=== PATIENT | female | born 1955 | race Two or more races ===

== ENCOUNTER 2023-04-04 06:32 | Outpatient (OUT) | payer MEDICARE, SELFPAY ==
[2023-04-04 06:51] LABS: Hematocrit 44.4 % (36.0-48.0); Hemoglobin 14.5 g/dL (12.0-16.0); Mean Corpuscular HGB Conc 32.7 g/dL (29.9-35.2); Mean Corpuscular Hemoglobin 30.1 pg (26.7-34.0); Mean Corpuscular Volume 92.3 fL (81.0-99.0); Mean Platelet Volume 10.3 fL (9.5-13.5); Platelet Count 267 10^3/uL (150-450); Red Blood Count 4.81 10^6/uL (4.20-5.40); Red Cell Distribution Width 12.7 % (11.0-15.0); White Blood Count 9.3 10^3/uL (4.0-11.0)
[2023-04-04 07:02] LABS: Bilirubin Urine NEGATIVE (NEGATIVE); Blood Urine NEGATIVE (NEGATIVE); Clarity Urine CLEAR (CLEAR); Color Urine LT. YELLOW (YELLOW); Glucose Urine UA NEGATIVE (NEGATIVE); Ketones Urine NEGATIVE (NEGATIVE); Leukocyte Esterase Urine NEGATIVE (NEGATIVE); Nitrite Urine NEGATIVE (NEGATIVE); Protein Urine NEGATIVE (NEG/TRACE); Urobilinogen Urine 0.2 EU/dL (0.2-1.0)
[2023-04-04 07:19] LABS: Bacteria Urine TRACE #/HPF (NONE SEEN); Cast Seen? NONE SEEN #/LPF (NONE SEEN); Crystals Seen? None Seen #/HPF (None Seen); Mucus Urine NONE SEEN (NONE SEEN); RBC Urine 0-2 #/HPF (0-2); Squamous Epithelial Cell Urine RARE #/LPF (NONE/RARE); WBC Urine 0-2 #/HPF (NONE SEEN)
[2023-04-04 07:33] LABS: Creatinine Urine Random 63.05 mg/dL (20.00-300.00); Total Protein Urine Random <6.0 mg/dL (<=11.9)
[2023-04-04 07:52] LABS: Albumin Level 4.1 g/dL (3.4-5.0); Anion Gap 14.7; BUN Creatinine Ratio 14.3; Calcium 9.6 mg/dL (8.5-10.1); Carbon Dioxide 25.6 mmol/L (21.0-32.0); Chloride 103 mmol/L (98-107); Estimated GFR (African America 48 (>=60); Estimated GFR (Non-African Ame 40 (>=60); Glucose 95 mg/dL (74-106); Potassium 4.3 mmol/L (3.5-5.1); Sodium 139 mmol/L (136-145); Uric Acid 6.4 mg/dL (2.6-6.0)
[2023-04-05 13:07] LABS: PTH, Intact 39 pg/mL (15-65)
== END 2023-04-04 06:33 | disposition home or self-care (01) ==
LOC: LAB 06:32
PROVIDERS: Visit Provider Internal Medicine
DX: I12.9 Hypertensive chronic kidney disease with stage 1 through stage 4 chronic kidney disease, or unspecified chronic kidney disease (principal); N18.32 Chronic kidney disease, stage 3b; N25.81 Secondary hyperparathyroidism of renal origin; K50.90 Crohn's disease, unspecified, without complications
CPT/HCPCS: 36415; 80069; 81001; 82306; 82570; 83735; 83970; 84156; 84550; 85027

== ENCOUNTER 2023-10-24 06:31 | Outpatient (OUT) | payer MEDICARE, SELFPAY ==
[2023-10-24 07:03] LABS: Hematocrit 43.3 % (36.0-48.0); Mean Corpuscular HGB Conc 32.3 g/dL (29.9-35.2); Mean Corpuscular Hemoglobin 29.4 pg (26.7-34.0); Mean Platelet Volume 10.8 fL (9.5-13.5); Platelet Count 257 10^3/uL (150-450); Red Blood Count 4.76 10^6/uL (4.20-5.40); Red Cell Distribution Width 12.7 % (11.0-15.0); White Blood Count 9.7 10^3/uL (4.0-11.0)
[2023-10-24 07:04] LABS: Bilirubin Urine NEGATIVE (NEGATIVE); Blood Urine NEGATIVE (NEGATIVE); Clarity Urine CLEAR (CLEAR); Color Urine YELLOW (YELLOW); Glucose Urine UA NEGATIVE (NEGATIVE); Ketones Urine NEGATIVE (NEGATIVE); Leukocyte Esterase Urine NEGATIVE (NEGATIVE); Nitrite Urine NEGATIVE (NEGATIVE); Protein Urine NEGATIVE (NEG/TRACE); Specific Gravity Urine 1.025 (1.005-1.025); Urobilinogen Urine 0.2 EU/dL (0.2-1.0); pH Urine 5.5 (5.0-9.0)
[2023-10-24 07:32] LABS: Creatinine Urine Random 157.38 mg/dL (20.00-300.00); Protein Creatinine Ratio Urine 0.08; Total Protein Urine Random 12.9 mg/dL (<=11.9)
[2023-10-24 07:36] LABS: Albumin Level 3.9 g/dL (3.4-5.0); Anion Gap 14.8; BUN Creatinine Ratio 11.3; Calcium 9.4 mg/dL (8.5-10.1); Carbon Dioxide 25.3 mmol/L (21.0-32.0); Chloride 104 mmol/L (98-107); Estimated GFR (African America 45 (>=60); Estimated GFR (Non-African Ame 37 (>=60); Glucose 92 mg/dL (74-106); Magnesium 1.9 mg/dL (1.8-2.4); Phosphorus 3.9 mg/dL (2.6-4.7); Potassium 4.1 mmol/L (3.5-5.1); Sodium 140 mmol/L (136-145); Uric Acid 6.8 mg/dL (2.6-6.0)
[2023-10-24 07:40] LABS: Bacteria Urine NONE SEEN #/HPF (NONE SEEN); Cast Seen? NONE SEEN #/LPF (NONE SEEN); Crystals Seen? None Seen #/HPF (None Seen); Mucus Urine NONE SEEN (NONE SEEN); RBC Urine NONE SEEN #/HPF (0-2); Squamous Epithelial Cell Urine NONE SEEN #/LPF (NONE/RARE); WBC Urine NONE SEEN #/HPF (NONE SEEN)
[2023-10-25 11:09] LABS: PTH, Intact 45 pg/mL (15-65)
== END 2023-10-24 06:32 | disposition home or self-care (01) ==
LOC: LAB 06:31
DX: I12.9 Hypertensive chronic kidney disease with stage 1 through stage 4 chronic kidney disease, or unspecified chronic kidney disease (principal); N18.32 Chronic kidney disease, stage 3b; N25.81 Secondary hyperparathyroidism of renal origin; K50.90 Crohn's disease, unspecified, without complications; E79.0 Hyperuricemia without signs of inflammatory arthritis and tophaceous disease
CPT/HCPCS: 36415; 80069; 81001; 82306; 82570; 83735; 83970; 84156; 84550; 85027

== ENCOUNTER 2024-05-20 08:29 | Outpatient (OUT) | payer MEDICARE, SELFPAY ==
--- OUTSIDE RECORDS SUMMARY | 2024-05-20 08:33 | XMS_ITS | CCD ---
Author Organization [facility] Care Team Providers Care Retail Equipment Associate Name Role Phone Sandeep Romeo Unavailable Дмитрий, Michael Unavailable ДМИТРИЙ, MICHAEL Admitting Unavailable ДМИТРИЙ, MICHAEL Attending Unavailable ДМИТРИЙ, MICHAEL Consulting Unavailable MISC, DR BARROW Primary Care Unavailable ДМИТРИЙ, MICHAEL Admitting Unavailable ДМИТРИЙ, MICHAEL Attending Unavailable ДМИТРИЙ, MICHAEL Consulting Unavailable REQUEST, DR MIK LISTED Primary Care Unavaila ble ДМИТРИЙ, MICHAEL Consulting Unavailable ДМИТРИЙ, MICHAEL Admitting Unavailable ДМИТРИЙ, MICHAEL Attending Unavailable MISC, DR BARROW Primary Care Unavailable ДМИТРИЙ, MICHAEL Admitting Unavailable ДМИТРИЙ, MICHAEL Attending Unavailable MISC, DR BARROW Primary Care Unavailable ZIEBER, DR CRISTIAN Warren Consulting Unavailable ДМИТРИЙ, MICHAEL Consulting Unavailable ДМИТРИЙ, MICHAEL Admitting Unavailable ДМИТРИЙ, MICHAEL Attending Unavailable MISC, DR BARROW Consulting Unavailable MISC, DR BARROW Primary Care Unavailable ДМИТРИЙ, MICHAEL Consulting Unavailable Anat Ny Primary Care Physician Unavailable Primary Care Provider UnavailBRIDGETTE Nolen Attending Unavailable BRIDGETTE COOL Attending Unavailable DO Anat Ny Primary Care Provider MD Clyde Garcia Attending Provider [phone] Clyde Garcia Attending Unavailable Clyde Garcia Admitting Unavailable Anat Ny Primary Care Unavailable Anat Ny Admitting Unavailable Anat Ny Attending Unavailable Anat Ny Referring Unavailable Medications Current Medications Medication Drug Class(es) Dates Sig (Normalized) Sig (Original) amLODIPine 10 mg oral tablet (12 sources) Dihydropyridine Calcium Channel Denise Start: 11-01-2023 take 10 mg by mouth once daily in the morning Amlodipine Active 10 MG PO Every morning November 01, 2023 12:00am amLODIPine Benzo ate 1 MG/ML suspension amLODIPine Benzoate 0 Active take 1 tablet by mouth once lawrence y amLODIPine Besylate 10 MG 1 tablet Orally Once a day for 90 day(s) Active aspirin 81 mg delayed release oral tablet (12 sources) Platelet Aggregation Inhibitor, Nonsteroidal Anti-inflammatory Drug Start: 11-01-2023 take 81 mg by mouth once daily Aspirin Active 81 MG PO Daily November 01, 2023 12:00am BABY ASPIRIN PO take 1 tablet by loretta th every twenty-four hours Aspirin 81 MG 1 tablet Orally Once a day Active atenolol 100 mg oral tablet (16 sources) beta-Adrenergic Denise Start: 11-01-2023 take 100 mg by mouth once daily in the evening Atenolol Active 100 MG PO Every evening November 01, 2023 12:00am atenolol (Tenorm in) 100 MG tablet take 2 tablets by mo [facility] every twenty-four hours Atenolol 50 MG 2 tablet Orally Once a da y for 90 day(s) Active atorvastatin 10 mg oral tablet (11 sources) HMG-CoA Reductase Inhibitor Start: 11-01-2023 take 10 mg by mouth once daily in the morning Atorvastatin Active 10 MG PO Every morning November 01, 2023 12:00am atorvastatin (Li pitor) 10 MG tablet ergocalciferol 1.25 mg oral capsule (20 sources) Provitamin D2 Compound Start: 09-12-2023 End: 09-12-2023 take 1250 ug by mouth every week Ergocalciferol (Vitamin D2) Active 1250 MCG PO every week September 12, 2023 3:03pm Start: 09-12-2023 End: 09-12-2023 take 1 capsule by mouth every week Ergocalciferol (Vitamin D2) Discontinued 05257 UNIT PO every week September 12, 2023 12:00am September 12, 2023 2:41pm FreeTextSig: TAKE 1 CAPSULE BY MOUTH ONCE WEEKLY; Note: Source Status: Taking; Refills: 1; Qty: 14 Capsule; Provider: Дмитрий Rodriguez ( ) Start: 07-25-2021 take 1 capsule by mo [facility] every week Ergocalciferol 1.25 MG (56287 UT) 1 capsule Orally Q week for 90 day(s) Jun, Active estradiol 0.5 mg oral tablet (4 sources) Estrogen take 1 tablet by mouth every twenty-four hours Estradiol 0.5 MG 1 tablet Orally Once a day Active lisinopril 40 mg oral tablet (12 sources) Angiotensin Converting Enzyme Inhibitor Start: take 40 mg by mouth once daily in the morning Lisinopril Active 40 MG PO Every morning November 01, 2023 12:00am take 1 tablet by mouth in the mo rning lisinopril 40 MG tablet Take 40 mg by mouth in the morning. 0 Active mesalamine (1 source) Aminosalicylate Start: 12-19-2023 take 4 capsules by mouth once daily in the morning Mesalamine (Apriso) 0.375 gram capsule,extended release 24hr Active 1.5 GM PO Every morning 120 December 19, 2023 12:00am Take 4 capsule orally in the morning. pantoprazole 20 mg delayed release oral tablet (12 sources) Proton Pump Inhibitor Start: 11-01-2023 take 20 mg by mouth once daily in the morning Pantoprazole Active 20 MG PO Every morning November 01, 2023 12:00am pantoprazole (Pr otoNix) 20 MG EC tablet Pantoprazole Sodium 0 Active Pantoprazole Sod ium 40 MG TAKE 1 TABLET BY MOUTH EVERY DAY Oral Once a day for 30 days Active Polyethylene Glycol 3350 (Miralax) 17 gram/dose powder (3 sources) Start: 11-13-2023 Polyethylene G lycol 3350 (Miralax) 17 gram/dose powder Active 17 GM PO Daily 510 November 13, 2023 12:00am Completed/Discontinued Medications Medication Drug Class(es) Dates Sig (Normalized) Sig (Original) acetaminophen 325 mg / HYDROcodone bitartrate 5 mg oral tablet (4 sources) Opioid Agonist Start: 08-04-2020 End: 11-01-2023 take 1 tablet by mouth every six hours Hydrocodone-Acetam inophen Discontinued 1 TAB PO Q6H 10 3 August 04, 2020 November 01, 2023 2:31pm ondansetron 4 mg disintegrating oral tablet (4 sources) Serotonin-3 Receptor Antagonist Start: 08-04-2020 End: 11-01-2023 take 4 mg by mouth four times daily Ondansetron Discontinued 4 MG PO Four times daily August 04, 2020 1:00am November 01, 2023 2:31pm Problems Active Problems Problem Classification Problem Date Documented Date Episodic/Chronic Abdominal pain (12 sources) Left lower quadrant pain; Translations: [Left lower quadrant pain] Episodic Chronic kidney disease (19 sources) Chronic kidney disease; Translations: [Chronic kidney disease, unspecified] 11-01-2023 Chronic Disorders of lipid metabolism (8 sources) Hyperlipidemia; Translations: [Hyperlipidemia, unspecified] 11-01-2023 Chronic Diverticulosis and diverticulitis (6 sources) Diverticular disease of colon; Translations: [Diverticulosis of large intestine without perforation or abscess without bleeding] Chronic Esophageal disorders (12 sources) Gastro-esophageal reflux disease with esophagitis; Translations: [Gastro-esophageal reflux disease with esophagitis] 11-13-2023 Chronic Gastroduodenal ulcer (except hemorrhage) (6 sources) Antral ulcer; Translations: [Gastric ulcer, unspecified as acute or chronic, without hemorrhage or perforation] Chronic Hypertension with complications and secondary hypertension (20 sources) Chronic kidney disease due to hypertension; Translations: [Hypertensive chronic kidney disease with stage 1 through stage 4 chronic kidney disease, or unspecified chronic kidney disease] Onset: 2 Resolved: 2 Chronic Nausea and vomiting (6 sources) Vomiting; Translations: [Vomiting, unspecified] Episodic Noninfectious gastroenteritis (4 sources) Colitis; Translations: [Noninfective gastroenteritis and colitis, unspecified] 06-06-2023 Episodic Other diseases of kidney and ureters (10 sources) Secondary hyperparathyroidism; Translations: [Secondary hyperparathyroidism of renal origin] 11-01-2023 Chronic Other diseases of kidney and ureters (9 sources) Secondary hyperparathyroidism of renal origin; Translations: [Secondary hyperparathyroidism (of renal origin)] Onset: 2 Resolved: 2 Chronic Other gastrointestinal disorders (6 sources) H/O: gastrointestinal disease; Translations: [Personal history of other diseases of the digestive system] Episodic Other nutritional; endocrine; and metabolic disorders (6 sources) Hyperuricemia without signs of inflammatory arthritis and tophaceous disease; Translations: [Other abnormal blood chemistry] Episodic Other nutritional; endocrine; and metabolic disorders (4 sources) Hyperuricemia; Translations: [Hyperuricemia without signs of inflammatory arthritis and tophaceous disease] 11-01-2023 Episodic Other screening for suspected conditions (not mental disorders or infectious disease) (1 source) Encounter for screening for malignant neoplasm of colon; Translations: [Encounter for screening for malignant neoplasm of colon] Onset: 4 Episodic Other skin disorders (2 sources) Inflamed seborrheic keratosis; Translations: [Inflamed seborrheic keratosis] 08-08-2023 Episodic Regional enteritis and ulcerative colitis (20 sources) Crohn's disease; Translations: [Crohn's disease, unspecified, without complications] Onset: 2 Resolved: 2 Chronic Past or Other Problems Problem Classification Problem Date Documented Da te Episodic/Chronic Chronic kidney disease (6 sources) Chronic kidney disease; Translations: [Chronic kidney disease, stage 3b] Onset: 01-16-2022 Resolved: 01-16-2022 Results Test Name Value Interpretation Reference Range Facility BD Bone Density DEXAon 04-12 BD Bone Density DEXA Exam Date/Time: 04/10/2024 08:20 EDT Reason for Exam: M85.89 Report IMPRESSION: OSTEOPENIA. The 10 year probability (FRAX) of a major osteoporotic fracture based on the left femoral neck bone marrow density is: 8.9%, and hip fracture 0.9%. EXAM: BD Bone Density DEXA DATE: 04/10/2024 8:15 AM CLINICAL HISTORY: M85.89. COMPARISON: 04/06/2022. COMMENTS: The lumbar spine and both hips were scanned. The mean bone mineral density from L1 to L4 is 1.221 g/cm2 and this value is 0.3 standard of deviation above the standard reference value for a young adult. Bone mineral density of the left femoral neck is 0.860 g/cm2 and this value is -1.3 standard of deviation below the standard reference value. Bone mineral density of the right femoral neck is 0.906 g/cm2 and this value is -1.0 standard of deviation below the standard reference value. These values meet WHO criteria for osteopenia. When compared to the prior exam, there has been a significant -3.7% decrease in bone mineral density from L1 to L4, a nonsignificant -4.1% decrease in bone mineral density of the left femoral neck, and a nonsignificant -0.4% decrease in bone mineral density of the right femoral neck. RECOMMENDATIONS: 1. All patients should optimize her calcium and vitamin D intake. 2. Consider FDA-approved medical therapies in postmenopausal women and minimal age 50 years and older, based on the following: - hip or vertebral (clinical or morphometric) fracture. - T-score less than or equal to -2.5 at the femoral neck or spine after the appropriate evaluation to exclude secondary causes. - Low bone density (T score between -1.0 and -2.5 at the femoral neck or spine) and a 10 year probability of hip fracture greater than or equal to 3% or a 10-year probability of a major osteoporosis-related fracture greater than or equal to 20% based on FRAX calculation. Report - Clinician judgment and/or patient preferences may indicate treatment for palpable attenuation fracture probability is above or below these levels. - Further guidance on treatment can be found at the National Osteoporosis Foundation's website: bonesource.org 3. Patients with diagnosis of osteoporosis or high risk for fracture. There are irregular bone mineral density tests. For patients eligible for Medicare, routine testing is allowed once every 2 years. Testing frequency can be increased to 1 year for patient's history of rapidly progressing disease, those who are receiving or discontinuing medical therapy to restore bone mass or have additional risk factors. Ordering Provider: Anat Ny FINAL REPORT Dictated: 04/12/2024 9:36 am Ovidio Bunch MD Signed (Electronic Signature): 04/12/2024 9:36 am Signed by: Ovidio Bunch MD Transcribed by: ARNULFO Technologist: NELL Garay [facility] MA Mamm Screen w/CAD if perf and 3D Bilon 04-12-2024 MA Mamm Screen w/CAD if perf and 3D Marck Exam Date/Time: 04/10/2024 08:15 EDT Reason for Exam: Z12.31 Report IMPRESSION: BIRADS 1 NEGATIVE, NORMAL INTERVAL FOLLOW-UP Follow-up: 12 MONTH RECALL Density: Category C - Heterogeneously dense. Vascular calcifications: Absent. EXAM: MA Mamm Screen w/CAD if perf and 3D Marck DATE: 04/10/2024 7:56 AM CLINICAL HISTORY: Z12.31. COMPARISONS: 04/09/2023, 04/06/2022, and 12/14/2020. TECHNIQUE: Routine full-field digital mammograms and 3D breast tomosynthesis were obtained of both breasts. FINDINGS: There are no developing densities, suspicious microcalcifications, or areas of architectural distortion identified on the current study. No significant changes are identified from the prior studies, given differences in technique and positioning. Dense Breast: Yes. CAD analysis was performed and used in the interpretation. Board Certified Radiologists. Accredited by the ACR and FDA. MAMMOGRAPHY IS VERY IMPORTANT TO YOUR HEALTH. THE CURRENT [place] [employer] GUIDELINES RECOMMENDS ANNUAL MAMMOGRAPHY BEGINNING AT AGE 40. THIS FACILITY UTILIZES A REMINDER SYSTEM TO ENSURE ALL PATIENTS RECEIVE REMINDER NOTIFICATIONS AT THE APPROPRIATE TIME BASED ON THE RECOMMENDATIONS OF THIS EXAM. Report Ordering Provider: Anat Ny FINAL REPORT Dictated: 04/12/2024 9:34 am Ovidio Bunch MD Signed (Electronic Signature): 04/12/2024 9:34 am Signed by: Ovidio Bunch MD Transcribed by: ARNULFO Technologist: [facility] Assessment: BI-RADS Category 1-Negative Recommendation: Normal interval follow-up Normal [facility] Kenny 12-03-2023 L Specimen: [id number] Received: 12/03/23 Status: YING Rodriguez Num: [id number] Spec Type: Surgical Subm Dr: Clyde Garcia MD Tissues: A Colon Biopsy (GEOFF TERMUNAL ILEUM BX) Procedures: HE/2, Gross/Micro L4 Age/ Patient Sex Location Account Attending Physician Darnell Hay 68/F [id number] Clyde Garcia MD SPEC NUM: [id number] RECD: 12/03/23 STATUS: YING RODRIGUEZ NUM: [id number] RODGER: 12/03/[address]: Clyde Garcia MD ENTERED: 12/03/[address] [facility] [address]: SPEC TYPE: Surgical DEPT: S ORDERED: HE/2, Gross/Micro L4 ORDERED: HE/2, Gross/Micro L4 Pathological Diagnosis Neoterminal ileum biopsy: -Small bowel mucosa with mild insignificant stromal chronic inflammation in both fragments, but also with a small focus of mild chronic inflammation with few admixed PMN in lamina propria and at some glandular epithelial layer in 1 fragment, compatible with focal mild erosive ileitis and/or small early ulceration of uncertain significance, otherwise without any glandular dysplasia identified, but requiring continuous clinical correlation and patient surveillance follow-up as appropriate Clinical Information Crohn's disease Gross Description Received in formalin labeled with the patient's name, date of and neoterminal ileum BX are 2 martinez mucosal tissue fragments measuring 0.3 x 0.3 x 0.1 cm and 0.2 x 0.2 x 0.1 cm, entirely submitted in A1. CPT Codes 51856 -------- -------- Specimen: [id number] Received: 12/03/23 Status: YING Rodriguez Num: [id number] Spec Type: Surgical Subm Dr: Clyde Garcia MD Tissues: A Colon Biopsy (GEOFF TERMUNAL ILEUM BX) Procedures: HE/Harry, Gross/Micro L4 -------- Patient: Darnell Hay [id number] (Continued) -------- Signed (signature on file) Calros-Mariusz Flores MD 12/04/23 1853 Normal [facility] No Panel Informationon 08-08 [facility] PTH INTACTon 09-20-2022 PTH, Intact 69 pg/mL Critically high 15-65 [facility] Comment on above: Performed By: #### P THINT #### [facility] [address] [place] [address] Dr. Lamin Flores HEMOGRAM AND PLATELon 2022 Hematocrit (Bld) [Volume fraction] 44.1 % Normal 36.0-48.0 [facility] Comment on above: Performed By: #### R ENAL, MG, URIC #### [facility] [address] [place] [address] Dr. Lamin Flores Hemoglobin (Bld) [Mass/Vol] 14.7 g/dL Normal 12.0-16.0 [facility] Comment on above: Performed By: #### R ENAL, MG, URIC #### [facility] [address] [place] [address] Dr. Lamin Flores MCH (RBC) [Entitic mass] 29.9 pg Normal 26.7-34.0 [facility] Comment on above: Performed By: #### R ENAL, MG, URIC #### [facility] [address] [place] [address] Dr. Lamin Flores MCHC (RBC) [Mass/Vol] 33.3 g/dL Normal 29.9-35.2 [facility] Comment on above: Performed By: #### R ENAL, MG, URIC #### [facility] [address] [place] [address] Dr. Lamin Flores MCV (RBC) [Entitic vol] 89.6 fL Normal 81.0-99.0 [facility] Comment on above: Performed By: #### R ENAL, MG, URIC #### [facility] [address] [place] [address] Dr. Lamin Flores PLT 290 103/ul Normal 150-450 [facility] Comment on above: Performed By: #### R ENAL, MG, URIC #### [facility] [address] [address] [address] Lamin Flores RBC 4.92 106/ul Normal 4.20-5.40 [facility] Comment on above: Performed By: #### R ENAL, MG, URIC #### [facility] [address] [place] [address] Dr. Lamin Flores WBC 11.8 103/ul Critically high 4.0-11.0 [facility] Comment on above: Performed By: #### R ENAL, MG, URIC #### [facility] [address] [place] [address] Dr. Lamin Flores MAGNESIUMon 09-19-2022 Magnesium [Mass/Vol] 1.9 mg/dL Normal 1.8-2.4 [facility] Comment on above: Performed By: #### R ENAL, MG, URIC #### [facility] [address] [place] [address] Dr. Lamin Flores RENAL FUNCTION PANELon 09-19 Albumin [Mass/Vol] 4.3 g/dL Normal 3.4-5.0 [facility] Comment on above: Performed By: #### R ENAL, MG, URIC #### [facility] [address] [place] [address] Dr. Lamin Flores Calcium [Mass/Vol] 9.7 mg/dL Normal 8.5-10.1 [facility] Comment on above: Performed By: #### R ENAL, MG, URIC #### [facility] [address] [place] [address] Dr. Lamin Flores Chloride [Moles/Vol] 103 mmol/L Normal 98-107 [facility] Comment on above: Performed By: #### R ENAL, MG, URIC #### [facility] [address] [address] [address] Lamin Flores CO2 [Moles/Vol] 27.4 mmol/L Normal 21.0-32.0 [facility] Comment on above: Performed By: #### R ENAL, MG, URIC #### [facility] [address] [place] [address] Dr. Lamin Flores Creatinine [Mass/Vol] 1.44 mg/dL Critically high 0.55-1.02 [facility] Comment on above: Performed By: #### R ENAL, MG, URIC #### [facility] [address] [place] [address] Dr. Lamin Flores EGFR-AF [place] 44 mL/min/1.73m2 Critically low >=60 [facility] Comment on above: Performed By: #### R ENAL, MG, URIC #### [facility] [address] [place] [address] Dr. Lamin Flores EGFR-NON AF [place] 36 mL/min/1.73m2 Critically low >=60 [facility] Comment on above: Performed By: #### R ENAL, MG, URIC #### [facility] [address] [place] [address] Dr. Lamin Flores Glucose [Mass/Vol] 99 mg/dL Normal 74-[address] [facility] Comment on above: Performed By: #### R ENAL, MG, URIC #### [facility] [address] [place] [address] Dr. Lamin Flores Phosphate [Mass/Vol] 3.9 mg/dL Normal 2.6-4.7 [facility] Comment on above: Performed By: #### R ENAL, MG, URIC #### [facility] [address] [place] [address] Dr. Lamin Flores Potassium [Moles/Vol] 4.3 mmol/L Normal 3.5-5.1 [facility] Comment on above: Performed By: #### R ENAL, MG, URIC #### [facility] [address] [address] [address] Lamin Flores Sodium [Moles/Vol] 143 mmol/L Normal 136-145 [facility] Comment on above: Performed By: #### R ENAL, MG, URIC #### [facility] [address] [place] [address] Dr. Lamin Flores Urea nitrogen [Mass/Vol] 19.0 mg/dL Critically high 7.0-18.0 [facility] Comment on above: Performed By: #### R ENAL, MG, URIC #### [facility] [address] [place] [address] Dr. Lamin Flores UA RANDOM W/MICROSCOPICon BACTERIA TRACE Abnormal NONE SEEN [facility] Comment on above: Performed By: #### R ENAL, MG, URIC #### [facility] [address] [place] [address] Dr. Lamin Flores Bilirubin Ql (U) Negative Normal NEGATIVE [facility] Comment on above: Performed By: #### R ENAL, MG, URIC #### [facility] [address] [place] [address] Dr. Lamin Flores CAST NONE SEEN Normal NONE SEEN [facility] Comment on above: Performed By: #### R ENAL, MG, URIC #### [facility] [address] [place] [address] Dr. Lamin Flores Clarity (U) CLEAR Normal CLEAR [facility] Comment on above: Performed By: #### R ENAL, MG, URIC #### [facility] [address] [place] [address] Dr. Lamin Flores Color (U) LT. YELLOW Normal YELLOW [facility] Comment on above: Performed By: #### R ENAL, MG, URIC #### [facility] [address] [place] [address] Dr. Lamin Flores Crystals LM Nom (Urine sed) NONE SEEN Normal NONE SEEN [facility] Comment on above: Performed By: #### R ENAL, MG, URIC #### [facility] [address] [place] [address] Dr. Lamin Flores Epithelial cells LM Ql (Urine sed) MODERATE Abnormal NONE SEEN /RARE [facility] Comment on above: Performed By: #### R ENAL, MG, URIC #### [facility] [address] [place] [address] Dr. Lamin Flores Glucose Ql (U) Negative Normal NEGATIVE [facility] Comment on above: Performed By: #### R ENAL, MG, URIC #### [facility] [address] [address] [address] Lamin Flores Hemoglobin Ql (U) Negative Normal NEGATIVE [facility] Comment on above: Performed By: #### R ENAL, MG, URIC #### [facility] [address] [address] [address] Lamin Flores Ketones Ql (U) Negative Normal NEGATIVE [facility] Comment on above: Performed By: #### R ENAL, MG, URIC #### [facility] [address] [place] [address] Dr. Lamin Flores LEUKOCYTES Negative Normal NEGATIVE [facility] Comment on above: Performed By: #### R ENAL, MG, URIC #### [facility] [address] [place] [address] Dr. Lamin Flores MUCOUS NONE SEEN Normal NONE SEEN [facility] Comment on above: Performed By: #### R ENAL, MG, URIC #### [facility] [address] [place] [address] Dr. Lamin Flores Nitrite Ql (U) Negative Normal NEGATIVE [facility] Comment on above: Performed By: #### R ENAL, MG, URIC #### [facility] [address] [place] [address] Dr. Lamin Flores pH (U) 6.0 [pH] Normal 5-9 [facility] Comment on above: Performed By: #### R ENAL, MG, URIC #### [facility] [address] [place] [address] Dr. Lamin Flores RBC NONE SEEN Abnormal 0-2 [facility] Comment on above: Performed By: #### R ENAL, MG, URIC #### [facility] [address] [place] [address] Dr. Lamin Flores SPEC GRAVITY <=1.005 Abnormal 1.005-<=1.025 [facility] Comment on above: Performed By: #### R ENAL, MG, URIC #### [facility] [address] [place] [address] Dr. Lamin Flores UA PROTEIN Negative Normal NEGATIVE/ TRACE [facility] Comment on above: Performed By: #### R ENAL, MG, URIC #### [facility] [address] [address] [address] Lamin Flores Urobilinogen Qn (U) 0.2 {Lolis'U}/dL Normal 0.2 - 1. 0 [facility] Comment on above: Performed By: #### R ENAL, MG, URIC #### [facility] [address] [place] [address] Dr. Lamin Flores WBC NONE SEEN Normal NONE SEEN [facility] Comment on above: Performed By: #### R ENAL, MG, URIC #### [facility] [address] [place] [address] Dr. Lamin Flores URIC ACID SERUMon 09-19-2022 Urate [Mass/Vol] 6.6 mg/dL Critically high 2.6-6.0 [facility] Comment on above: Performed By: #### R ENAL, MG, URIC #### [facility] [address] [place] [address] Dr. Lamin Flores URINE T PROTEIN CREAT RATIOo n 09-19-2022 UR PROT CREAT RAT 0.22 Normal [facility] Comment on above: Performed By: #### R ENAL, MG, URIC #### [facility] [address] [place] [address] Dr. Lamin Flores UR TOTAL PROTEIN <6.0 Normal <=12.0 [facility] Comment on above: Performed By: #### R ENAL, MG, URIC #### [facility] [address] [place] [address] Dr. Lamin Flores URINE CREAT 27.42 mg/dL Normal 20.00-300.00 [facility] Comment on above: Performed By: #### R ENAL, MG, URIC #### [facility] [address] [address] [address] Lamin Flores VITAMIN D 25 OHon 09-19-2022 VIT D 25-OH 49.4 ng/mL Normal [facility] Comment on above: Performed By: #### V ITAD #### [facility] [address] [address] [address] Lamin Flores VIT D RANGES SEE BELOW Normal [facility] Comment on above: Result Comment: <20 ng/mL Vit D deficient 20 - <30 ng/mL Vit D insufficient 30 - 100 ng/mL Vit D sufficient >100 ng/mL Potential Toxicity Performed By: #### V ITAD #### [facility] [address] [address] [address] Lamin Flores US KIDNEYSon 07-26-2022 US KIDNEYS EXAMINATION: US KIDNEYS HISTORY: CKD stage 3B COMPARISON: Ultrasound kidneys 05/12/2021 TECHNIQUE: Ultrasound examination was performed of the kidneys and urinary bladder. FINDINGS: RIGHT KIDNEY: No evidence of pelvocaliectasis, mass, or calculi. Slight increased cortical parenchymal echogenicity and mild cortical thinning, 1.1 cm in thickness. Color Doppler demonstrates blood flow within the kidney. Kidney: 8.5 x 3.8 x 3.8 cm LEFT KIDNEY: No evidence of pelvocaliectasis, mass, or calculi. Slightly increased cortical parenchymal echogenicity and mild cortical thinning, 0.9 cm in thickness. Color Doppler demonstrates blood flow within the kidney. Kidney: 7.7 x 5.2 x 4.7 cm BLADDER: No visible wall thickening, mass, or calculi. IMPRESSION: 1. No hydronephrosis, mass, or appreciable calculi. 2. Stable mild cortical thinning and increased echogenicity compatible with chronic renal disease. Electronically authenticated by: CRISTIAN HAWKINS Date: 2022-07-26 07:37 Normal [facility] RENAL FUNCTION PANELon 07-24 Albumin [Mass/Vol] 4.0 g/dL Normal 3.4-5.[address] [facility] Comment on above: Performed By: #### R ENAL, MG, URIC #### [facility] [address] [address] [address] Lamin Flores Calcium [Mass/Vol] 9.1 mg/dL Normal 8.5-10.1 [facility] Comment on above: Performed By: #### R ENAL, MG, URIC #### [facility] [address] [address] [address] Lamin Flores Chloride [Moles/Vol] 100 mmol/L Normal 98-107 [facility] Comment on above: Performed By: #### R ENAL, MG, URIC #### [facility] [address] [address] [address] Lamin Flores CO2 [Moles/Vol] 26.2 mmol/L Normal 21.0-32.0 [facility] Comment on above: Performed By: #### R ENAL, MG, URIC #### [facility] [address] [address] [address] Lamin Flores Creatinine [Mass/Vol] 1.40 mg/dL Critically high 0.55-1.02 [facility] Comment on above: Performed By: #### R ENAL, MG, URIC #### [facility] [address] [address] [address] Lamin Flores EGFR-AF RWANDAN 46 mL/min/1.73m2 Critically low >=60 [facility] Comment on above: Performed By: #### R ENAL, MG, URIC #### [facility] [address] [address] [address] Lamin Flores EGFR-NON AF RWANDAN 38 mL/min/1.73m2 Critically low >=60 [facility] Comment on above: Performed By: #### R ENAL, MG, URIC #### [facility] [address] [address] [address] Lamin Flores Glucose [Mass/Vol] 94 mg/dL Normal 74-106 [facility] Comment on above: Performed By: #### R ENAL, MG, URIC #### [facility] [address] [address] [address] Lamin Flores Phosphate [Mass/Vol] 3.5 mg/dL Normal 2.6-4.7 [facility] Comment on above: Performed By: #### R ENAL, MG, URIC #### [facility] [address] [address] [address] Lamin Flores Potassium [Moles/Vol] 4.2 mmol/L Normal 3.5-5.1 [facility] Comment on above: Performed By: #### R ENAL, MG, URIC #### [facility] [address] [place] [address] Dr. Lamin Flores Sodium [Moles/Vol] 135 mmol/L Critically low 136-145 [facility] Comment on above: Performed By: #### R ENAL, MG, URIC #### [facility] [address] [place] [address] Dr. Lamin Flores Urea nitrogen [Mass/Vol] 18.0 mg/dL Normal 7.0-18.0 [facility] Comment on above: Performed By: #### R ENAL, MG, URIC #### [facility] [address] [place] [address] Dr. Lamin Flores PTH INTACTon 07-18-2022 PTH, Intact 49 pg/mL Normal 15-65 [facility] Comment on above: Performed By: #### R ENAL, MG, URIC #### [facility] [address] [place] [address] Dr. Lamin Flores HEMOGRAM AND PLATELon 2022 Hematocrit (Bld) [Volume fraction] 42.0 % Normal 36.0-48.0 [facility] Comment on above: Performed By: #### R ENAL, MG, URIC #### [facility] [address] [place] [address] Dr. Lamin Flores Hemoglobin (Bld) [Mass/Vol] 14.4 g/dL Normal 12.0-16.0 [facility] Comment on above: Performed By: #### R ENAL, MG, URIC #### [facility] [address] [place] [address] Dr. Lamin Flores MCH (RBC) [Entitic mass] 29.4 pg Normal 26.7-34.0 [facility] Comment on above: Performed By: #### R ENAL, MG, URIC #### [facility] [address] [place] [address] Dr. Lamin Flores MCHC (RBC) [Mass/Vol] 34.3 g/dL Normal 29.9-35.2 [facility] Comment on above: Performed By: #### R ENAL, MG, URIC #### [facility] [address] [place] [address] Dr. Lamin Flores MCV (RBC) [Entitic vol] 85.7 fL Normal 81.0-99.0 [facility] Comment on above: Performed By: #### R ENAL, MG, URIC #### [facility] [address] [place] [address] Dr. Lamin Flores PLT 300 103/ul Normal 150-450 [facility] Comment on above: Performed By: #### R ENAL, MG, URIC #### [facility] [address] [place] [address] Dr. Lamin Flores RBC 4.90 106/ul Normal 4.20-5.40 [facility] Comment on above: Performed By: #### R ENAL, MG, URIC #### [facility] [address] [place] [address] Dr. Lamin Flores WBC 11.1 103/ul Critically high 4.0-11.0 [facility] Comment on above: Performed By: #### R ENAL, MG, URIC #### [facility] [address] [place] [address] Dr. Lamin Flores MAGNESIUMon 07-17-2022 Magnesium [Mass/Vol] 1.9 mg/dL Normal 1.8-2.4 [facility] Comment on above: Performed By: #### R ENAL, MG, URIC #### [facility] [address] [place] [address] Dr. Lamin Flores RENAL FUNCTION PANELon 07-17 Albumin [Mass/Vol] 4.2 g/dL Normal 3.4-5.[address] [facility] Comment on above: Performed By: #### R ENAL, MG, URIC #### [facility] [address] [address] [address] Lamin Flores Calcium [Mass/Vol] 9.3 mg/dL Normal 8.5-10.1 [facility] Comment on above: Performed By: #### R ENAL, MG, URIC #### [facility] [address] [address] [address] Lamin Flores Chloride [Moles/Vol] 99 mmol/L Normal 98-107 [facility] Comment on above: Performed By: #### R ENAL, MG, URIC #### [facility] [address] [address] [address] Lamin Flores CO2 [Moles/Vol] 26.0 mmol/L Normal 21.0-32.0 [facility] Comment on above: Performed By: #### R ENAL, MG, URIC #### [facility] [address] [address] [address] Lamin Flores Creatinine [Mass/Vol] 1.92 mg/dL Critically high 0.55-1.02 [facility] Comment on above: Performed By: #### R ENAL, MG, URIC #### [facility] [address] [address] [address] Lamin Flores EGFR-AF RWANDAN 32 mL/min/1.73m2 Critically low >=60 [facility] Comment on above: Performed By: #### R ENAL, MG, URIC #### [facility] [address] [address] [address] Lamin Flores EGFR-NON AF RWANDAN 26 mL/min/1.73m2 Critically low >=60 [facility] Comment on above: Performed By: #### R ENAL, MG, URIC #### [facility] [address] [address] [address] Lamin Flores Glucose [Mass/Vol] 90 mg/dL Normal 74-106 [facility] Comment on above: Performed By: #### R ENAL, MG, URIC #### [facility] [address] [address] [address] Lamin Flores Phosphate [Mass/Vol] 5.0 mg/dL Critically high 2.6-4.7 [facility] Comment on above: Performed By: #### R ENAL, MG, URIC #### [facility] [address] [place] [address] Dr. Lamin Flores Potassium [Moles/Vol] 4.3 mmol/L Normal 3.5-5.1 [facility] Comment on above: Performed By: #### R ENAL, MG, URIC #### [facility] [address] [place] [address] Dr. Lamin Flores Sodium [Moles/Vol] 136 mmol/L Normal 136-145 [facility] Comment on above: Performed By: #### R ENAL, MG, URIC #### [facility] [address] [place] [address] Dr. Lamin Flores Urea nitrogen [Mass/Vol] 18.0 mg/dL Normal 7.0-18.0 [facility] Comment on above: Performed By: #### R ENAL, MG, URIC #### [facility] [address] [place] [address] Dr. Lamin Flores UA RANDOM W/MICROSCOPICon BACTERIA TRACE Abnormal NONE SEEN [facility] Comment on above: Performed By: #### R ENAL, MG, URIC #### [facility] [address] [place] [address] Dr. Lamin Flores Bilirubin Ql (U) SMALL Abnormal NEGATIVE [facility] Comment on above: Performed By: #### R ENAL, MG, URIC #### [facility] [address] [place] [address] Dr. Lamin Flores CAST SEEN Abnormal NONE SEEN [facility] Comment on above: Performed By: #### R ENAL, MG, URIC #### [facility] [address] [place] [address] Dr. Lamin Flores Clarity (U) CLEAR Normal CLEAR [facility] Comment on above: Performed By: #### R ENAL, MG, URIC #### [facility] [address] [place] [address] Dr. Lamin Flores Color (U) DK. ORANGE Abnormal YELLOW [facility] Comment on above: Performed By: #### R ENAL, MG, URIC #### [facility] [address] [address] [address] Lamin Flores Crystals LM Nom (Urine sed) NONE SEEN Normal NONE SEEN [facility] Comment on above: Performed By: #### R ENAL, MG, URIC #### [facility] [address] [address] [address] Lamin Flores Epithelial cells LM Ql (Urine sed) MANY Abnormal NONE SEEN /RARE [facility] Comment on above: Performed By: #### R ENAL, MG, URIC #### [facility] [address] [address] [address] Lamin Flores Glucose Ql (U) Negative Normal NEGATIVE [facility] Comment on above: Performed By: #### R ENAL, MG, URIC #### [facility] [address] [address] [address] Lamin Flores Hemoglobin Ql (U) Negative Normal NEGATIVE [facility] Comment on above: Performed By: #### R ENAL, MG, URIC #### [facility] [address] [address] [address] Lamin Flores HYALINE CAST FEW Normal [facility] Comment on above: Performed By: #### R ENAL, MG, URIC #### [facility] [address] [address] [address] Lamin Flores Ketones Ql (U) TRACE Abnormal NEGATIVE [facility] Comment on above: Performed By: #### R ENAL, MG, URIC #### [facility] [address] [address] [address] Lamin Flores LEUKOCYTES Negative Normal NEGATIVE [facility] Comment on above: Performed By: #### R ENAL, MG, URIC #### [facility] [address] [address] [address] Lamin Flores MUCOUS NONE SEEN Normal NONE SEEN [facility] Comment on above: Performed By: #### R ENAL, MG, URIC #### [facility] [address] [address] [address] Lamin Flores Nitrite Ql (U) Negative Normal NEGATIVE [facility] Comment on above: Performed By: #### R ENAL, MG, URIC #### [facility] [address] [address] [address] Lamin Flores pH (U) 5.0 [pH] Normal 5-9 [facility] Comment on above: Performed By: #### R ENAL, MG, URIC #### [facility] [address] [address] [address] Lamin Flores RBC NONE SEEN Abnormal 0-2 [facility] Comment on above: Performed By: #### R ENAL, MG, URIC #### [facility] [address] [address] [address] Lamin Flores SPEC GRAVITY >=1.030 Abnormal 1.005-<=1.025 [facility] Comment on above: Performed By: #### R ENAL, MG, URIC #### [facility] [address] [address] [address] Lamin Flores UA PROTEIN TRACE Normal NEGATIVE/ TRACE [facility] Comment on above: Performed By: #### R ENAL, MG, URIC #### [facility] [address] [address] [address] Lamin Flores Urobilinogen Qn (U) 1.0 {Lolis'U}/dL Normal 0.2 - 1. 0 [facility] Comment on above: Performed By: #### R ENAL, MG, URIC #### [facility] [address] [address] [address] Lamin Flores WBC 0-2 Abnormal NONE SEEN [facility] Comment on above: Performed By: #### R ENAL, MG, URIC #### [facility] [address] [address] [address] Lamin Flores URIC ACID SERUMon 07-17-2022 Urate [Mass/Vol] 6.8 mg/dL Critically high 2.6-6.0 [facility] Comment on above: Performed By: #### R ENAL, MG, URIC #### [facility] [address] [place] [address] Dr. Lamin Flores URINE T PROTEIN CREAT RATIOo n 07-17-2022 Protein (U) [Mass/Vol] 42.6 mg/dL Critically high <=12.0 [facility] Comment on above: Performed By: #### R ENAL, MG, URIC #### [facility] [address] [place] [address] Dr. Lamin Flores UR PROT CREAT RAT 0.12 Normal [facility] Comment on above: Performed By: #### R ENAL, MG, URIC #### [facility] [address] [place] [address] Dr. Lamin Flores URINE CREAT 355.19 mg/dL Critically high 20.00-300.00 [facility] Comment on above: Performed By: #### R ENAL, MG, URIC #### [facility] [address] [place] [address] Dr. Lamin Flores VITAMIN D 25 OHon 07-17-2022 VIT D 25-OH 47.3 ng/mL Normal [facility] Comment on above: Performed By: #### R ENAL, MG, URIC #### [facility] [address] [place] [address] Dr. Lamin Flores VIT D RANGES SEE BELOW Normal [facility] Comment on above: Result Comment: <20 ng/mL Vit D deficient 20 - <30 ng/mL Vit D insufficient 30 - 100 ng/mL Vit D sufficient >100 ng/mL Potential Toxicity Performed By: #### R ENAL, MG, URIC #### [facility] [address] [place] [address] Dr. Lamin Flores PTH INTACTon 01-10-2022 PTH, Intact 57 pg/mL Normal 15-65 [facility] Comment on above: Performed By: #### P THINT #### [facility] [address] [place] [address] Dr. Lamin Flores CBC AUTO DIFFon 01-09-2022 BASO # 0.0 103/ul Normal 0.0-0.1 [facility] Comment on above: Performed By: #### R ENAL, MG, URIC #### [facility] [address] [place] [address] Dr. Lamin Flores Basophils/100 WBC (Bld) 0.4 % Normal 0.2-2.0 [facility] Comment on above: Performed By: #### R ENAL, MG, URIC #### [facility] [address] [place] [address] Dr. Lamin Flores EO # 0.2 103/ul Normal 0.0-0.7 [facility] Comment on above: Performed By: #### R ENAL, MG, URIC #### [facility] [address] [place] [address] Dr. Lamin Flores Eosinophils/100 WBC (Bld) 2.4 % Normal 0.9-7.0 [facility] Comment on above: Performed By: #### R ENAL, MG, URIC #### [facility] [address] [place] [address] Dr. Lamin Flores Erythrocyte distribution width (RBC) [Ratio] 12.8 % Normal 11.0-15.0 [facility] Comment on above: Performed By: #### R ENAL, MG, URIC #### [facility] [address] [place] [address] Dr. Lamin Flores Hematocrit (Bld) [Volume fraction] 44.4 % Normal 36.0-48.0 [facility] Comment on above: Performed By: #### R ENAL, MG, URIC #### [facility] [address] [place] [address] Dr. Lamin Flores Hemoglobin (Bld) [Mass/Vol] 14.4 g/dL Normal 12.0-16.0 [facility] Comment on above: Performed By: #### R ENAL, MG, URIC #### [facility] [address] [place] [address] Dr. Lamin Flores IG # 0.02 10e3/ul Normal 0.00-0.03 [facility] Comment on above: Performed By: #### R ENAL, MG, URIC #### [facility] [address] [place] [address] Dr. Lamin Flores IG % 0.3 % Normal 0.0-0.5 [facility] Comment on above: Performed By: #### R ENAL, MG, URIC #### [facility] [address] [place] [address] Dr. Lamin Flores LYMPH # 2.3 103/ul Normal 1.2-3.8 [facility] Comment on above: Performed By: #### R ENAL, MG, URIC #### [facility] [address] [place] [address] Dr. Lamin Flores Lymphocytes/100 WBC (Bld) 29.2 % Normal 20.5-60.0 [facility] Comment on above: Performed By: #### R ENAL, MG, URIC #### [facility] [address] [place] [address] Dr. Lamin Flores MANUAL DIFF REQ NO Normal [facility] Comment on above: Performed By: #### R ENAL, MG, URIC #### [facility] [address] [place] [address] Dr. Lamin Flores MCH (RBC) [Entitic mass] 29.6 pg Normal 26.7-34.0 [facility] Comment on above: Performed By: #### R ENAL, MG, URIC #### [facility] [address] [place] [address] Dr. Lamin Flores MCHC (RBC) [Mass/Vol] 32.4 g/dL Normal 29.9-35.2 [facility] Comment on above: Performed By: #### R ENAL, MG, URIC #### [facility] [address] [place] [address] Dr. Lamin Flores MCV (RBC) [Entitic vol] 91.2 fL Normal 81.0-99.0 [facility] Comment on above: Performed By: #### R ENAL, MG, URIC #### [facility] [address] [place] [address] Dr. Lamin Flores MONO # 0.4 103/ul Normal 0.3-0.8 [facility] Comment on above: Performed By: #### R ENAL, MG, URIC #### [facility] [address] [place] [address] Dr. Lamin Flores Monocytes/100 WBC (Bld) 4.9 % Normal 1.7-12.0 [facility] Comment on above: Performed By: #### R ENAL, MG, URIC #### [facility] [address] [place] [address] Dr. Lamin Flores NEUT # 5.0 103/ul Normal 1.4-6.5 [facility] Comment on above: Performed By: #### R ENAL, MG, URIC #### [facility] [address] [place] [address] Dr. Lamin Flores Neutrophils/100 WBC (Bld) 62.8 % Normal 43.0-75.0 [facility] Comment on above: Performed By: #### R ENAL, MG, URIC #### [facility] [address] [place] [address] Dr. Lamin Flores Platelet mean volume (Bld) [Entitic vol] 10.7 fL Normal 9.5-13.5 [facility] Comment on above: Performed By: #### R ENAL, MG, URIC #### [facility] [address] [place] [address] Dr. Lamin Flores PLT 246 103/ul Normal 150-450 [facility] Comment on above: Performed By: #### R ENAL, MG, URIC #### [facility] [address] [place] [address] Dr. Lamin Flores RBC 4.87 106/ul Normal 4.20-5.40 [facility] Comment on above: Performed By: #### R ENAL, MG, URIC #### [facility] [address] [place] [address] Dr. Lamin Flores WBC 8.0 103/ul Normal 4.0-11.0 [facility] Comment on above: Performed By: #### R ENAL, MG, URIC #### [facility] [address] [place] [address] Dr. Lamin Flores MAGNESIUMon 01-09-2022 Magnesium [Mass/Vol] 1.7 mg/dL Critically low 1.8-2.4 [facility] Comment on above: Performed By: #### M G, RENAL, URIC #### [facility] [address] [place] [address] Dr. Lamin Flores RENAL FUNCTION PANELon 01-09 Albumin [Mass/Vol] 3.7 g/dL Normal 3.4-5.[address] [facility] Comment on above: Performed By: #### M G, RENAL, URIC #### [facility] [address] [place] [address] Dr. Lamin Flores Calcium [Mass/Vol] 9.0 mg/dL Normal 8.5-10.1 [facility] Comment on above: Performed By: #### M G, RENAL, URIC #### [facility] [address] [place] [address] Dr. Lamin Flores Chloride [Moles/Vol] 105 mmol/L Normal 98-107 [facility] Comment on above: Performed By: #### M G, RENAL, URIC #### [facility] [address] [place] [address] Dr. Lamin Flores CO2 [Moles/Vol] 27.5 mmol/L Normal 21.0-32.0 [facility] Comment on above: Performed By: #### M G, RENAL, URIC #### [facility] [address] [place] [address] Dr. Lamin Flores Creatinine [Mass/Vol] 1.46 mg/dL Critically high 0.55-1.02 [facility] Comment on above: Performed By: #### M G, RENAL, URIC #### [facility] [address] [place] [address] Dr. Lamin Flores EGFR-AF RWANDAN 44 mL/min/1.73m2 Critically low >=60 [facility] Comment on above: Performed By: #### M G, RENAL, URIC #### [facility] [address] [place] [address] Dr. Lamin Flores EGFR-NON AF RWANDAN 36 mL/min/1.73m2 Critically low >=60 [facility] Comment on above: Performed By: #### M G, RENAL, URIC #### [facility] [address] [place] [address] Dr. Lamin Flores Glucose [Mass/Vol] 94 mg/dL Normal 74-106 [facility] Comment on above: Performed By: #### M G, RENAL, URIC #### [facility] [address] [address] [address] Lamin Flores Phosphate [Mass/Vol] 3.8 mg/dL Normal 2.6-4.7 [facility] Comment on above: Performed By: #### M G, RENAL, URIC #### [facility] [address] [place] [address] Dr. Lamin Flores Potassium [Moles/Vol] 4.4 mmol/L Normal 3.5-5.1 [facility] Comment on above: Performed By: #### M G, RENAL, URIC #### [facility] [address] [place] [address] Dr. Lamin Flores Sodium [Moles/Vol] 141 mmol/L Normal 136-145 [facility] Comment on above: Performed By: #### M G, RENAL, URIC #### [facility] [address] [place] [address] Dr. Lamin Flores Urea nitrogen [Mass/Vol] 21.0 mg/dL Critically high 7.0-18.0 The [facility] Comment on above: Performed By: #### M G, RENAL, URIC #### [facility] [address] [place] [address] Dr. Lamin Flores UA RANDOM W/MICROSCOPICon BACTERIA TRACE Abnormal NONE SEEN The [facility] Comment on above: Performed By: #### U AMIC #### [facility] [address] [place] [address] Dr. Lamin Flores Bilirubin Ql (U) Negative Normal NEGATIVE [facility] Comment on above: Performed By: #### U AMIC #### [facility] [address] [place] [address] Dr. Lamin Flores CAST SEEN Abnormal NONE SEEN The [facility] Comment on above: Performed By: #### U AMIC #### [facility] [address] [place] [address] Dr. Lamin Flores Clarity (U) CLEAR Normal CLEAR The [facility] Comment on above: Performed By: #### U AMIC #### [facility] [address] [address] [address] Lamin Flores Color (U) YELLOW Normal YELLOW The [facility] Comment on above: Performed By: #### U AMIC #### [facility] [address] [address] [address] Lamin Flores Crystals LM Nom (Urine sed) NONE SEEN Normal NONE SEEN [facility] Comment on above: Performed By: #### U AMIC #### [facility] [address] [address] [address] Lamin Flores Epithelial cells LM Ql (Urine sed) MODERATE Abnormal NONE SEEN /RARE The [facility] Comment on above: Performed By: #### U AMIC #### [facility] [address] [place] [address] Dr. Lamin Flores Glucose Ql (U) Negative Normal NEGATIVE The [facility] Comment on above: Performed By: #### U AMIC #### [facility] [address] [address] [address] Lamin Flores Hemoglobin Ql (U) Negative Normal NEGATIVE The [facility] Comment on above: Performed By: #### U AMIC #### [facility] [address] [address] [address] Lamin Flores HYALINE CAST RARE Normal The [facility] Comment on above: Performed By: #### U AMIC #### [facility] [address] [address] [address] Lamin Flores Ketones Ql (U) TRACE Abnormal NEGATIVE The [facility] Comment on above: Performed By: #### U AMIC #### [facility] [address] [address] [address] Lamin Flores LEUKOCYTES Negative Normal NEGATIVE The [facility] Comment on above: Performed By: #### U AMIC #### [facility] [address] [address] [address] Lamin Flores MUCOUS NONE SEEN Normal NONE SEEN The [facility] Comment on above: Performed By: #### U AMIC #### [facility] [address] [address] [address] Lamin Flores Nitrite Ql (U) Negative Normal NEGATIVE The [facility] Comment on above: Performed By: #### U AMIC #### [facility] [address] [place] [address] Dr. Lamin Flores pH (U) 5.5 [pH] Normal 5-9 The [facility] Comment on above: Performed By: #### U AMIC #### [facility] [address] [address] [address] Lamin Flores RBC NONE SEEN Abnormal 0-2 The [facility] Comment on above: Performed By: #### U AMIC #### [facility] [address] [place] [address] Dr. Lamin Flores SPEC GRAVITY 1.025 Normal 1.005-<=1.025 The [facility] Comment on above: Performed By: #### U AMIC #### [facility] [address] [place] [address] Dr. Lamin Flores UA PROTEIN Negative Normal NEGATIVE/ TRACE The [facility] Comment on above: Performed By: #### U AMIC #### [facility] [address] [place] [address] Dr. Lamin Flores Urobilinogen Qn (U) 0.2 {Lolis'U}/dL Normal 0.2 - 1. 0 [facility] Comment on above: Performed By: #### U AMIC #### [facility] [address] [place] [address] Dr. Lamin Flores WBC 0-2 Abnormal NONE SEEN The [facility] Comment on above: Performed By: #### U AMIC #### [facility] [address] [place] [address] Dr. Lamin Flores URIC ACID SERUMon 01-09-2022 Urate [Mass/Vol] 6.0 mg/dL Normal 2.6-6.0 [facility] Comment on above: Performed By: #### M G, RENAL, URIC #### [facility] [address] [place] [address] Dr. Lamin Flores URINE T PROTEIN CREAT RATIOo n 01-09-2022 Protein (U) [Mass/Vol] 28.0 mg/dL Critically high <=12.0 The [facility] Comment on above: Performed By: #### R ENAL, MG, URIC #### [facility] [address] [address] [address] Lamin Flores UR PROT CREAT RAT 0.11 Normal [facility] Comment on above: Performed By: #### R ENAL, MG, URIC #### [facility] [address] [address] [address] Lamin Flores URINE CREAT 263.84 mg/dL Normal 20.00-300.00 [facility] Comment on above: Performed By: #### R ENAL, MG, URIC #### [facility] [address] [place] [address] Dr. Lamin Flores VITAMIN D 25 OHon 01-09-2022 VIT D 25-OH 41.6 ng/mL Normal [facility] Comment on above: Performed By: #### R ENAL, MG, URIC #### [facility] [address] [address] [address] Lamin Flores VIT D RANGES SEE BELOW Normal [facility] Comment on above: Result Comment: <20 ng/mL Vit D deficient 20 - <30 ng/mL Vit D insufficient 30 - 100 ng/mL Vit D sufficient >100 ng/mL Potential Toxicity Performed By: #### R ENAL, MG, URIC #### [facility] [address] [address] [address] Lamin Flores Vital Signs Date Time Vital Sign Value Performing Clinician Facility 12-19-2023 13:25-040 Body height 147.32 cm DO [employer] Work Phone: [facility] 12-19-2023 13:25-040 Body mass index (BMI) [Ratio] 29.2 kg/m2 DO Anat [employer] Work Phone: [facility] 12-19-2023 13:25-040 Body weight 63.5 kg DO [employer] Work Phone: [facility] 12-19-2023 13:25-0400 Diastolic blood pressure 78 mm[Hg] DO Anat Yanely Work Phone: [facility] 12-19-2023 13:25-0400 Systolic blood pressure 120 mm[Hg] DO Anat Yanely Work Phone: [facility] 12-03-2023 11:05-0400 Diastolic blood pressure 73 mm[Hg] DO Anat Yanely Work Phone: [facility] 12-03-2023 11:05-0400 Heart rate 61 /min DO Anat Yanely Work Phone: [facility] 12-03-2023 11:05-0400 Respiratory rate 18 /min DO Anat Yanely Work Phone: [facility] 12-03-2023 11:05-0400 SaO2% (BldA) [Mass fraction] 96 % DO Anat Yanely Work Phone: [facility] 12-03-2023 11:05-0400 Systolic blood pressure 117 mm[Hg] DO Anat Yanely Work Phone: [facility] 11-20-2023 07:08-0400 Body height 147.32 cm DO Anat Yanely Work Phone: [facility] 11-20-2023 07:08-0400 Body weight 64 kg DO Anat Yanely Work Phone: [facility] 11-13-2023 10:47-0400 Body height 149.86 cm [facility] 11-13-2023 10:47-0400 Body mass index (BMI) [Ratio] 28.6 kg/m2 [facility] 11-13-2023 10:47-0400 Body weight 64.41 kg [facility] 11-01-2023 14:28-0400 Body height 149.86 cm [facility] 11-01-2023 14:28-0400 Body mass index (BMI) [Ratio] 29.1 kg/m2 [facility] 11-01-2023 14:28-0400 Body temperature 96.5 [degF] [facility] 11-01-2023 14:28-0400 Body weight 65.48 kg [facility] 11-01-2023 14:28-0400 Diastolic blood pressure 86 mm[Hg] [facility] 11-01-2023 14:28-0400 Heart rate 57 /min [facility] 11-01-2023 14:28-0400 Respiratory rate 16 /min [facility] 11-01-2023 14:28-0400 SaO2% (BldA) [Mass fraction] 97 % [facility] 11-01-2023 14:28-0400 Systolic blood pressure 130 mm[Hg] [facility] 04-11-2023 09:40-0400 Body height 149.86 cm Michael Дмитрий Other [facility] Other 04-11-2023 09:40-0400 Body mass index (BMI) [Ratio] 28.27 kg/m2 Michael Дмитрий Other [facility] Other 04-11-2023 09:40-0400 Body temperature 97.1 [degF] Michael Дмитрий Other [facility] Other 04-11-2023 09:40-0400 Body weight 63.5 kg Michael Дмитрий Other [facility] Other 04-11-2023 09:40-0400 Diastolic blood pressure 85 mm[Hg] Michael Дмитрий Other [facility] Other 04-11-2023 09:40-0400 Respiratory rate 18 /min Michael Дмитрий Other [facility] Other 04-11-2023 09:40-0400 SaO2% (BldA) [Mass fraction] 98 % Michael Дмитрий Other [facility] Other 04-11-2023 09:40-0400 Systolic blood pressure 149 mm[Hg] Michael Дмитрий Other [facility] Other 09-28-2022 11:20-0400 Body height 149.86 cm Michael Дмитрий Other [facility] Other 09-28-2022 11:20-0400 Body mass index (BMI) [Ratio] 28.07 kg/m2 Michael Дмитрий Other [facility] Other 09-28-2022 11:20-0400 Body temperature 96.8 [degF] Mcihael Дмитрий Other [facility] Other 09-28-2022 11:20-0400 Body weight 63.05 kg Michael Дмитрий Other [facility] Other 09-28-2022 11:20-0400 Diastolic blood pressure 81 mm[Hg] Michael Дмитрий Other [facility] Other 09-28-2022 11:20-0400 Respiratory rate 18 /min Michael Дмитрий Other [facility] Other 09-28-2022 11:20-0400 SaO2% (BldA) [Mass fraction] 99 % Michael Дмитрий Other [facility] Other 09-28-2022 11:20-0400 Systolic blood pressure 133 mm[Hg] Michael Дмитрий Other [facility] Other 07-24-2022 10:40-0500 Body height 149.86 cm Michael Дмитрий Other [facility] Other 07-24-2022 10:40-0500 Body mass index (BMI) [Ratio] 28.44 kg/m2 Michael Дмитрий Other [facility] Other 07-24-2022 10:40-0500 Body temperature 97.6 [degF] Michael Дмитрий Other [facility] Other 07-24-2022 10:40-0500 Body weight 63.87 kg Michael Дмитрий Other [facility] Other 07-24-2022 10:40-0500 Diastolic blood pressure 91 mm[Hg] Michael Дмитрий Other [facility] Other 07-24-2022 10:40-0500 Respiratory rate 18 /min Michael Дмитрий Other [facility] Other 07-24-2022 10:40-0500 SaO2% (BldA) [Mass fraction] 98 % Michael Дмитрий Other [facility] Other 07-24-2022 10:40-0500 Systolic blood pressure 156 mm[Hg] Michael Дмитрий Other [facility] Other 01-16-2022 16:20-0400 Body height 149.86 cm Michael Дмитрий Other [facility] Other 01-16-2022 16:20-0400 Body mass index (BMI) [Ratio] 27.99 kg/m2 Michael Дмитрий Other [facility] Other 01-16-2022 16:20-0400 Body temperature 97 [degF] Michael Дмитрий Other [facility] Other 01-16-2022 16:20-0400 Body weight 62.87 kg Michael Дмитрий Other [facility] Other 01-16-2022 16:20-0400 Diastolic blood pressure 79 mm[Hg] Michael Дмитрий Other [facility] Other 01-16-2022 16:20-0400 Respiratory rate 18 /min Michael Дмитрий Other [facility] Other 01-16-2022 16:20-0400 SaO2% (BldA) [Mass fraction] 97 % Michael Дмитрий Other [facility] Other 01-16-2022 16:20-0400 Systolic blood pressure 136 mm[Hg] Michael Дмитрий Other [facility] Other Encounters Encounter Date Encounter Type Care Provider Facility Start: 04-10-2024 End: 04-10-2024 ambulatory Anat Kyra Ny Facility:[facility] Start: 04-10-2024 End: 04-10-2024 Patient encounter procedure Anat Ny [facility] Start: 12-19-2023 End: 12-19-2023 ambulatory DO Anat Ny Work Phone: [facility] Work Phone: Start: 12-19-2023 End: 12-19-2023 Patient encounter procedure DO Anat Yanely Work Phone: [facility] Work Phone: Start: 12-03-2023 Non-patient / Non-visit DO Anat Yanely Work Phone: [facility] Work Phone: Start: 12-03-2023 End: 12-03-2023 Admission to same day surgery center DO Anat Yanely Work Phone: [facility] Work Phone: Start: 12-03-2023 End: 12-03-2023 ambulatory DO Anat C Yanely Work Phone: [facility] Work Phone: Start: 11-13-2023 End: 11-13-2023 ambulatory [facility] Work Phone: Start: 11-13-2023 End: 11-13-2023 Patient encounter procedure [facility] G[facility] Work Phone: Start: 11-01-2023 End: 11-01-2023 ambulatory [facility] Work Phone: Start: 11-01-2023 End: 11-01-2023 Patient encounter procedure [facility] Nephrology Justin Work Phone: Start: 09-12-2023 Non-patient / [facility]-visit [facility] Work Phone: Start: 08-08-2023 Bamboo flowsheet Bridgette A Fel ter SENIOR PRODUCT CONSULTANT-NURSE INFORMATICS EDUCATOR Work Phone: [facility] Start: 08-08-2023 Bamboo flowsheet Bridgette A Fel ter SENIOR PRODUCT CONSULTANT-NURSE INFORMATICS EDUCATOR Work Phone: [facility] Start: 08-08-2023 End: 08-08-2023 ambulatory BRIDGETTE A FELTER Not Available Start: 08-08-2023 End: 08-08-2023 Patient encounter procedure Bridgette Slater Felter SENIOR PRODUCT CONSULTANT-NURSE INFORMATICS EDUCATOR Work Phone: [facility] Comment on above: Seborrheic keratosis , inflamed Start: 07-12-2023 End: 07-12-2023 ambulatory BRIDGETTE Slater FELTER Not Available Start: 04-11-2023 End: 04-11-2023 ambulatory Michael Дмитрий Other [facility] Other Start: 04-11-2023 Office outpatient visit 15 minutes Michael Дмитрий [facility] Start: 04-09-2023 End: 04-09-2023 Patient encounter procedure Anat Kyra Ny [facility] Start: 09-28-2022 End: 09-28-2022 ambulatory Michael Дмитрий Other [facility] Other Start: 09-28-2022 Office outpatient visit 25 minutes Michael Дмитрий [facility] Start: 09-19-2022 End: 09-20-2022 ambulatory MICHAEL ДМИТРИЙ Facility:[facility] Start: 07-26-2022 Telephone encounter Michael Дмитрий [facility] Start: 07-26-2022 End: 07-27-2022 ambulatory MICHAEL ДМИТРИЙ [place] [employer] Other Start: 07-24-2022 Office outpatient visit 25 minutes Michael Дмитрий [facility] Start: 07-24-2022 End: 07-25-2022 ambulatory MICHAEL ДМИТРИЙ [place] [employer] Other Start: 07-17-2022 End: 07-18-2022 ambulatory MICHAEL ДМИТРИЙ Facility:[facility] Start: 01-16-2022 End: 01-16-2022 ambulatory Michael Дмитрий Other [facility] Other Start: 01-16-2022 Office outpatient visit 25 minutes Michael Дмитрий [facility] Start: 01-09-2022 End: 01-10-2022 ambulatory MICHAEL ДМИТРИЙ Facility: Start: 09-30-2021 End: 09-30-2021 ambulatory Romeo Hopkins Other [facility] Other Start: 09-30-2021 Telephone encounter Romeo Hopkins [facility] Procedures Date Procedure Procedure Detail Performing Clinician Start: 12-03-2023 Colonoscopy DO Anat ford Work Phone: Start: 08-08-2023 CRYOTHERAPY SKIN LESION 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 SENIOR PRODUCT CONSULTANT-NURSE INFORMATICS EDUCATOR Work Phone: Plan of Treatment Date Care Activity Detail Author Start: 04-15-2024 End: 04-15-2024 Patient encounter procedure 04/15/2024 9:25 AM EDT Office Visit [facility] [address] [place] [address] 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, SENIOR PRODUCT CONSULTANT-NURSE INFORMATICS EDUCATOR [address] [place] [address] [facility] Start: 12-03-[address] [facility] Start: 09-06-2023 End: 09-06-2023 Patient encounter procedure 09/06/2023 9:20 AM EDT Office Visit [facility] [address] [place] [phone] 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, SENIOR PRODUCT CONSULTANT-NURSE INFORMATICS EDUCATOR [address] [place] [address] [facility] Start: 08-08-2023 End: 08-08-2023 Patient encounter procedure 08/08/2023 8:50 AM EST Office Visit [facility] [address] [place] [phone] 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, SENIOR PRODUCT CONSULTANT-NURSE INFORMATICS EDUCATOR [address] [place] [address] Arrived [facility] Comment on above: Arrived Start: 1996 Screening for malignant neoplasm of breast Mammogram [facility] Start: 1956 Screening for malignant neoplasm of colon [facility] Patient Education Hemorrhoids (D C) Diverticulosis (DC) Crohn Disease (DC) Know your Meds [facility] Work Phone: Renal function 2000 panel - Serum or Plasma [facility] Immunizations Immunization Date Immunization Notes Care Provider Fa cility 06-03-2021 COVID-19 mRNA-1273 (Moderna) DO Anat Yanely Work Phone: [facility] 09-28-2020 COVID-19 mRNA-1273 (Moderna) DO Anat Yanely Work Phone: [facility] 08-31-2020 COVID-19 mRNA-1273 (Moderna) DO Anat Yanely Work Phone: [facility] Payers Date Payer Category Payer Private Health Insurance [id number] 2023 Self-pay [id number] 2023 Private Health Insurance [employer] [id number] 2023-Present [address] [place] [address] Supplement [id number] 2023 Private Health Insurance [id number] 2022 Medicare MEDICARE MEDICAR E PART B [id number] 2022-[place] [address] Medicare [id number] 1959 Medicare [id number] 1959 Private Health Insurance [id number] 1959 Unknown [id number] 1956 Unknown [id number]. 593 1956 Unknown [id number]. 593 1956 Unknown [id number]. 593 1956 Unknown [id number]. 593 1956 Unknown [id number]. 593 1956 Unknown [id number]. 1259 1956 Unknown [id number]. 1259 1956 Unknown [id number] 727 Medicaid [id number] Unknown [id number] Unknown [id number] 531 Social History Date Type Detail Facility Unknown if ever smoked [facility] Other Start: 07-12-2023 End: 08-08-2023 Sex Assigned At [facility] Tobacco smoking status No Smoking Status Entered [facility] Start: 05-19-2023 End: 12-03-2023 Tobacco smoking status RIIS Ex-smoker [facility] End: 11-23-1989 History of tobacco use Current smoker [facility] End: 11-23-1989 History of tobacco use Cigarette Smoker [facility] Start: 07-12-2023 End: 08-08-2023 Alcohol intake Lifetime non-drinker (finding) [facility] Start: 07-12-2023 End: 08-08-2023 History of Social function [facility] Start: 05-19-2023 Alcohol Comment caffeine: 1-2 cups per day tea [facility] Start: 1955 Sex Assigned At Not on file N [facility] Start: 05-22-2023 Gender identity Identifies as female gender (finding) [facility] Start: 1955 Sex Assigned At Female F [facility] Goals Date Patient Goal Desired Activity /State Clinical Notes 01-16-2022 to 12-03-2023 Bridgette Bryon Cool, SENIOR PRODUCT CONSULTANT-NURSE INFORMATICS EDUCATOR - 08/08/2023 8:50 AM EST Note Date & Type Note Facility 12-03-2023 Procedure note [facility] 08-08-2023 History of Present illness Narrative Follow up Diagnosis: ISK Location: Left nasal sidewall Last visit: 3 weeks Symptoms: scaly, rough Status: Improved but still there Procedure performed: Liquid Nitrogen Date of procedure: 06/2023 Number of treatments to date: 1 All pertinent medical history, medications, and allergies were reviewed. General Exam: alert , oriented to person, place, and time , normal affect, well appearing Unaccompanied A focused exam completed based on patient reported problems, see below: 1. Seborrheic keratosis, inflamed Left Nasal Sidewall [place] and brown stuck on verrucous scaly papule with surrounding erythema The patient was informed that symptomatic seborrheic keratoses are benign growths that become inflamed, itchy, tender, traumatized, caught on clothing, or bleed. Symptomatic lesions can be treated with cryotherapy or curretage. Thicker lesions treated with cryotherapy may require more than one treatment. The patient was instructed to notify the office if abnormal redness or tenderness develops at the treatment site. Cryotherapy today, see procedure note. Diagnosis: Inflamed seborrheic keratosis Indication: Inflamed Consent: Verbal consent was obtained and risks were discussed, including, but not limited to risks of scarring, darker or spotter pigmentary changes, recurrence, incomplete removal and infection. Method: Liquid nitrogen was used to treat the lesion(s) with two 5-10 second freeze-thaw cycles Number of lesions treated: 1 Post-procedure instructions: Instructions were given orally and in writing. The office will be contacted if the lesion fails to resolve despite treatment, or if a side effect develops such as abnormal crusting, scabbing, redness or tenderness Cryotherapy, skin lesion - Left Nasal Sidewall Next Visit: prn for any new/changing lesions documented in this encounter [facility] 04-11-2023 Evaluation note Encounter Date Diagnosis Assessment Notes Mar, Chronic kidney disease, stage 3b (ICD-10 - N18.32) She has a CKD due to the longstanding hypertension. Her baseline serum creatinine is 1.4 mg/dL mg/dL. I have advised her to adequately hydrate herself to avoid recurrent GONZALO due to the hypovolemia. Her renal ultrasound showed finding consistent with medical renal disease with no evidence of the kidney mass, hydronephrosis or kidney stones.. She has no evidence of hematuria and proteinuria on UA. I discussed with her the importance of adequate hydration and good blood pressure control to surround the progression of CKD. 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 She likely has a component of whitecoat syndrome. Continue current dose of the atenolol, amlodipine and lisinopril. Mar, Secondary hyperparathyroidism (ICD-10 - N25.81) She has a secondary hyperparathyroidism due to the CKD but her calcium, phosphorus and vitamin D are within the goal. Continue oral ergocalciferol. Mar, Crohn disease (ICD-10 - K50.90) Continue follow with GI for Crohn's. I have advised her to adequately hydrate herself. Mar, Hyperuricemia (ICD-10 - E79.0) She has hyperuricemia due to the CKD. She denies any gout flare. We will monitor without any medication. [facility] Other 04-06-2023 Evaluation note* Encounter Date Diagnosis Assessment Notes Treatment Notes Treatment Clinical Notes Sep, Chronic kidney disea se, stage 3b (ICD-10 - N18.32) She has a CKD due to the longstanding hypertension. Her baseline serum creatinine is 1.4 mg/dL mg/dL. I have advised her to adequately hydrate herself to avoid recurrent GONZALO due to the hypovolemia. Her renal ultrasound showed finding consistent with medical renal disease with no evidence of the kidney mass, hydronephrosis or kidney stones.. She has no evidence of hematuria and proteinuria on UA. I discussed with her the importance of adequate hydration and good blood pressure control to surround the progression of CKD. 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 She likely has a component of whitecoat syndrome. Continue current dose of the atenolol, amlodipine and lisinopril. Sep, Secondary hyperparathyroidism (ICD-10 - N25.81) She has a secondary hyperparathyroidism due to the CKD but her calcium, phosphorus and vitamin D are within the goal. Continue oral ergocalciferol. Sep, Crohn disease (ICD-1 0 - K50.90) Continue follow with GI for Crohn's. I have advised her to adequately hydrate herself. She has a mild leukocytosis likely due to the Crohn's. I discussed with her option of hematology referral. She would like to monitor for now. Sep, Hyperuricemia (ICD-1 0 - E79.0) She has hyperuricemia due to the CKD. She denies any gout flare. We will monitor without any medication. [facility] Other 01-30-2023 Evaluation note* Encounter Date Diagnosis Assessment Notes Treatment Notes Treatment Clinical Notes Jun, Chronic kidney disea se, stage 3b (ICD-10 - N18.32) She has a CKD due to the longstanding hypertension. Her serum creatinine was 1.9 mg/dL but went down to 1.4 mg/dL mg/dL. She likely has worsening renal function in setting of Crohn's flare but now renal function improved to 1.4 mg/dL which may be new baseline for her. I have advised her to adequately hydrate herself to avoid recurrent GONZALO due to the hypovolemia. Her renal ultrasound showed finding consistent with medical renal disease. She has no evidence of hematuria and proteinuria on UA. I discussed with her the importance of adequate hydration and good blood pressure control to surround the progression of CKD. I explained to her that due to the benign urine sediment the kidney biopsy will be low yield so we will not pursue it. We will repeat the renal ultrasound to rule out obstructive uropathy. Jun, Jose muhammad w cr kid I-IV (ICD-10 - I12.9) Blood pressure is usually well controlled at home but runs high in the provider's office. She likely has a component of whitecoat syndrome. Continue current dose of the atenolol, amlodipine and lisinopril. Jun, Secondary hyperparathyroidism (ICD-10 - N25.81) MBD parameters including calcium, phosphorus vitamin D and PTH are within the goal. Continue oral ergocalciferol. Jun, Crohn disease (ICD-1 0 - K50.90) Continue follow with GI for Crohn's. I have advised her to adequately hydrate herself. [facility] Other 07-25-2022 Evaluation note* Encounter Date Diagnosis Assessment Notes Treatment Notes Treatment Clinical Notes Dec, Chronic kidney disea se, stage 3b (ICD-10 - N18.32) She has a CKD due to the longstanding hypertension. Her serum creatinine is 1.4 mg/dL. Her renal function has declined either due to the hemodynamic changes or progression of her CKD. Her renal ultrasound showed finding consistent with medical renal disease she has no evidence of hematuria and proteinuria on UA.. I discussed with her the importance of adequate hydration and good blood pressure control to surround the progression of CKD. Dec, Jose muhammad w cr kid I-IV (ICD-10 - I12.9) Blood pressure is usually well controlled at home and at the provider's office. Continue current dose of the atenolol, amlodipine and lisinopril. Dec, Secondary hyperparathyroidism (ICD-10 - N25.81) MBD parameters including calcium, phosphorus vitamin D and PTH are within the goal. Continue oral ergocalciferol. Dec, Crohn disease (ICD-1 0 - K50.90) Continue follow with GI for Crohn's [facility] Other Evaluation + Plan note No data available for this section [facility] [employer] Other Evaluation note* Diagnosis Seborrheic keratosis, inflamed documented in this encounter [facility] Diagnosis Onset Date Resolution Status CKD (chronic kidney disease) stage 3, GFR 30-59 ml/min acute Crohn disease acute Hyperlipidemia acute [id number] acute Hyperuricemia acute Secondary hyperparathyroidism acute [facility] Work Phone: Evaluation note* Diagnosis Onset Date Resolution Status CKD (chronic kidney disease) stage 3, GFR 30-59 ml/min acute Crohn disease acute Hyperlipidemia acute [id number] acute Hyperuricemia acute Secondary hyperparathyroidism acute Crohn disease acute GERD (gastroesophageal reflux disease) acute [facility] Work Phone: Evaluation note* Diagnosis Onset Date Resolution Status CKD (chronic kidney disease) stage 3, GFR 30-59 ml/min acute Crohn disease acute Hyperlipidemia acute [id number] acute Hyperuricemia acute Secondary hyperparathyroidism acute Crohn disease acute GERD (gastroesophageal reflux disease) acute Crohn's disease of intestine acute [facility] Work Phone: History general Narrative - Reported* Type Description Date Medical History HTN Medical History GERD Medical History Crohn's Medical History CHRONIC KIDNEY DISEASE Surgical History bowel resection Surgical History hysterectomy Surgical History adhesions Surgical History intussusception of bowel Surgical History CARPAL TUNNEL RELEAS E AND TRIGGER FINGER ON RIGHT HAND 2021 Hospitalization History see surgical hx Hospitalization History CHILD X 2 [facility] [employer] Other Hospital Discharge instructions No data available for this section [facility] No data available for this [facility] Summary Purpose Family History No Family History Records Found Relationship Condition Age at Onset Recorded Date/T keon brother Heart disease Unknown Unknown Hypertension Unknown Diabetes mellitus Unknown History of stroke Unknown daughter Diabetes mellitus Unknown father Diabetes mellitus Unknown Heart disease Unknown family member Unknown Not Specified Diabetes mellitus Unknown Relationship Condition Age at Onset Recorded Date/T keon brother Heart disease Unknown Unknown Hypertension Unknown Diabetes mellitus Unknown History of stroke Unknown daughter Diabetes mellitus Unknown father Diabetes mellitus Unknown Heart disease Unknown family member Unknown mother Diabetes mellitus Unknown Advance Directives No Advanced Directives Records Found Advance Directive Response Recorded Date/ Time Advance Directives No July 24, 2022 12:19pm Chief Complaint and Reason for Visit Chief Complaint Amb Documentation RENAL 6 month f/u Reason for Visit CKD (chronic kidney disease) stage 3, GFR 30-59 ml/min Crohn disease Hyperlipidemia [id number] Hyperuricemia Secondary hyperparathyroidism Chief Complaint Amb Documentation RENAL 6 month f/u Previous [facility] patient//constipation Reason for Visit CKD (chronic kidney disease) stage 3, GFR 30-59 ml/min Crohn disease Hyperlipidemia [id number] Hyperuricemia Secondary hyperparathyroidism Crohn disease GERD (gastroesophageal reflux disease) Chief Complaint Amb Documentation RENAL 6 month f/u Previous [facility] patient//constipation crohn's disease. constipaiton crohn's disease. constipaiton Reason for Visit CKD (chronic kidney disease) stage 3, GFR 30-59 ml/min Crohn disease Hyperlipidemia [id number] Hyperuricemia Secondary hyperparathyroidism Crohn disease GERD (gastroesophageal reflux disease) Chief Complaint RENAL 6 month f/u Previous [facility] patient//constipation crohn's disease. constipaiton crohn's disease. constipaiton FOLLOW UP COLONOSCOPY Reason for Visit CKD (chronic kidney disease) stage 3, GFR 30-59 ml/min Crohn disease Hyperlipidemia [id number] Hyperuricemia Secondary hyperparathyroidism Crohn disease GERD (gastroesophageal reflux disease) Crohn's disease of intestine Additional Source Comments REASON FOR VISIT (unrecogniz ed section and content) Reason Comments Follow-up INFORMATION SOURCE (unrecogn ized section and content) DATE CREATED AUTHOR 09/23/2022 [facility] DATE CREATED AUTHOR AUTHOR'S ORGANIZ ATION 08/09/2023 [facility] EPIC DATE CREATED AUTHOR AUTHOR'S ORGANIZ ATION 12/12/2023 [facility] DATE CREATED AUTHOR AUTHOR'S ORGANIZ ATION 04/20/2024 [facility] Patient Care team informatio n (unrecognized section and content) Team Status: Active Member Role Status Dates Anat Ny DO Primary Care Provider Active Team Status: Inactive Member Role Status Dates Anat Ny DO Primary Care Provider Active Start: November 01, 2023 End: November 01, 2023 Michael Cannon MD Attending Provider Active Start : November 01, 2023 End: November 01, 2023 Team Status: Inactive Member Role Status Dates Anat Ny DO Primary Care Provider Active Start: November 13, 2023 End: November 13, 2023 Clyde Garcia MD Attending Provider Active S tart: November 13, 2023 End: November 13, 2023 Team Status: Inactive Member Role Status Dates Anat Ny DO Primary Care Provider Active Start: December 03, 2023 End: December 03, 2023 Clyde Garcia MD Attending Provider Active S tart: December 03, 2023 End: December 03, 2023 Team Status: Active Member Role Status Dates Anat Ny DO Primary Care Provider Active Start: December 03, 2023 Clyde Garcia MD Attending Provider, Other Provide r Active Start: December 03, 2023 Team Status: Inactive Member Role Status Dates Anat Ny DO Primary Care Provider Active Start: December 19, 2023 End: December 19, 2023 Clyde Garcia MD Attending Provider Active S tart: December 19, 2023 End: December 19, 2023 Team Status: Active Member Role Status Dates Anat Ny DO Primary Care Provider Active Start: September 12, 2023 Jeanna Moreira CMA Attending Provider Active St art: September 12, 2023 Goals (unrecognized section and content) Goals may be documented in a n alternate section FOR RECORDS PERTAINING TO PATIENTS WHO ARE OR HAVE BEEN ENROLLED IN A CHEMICAL DEPENDENCY/SUBSTANCEABUSE PROGRAM, SOME INFORMATION MAY BE OMITTED. This clinical summary was aggregated from multiple sources. Caution should be exercised in using it in the provision of clinical care. This summary normalizes information from multiple sources, and as a consequence, information in this document may materially change the coding, format and clinical context of patient data. In addition, data may be omitted in some cases. CLINICAL DECISIONS SHOULD BE BASED ON THE PRIMARY CLINICAL RECORDS. [employer] provides no warranty or guarantee of the accuracy or completeness of information in this document."
[2024-05-20 09:13] LABS: Hematocrit 43.2 % (36.0-48.0); Hemoglobin 14.2 g/dL (12.0-16.0); Mean Corpuscular HGB Conc 32.9 g/dL (29.9-35.2); Mean Corpuscular Hemoglobin 29.6 pg (26.7-34.0); Mean Corpuscular Volume 90.2 fL (81.0-99.0); Mean Platelet Volume 10.1 fL (9.5-13.5); Platelet Count 270 10^3/uL (150-450); Red Blood Count 4.79 10^6/uL (4.20-5.40); Red Cell Distribution Width 12.5 % (11.0-15.0); White Blood Count 10.7 10^3/uL (4.0-11.0)
[2024-05-20 09:22] LABS: Bilirubin Urine NEGATIVE (NEGATIVE); Blood Urine NEGATIVE (NEGATIVE); Clarity Urine CLEAR (CLEAR); Color Urine YELLOW (YELLOW); Glucose Urine UA NEGATIVE (NEGATIVE); Ketones Urine NEGATIVE (NEGATIVE); Leukocyte Esterase Urine NEGATIVE (NEGATIVE); Nitrite Urine NEGATIVE (NEGATIVE); Protein Urine NEGATIVE (NEG/TRACE); Specific Gravity Urine >=1.030 (1.005-1.025); Urobilinogen Urine 0.2 EU/dL (0.2-1.0)
[2024-05-20 09:35] LABS: Bacteria Urine SMALL #/HPF (NONE SEEN); Cast Seen? NONE SEEN #/LPF (NONE SEEN); Crystals Seen? None Seen #/HPF (None Seen); Mucus Urine NONE SEEN (NONE SEEN); RBC Urine 0-2 #/HPF (0-2); Squamous Epithelial Cell Urine MODERATE #/LPF (NONE/RARE); WBC Urine NONE SEEN #/HPF (NONE SEEN)
[2024-05-20 10:03] LABS: Creatinine Urine Random 281.12 mg/dL (20.00-300.00); Protein Creatinine Ratio Urine 0.09; Total Protein Urine Random 25.2 mg/dL (<=11.9)
[2024-05-20 10:11] LABS: Albumin Level 3.9 g/dL (3.4-5.0); Anion Gap 18.7; BUN Creatinine Ratio 9.2; Calcium 8.9 mg/dL (8.5-10.1); Chloride 102 mmol/L (98-107); Estimated GFR (African America 38 (>=60 mL/min/1.73m^2); Estimated GFR (Non-African Ame 31 (>=60 mL/min/1.73m^2); Glucose 96 mg/dL (74-106); Phosphorus 3.2 mg/dL (2.6-4.7); Potassium 3.7 mmol/L (3.5-5.1); Sodium 139 mmol/L (136-145); Uric Acid 6.6 mg/dL (2.6-6.0)
[2024-05-21 12:10] LABS: PTH, Intact 57 pg/mL (15-65)
== END 2024-05-20 08:30 | disposition home or self-care (01) ==
LOC: LAB 08:30
PROVIDERS: Visit Provider Internal Medicine
DX: E78.5 Hyperlipidemia, unspecified (principal); K50.90 Crohn's disease, unspecified, without complications; N25.81 Secondary hyperparathyroidism of renal origin; E79.0 Hyperuricemia without signs of inflammatory arthritis and tophaceous disease; I12.9 Hypertensive chronic kidney disease with stage 1 through stage 4 chronic kidney disease, or unspecified chronic kidney disease; N18.30 Chronic kidney disease, stage 3 unspecified
CPT/HCPCS: 36415; 80069; 81001; 82306; 82570; 83735; 83970; 84156; 84550; 85027

== ENCOUNTER 2024-12-02 06:31 | Outpatient (OUT) | payer MEDICARE, SELFPAY ==
--- OUTSIDE RECORDS SUMMARY | 2024-12-02 06:34 | XMS_ITS | CCD ---
Author Organization [facility] Care Team Providers Care Clinical Support Nurse Name Role Phone Sandeep Ovi Unavailable Дмитрий, Michael Unavailable ДМИТРИЙ, MICHAEL Admitting [...] Consulting Unavailable Anat Ny Primary Care Physician [phone] Unavailable Primary Care Provider Unavailsusy e DO Anat Ny Primary Care Provider MD Clyde Garcia Attending Provider Anat Ny DO Primary Care Provider [phone] Clyde Garcia MD Attending Provider Clyde Garcia Attending Unavailable Anat Ny Primary Care Unavailable Clyde Garcia Admitting Unavailable Clyde Garcia Attending Unavailable Anat Ny Primary Care Unavailable Clyde Garcia Admitting Unavailable Anat Ny MD Primary Care Provider Ovi Vivas Attending Unavailable Ovi Vivas Referring Unavailable Ovi Vivas Admitting Unavailable Anat Ny Admitting Unavailable Anat Ny Attending Unavailable Anat Ny Referring Unavailable Ovi Vivas Admitting Unavailable Sangeetha, Ovi Slater Attending Unavailable Ovi Vivas Referring Unavailable OVI VIVAS Referring Unavailable SANGEETHA, OVI Slater Attending Unavailable SANGEETHA, OVI Slater Attending Unavailable Medications Current Medications Medication Drug Class(es) Dates Sig (Normalized) Sig (Original) amLODIPine 10 mg oral tablet (20 sources) Dihydropyridine Calcium Channel Denise Start: 11-01-2023 take 1 tablet by mouth once daily in the morning Amlodipine 10 mg tablet Active 10 MG PO Every morning November 01, 2023 12:00am End: 08-01-2024 amLODIPine Benzoate 1 MG/ML suspension amLODIPine Benzoate 08/01/2024 Discontinued (Therapy completed) aspirin 81 mg delayed release oral tablet (20 sources) Platelet Aggregation Inhibitor, Nonsteroidal Anti-inflammatory Drug Start: 11-01-2023 take 1 tablet by mouth once daily Aspirin 81 mg tablet,delayed release (DR/EC) Active 81 MG PO Daily November 01, 2023 12:00am BABY ASPIRIN PO Active BABY ASPIRIN PO take 1 tablet by loretta every twenty-four hours Aspirin 81 MG 1 tablet Orally Once a day Active atenolol 100 mg oral tablet (20 sources) beta-Adrenergic Denise Start: 11-01-2023 take 1 tablet by mouth once daily in the evening Atenolol 100 mg tablet Active 100 MG PO Every evening November 01, 2023 12:00am take 2 tablets by mo [facility] every twenty-four hours Atenolol 50 MG 2 tablet Orally Once a day for 90 day(s) Active atorvastatin 10 mg oral tablet (19 sources) HMG-CoA Reductase Inhibitor Start: 11-01-2023 take 1 tablet by mouth once daily in the morning Atorvastatin 10 mg tablet Active 10 MG PO Every morning November 01, 2023 12:00am doxycycline hyclate 100 mg oral capsule (1 source) Tetracycline-cla ss Drug Start: 10-19-2024 take 1 capsule by mouth twice daily Doxycycline Hyclate 100 mg capsule Active 100 MG PO Twice daily 13 04October 19, 2024 12:00am ergocalciferol 1.25 mg oral capsule (20 sources) Provitamin D2 Compound Start: 09-27-2024 take 1 capsule by mouth every week Ergocalciferol (Vitamin D2) 1,250 mcg (50,000 unit) capsule Active 0 .ROUTE .COMPLEX September 27, 2024 10:40am TAKE 1 CAPSULE BY MOUTH EVERY WEEK Start: 09-12-2023 End: 09-27-2024 take 1 capsule by mouth every week Ergocalciferol (Vitamin D2) 1,250 mcg (50,000 unit) capsule Discontinued 1250 MCG PO every week September 12, 2023 3:03pm September 27, 2024 10:40am Start: 09-12-2023 End: 09-12-2023 take 1 capsule by mouth every week Ergocalciferol (Vitamin D2) 1,250 mcg (50,000 unit) capsule Discontinued 78385 UNIT PO every week September 12, 2023 12:00am September 12, 2023 2:41pm FreeTextSig: TAKE 1 CAPSULE BY MOUTH ONCE WEEKLY; Note: Source Status: Taking; Refills: 1; Qty: 14 Capsule; Provider: Дмитрий Rodriguez ( ) Start: 07-25-2021 take 1 capsule by mo uth every week Ergocalciferol 1.25 MG (90179 UT) 1 capsule Orally Q week for 90 day(s) Jun, Active estradiol 0.5 mg oral tablet (4 sources) Estrogen take 1 tablet by mouth every twenty-four hours Estradiol 0.5 MG 1 tablet Orally Once a day Active lisinopril 40 mg oral tablet (20 sources) Angiotensin Converting Enzyme Inhibitor Start: 11-01-19 24 take 1 tablet by mouth once daily in the morning Lisinopril 40 mg tablet Active 40 MG PO Every morning November 01, 2023 12:00am 24 hr mesalamine 375 mg extended release oral capsule (9 sources) Aminosalicylate Start: 07-04-19 25 take 4 capsules by mouth once daily in the morning mesalamine ER (Apriso) 0.375 g 24 hr capsule TAKE 4 CAPSULES BY MOUTH EVERY MORNING 07/04/2024 Active Start: 12-19-2023 take 4 capsules by m outh once daily in the morning Mesalamine (Apriso) 0.375 gram capsule,extended release 24hr Active 1.5 GM PO Every morning 120 December 18, 2023 11:00pm Take 4 capsule orally in the morning. Start: 12-19-2023 take 4 capsules by m outh once daily in the morning Mesalamine (Apriso) 0.375 gram capsule,extended release 24hr Active 1.5 GM PO Every morning 120 December 19, 2023 12:00am Take 4 capsule orally in the morning. pantoprazole 20 mg delayed release oral tablet (20 sources) Proton Pump Inhibitor Start: 11-01-2023 take 1 tablet by mouth once daily in the morning Pantoprazole 20 mg tablet,delayed release (DR/EC) Active 20 MG PO Every morning November 01, 2023 12:00am Pantoprazole Sod ium 40 MG TAKE 1 TABLET BY MOUTH EVERY DAY Oral Once a day for 30 days Active polyethylene glycol 3350 23037 mg powder for oral solution (8 sources) Osmotic Laxative Start: 04-29-2024 Polyethylene Glycol 3350 (Miralax) 17 gram/dose powder Active 17 GM PO Daily as needed for constipation 2024 1:00am silver sulfADIAZINE 10 mg/ml topical cream (1 source) Sulfonamide Antibacterial Start: 10-19-2024 Silver Sulfadiazine (Silvadene) 1 % cream Active 1 APPLIC TOPICAL Twice daily 25 October 19, 2024 12:00am apply a 1.5 mm thickness Sod Picosulf-Mag Ox-Citric Ac (2 sources) Start: 05-27-2024 take 1 dose by mouth once daily Sod Picosulf-Mag Ox-Citric Ac (Clenpiq) 10 mg-3.5 gram- 12 gram/175 mL solution Active 175 ML PO Daily 350 0 May 27, 2024 1:00am Take first dose at 3pm evening before colonoscopy; second dose at 9 pm night before colonoscopy Start: 05-27-2024 take 1 dose by mouth once daily Sod Picosulf-Mag Ox-Citric Ac (Clenpiq) 10 mg-3.5 gram- 12 gram/175 mL solution Active 175 ML PO Daily 350 0 May 27, 2024 12:00am Take first dose at 3pm evening before colonoscopy; second dose at 9 pm night before colonoscopy Completed/Discontinued Medications Medication Drug Class(es) Dates Sig (Normalized) Sig (Original) acetaminophen 325 mg / HYDROcodone bitartrate 5 mg oral tablet (6 sources) Opioid Agonist Start: 08-04-2020 End: 11-01-2023 take 1 tablet by mouth every six hours as needed for pain Hydrocodone-Acetam inophen 5-325 mg tablet Discontinued 1 TAB PO Q6H as needed for pain 03 27August 04, 2020 November 01, 2023 2:31pm [id number] Txm-Hqhm-Blk-Asb-C (2 sources) Osmotic Laxative, Vitamin C Start: 05-27-2024 End: 05-27-2024 [id number] Ixm-Kzmn-Hzs-Asb-C (Plenvu) 140-9-5.2 gram powder in packet, sequential Discontinued 140 ML PO .COMPLEX 1 May 27, 2024 1:00am May 27, 2024 11:30am First does at 4pm the day before the colonoscopy; second dose at 11pm the night before the colonoscopy. Start: 05-27-2024 End: 05-27-2024 [id number] Zjt-Iico-Cyc-Asb -C (Plenvu) 140-9-5.2 gram powder in packet, sequential Discontinued 140 ML PO .COMPLEX 1 May 27, 2024 12:00am May 27, 2024 10:30am First does at 4pm the day before the colonoscopy; second dose at 11pm the night before the colonoscopy. ondansetron 4 mg disintegrating oral tablet (6 sources) Serotonin-3 Receptor Antagonist Start: 08-04-2020 End: 11-01-2023 take 1 tablet by mouth four times daily as needed for nausea and vomiting Ondansetron 4 mg tablet,disintegrating Discontinued 4 MG PO Four times daily as needed for nausea and vomiting August 04, 2020 1:00am November 01, 2023 2:31pm Polyethylene Glycol 3350 (Miralax) 17 gram/dose powder (5 sources) Start: 11-13-2023 End: 2024 Polyethylene Glycol 3350 (Miralax) 17 gram/dose powder Discontinued 17 GM PO Daily 510 November 13, 2023 12:00am 2024 9:49am Start: 11-13-2023 End: 2024 Polyethylene Glycol 3350 (Mi ralax) 17 gram/dose powder Discontinued 17 GM PO Daily 510 November 12, 2023 11:00pm 2024 8:49am Start: 11-13-2023 Polyethylene G lycol 3350 (Miralax) 17 gram/dose powder Active 17 GM PO Daily November 13, 2023 12:00am traMADol hydrochloride 50 mg oral tablet (3 sources) Opioid Agonist Start: 08-20-2024 End: 09-01-2024 take 1 tablet by mouth every six hours for pain, then take 2 tablets by mouth every six hours for pain traMADol (Ultram) 50 MG tablet Indications: Trigger middle finger of right hand May take 1 tablet (50 mg) by mouth every 6 (six) hours if needed for severe pain. May also take 2 tablets (100 mg) every 6 (six) hours if needed for severe pain. Do all this for 7 days. 20 tablet 08/20/2024 09/01/2024 Discontinued Problems Active Problems Problem Classification Problem Date Documented Date Episodic/Chronic Abdominal pain (12 sources) Left lower quadrant pain; Translations: [Left lower quadrant pain] Episodic Chronic kidney disease (20 sources) Chronic kidney disease; Translations: [Chronic kidney disease, unspecified] 11-01-2023 Chronic Disorders of lipid metabolism (11 sources) Hyperlipidemia; Translations: [Hyperlipidemia, unspecified] 11-01-2023 Chronic Diverticulosis and diverticulitis (6 sources) Diverticular disease of colon; Translations: [Diverticulosis of large intestine without perforation or abscess without bleeding] Chronic Esophageal disorders (15 sources) Gastro-esophageal reflux disease with esophagitis; Translations: [...] Vomiting; Translations: [Vomiting, unspecified] Episodic Noninfectious gastroenteritis (6 sources) Colitis; Translations: [Noninfective gastroenteritis and colitis, unspecified] 06-06-2023 Episodic Comment on above: Problem List clean-u p per request of Phys. EHR Cmte Other connective tissue disease (2 sources) Pain in right hand; Translations: [Pain in right hand] 08-01-2024 Episodic Other connective tissue disease (5 sources) Triggering of digit; Translations: [Trigger finger, right middle finger] 08-01-2024 Episodic Other connective tissue disease (2 sources) Ganglion of flexor tendon sheath of finger; Translations: [Ganglion, right hand] 09-01-2024 Episodic Other diseases of kidney and ureters (12 sources) Secondary hyperparathyroidism; Translations: [Secondary hyperparathyroidism of renal origin] 11-01-2023 Chronic Other diseases of kidney and ureters (10 sources) Secondary hyperparathyroidism of renal origin; Translations: [Secondary hyperparathyroidism (of renal origin)] Onset: 2 Resolved: 2 Chronic Other gastrointestinal disorders (6 sources) H/O: gastrointestinal disease; Translations: [Personal history of other diseases of the digestive system] Episodic Other nutritional; endocrine; and metabolic disorders (7 sources) Hyperuricemia without signs of inflammatory arthritis and tophaceous disease; Translations: [Other abnormal blood chemistry] Episodic Other nutritional; endocrine; and metabolic disorders (6 sources) Hyperuricemia; Translations: [Hyperuricemia without signs of inflammatory arthritis and tophaceous disease] 11-01-2023 Episodic Other skin disorders (2 sources) Inflamed [...] disease, stage 3b] Onset: 01-16-2022 Resolved: 01-16-2022 Other screening for suspected conditions (not mental disorders or infectious disease) (1 source) Encounter for screening for malignant neoplasm of colon; Translations: [Encounter for screening for malignant neoplasm of colon] Onset: 12-03-2023 Episodic Results Test Name Value Interpretation Reference Range Facility BMPon 08-04-2024 Anion gap [Moles/Vol] 13 mmol/L Normal 6-16 [facility] Comment on above: Performed By: #### 2 [id number] #### [facility] [address] [place] [address] Calcium [Mass/Vol] 9.7 mg/dL Normal 8.9-11.1 [facility] Comment on above: Performed By: #### 2 [id number] #### [facility] [address] [place] [address] Chloride [Moles/Vol] 104 mmol/L Normal 101-111 [facility] Comment on above: Performed By: #### 2 [id number] #### [facility] [address] [place] [address] CO2 [Moles/Vol] 25 mmol/L Normal 21-31 [facility] Comment on above: Performed By: #### 2 [id number] #### [facility] [address] [place] [address] Creatinine [Mass/Vol] 1.3 mg/dL Normal 0.5-1.3 [facility] Comment on above: Performed By: #### 2 [id number] #### [facility] [address] [place] [address] Glucose [Mass/Vol] 88 mg/dL Normal 55-199 [facility] Comment on above: Performed By: #### 2 [id number] #### [facility] [address] [place] [address] Potassium [Moles/Vol] 4.2 mmol/L Normal 3.5-5.3 [facility] Comment on above: Performed By: #### 2 [id number] #### [facility] [address] [place] [address] Sodium [Moles/Vol] 138 mmol/L Normal 135-145 [facility] Comment on above: Performed By: #### 2 [id number] #### [facility] [address] [place] [address] Urea nitrogen [Mass/Vol] 22 mg/dL High 5-21 [facility] Comment on above: Performed By: #### 2 [id number] #### [facility] [address] [place] [address] Urea nitrogen/Creatinine [Mass ratio] 17 No Units Normal 10-20 [facility] Comment on above: Performed By: #### 2 [id number] #### [facility] [address] [place] [address] CBC w/ Auto Diffon 5 Basophils/100 WBC (Bld) 0.5 % Normal 0.0-2.0 [facility] Comment on above: Performed By: #### 2 [id number] #### [facility] [address] [place] [address] Erythrocyte distribution width (RBC) [Ratio] 13.9 % Normal 10.9-14.2 [facility] Comment on above: Performed By: #### 2 [id number] #### [facility] [address] [place] [address] Hematocrit (Bld) [Volume fraction] 42.7 % Normal 34.0-46.0 [facility] Comment on above: Performed By: #### 2 [id number] #### [facility] [address] [place] [address] Lymphocytes/100 WBC (Bld) 28.2 % Normal 14.0-50.0 [facility] Comment on above: Performed By: #### 2 [id number] #### [facility] [address] [place] [address] Neutrophils/100 WBC (Bld) 62.3 % Normal 36.0-75.0 [facility] Comment on above: Performed By: #### 2 [id number] #### [facility] [address] [place] [address] Platelet mean volume (Bld) [Entitic vol] 8.2 fL Normal 6.4-10.8 [facility] Comment on above: Performed By: #### 2 [id number] #### [facility] [address] [place] [address] Basophils/Leukocytes Auto (Bld) [Pure # fraction] 0.0 E9/L Normal 0.0-0.2 [facility] Comment on above: Performed By: #### 2 [id number] #### [facility] [address] [place] [address] Eosinophils (Bld) [#/Vol] 0.2 E9/L Normal 0.0-0.5 [facility] Comment on above: Performed By: #### 2 [id number] #### [facility] [address] [place] [address] Eosinophils/100 WBC (Bld) 2.6 % Normal 0.0-8.0 [facility] Comment on above: Performed By: #### 2 [id number] #### [facility] [address] [place] [address] Hemoglobin (Bld) [Mass/Vol] 14.6 g/dL Normal 12.0-16.0 [facility] Comment on above: Performed By: #### 2 [id number] #### [facility] [address] [place] [address] Lymphocytes (Bld) [#/Vol] 2.3 E9/L Normal 1.0-4.0 [facility] Comment on above: Performed By: #### 2 [id number] #### [facility] [address] [place] [address] MCH (RBC) [Entitic mass] 30.1 pg Normal 27.0-34.0 [facility] Comment on above: Performed By: #### 2 [id number] #### [facility] [address] [place] [address] MCHC (RBC) [Mass/Vol] 34.1 g/dL Normal 31.4-36.0 [facility] Comment on above: Performed By: #### 2 [id number] #### [facility] [address] [place] [address] MCV (RBC) [Entitic vol] 88.4 fL Normal 80.0-100.0 [facility] Comment on above: Performed By: #### 2 [id number] #### [facility] [address] [place] [address] Monocytes (Bld) [#/Vol] 0.5 E9/L Normal 0.2-1.0 [facility] Comment on above: Performed By: #### 2 [id number] #### [facility] [address] [place] [address] Neutrophils (Bld) [#/Vol] 5.0 E9/L Normal 2.0-7.5 [facility] Comment on above: Performed By: #### 2 [id number] #### [facility] [address] [place] [address] Platelet 270.0 E9/L Normal 150.0-500.0 [facility] Comment on above: Performed By: #### 2 [id number] #### [facility] [address] [place] [address] RBC (Bld) [#/Vol] 4.8 E12/L Normal 4.3-5.9 [facility] Comment on above: Performed By: #### 2 [id number] #### [facility] [address] [place] [address] WBC corrected for nucl RBC Auto (Bld) [#/Vol] 8.1 E9/L Normal 4.0-11.0 [facility] Comment on above: Performed By: #### 2 [id number] #### [facility] [address] [place] [address] CHEMISTRYOrdered By: SYSTEM SYSTEM on 08-04-2024 Anion gap [Moles/Vol] 13 mmol/L Normal 6 - 16 mEq/L [facility] Calcium [Mass/Vol] 9.7 mg/dL Normal 8.9 - 11. 1 mg/dL [facility] Chloride [Moles/Vol] 104 mmol/L Normal 101 - 1 11 mmol/L [facility] CO2 [Moles/Vol] 25 mmol/L Normal 21 - 31 mmol/L [facility] Creatinine [Mass/Vol] 1.3 mg/dL Normal 0.5 - 1.3 mg/dL [facility] eGFR 45 mL/min/1.73 m2 Low >=59mL/min /1. 73 m2 [facility] Glucose [Mass/Vol] 88 mg/dL Normal 55 - 199 mg/dL [facility] Potassium [Moles/Vol] 4.2 mmol/L Normal 3.5 - 5.3 mmol/L [facility] Sodium [Moles/Vol] 138 mmol/L Normal 135 - 145 mmol/L [facility] Urea nitrogen [Mass/Vol] 22 mg/dL High 5 - 21 mg/dL [facility] Urea nitrogen/Creatinine [Mass ratio] 17 mg/mg Normal 10 - 20 [facility] CBC W/ AUTO DIFFon 07-26 EOSINOPHILS/100 LEUKOCYTES:NFR:PT:BLD: QN:AUTOMATED COUNT 2.6 % 0.0 - 8.0 % [facility] EOSINOPHILS:NCNC:PT:BL D:QN: 0.2 [facility] BASOPHILS/LEUKOCYTES:N FR.DF:PT:BLD:QN:AUTOMA ABEL COUNT 0 [facility] ERYTHROCYTE MEAN CORPUSCULAR HEMOGLOBIN CONCENTRATION:MCNC:PT: RBC:QN 34.1 [facility] ERYTHROCYTE MEAN CORPUSCULAR HEMOGLOBIN:ENTMASS:PT: RBC:QN 30.1 pg 27.0 - 34.0 pg [facility] ERYTHROCYTE MEAN CORPUSCULAR VOLUME:ENTVOL:PT:RBC:Q N:AUTOMATED COUNT 88.4 fL 80.0 - 100.0 fL [facility] ERYTHROCYTES:NCNC:PT:B LD:QN:AUTOMATED COUNT 4.8 [facility] HEMOGLOBIN:MCNC:PT:BLD :QN: 14.6 [facility] LEUKOCYTES 8.1 [facility] MONOCYTES:NCNC:PT:BLD: QN:AUTOMATED COUNT 0.5 [facility] NEUTROPHILS:NCNC:PT:BL D:QN:AUTOMATED COUNT 5 [facility] LYMPHOCYTES:NCNC:PT:BL D:QN: 2.3 [facility] Platelets (Bld) [#/Vol] 270 10*3/uL [facility] Original Ordering Provider: DO Ovi DORADOISYMICHAEL [facility] HEMATOLOGYOrdered By: SYSTEM SYSTEM on 08-04-2024 Basophils/100 WBC (Bld) 0.5 % Normal 0.0 - 2.0 % [facility] Basophils/Leukocytes Auto (Bld) [Pure # fraction] 0.0 E9/L Normal 0.0 - 0.2 E9/L [facility] Eosinophils (Bld) [#/Vol] 0.2 E9/L Normal 0.0 - 0.5 E9/L [facility] Eosinophils/100 WBC (Bld) 2.6 % Normal 0.0 - 8.0 % [facility] Erythrocyte distribution width (RBC) [Ratio] 13.9 % Normal 10.9 - 14.2 % [facility] Hematocrit (Bld) [Volume fraction] 42.7 % Normal 34.0 - 46.0 % [facility] Hemoglobin (Bld) [Mass/Vol] 14.6 g/dL Normal 12.0 - 16.0 gm/dL [facility] Lymphocytes (Bld) [#/Vol] 2.3 E9/L Normal 1.0 - 4.0 E9/L [facility] Lymphocytes/100 WBC (Bld) 28.2 % Normal 14.0 - 50.0 % [facility] MCH (RBC) [Entitic mass] 30.1 pg Normal 27.0 - 34.0 pg [facility] MCHC (RBC) [Mass/Vol] 34.1 g/dL Normal 31.4 - 36.0 gm/dL [facility] MCV (RBC) [Entitic vol] 88.4 fL Normal 80.0 - 100.0 fL [facility] Monocytes (Bld) [#/Vol] 0.5 E9/L Normal 0.2 - 1.0 E9/L [facility] Monocytes/100 WBC (Bld) 6.4 % Normal 4.0 - 14.0 % [facility] Neutrophils (Bld) [#/Vol] 5.0 E9/L Normal 2.0 - 7.5 E9/L [facility] Neutrophils/100 WBC (Bld) 62.3 % Normal 36.0 - 75.0 % [facility] Platelet 270.0 E9/L Normal 150.0 - 500.0 E9/L [facility] Platelet mean volume (Bld) [Entitic vol] 8.2 fL Normal 6.4 - 10.8 fL [facility] RBC (Bld) [#/Vol] 4.8 E12/L Normal 4.3 - 5.9 E12/L [facility] WBC corrected for nucl RBC Auto (Bld) [#/Vol] 8.1 E9/L Normal 4.0 - 11.0 E9/L [facility] eGFRon 08-04-2024 eGFR 45 mL/min/1.73 m2 Low >=59 [facility] Comment on above: Performed By: #### 1 [id number] #### [facility] [address] [address] Kenny 07-07-2024 L Specimen: [id number] Received: 07/07/24 Status: YING Jennifer Num: [id number] Spec Type: Surgical Subm Dr: Clyde Garcia MD Tissues: A Colon Biopsy (NEOTERMINAL ILEUM BX R/O DEVELOPMENT COORDINATOR) Procedures: GENESIS/Ashley Mcdonald/Gunjan L4 Age/ Patient Sex Location Account Attending Physician Darnell Hay/F [id number] Clyde Garcia MD SPEC NUM: [id number] RECD: 07/07/24 STATUS: YING RODRIGUEZ NUM: [id number] RODGER: 07/07/24- [facility] DR: Clyde Garcia MD ENTERED: 07/07/[address] [facility] [address]: KIYA TYPE: Surgical DEPT: S ENTERED BY: [id number] RECV BY: [id number] ORDERED: HE/2, Gross/Micro L4 ORDERED: HE/2, Gross/Micro L4 Pathological Diagnosis Neoterminal ileum, biopsy: - Small bowel mucosa with no significant histopathology - No evidence of ileitis, granulomas, dysplasia or malignancy identified. Clinical Information Crohn's, rule out Crohn's Gross Description Received in formalin labeled with the patients name, date of , and neoterminal ileum BX are four martinez-jack, focally erythematous, friable, 0.3 to 0.4 cm in greatest dimension tissue bits. The specimen is entirely submitted in a single cassette. (1, ns, [id number]) Microscopic Description Microscopic examination is performed CPT Codes 04564 Specimen: [id number] Received: 07/07/24 Status: YING Rodriguez Num: [id number] Spec Type: Surgical Subm Dr: Clyde Garcia MD Tissues: A Colon Biopsy (NEOTERMINAL ILEUM BX R/O DEVELOPMENT COORDINATOR) Procedures: HE/2, Gross/Micro L4 Patient: Darnell Hay [id number] (Continued) Signed (signature on file) Jeremias Solorzano MD 07/08/24 1018 Normal [facility] Erythrocyte distribution wid th Auto (RBC) [Ratio]on 05-20-2024 Erythrocyte distribution width (RBC) [Ratio] Erythrocyte distribution width [Ratio] by Automated count 11.0-15.0 [facility] Estimated glomerular filtrat ion rate (GFR) non- Americanon 05-20-2024 GFR/1.73 sq M.predicted among non-blacks MDRD (S/P/Bld) [Vol rate/Area] Estimated glomerular filtration rate (GFR) non- Low >=60 mL/min/1.73m 2 [facility] Hematocrit Auto (Bld) [Volum e fraction]on 05-20-2024 Hematocrit (Bld) [Volume fraction] Hematocrit [Volume Fraction] of Blood by Automated count 36.0-48.0 [facility] Hemoglobin [Mass/volume] in Bloodon 05-20-2024 Hemoglobin (Bld) [Mass/Vol] Hemoglobin [Mass/volume] in Blood 12.0-16.0 [facility] Laboratory - Chemistry and C hemistry - challengeon 05-20-2024 Albumin [Mass/Vol] 3.9 g/dL 3.4-5.[address] [facility] Calcium [Mass/Vol] 8.9 mg/dL 8.5-10.[address] [facility] Chloride [Moles/Vol] 102 mmol/L 98-107 [facility] CO2 [Moles/Vol] 22.0 mmol/L 21.0-32.0 [facility] Creatinine [Mass/Vol] 1.63 mg/dL High 0.55-1.02 [facility] GFR/1.73 sq M.predicted MDRD (S/P/Bld) [Vol rate/Area] 38 mL/min/{1.73_m2} Low >=60 mL/min/1.73m 2 [facility] Glucose [Mass/Vol] 96 mg/dL 74-[address] [facility] Magnesium [Mass/Vol] 2.0 mg/dL 1.8-2.4 [facility] Potassium [Moles/Vol] 3.7 mmol/L 3.5-5.1 [facility] Sodium [Moles/Vol] 139 mmol/L 136-[address] [facility] Urate [Mass/Vol] 6.6 mg/dL High 2.6-6.0 [facility] Urea nitrogen [Mass/Vol] 15.0 mg/dL 7.0-18.0 [facility] Urea nitrogen/Creatinine [Mass ratio] 9.2 mg/mg [facility] Bilirubin Ql (U) Negative NEGATIVE [facility] Glucose (U) [Mass/Vol] Negative [facility]IVE [facility] Ql (U) Negative NEGATIVE [facility] pH (U) 5.0 [pH] 5.0-9.0 [facility] Specific gravity (U) [Rel density] >=1.030 Abnormal 1.005-1.025 [facility] Urobilinogen Qn (U) 0.2 {Lolis'U}/dL 0.2-1.0 [facility] Laboratory - Specimen inform ationon 05-20-2024 Appearance (U) CLEAR CLEAR [facility] Color (U) YELLOW YELLOW [facility] Laboratory - Urinalysison Leukocyte esterase Test strip Ql (U) Negative NEGATIVE [facility] Mucus Ql (Urine sed) NONE SEEN NONE SEEN [facility] Nitrite Ql (U) Negative NEGATIVE [facility] Protein (U) [Mass/Vol] 25.2 mg/dL High <=11.9 [facility] Protein Ql (U) Negative NEG/TRACE [facility] Leukocytes [#/volume] correc abel for nucleated erythrocytes in Blood by Automated counon 05-20-2024 WBC corrected for nucl RBC Auto (Bld) [#/Vol] Leukocytes [#/volume] corrected for nucleated erythrocytes in Blood by Automated coun 4.0-11.0 [facility] MCH Auto (RBC) [Entitic mass ]on 05-20-2024 MCH (RBC) [Entitic mass] MCH [Entitic mass] by Automated count 26.7-34.0 [facility] MCHC Auto (RBC) [Mass/Vol]on 05-20-2024 MCHC (RBC) [Mass/Vol] MCHC [Mass/volume] by Automated count 29.9-35.2 [facility] MCV Auto (RBC) [Entitic vol] on 05-20-2024 MCV (RBC) [Entitic vol] MCV [Entitic volume] by Automated count 81.0-99.0 [facility] No Panel Informationon 05-20 25-Hydroxy Vitamin D Total 46.5 ng/mL [facility] Comment on above: <20 ng/mL Vit D defi cient20-<30 ng/mL Vit D [id number] ng/mL Vit D sufficient>100 ng/mL Potential Toxicity Parathyroid Hormone (Intact) 57 pg/mL 15-65 [facility] Comment on above: Performed at: - [facility] [address] [id number] Director: Edwin Sierra PhD, Phone: [phone] Phosphorus Level 3.2 mg/dL 2.6-4.7 [facility] Urine Bacteria SMALL #/HPF Abnormal NONE SEEN [facility] Urine Occult Blood Negative NEGATIVE [facility] Urine Other Casts NONE SEEN #/LPF NONE SEEN Fi relands [facility] Urine Other Crystals None Seen #/HPF None Seen [facility] Urine Random Creatinine 281.12 mg/dL 20.00-300.00 [facility] Urine RBC 0-2 #/HPF 0-2 [facility] Urine Squamous Epithelial Cells MODERATE #/LPF Abnormal NONE/RARE [facility] Urine WBC NONE SEEN #/HPF NONE SEEN [facility] Platelet mean volume Auto (B ld) [Entitic vol]on 05-20-2024 Platelet mean volume (Bld) [Entitic vol] Platelet mean volume [Entitic volume] in Blood by Automated count 9.5-13.5 [facility] Platelets Auto (Bld) [#/Vol] on 05-20-2024 Platelets (Bld) [#/Vol] Platelets [#/volume] in Blood by Automated count 150-450 [facility] RBC Auto (Bld) [#/Vol]on RBC (Bld) [#/Vol] Erythrocytes [#/volume] in Blood by Automated count 4.20-5.40 [facility] Serum or plasma anion gap de terminationon 05-20-2024 Anion gap [Moles/Vol] Serum or plasma anion gap determination [facility] Urine protein/creatinine rat ioon 05-20-2024 Protein/Creatinine (U) [Ratio] Urine protein/creatinine ratio [facility] BD Bone Density DEXAon 04-12 BD Bone [...] MD Transcribed by: ARNULFO Technologist: NELL Garay [facility] [place] Mamm Screen w/CAD if perf [...] VERY IMPORTANT TO YOUR HEALTH. THE CURRENT [employer] [...] Ovidio Bunch MD Transcribed by: ARNULFO Technologist: [facility] Assessment: BI-RADS Category 1-Negative Recommendation: Normal interval follow-up Normal [facility] Kenny 12-03-2023 L Specimen: [id number] Received: 12/03/23 Status: YING Rodriguez Num: [id number] Spec Type: Surgical Subm Dr: Clyde Garcia MD Tissues: A Colon Biopsy (GEOFF TERMUNAL ILEUM BX) Procedures: HE/2, Gross/Micro L4 Age/ Patient Sex Location Account Attending Physician Darnell Hay 68/F [id number] Clyde Garcia MD SPEC NUM: [id number] RECD: 12/03/23 STATUS: YING RODRIGUEZ NUM: [id number] RODGER: 12/03/[address] [facility] [address]: Clyde Garcia MD ENTERED: 12/03/[address] [facility] [address]: SPEC TYPE: Surgical DEPT: [facility] BY: [id number] ORDERED: HE/2, Gross/Micro L4 ORDERED: HE/2, Gross/Micro [...] cm, entirely submitted in A1. CPT Codes 51809 Specimen: [id number] Received: 12/03/23 Status: YING Rodriguez Num: [id number] Spec Type: Surgical Subm Dr: Clyde Garcia MD Tissues: A Colon Biopsy (GEOFF TERMUNAL ILEUM BX) Procedures: HE/2, Gross/Micro L4 Patient: Darnell Hay [id number] (Continued) Signed (signature on file) Chin-Mariusz Flores MD 12/04/23 1853 Normal [facility] No Panel Informationon 08-08 [facility] PTH INTACTon 09-20-2022 PTH, Intact 69 pg/mL Critically high 15-65 [facility] Comment on above: Performed By: #### P THINT #### [facility] [address] [place] [address] Dr. Lamin Flores HEMOGRAM AND PLATELon 2022 Hematocrit (Bld) [Volume fraction] 44.1 % Normal 36.0-48.0 [facility] Comment on above: Performed By: #### R ENAL, MG, URIC #### [facility] [address] [address] [address] Lamin Flores Hemoglobin (Bld) [Mass/Vol] 14.7 g/dL Normal 12.0-16.0 [facility] Comment on above: Performed By: #### R ENAL, MG, URIC #### [facility] [address] [place] [address] Dr. Lamin Flores MCH (RBC) [Entitic mass] 29.9 pg Normal 26.7-34.0 [facility] Comment on above: Performed By: #### R ENAL, MG, URIC #### [facility] [address] [place] [address] Dr. Lamin Flores MCHC (RBC) [Mass/Vol] 33.3 g/dL Normal 29.9-35.2 [facility] Comment on above: Performed By: #### R ENAL, MG, URIC #### [facility] [address] [place] [address] Dr. Lamin Flores MCV (RBC) [Entitic vol] 89.6 fL Normal 81.0-99.0 [facility] Comment on above: Performed By: #### R ENAL, MG, URIC #### [facility] [address] [place] [address] Dr. Lamin Flores PLT 290 103/ul Normal 150-450 [facility] Comment on above: Performed By: #### R ENAL, MG, URIC #### [facility] [address] [place] [address] Dr. Lamin Flores RBC 4.92 106/ul Normal 4.20-5.40 [facility] Comment on above: Performed By: #### R ENAL, MG, URIC #### [facility] [address] [place] [address] Dr. Lamin Flores WBC 11.8 103/ul Critically high 4.0-11.0 [facility] Comment on above: Performed By: #### R ENAL, MG, URIC #### [facility] [address] [place] [address] Dr. Lamin Flores MAGNESIUMon 09-19-2022 Magnesium [Mass/Vol] 1.9 mg/dL Normal 1.8-2.4 [facility] Comment on above: Performed By: #### R ENAL, MG, URIC #### [facility] [address] [place] [address] Dr. Lamin Flores RENAL FUNCTION PANELon 09-19 Albumin [Mass/Vol] 4.3 g/dL Normal 3.4-5.0 [facility] Comment on above: Performed By: #### R ENAL, MG, URIC #### [facility] [address] [address] [address] Lamin Flores Calcium [Mass/Vol] 9.7 mg/dL Normal 8.5-10.1 [facility] Comment on above: Performed By: #### R ENAL, MG, URIC #### [facility] [address] [address] [address] Lamin Flores Chloride [Moles/Vol] 103 mmol/L Normal 98-107 [facility] Comment on above: Performed By: #### R ENAL, MG, URIC #### [facility] [address] [address] [address] Lamin Flores CO2 [Moles/Vol] 27.4 mmol/L Normal 21.0-32.0 [facility] Comment on above: Performed By: #### R ENAL, MG, URIC #### [facility] [address] [address] [address] Lamin Flores Creatinine [Mass/Vol] 1.44 mg/dL Critically high 0.55-1.02 [facility] Comment on above: Performed By: #### R ENAL, MG, URIC #### [facility] [address] [address] [address] Lamin Flores EGFR-AF PERUVIAN 44 mL/min/1.73m2 Critically low >=60 [facility] Comment on above: Performed By: #### R ENAL, MG, URIC #### [facility] [address] [address] [address] Lamin Flores EGFR-NON AF PERUVIAN 36 mL/min/1.73m2 Critically low >=60 [facility] Comment on above: Performed By: #### R ENAL, MG, URIC #### [facility] [address] [address] [address] Lamin Flores Glucose [Mass/Vol] 99 mg/dL Normal 74-106 [facility] Comment on above: Performed By: #### R ENAL, MG, URIC #### [facility] [address] [address] [address] Lamin Flores Phosphate [Mass/Vol] 3.9 mg/dL Normal 2.6-4.7 [facility] Comment on above: Performed By: #### R ENAL, MG, URIC #### [facility] [address] [place] [address] Dr. Lamin Flores Potassium [Moles/Vol] 4.3 mmol/L Normal 3.5-5.1 [facility] Comment on above: Performed By: #### R ENAL, MG, URIC #### [facility] [address] [place] [address] Dr. Lamin Flores Sodium [Moles/Vol] 143 mmol/L Normal 136-145 [facility] Comment on above: Performed By: #### R ENAL, MG, URIC #### [facility] [address] [place] [address] Dr. Lamin Flores Urea nitrogen [Mass/Vol] 19.0 mg/dL Critically high 7.0-18.0 [facility] Comment on above: Performed By: #### R ENAL, MG, URIC #### [facility] [address] [place] [address] Dr. Lamin Flores UA RANDOM W/MICROSCOPICon BACTERIA TRACE Abnormal NONE SEEN [facility] Comment on above: Performed By: #### R ENAL, MG, URIC #### [facility] [address] [place] [address] Dr. Lamin Flores Bilirubin Ql (U) Negative Normal NEGATIVE [facility] Comment on above: Performed By: #### R ENAL, MG, URIC #### [facility] [address] [place] [address] Dr. Lamin Flores CAST NONE SEEN Normal NONE SEEN [facility] Comment on above: Performed By: #### R ENAL, MG, URIC #### [facility] [address] [place] [address] Dr. Lamin Flores Clarity (U) CLEAR Normal CLEAR [facility] Comment on above: Performed By: #### R ENAL, MG, URIC #### [facility] [address] [place] [address] Dr. Lamin Flores Color (U) LT. YELLOW Normal YELLOW [facility] Comment on above: Performed By: #### R ENAL, MG, URIC #### [facility] [address] [address] [address] Lamin Flores Crystals LM Nom (Urine sed) NONE SEEN Normal NONE SEEN [facility] Comment on above: Performed By: #### R ENAL, MG, URIC #### [facility] [address] [address] [address] Lamin Flores Epithelial cells LM Ql (Urine sed) MODERATE Abnormal NONE SEEN /RARE [facility] Comment on above: Performed By: #### R ENAL, MG, URIC #### [facility] [address] [address] [address] Lamin Flores Glucose Ql (U) Negative Normal NEGATIVE [facility] Comment on above: Performed By: #### R ENAL, MG, URIC #### [facility] [address] [address] [address] Lamin Flores Hemoglobin Ql (U) Negative Normal NEGATIVE [facility] [place] [facility] Comment on above: Performed By: #### R ENAL, MG, URIC #### [facility] [address] [address] [address] Lamin Flores Ketones Ql (U) Negative Normal NEGATIVE [facility] Comment on above: Performed By: #### R ENAL, MG, URIC #### [facility] [address] [place] [address] Dr. Lamin Flores LEUKOCYTES Negative Normal NEGATIVE [facility] Comment on above: Performed By: #### R ENAL, MG, URIC #### [facility] [address] [address] [address] Lamin Flores MUCOUS NONE SEEN Normal NONE SEEN [facility] Comment on above: Performed By: #### R ENAL, MG, URIC #### [facility] [address] [address] [address] Lamin Flores Nitrite Ql (U) Negative Normal NEGATIVE [facility] Comment on above: Performed By: #### R ENAL, MG, URIC #### [facility] [address] [address] [address] Lamin Flores pH (U) 6.0 [pH] Normal 5-9 [facility] Comment on above: Performed By: #### R ENAL, MG, URIC #### [facility] [address] [place] [address] Dr. Lamin Flores RBC NONE SEEN Abnormal 0-2 [facility] Comment on above: Performed By: #### R ENAL, MG, URIC #### [facility] [address] [place] [address] Dr. Lamin Flores SPEC GRAVITY <=1.005 Abnormal 1.005-<=1.025 [facility] Comment on above: Performed By: #### R ENAL, MG, URIC #### [facility] [address] [place] [address] Dr. Lamin Flores UA PROTEIN Negative Normal NEGATIVE/ TRACE [facility] Comment on above: Performed By: #### R ENAL, MG, URIC #### [facility] [address] [place] [address] Dr. Lamin Flores Urobilinogen Qn (U) 0.2 {Ollis'U}/dL Normal 0.2 - 1. 0 [facility] Comment on above: Performed By: #### R ENAL, MG, URIC #### [facility] [address] [place] [address] Dr. Lamin Flores WBC NONE SEEN Normal NONE SEEN [facility] Comment on above: Performed By: #### R ENAL, MG, URIC #### [facility] [address] [place] [address] Dr. Lamin Flores URIC ACID SERUMon 09-19-2022 Urate [Mass/Vol] 6.6 mg/dL Critically high 2.6-6.0 [facility] Comment on above: Performed By: #### R ENAL, MG, URIC #### [facility] [address] [place] [address] Dr. Lamin Flores URINE T PROTEIN CREAT RATIOo n 09-19-2022 UR PROT CREAT RAT 0.22 Normal [facility] Comment on above: Performed By: #### R ENAL, MG, URIC #### [facility] [address] [place], [place] [address] Dr. Lamin Flores UR TOTAL PROTEIN <6.0 Normal <=12.0 [facility] Comment on above: Performed By: #### R ENAL, MG, URIC #### [facility] [address] [place], [place] [address] Dr. Lamin Flores URINE CREAT 27.42 mg/dL Normal 20.00-300.00 [facility] Comment on above: Performed By: #### R ENAL, MG, URIC #### [facility] [address] [address] [address] Lamin Flores VITAMIN D 25 OHon 09-19-2022 VIT D 25-OH 49.4 ng/mL Normal [facility] Comment on above: Performed By: #### V ITAD #### [facility] [address] [place] [address] Dr. Lamin Flores VIT D RANGES SEE BELOW Normal [facility] Comment on above: Result Comment: <20 ng/mL Vit D deficient 20 - <30 ng/mL Vit D insufficient 30 - 100 ng/mL Vit D sufficient >100 ng/mL Potential Toxicity Performed By: #### V ITAD #### [facility] [address] [place] [address] Dr. Lamin Flores US KIDNEYSon 07-26-2022 US [...] chronic renal disease. Electronically authenticated by: CRISTIAN JANENEKALIJENNA Date: 2022-07-26 07:37 Normal [facility] RENAL FUNCTION PANELon 07-24 Albumin [Mass/Vol] 4.0 g/dL Normal 3.4-5.0 [facility] Comment on above: Performed By: #### R ENAL, MG, URIC #### [facility] [address] [address] [address] Lamin Flores Calcium [Mass/Vol] 9.1 mg/dL Normal 8.5-10.1 [facility] Comment on above: Performed By: #### R ENAL, MG, URIC #### [facility] [address] [place] [address] Dr. Lamin Flores Chloride [Moles/Vol] 100 mmol/L Normal 98-107 [facility] Comment on above: Performed By: #### R ENAL, MG, URIC #### [facility] [address] [address] [address] Lamin Flores CO2 [Moles/Vol] 26.2 mmol/L Normal 21.0-32.0 [facility] Comment on above: Performed By: #### R ENAL, MG, URIC #### [facility] [address] [address] [address] Lamin Flores Creatinine [Mass/Vol] 1.40 mg/dL Critically high 0.55-1.02 [facility] Comment on above: Performed By: #### R ENAL, MG, URIC #### [facility] [address] [address] [address] Lamin Flores EGFR-AF PERUVIAN 46 mL/min/1.73m2 Critically low >=60 [facility] Comment on above: Performed By: #### R ENAL, MG, URIC #### [facility] [address] [place] [address] Dr. Lamin Flores EGFR-NON AF PERUVIAN 38 mL/min/1.73m2 Critically low >=60 [facility] Comment on above: Performed By: #### R ENAL, MG, URIC #### [facility] [address] [place] [address] Dr. Lamin Flores Glucose [Mass/Vol] 94 mg/dL Normal 74-106 [facility] Comment on above: Performed By: #### R ENAL, MG, URIC #### [facility] [address] [place] [address] Dr. Lamin Flores Phosphate [Mass/Vol] 3.5 mg/dL Normal 2.6-4.7 [facility] Comment on above: Performed By: #### R ENAL, MG, URIC #### [facility] [address] [place] [address] Dr. Lamin Flores Potassium [Moles/Vol] 4.2 mmol/L Normal 3.5-5.1 [facility] Comment on above: Performed By: #### R ENAL, MG, URIC #### [facility] [address] [place] [address] Dr. Lamin Flores Sodium [Moles/Vol] 135 mmol/L Critically low 136-145 [facility] Comment on above: Performed By: #### R ENAL, MG, URIC #### [facility] [address] [place] [address] Dr. Lamin Flores Urea nitrogen [Mass/Vol] 18.0 mg/dL Normal 7.0-18.0 [facility] Comment on above: Performed By: #### R ENAL, MG, URIC #### [facility] [address] [place] [address] Dr. Lamin Flores PTH INTACTon 07-18-2022 PTH, Intact 49 pg/mL Normal 15-65 [facility] Comment on above: Performed By: #### R ENAL, MG, URIC #### [facility] [address] [place] [address] Dr. Lamin Flores HEMOGRAM AND PLATELon 2022 Hematocrit (Bld) [Volume fraction] 42.0 % Normal 36.0-48.0 [facility] Comment on above: Performed By: #### R ENAL, MG, URIC #### [facility] [address] [address] [address] Lamin Flores Hemoglobin (Bld) [Mass/Vol] 14.4 g/dL Normal 12.0-16.0 [facility] Comment on above: Performed By: #### R ENAL, MG, URIC #### [facility] [address] [place] [address] Dr. Lamin Flores MCH (RBC) [Entitic mass] 29.4 pg Normal 26.7-34.0 [facility] Comment on above: Performed By: #### R ENAL, MG, URIC #### [facility] [address] [place] [address] Dr. Lamin Flores MCHC (RBC) [Mass/Vol] 34.3 g/dL Normal 29.9-35.2 [facility] Comment on above: Performed By: #### R ENAL, MG, URIC #### [facility] [address] [place] [address] Dr. Lamin Flores MCV (RBC) [Entitic vol] 85.7 fL Normal 81.0-99.0 [facility] Comment on above: Performed By: #### R ENAL, MG, URIC #### [facility] [address] [place] [address] Dr. Lamin Flores PLT 300 103/ul Normal 150-450 [facility] Comment on above: Performed By: #### R ENAL, MG, URIC #### [facility] [address] [place] [address] Dr. Lamin Flores RBC 4.90 106/ul Normal 4.20-5.40 [facility] Comment on above: Performed By: #### R ENAL, MG, URIC #### [facility] [address] [place] [address] Dr. Lamin Flores WBC 11.1 103/ul Critically high 4.0-11.0 [facility] Comment on above: Performed By: #### R ENAL, MG, URIC #### [facility] [address] [place] [address] Dr. Lamin Flores MAGNESIUMon 07-17-2022 Magnesium [Mass/Vol] 1.9 mg/dL Normal 1.8-2.4 [facility] Comment on above: Performed By: #### R ENAL, MG, URIC #### [facility] [address] [address] [address] Lamin Flores RENAL FUNCTION PANELon 07-17 Albumin [Mass/Vol] 4.2 g/dL Normal 3.4-5.0 [facility] Comment on above: Performed By: #### R ENAL, MG, URIC #### [facility] [address] [address] [address] Lamin Flores Calcium [Mass/Vol] 9.3 mg/dL Normal 8.5-10.1 [facility] Comment on above: Performed By: #### R ENAL, MG, URIC #### [facility] [address] [place] [address] Dr. Lamin Flores Chloride [Moles/Vol] 99 mmol/L Normal 98-107 [facility] Comment on above: Performed By: #### R ENAL, MG, URIC #### [facility] [address] [place] [address] Dr. Lamin Flores CO2 [Moles/Vol] 26.0 mmol/L Normal 21.0-32.0 [facility] Comment on above: Performed By: #### R ENAL, MG, URIC #### [facility] [address] [place] [address] Dr. Lamin Flores Creatinine [Mass/Vol] 1.92 mg/dL Critically high 0.55-1.02 [facility] Comment on above: Performed By: #### R ENAL, MG, URIC #### [facility] [address] [place] [address] Dr. Lamin Flores EGFR-AF PERUVIAN 32 mL/min/1.73m2 Critically low >=60 [facility] Comment on above: Performed By: #### R ENAL, MG, URIC #### [facility] [address] [place] [address] Dr. Lamin Flores EGFR-NON AF PERUVIAN 26 mL/min/1.73m2 Critically low >=60 [facility] Comment on above: Performed By: #### R ENAL, MG, URIC #### [facility] [address] [address] [address] Lamin Flores Glucose [Mass/Vol] 90 mg/dL Normal 74-106 [facility] Comment on above: Performed By: #### R ENAL, MG, URIC #### [facility] [address] [place] [address] Dr. Lamin Flores Phosphate [Mass/Vol] 5.0 mg/dL Critically high 2.6-4.7 [facility] Comment on above: Performed By: #### R ENAL, MG, URIC #### [facility] [address] [place] [address] Dr. Lamin Flores Potassium [Moles/Vol] 4.3 mmol/L Normal 3.5-5.1 [facility] Comment on above: Performed By: #### R ENAL, MG, URIC #### [facility] [address] [place] [address] Dr. Lamin Flores Sodium [Moles/Vol] 136 mmol/L Normal 136-145 [facility] Comment on above: Performed By: #### R ENAL, MG, URIC #### [facility] [address] [place] [address] Dr. Lamin Flores Urea nitrogen [Mass/Vol] 18.0 mg/dL Normal 7.0-18.0 [facility] Comment on above: Performed By: #### R ENAL, MG, URIC #### [facility] [address] [place] [address] Dr. Lamin Flores UA RANDOM W/MICROSCOPICon BACTERIA TRACE Abnormal NONE SEEN [facility] Comment on above: Performed By: #### R ENAL, MG, URIC #### [facility] [address] [place] [address] Dr. Lamin Flores Bilirubin Ql (U) SMALL Abnormal NEGATIVE The [facility] Comment on above: Performed By: #### R ENAL, MG, URIC #### [facility] [address] [place] [address] Dr. Lamin Flores CAST SEEN Abnormal NONE SEEN [facility] Comment on above: Performed By: #### R ENAL, MG, URIC #### [facility] [address] [address] [address] Lamin Flores Clarity (U) CLEAR Normal CLEAR [facility] Comment on above: Performed By: #### R ENAL, MG, URIC #### [facility] [address] [address] [address] Lamin Flores Color (U) DK. ORANGE Abnormal YELLOW [facility] Comment on above: Performed By: #### R ENAL, MG, URIC #### [facility] [address] [address] [address] Lamin Flores Crystals LM Nom (Urine sed) NONE SEEN Normal NONE SEEN [facility] Comment on above: Performed By: #### R ENAL, MG, URIC #### [facility] [address] [place] [address] Dr. Lamin Flores Epithelial cells LM Ql (Urine sed) MANY Abnormal NONE SEEN /RARE [facility] Comment on above: Performed By: #### R ENAL, MG, URIC #### [facility] [address] [place] [address] Dr. Lamin Flores Glucose Ql (U) Negative Normal NEGATIVE [facility] Comment on above: Performed By: #### R ENAL, MG, URIC #### [facility] [address] [place] [address] Dr. Lamin Flores Hemoglobin Ql (U) Negative Normal NEGATIVE [facility] Comment on above: Performed By: #### R ENAL, MG, URIC #### [facility] [address] [place] [address] Dr. Lamin Flores HYALINE CAST FEW Normal [facility] Comment on above: Performed By: #### R ENAL, MG, URIC #### [facility] [address] [place] [address] Dr. Lamin Floers Ketones Ql (U) TRACE Abnormal NEGATIVE [facility] Comment on above: Performed By: #### R ENAL, MG, URIC #### [facility] [address] [place] [address] Dr. Lamin Flores LEUKOCYTES Negative Normal NEGATIVE [facility] Comment on above: Performed By: #### R ENAL, MG, URIC #### [facility] [address] [address] [address] Lamin Flores MUCOUS NONE SEEN Normal NONE SEEN [facility] Comment on above: Performed By: #### R ENAL, MG, URIC #### [facility] [address] [address] [address] Lamin Flores Nitrite Ql (U) Negative Normal NEGATIVE [facility] Comment on above: Performed By: #### R ENAL, MG, URIC #### [facility] [address] [address] [address] Lamin Flores pH (U) 5.0 [pH] Normal 5-9 [facility] Comment on above: Performed By: #### R ENAL, MG, URIC #### [facility] [address] [place] [address] Dr. Lamin Flores RBC NONE SEEN Abnormal 0-2 [facility] Comment on above: Performed By: #### R ENAL, MG, URIC #### [facility] [address] [address] [address] Lamin Flores SPEC GRAVITY >=1.030 Abnormal 1.005-<=1.025 [facility] Comment on above: Performed By: #### R ENAL, MG, URIC #### [facility] [address] [place] [address] Dr. Lamin Flores UA PROTEIN TRACE Normal NEGATIVE/ TRACE [facility] Comment on above: Performed By: #### R ENAL, MG, URIC #### [facility] [address] [address] [address] Lamin Flores Urobilinogen Qn (U) 1.0 {Lolis'U}/dL Normal 0.2 - 1. 0 [facility] Comment on above: Performed By: #### R ENAL, MG, URIC #### [facility] [address] [place] [address] Dr. Lamin Flores WBC 0-2 Abnormal NONE SEEN [facility] Comment on above: Performed By: #### R ENAL, MG, URIC #### [facility] [address] [place] [address] Dr. Lamin Flores URIC ACID SERUMon 07-17-2022 Urate [Mass/Vol] 6.8 mg/dL Critically high 2.6-6.0 [facility] Comment on above: Performed By: #### R ENAL, MG, URIC #### [facility] [address] [place] [address] Dr. Lamin Flores URINE T PROTEIN CREAT RATIOo n 07-17-2022 Protein (U) [Mass/Vol] 42.6 mg/dL Critically high <=12.0 [facility] Comment on above: Performed By: #### R ENAL, MG, URIC #### [facility] [address] [place] [address] Dr. Lamin Flores UR PROT CREAT RAT 0.12 Normal [facility] Comment on above: Performed By: #### R ENAL, MG, URIC #### [facility] [address] [place] [address] Dr. Lamin Flores URINE CREAT 355.19 mg/dL Critically high 20.00-300.00 [facility] Comment on above: Performed By: #### R ENAL, MG, URIC #### [facility] [address] [place] [address] Dr. Lamin Flores VITAMIN D 25 OHon 07-17-2022 VIT D 25-OH 47.3 ng/mL Normal [facility] Comment on above: Performed By: #### R ENAL, MG, URIC #### [facility] [address] [place] [address] Dr. Lamin Flores VIT D RANGES SEE BELOW Normal [facility] Comment on above: Result Comment: <20 ng/mL Vit D deficient 20 - <30 ng/mL Vit D insufficient 30 - 100 ng/mL Vit D sufficient >100 ng/mL Potential Toxicity Performed By: #### R ENAL, MG, URIC #### [facility] [address] [place] [address] Dr. Lamin Flores PTH INTACTon 01-10-2022 PTH, Intact 57 pg/mL Normal 15-65 [facility] Comment on above: Performed By: #### P THINT #### [facility] [address] [place] [address] Dr. Lamin Flores CBC AUTO DIFFon 01-09-2022 BASO # 0.0 103/ul Normal 0.0-0.1 [facility] Comment on above: Performed By: #### R ENAL, MG, URIC #### [facility] [address] [place] [address] Dr. Lamin Flores Basophils/100 WBC (Bld) 0.4 % Normal 0.2-2.0 [facility] Comment on above: Performed By: #### R ENAL, MG, URIC #### [facility] [address] [place] [address] Dr. Lamin Flores EO # 0.2 103/ul Normal 0.0-0.7 [facility] Comment on above: Performed By: #### R ENAL, MG, URIC #### [facility] [address] [place] [address] Dr. Lamin Flores Eosinophils/100 WBC (Bld) 2.4 % Normal 0.9-7.0 [facility] Comment on above: Performed By: #### R ENAL, MG, URIC #### [facility] [address] [place] [address] Dr. Lamin Flores Erythrocyte distribution width (RBC) [Ratio] 12.8 % Normal 11.0-15.0 [facility] Comment on above: Performed By: #### R ENAL, MG, URIC #### [facility] [address] [place] [address] Dr. Lamin Flores Hematocrit (Bld) [Volume fraction] 44.4 % Normal 36.0-48.0 [facility] Comment on above: Performed By: #### R ENAL, MG, URIC #### [facility] [address] [place] [address] Dr. Lamin Flores Hemoglobin (Bld) [Mass/Vol] 14.4 g/dL Normal 12.0-16.0 [facility] Comment on above: Performed By: #### R ENAL, MG, URIC #### [facility] [address] [address] [address] Lamin Flores IG # 0.02 10e3/ul Normal 0.00-0.03 [facility] Comment on above: Performed By: #### R ENAL, MG, URIC #### [facility] [address] [address] [address] Lamin Flores IG % 0.3 % Normal 0.0-0.5 [facility] Comment on above: Performed By: #### R ENAL, MG, URIC #### [facility] [address] [place] [address] Dr. Lamin Flores LYMPH # 2.3 103/ul Normal 1.2-3.8 [facility] Comment on above: Performed By: #### R ENAL, MG, URIC #### [facility] [address] [place] [address] Dr. Lamin Flores Lymphocytes/100 WBC (Bld) 29.2 % Normal 20.5-60.0 [facility] Comment on above: Performed By: #### R ENAL, MG, URIC #### [facility] [address] [address] [address] Lamin Flores MANUAL DIFF REQ NO Normal [facility] Comment on above: Performed By: #### R ENAL, MG, URIC #### [facility] [address] [place] [address] Dr. Lamin Flores MCH (RBC) [Entitic mass] 29.6 pg Normal 26.7-34.0 [facility] Comment on above: Performed By: #### R ENAL, MG, URIC #### [facility] [address] [place] [address] Dr. Lamin Flores MCHC (RBC) [Mass/Vol] 32.4 g/dL Normal 29.9-35.2 [facility] Comment on above: Performed By: #### R ENAL, MG, URIC #### [facility] [address] [address] [address] Lamin Flores MCV (RBC) [Entitic vol] 91.2 fL Normal 81.0-99.0 [facility] Comment on above: Performed By: #### R ENAL, MG, URIC #### [facility] [address] [place] [address] Dr. Lamin Flores MONO # 0.4 103/ul Normal 0.3-0.8 [facility] Comment on above: Performed By: #### R ENAL, MG, URIC #### [facility] [address] [place] [address] Dr. Lamin Flores Monocytes/100 WBC (Bld) 4.9 % Normal 1.7-12.0 [facility] Comment on above: Performed By: #### R ENAL, MG, URIC #### [facility] [address] [place] [address] Dr. Lamin Flores NEUT # 5.0 103/ul Normal 1.4-6.5 [facility] Comment on above: Performed By: #### R ENAL, MG, URIC #### [facility] [address] [place] [address] Dr. Lamin Flores Neutrophils/100 WBC (Bld) 62.8 % Normal 43.0-75.0 [facility] Comment on above: Performed By: #### R ENAL, MG, URIC #### [facility] [address] [place] [address] Dr. Lamin Flores Platelet mean volume (Bld) [Entitic vol] 10.7 fL Normal 9.5-13.5 [facility] Comment on above: Performed By: #### R ENAL, MG, URIC #### [facility] [address] [place] [address] Dr. Lamin Flores PLT 246 103/ul Normal 150-450 [facility] Comment on above: Performed By: #### R ENAL, MG, URIC #### [facility] [address] [place] [address] Dr. Lamin Flores RBC 4.87 106/ul Normal 4.20-5.40 [facility] Comment on above: Performed By: #### R ENAL, MG, URIC #### [facility] [address] [address] [address] Lamin Flores WBC 8.0 103/ul Normal 4.0-11.0 [facility] Comment on above: Performed By: #### R ENAL, MG, URIC #### [facility] [address] [place] [address] Dr. Lamin Flores MAGNESIUMon 01-09-2022 Magnesium [Mass/Vol] 1.7 mg/dL Critically low 1.8-2.4 [facility] Comment on above: Performed By: #### M G, RENAL, URIC #### [facility] [address] [address] [address] Lamin Flores RENAL FUNCTION PANELon 01-09 Albumin [Mass/Vol] 3.7 g/dL Normal 3.4-5.0 [facility] Comment on above: Performed By: #### M G, RENAL, URIC #### [facility] [address] [place] [address] Dr. Lamin Flores Calcium [Mass/Vol] 9.0 mg/dL Normal 8.5-10.1 [facility] Comment on above: Performed By: #### M G, RENAL, URIC #### [facility] [address] [address] [address] Lamin Flores Chloride [Moles/Vol] 105 mmol/L Normal 98-107 [facility] Comment on above: Performed By: #### M G, RENAL, URIC #### [facility] [address] [address] [address] Lamin Flores CO2 [Moles/Vol] 27.5 mmol/L Normal 21.0-32.0 [facility] Comment on above: Performed By: #### M G, RENAL, URIC #### [facility] [address] [address] [address] Lamin Flores Creatinine [Mass/Vol] 1.46 mg/dL Critically high 0.55-1.02 [facility] Comment on above: Performed By: #### M G, RENAL, URIC #### [facility] [address] [address] [address] Lamin Flores EGFR-AF PERUVIAN 44 mL/min/1.73m2 Critically low >=60 [facility] Comment on above: Performed By: #### M G, RENAL, URIC #### [facility] [address] [place] [address] Dr. Lamin Flores EGFR-NON AF PERUVIAN 36 mL/min/1.73m2 Critically low >=60 [facility] Comment on above: Performed By: #### M G, RENAL, URIC #### [facility] [address] [place] [address] Dr. Lamin Flores Glucose [Mass/Vol] 94 mg/dL Normal 74-106 [facility] Comment on above: Performed By: #### M G, RENAL, URIC #### [facility] [address] [place] [address] Dr. Lamin Flores Phosphate [Mass/Vol] 3.8 mg/dL Normal 2.6-4.7 [facility] Comment on above: Performed By: #### M G, RENAL, URIC #### [facility] [address] [place] [address] Dr. Lamin Flores Potassium [Moles/Vol] 4.4 mmol/L Normal 3.5-5.1 [facility] Comment on above: Performed By: #### M G, RENAL, URIC #### [facility] [address] [place] [address] Dr. Lamin Flores Sodium [Moles/Vol] 141 mmol/L Normal 136-145 [facility] Comment on above: Performed By: #### M G, RENAL, URIC #### [facility] [address] [place] [address] Dr. Lamin Flores Urea nitrogen [Mass/Vol] 21.0 mg/dL Critically high 7.0-18.0 [facility] Comment on above: Performed By: #### M G, RENAL, URIC #### [facility] [address] [place] [address] Dr. Lamin Flores UA RANDOM W/MICROSCOPICon BACTERIA TRACE Abnormal NONE SEEN [facility] Comment on above: Performed By: #### U AMIC #### [facility] [address] [address] [address] Lamin Flores Bilirubin Ql (U) Negative Normal NEGATIVE [facility] Comment on above: Performed By: #### U AMIC #### [facility] [address] [address] [address] Lamin Flores CAST SEEN Abnormal NONE SEEN [facility] Comment on above: Performed By: #### U AMIC #### [facility] [address] [address] [address] Lamin Flores Clarity (U) CLEAR Normal CLEAR [facility] Comment on above: Performed By: #### U AMIC #### [facility] [address] [address] [address] Lamin Flores Color (U) YELLOW Normal YELLOW [facility] Comment on above: Performed By: #### U AMIC #### [facility] [address] [place] [address] Dr. Lamin Flores Crystals LM Nom (Urine sed) NONE SEEN Normal NONE SEEN [facility] Comment on above: Performed By: #### U AMIC #### [facility] [address] [address] [address] Lamin Folres Epithelial cells LM Ql (Urine sed) MODERATE Abnormal NONE SEEN /RARE [facility] Comment on above: Performed By: #### U AMIC #### [facility] [address] [address] [address] Lamin Flores Glucose Ql (U) Negative Normal NEGATIVE [facility] Comment on above: Performed By: #### U AMIC #### [facility] [address] [address] [address] Lamin Flores Hemoglobin Ql (U) Negative Normal NEGATIVE [facility] Comment on above: Performed By: #### U AMIC #### [facility] [address] [place] [address] Dr. Lamin Flores HYALINE CAST RARE Normal [facility] Comment on above: Performed By: #### U AMIC #### [facility] [address] [address] [address] Lamin Flores Ketones Ql (U) TRACE Abnormal NEGATIVE [facility] Comment on above: Performed By: #### U AMIC #### [facility] [address] [address] [address] Lamin Flores LEUKOCYTES Negative Normal NEGATIVE [facility] Comment on above: Performed By: #### U AMIC #### [facility] [address] [address] [address] Lamin Flores MUCOUS NONE SEEN Normal NONE SEEN [facility] Comment on above: Performed By: #### U AMIC #### [facility] [address] [address] [address] Lamin Flores Nitrite Ql (U) Negative Normal NEGATIVE [facility] Comment on above: Performed By: #### U AMIC #### [facility] [address] [place] [address] Dr. Lamin Flores pH (U) 5.5 [pH] Normal 5-9 [facility] Comment on above: Performed By: #### U AMIC #### [facility] [address] [place] [address] Dr. Lamin Flores RBC NONE SEEN Abnormal 0-2 [facility] Comment on above: Performed By: #### U AMIC #### [facility] [address] [place] [address] Dr. Lamin Flores SPEC GRAVITY 1.025 Normal 1.005-<=1.025 [facility] Comment on above: Performed By: #### U AMIC #### [facility] [address] [place] [address] Dr. Lamin Flores UA PROTEIN Negative Normal NEGATIVE/ TRACE [facility] Comment on above: Performed By: #### U AMIC #### [facility] [address] [place] [address] Dr. Lamin Flores Urobilinogen Qn (U) 0.2 {Lolis'U}/dL Normal 0.2 - 1. 0 [facility] Comment on above: Performed By: #### U AMIC #### [facility] [address] [place] [address] Dr. Lamin Flores WBC 0-2 Abnormal NONE SEEN [facility] Comment on above: Performed By: #### U AMIC #### [facility] [address] [place] [address] Dr. Lamin Flores URIC ACID SERUMon 01-09-2022 Urate [Mass/Vol] 6.0 mg/dL Normal 2.6-6.0 [facility] Comment on above: Performed By: #### M G, RENAL, URIC #### [facility] [address] [address] [address] Lamin Flores URINE T PROTEIN CREAT RATIOo n 01-09-2022 Protein (U) [Mass/Vol] 28.0 mg/dL Critically high <=12.0 [facility] Comment on above: Performed By: #### R ENAL, MG, URIC #### [facility] [address] [place] [address] Dr. Lamin Flores UR PROT CREAT RAT 0.11 Normal [facility] Comment on above: Performed By: #### R ENAL, MG, URIC #### [facility] [address] [place] [address] Dr. Lamin Flores URINE CREAT 263.84 mg/dL Normal 20.00-300.00 [facility] Comment on above: Performed By: #### R ENAL, MG, URIC #### [facility] [address] [place] [address] Dr. Lamin Flores VITAMIN D 25 OHon 01-09-2022 VIT D 25-OH 41.6 ng/mL Normal [facility] Comment on above: Performed By: #### R ENAL, MG, URIC #### [facility] [address] [place] [address] Dr. Lamin Flores VIT D RANGES SEE BELOW Normal [facility] Comment on above: Result Comment: <20 ng/mL Vit D deficient 20 - <30 ng/mL Vit D insufficient 30 - 100 ng/mL Vit D sufficient >100 ng/mL Potential Toxicity Performed By: #### R ENAL, MG, URIC #### [facility] [address] [place] [address] Dr. Lamin Flores Vital Signs Date Time Vital Sign Value Performing Clinician Facility 10-19-2024 14:30-0400 Body height 147.32 cm [facility] 10-19-2024 14:30-0400 Body mass index (BMI) [Ratio] 28.9 kg/m2 [facility] 10-19-2024 14:30-0400 Body temperature 98.2 [degF] [facility] 10-19-2024 14:30-0400 Body weight 62.79 kg [facility] 10-19-2024 14:30-0400 Diastolic blood pressure 80 mm[Hg] [facility] 10-19-2024 14:30-0400 Heart rate 78 /min [facility] 10-19-2024 14:30-0400 Respiratory rate 19 /min [facility] 10-19-2024 14:30-0400 SaO2% (BldA) [Mass fraction] 97 % [facility] 10-19-2024 14:30-0400 Systolic blood pressure 131 mm[Hg] [facility] 09-01-2024 09:39-0400 Body height 148.6 cm Ovi Pocos DO Work Phone: [facility] 09-01-2024 09:39-0400 Body mass index (BMI) [Ratio] 27.73 kg/m2 Ovi Pocos DO Work Phone: [facility] 09-01-2024 09:39-0400 Body weight 61.24 kg Ovi Pocos DO Work Phone: [facility] 08-01-2024 08:38-0500 Body height 148.6 cm Ovi Pocos DO Work Phone: [facility] 08-01-2024 08:38-0500 Body mass index (BMI) [Ratio] 27.73 kg/m2 Ovi Pocos DO Work Phone: [facility] 08-01-2024 08:38-0500 Body weight 61.24 kg Ovi Pocos DO Work Phone: [facility] 07-07-2024 10:15-0500 Diastolic blood pressure 68 mm[Hg] Anat Ny DO Work Phone: [facility] 07-07-2024 10:15-0500 Heart rate 54 /min Anat Yanely DO Work Phone: [facility] 07-07-2024 10:15-0500 Respiratory rate 18 /min Anat Yanely DO Work Phone: [facility] 07-07-2024 10:15-0500 SaO2% (BldA) [Mass fraction] 98 % Anat Yanely DO Work Phone: [facility] 07-07-2024 10:15-0500 Systolic blood pressure 105 mm[Hg] Anat Yanely DO Work Phone: [facility] 07-07-2024 08:13-0500 Body height 147.32 cm Anat Yanely DO Work Phone: [facility] 07-07-2024 08:13-0500 Body weight 61.23 kg Anat Yanely DO Work Phone: [facility] 05-29-2024 10:33-0500 Body height 147.32 cm Anat Yanely DO Work Phone: [facility] 05-29-2024 10:33-0500 Body mass index (BMI) [Ratio] 28.4 kg/m2 Anat Yanely DO Work Phone: [facility] 05-29-2024 10:33-0500 Body weight 61.68 kg Anat Yanely DO Work Phone: [facility] 05-29-2024 10:33-0500 Diastolic blood pressure 76 mm[Hg] Anat Yanely DO Work Phone: [facility] 05-29-2024 10:33-0500 Heart rate 74 /min Anat Yanely DO Work Phone: [facility] 05-29-2024 10:33-0500 SaO2% (BldA) [Mass fraction] 98 % Anat Yanely DO Work Phone: [facility] [facility] 05-29-2024 10:33-0500 Systolic blood pressure 124 mm[Hg] Anat Yanely DO Work Phone: [facility] 05-27-2024 10:23-0500 Body height 147.32 cm Anat Yanely DO Work Phone: [facility] 05-27-2024 10:23-0500 Body mass index (BMI) [Ratio] 28.7 kg/m2 Anat Yanely DO Work Phone: [facility] 05-27-2024 10:23-0500 Body weight 62.28 kg Anat Yanely DO Work Phone: [facility] 05-27-2024 10:23-0500 Diastolic blood pressure 73 mm[Hg] Anat Yanely DO Work Phone: [facility] 05-27-2024 10:23-0500 Heart rate 76 /min Anat Yanely DO Work Phone: [facility] 05-27-2024 10:23-0500 Systolic blood pressure 143 mm[Hg] Anat Yanely DO Work Phone: [facility] 12-19-2023 13:25-0400 Body height 147.32 cm DO Anat Yanely Work Phone: [facility] 12-19-2023 13:25-0400 Body mass index (BMI) [Ratio] 29.2 kg/m2 DO Anat Yanely Work Phone: [facility] 12-19-2023 13:25-0400 Body weight 63.5 kg DO Anat Yanely Work Phone: [facility] 12-19-2023 13:25-0400 Diastolic blood pressure 78 mm[Hg] DO Anat Yanely Work Phone: [facility] 12-19-2023 13:25-0400 Systolic blood pressure 120 mm[Hg] DO Anat Yanely Work Phone: [facility] 12-03-2023 11:05-0400 Diastolic blood pressure 73 mm[Hg] DO Anat Yanely Work Phone: [facility] 12-03-2023 11:05-0400 Heart rate 61 /min DO Anat Yanely Work Phone: [facility] 12-03-2023 11:05-0400 Respiratory rate 18 /min DO Anat Yanely Work Phone: [facility] 12-03-2023 11:05-0400 SaO2% (BldA) [Mass fraction] 96 % DO Anat Yanely Work Phone: [facility] 12-03-2023 11:05-0400 Systolic blood pressure 117 mm[Hg] DO Anat Yanely Work Phone: [facility] 11-20-2023 07:08-0400 Body height 147.32 cm DO Anat Yanely Work Phone: [facility] 11-20-2023 07:08-0400 Body weight 64 kg DO Anat Yanely Work Phone: [facility] 11-13-2023 10:47-0400 Body height 149.86 cm [facility] 11-13-2023 10:47-0400 Body mass index (BMI) [Ratio] 28.6 kg/m2 [facility] 11-13-2023 10:47-0400 Body weight 64.41 kg [facility] 11-01-2023 14:28-0400 Body height 149.86 cm [facility] 11-01-2023 14:28-0400 Body mass index (BMI) [Ratio] 29.1 kg/m2 [facility] 11-01-2023 14:28-0400 Body temperature 96.5 [degF] [facility] 11-01-2023 14:28-0400 Body weight 65.48 kg [facility] 11-01-2023 14:28-0400 Diastolic blood pressure 86 mm[Hg] [facility] 11-01-2023 14:28-0400 Heart rate 57 /min [facility] 11-01-2023 14:28-0400 Respiratory rate 16 /min [facility] 11-01-2023 14:28-0400 SaO2% (BldA) [Mass fraction] 97 % [facility] 11-01-2023 14:28-0400 Systolic blood pressure 130 mm[Hg] [facility] 04-11-2023 09:40-0400 Body height 149.86 cm Michael Дмитрий Other [employer] Other 04-11-2023 09:40-0400 Body mass index (BMI) [Ratio] 28.27 kg/m2 Michael Дмитрий Other [employer] Other 04-11-2023 09:40-0400 Body temperature 97.1 [degF] Michael Дмитрий Other [employer] Other 04-11-2023 09:40-0400 Body weight 63.5 kg Michael Дмитрий Other [employer] Other 04-11-2023 09:40-0400 Diastolic blood pressure 85 mm[Hg] Michael Дмитрий Other [employer] Other 04-11-2023 09:40-0400 Respiratory rate 18 /min Michael Дмитрий Other [employer] Other 04-11-2023 09:40-0400 SaO2% (BldA) [Mass fraction] 98 % Michael Дмитрий Other [employer] Other 04-11-2023 09:40-0400 Systolic blood pressure 149 mm[Hg] Michael Дмитрий Other [employer] Other 09-28-2022 11:20-0400 Body height 149.86 cm Michael Дмитрий Other [employer] Other 09-28-2022 11:20-0400 Body mass index (BMI) [Ratio] 28.07 kg/m2 Michael Дмитрий Other [employer] Other 09-28-2022 11:20-0400 Body temperature 96.8 [degF] Michael Дмитрий Other [employer] Other 09-28-2022 11:20-0400 Body weight 63.05 kg Michael Дмитрий Other [employer] Other 09-28-2022 11:20-0400 Diastolic blood pressure 81 mm[Hg] Michael Дмитрий Other [employer] Other 09-28-2022 11:20-0400 Respiratory rate 18 /min Michael Дмитрий Other [employer] Other 09-28-2022 11:20-0400 SaO2% (BldA) [Mass fraction] 99 % Michael Дмитрий Other [employer] Other 09-28-2022 11:20-0400 Systolic blood pressure 133 mm[Hg] Michael Дмитрий Other [employer] Other 07-24-2022 10:40-0500 Body height 149.86 cm Michael Дмитрий Other [employer] Other 07-24-2022 10:40-0500 Body mass index (BMI) [Ratio] 28.44 kg/m2 Michael Дмитрий Other [employer] Other 07-24-2022 10:40-0500 Body temperature 97.6 [degF] Michael Дмитрий Other [employer] Other 07-24-2022 10:40-0500 Body weight 63.87 kg Michael Дмитрий Other [employer] Other 07-24-2022 10:40-0500 Diastolic blood pressure 91 mm[Hg] Michael Дмитрий Other [employer] Other 07-24-2022 10:40-0500 Respiratory rate 18 /min Michael Дмитрий Other [employer] Other 07-24-2022 10:40-0500 SaO2% (BldA) [Mass fraction] 98 % Michael Дмитрий Other [employer] Other 07-24-2022 10:40-0500 Systolic blood pressure 156 mm[Hg] Michael Дмитрий Other [employer] Other 01-16-2022 16:20-0400 Body height 149.86 cm Michael Дмитрий Other [employer] Other 01-16-2022 16:20-0400 Body mass index (BMI) [Ratio] 27.99 kg/m2 Michael Дмитрий Other [employer] Other 01-16-2022 16:20-0400 Body temperature 97 [degF] Michael Дмитрий Other [employer] Other 01-16-2022 16:20-0400 Body weight 62.87 kg Michael Дмитрий Other [employer] Other 01-16-2022 16:20-0400 Diastolic blood pressure 79 mm[Hg] Michael Дмитрий Other [employer] Other 01-16-2022 16:20-0400 Respiratory rate 18 /min Michael Дмитрий Other [employer] Other 01-16-2022 16:20-0400 SaO2% (BldA) [Mass fraction] 97 % Michael Дмитрий Other [employer] Other 01-16-2022 16:20-0400 Systolic blood pressure 136 mm[Hg] Michael Дмитрий Other [employer] Other Encounters Encounter Date Encounter Type Care Provider Facility Start: 10-19-2024 End: 10-19-2024 ambulatory [facility] Work Phone: Start: 10-19-2024 End: 10-19-2024 Patient encounter procedure [facility] Justin Work Phone: Start: 09-01-2024 End: 09-01-2024 Patient encounter procedure Ovi Slater Pocos DO Work Phone: [facility] Comment on above: S/P trigger finger r elease (Primary Dx); Ganglion of flexor tendon sheath of right middle finger Start: 09-01-2024 End: 09-01-2024 ambulatory OVI Slater POCOS Not Available Start: 08-20-2024 End: 08-20-2024 Orders Only Ovi Slater Pocos DO Work Phone: [facility] Comment on above: Trigger middle finge r of right hand (Primary Dx) Start: 08-04-2024 End: 08-04-2024 Clinisync Result Encounter Ovi Slater Pocos DO Work Phone: [facility] Unsolicited Start: 08-04-2024 End: 08-04-2024 Clinisync Result Encounter Ovi Slater Pocos DO Work Phone: [facility] Unsolicited Start: 08-04-2024 End: 08-04-2024 ambulatory Favian Pocos Facility:[facility] Start: 08-04-2024 End: 08-04-2024 Patient encounter procedure Ovi Slater Pocaroldo [facility] Start: 08-01-2024 End: 08-01-2024 Patient encounter procedure Ovi Slater Pocos DO Work Phone: [facility] Comment on above: Right hand pain (Lucretia rosahn Dx); Trigger middle finger of right hand; Trigger ring finger of right hand; Preoperative testing Start: 08-01-2024 End: 08-01-2024 Patient encounter status Ovi Slater Pocos DO Work Phone: [facility] Start: 08-01-2024 End: 08-01-2024 ambulatory OVI Slater POCOS Not Available Start: 07-07-2024 Non-patient / Non-visit Anatghanshyam Ny DO Work Phone: [facility] Work Phone: Start: 07-07-2024 End: 07-07-2024 Admission to same day surgery center Anat Yanely DO Work Phone: [facility] Work Phone: Start: 07-07-2024 End: 07-07-2024 ambulatory Anat C Yanely DO Work Phone: [facility] Work Phone: Start: 05-29-2024 End: 05-29-2024 Patient encounter procedure Anat Yanely DO Work Phone: [facility] Justin Work Phone: Start: 05-27-2024 End: 05-27-2024 Patient encounter procedure Anat Yanely DO Work Phone: [facility] Work Phone: Start: 05-20-2024 Non-patient / Non-visit Anat Yanely DO Work Phone: [facility] [employer] Work Phone: Start: 04-10-2024 End: 04-10-2024 ambulatory Anat C Yanely Facility:[facility] Start: 04-10-2024 End: 04-10-2024 Patient encounter procedure Anat C Yanely [facility] Start: 12-19-2023 End: 12-19-2023 ambulatory DO Anat C Yanely Work Phone: [facility] Work Phone: Start: 12-19-2023 End: 12-19-2023 Patient encounter procedure DO Anat Yanely Work Phone: [facility] Work Phone: Start: 12-03-2023 Non-patient / Non-visit DO Anat Yanely Work Phone: [facility] Work Phone: Start: 12-03-2023 End: 12-03-2023 Admission to same day surgery center DO Anat Yanely Work Phone: [facility] Work Phone: Start: 12-03-2023 End: 12-03-2023 ambulatory DO Anat C Yanely Work Phone: [facility] Work Phone: Start: 11-13-2023 End: 11-13-2023 ambulatory [facility] Work Phone: Start: 11-13-2023 End: 11-13-2023 [facility] Work Phone: Start: 11-01-2023 End: 11-01-2023 ambulatory [facility] Work Phone: Start: 11-01-2023 End: 11-01-2023 Patient encounter procedure [facility] Justin Work Phone: Start: 09-12-2023 Non-patient / Non-visit [facility] [employer] Work Phone: Start: 08-08-2023 Bamboo flowsheet Bridgette A Fel ter EXHIBITS MANAGER-REVENUE ENFORCEMENT COLLECTION AGENT Work Phone: [facility] Start: 08-08-2023 Bamboo flowsheet Bridgette A Fel ter EXHIBITS MANAGER-REVENUE ENFORCEMENT COLLECTION AGENT Work Phone: [facility] Start: 08-08-2023 End: 08-08-2023 Patient encounter procedure Bridgette A Travon EXHIBITS MANAGER-REVENUE ENFORCEMENT COLLECTION AGENT Work Phone: [facility] Comment on above: Seborrheic keratosis , inflamed Start: 04-11-2023 End: 04-11-2023 ambulatory Michael Дмитрий Other [employer] Other Start: 04-11-2023 Office outpatient visit 15 minutes Michael Дмитрий [facility] Start: 04-09-2023 End: 04-09-2023 Patient encounter procedure Anat Ny [facility] Start: 09-28-2022 End: 09-28-2022 ambulatory Michael Дмитрий Other [employer] Other Start: 09-28-2022 Office outpatient visit 25 minutes Michael Дмитрий [facility] Start: 09-19-2022 End: 09-20-2022 ambulatory MICHAEL ДМИТРИЙ Facility:[facility] Start: 07-26-2022 Telephone encounter Michael Дмитрий [facility] Start: 07-26-2022 End: 07-27-2022 ambulatory MICHAEL ДМИТРИЙ [facility] [employer] Other Start: 07-24-2022 Office outpatient visit 25 minutes Michael Дмитрий [facility] Start: 07-24-2022 End: 07-25-2022 ambulatory MICHAEL ДМИТРИЙ [facility] [employer] Other Start: 07-17-2022 End: 07-18-2022 ambulatory MICHAEL ДМИТРИЙ Facility:[facility] Start: 01-16-2022 End: 01-16-2022 ambulatory Michael Дмитрий Other [employer] Other Start: 01-16-2022 Office outpatient visit 25 minutes Michael Дмитрий [facility] Start: 01-09-2022 End: 01-10-2022 ambulatory MICHAEL ДМИТРИЙ Facility:[facility] Start: 09-30-2021 End: 09-30-2021 ambulatory Ovi Hopkins Other [employer] Other Start: 09-30-2021 Telephone encounter Ovi Hopkins [facility] Procedures Date Procedure Procedure Detail Performing Clinician Start: 08-04-2024 [facility] CBC W/ AUTO DIFF D avid A Pocos DO Work Phone: Start: 08-01-2024 Radex hand minimum 3 views Ovi Slater Pocos DO Work Phone: Start: 07-07-2024 Colonoscopy Anat Amaya er DO Work Phone: Start: 12-03-2023 Colonoscopy DO Anat T camelid fiber sorter Work Phone: Start: 08-08-2023 CRYOTHERAPY SKIN LESION 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 EXHIBITS MANAGER-REVENUE ENFORCEMENT COLLECTION AGENT Work Phone: H/O: surgery S/P trigger fing er release Ovi Vivas DO Work Phone: History of decompres roberto carlos of median nerve History of carpal tunnel release of both wrists Plan of Treatment Date Care Activity Detail Author Start: 09-01-2024 End: 09-01-2024 Patient encounter procedure 09/01/2024 9:45 AM EDT Office Visit [facility] [address] [place] [address] Ovi Vivas, [address] [place] [address] [facility] Start: 08-01-2024 End: 08-01-2025 Basic metabolic 1998 panel - Serum or Plasma Basic metabolic panel Lab Routine Preoperative testing Expected: 08/01/2024 (Approximate), Expires: 08/01/2025 [facility] Work Phone: Comment on above: Expected: 08/01/2024 (Approximate), Expires: 08/01/2025 Start: 08-01-2024 End: 08-01-2025 CBC W Auto Differential panel - Blood CBC auto differential Lab Routine Preoperative testing Expected: 08/01/2024 (Approximate), Expires: 08/01/2025 [facility] Comment on above: Expected: 08/01/2024 (Approximate), Expires: 08/01/2025 Start: 08-01-2024 End: 08-01-2025 ECG 12 lead ECG 12 lead ECG Routine Preoperative testing Expected: 08/01/2024 (Approximate), Expires: 08/01/2025 [facility] Comment on above: Expected: 08/01/2024 (Approximate), Expires: 08/01/2025 Start: 07-07-2024 [facility] Start: 04-15-2024 End: 04-15-2024 Patient encounter procedure 04/15/2024 9:25 AM EDT Office Visit [facility] [address] [place] [id number] Felter, Bridgette A, EXHIBITS MANAGER-REVENUE ENFORCEMENT COLLECTION AGENT [address] [place] [address] [facility] Start: 12-03-2023 [facility] Start: 09-06-2023 End: 09-06-2023 Patient encounter procedure 09/06/2023 9:20 AM EDT Office Visit [facility] [address] [place] [id number] 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, EXHIBITS MANAGER-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 ENFORCEMENT COLLECTION AGENT [address] [place] [address] [facility] Start: 08-08-2023 End: 08-08-2023 Patient encounter procedure 08/08/2023 8:50 AM EST Office Visit [facility] [address] [place] [address] 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, EXHIBITS MANAGER-REVENUE ENFORCEMENT COLLECTION AGENT [address] [place] [address] Arrived [facility] Comment on above: Arrived Start: 1996 Screening for malign ant neoplasm of breast Mammogram [facility] Start: 1956 Screening for malign ant neoplasm of colon [facility] Patient Education [facility] Work Phone: Renal function 1999 panel - Serum or Plasma [facility] Renal function 1999 panel - Serum or Plasma [facility] XR Hand - right 3 Views XR hand 3+ views right Imaging Routine Right hand pain 08/01/2024 7:57 AM EST [facility] Immunizations Immunization Date Immunization Notes Care Provider Fa cility 06-03-2021 COVID-19 mRNA-1273 (Moderna) DO Anat Ny Work Phone: [facility] 09-28-2020 COVID-19 mRNA-1273 (Moderna) DO Anat Ny Work Phone: [facility] 08-31-2020 COVID-19 mRNA-1273 (Moderna) DO Anat Ny Work Phone: [facility] Payers Date Payer Category Payer Private Health Insurance [id number] 2023 Self-pay [id number] 2023 Private Health Insurance [id number] 2022 Medicare [id number] 1959 Medicare [id number] 2.1 [id number] 1959 Private Health Insurance CLI [id number] 1959 Unknown [id number] 1956 Unknown [id number] 2.16.84 [id number] 1956 Unknown [id number] 2.16.84 [id number] 1956 Unknown [id number] 2.16.84 [id number] 1956 Unknown [id number] 2.16.84 [id number] 1956 Unknown [id number] 2.16.84 [id number] 1956 Unknown [id number] 2.16.8 [id number] 1956 Unknown [id number] 2.16.8 [id number] 1956 Unknown [id number] 2.16.8 [id number] 1956 Unknown [id number] 2.16.84 [id number] 1956 Unknown [id number] 2.16.84 [id number] 1956 Unknown [id number] 2.16.84 [id number] Medicaid [id number] Unknown [id number] 2.16. [id number] Unknown [id number] 2.16.8 [id number] Unknown [id number] 2.16.8 [id number] Social History Date Type Detail Facility Unknown if ever smoked [employer] Other Start: 07-12-2023 End: 09-01-2024 Sex Assigned At [facility] Tobacco smoking status No Smokin g Status Entered [facility] Start: 05-19-2023 End: 10-19-2024 Tobacco smoking status [facility] Ex-smoker [facility] End: 11-23-1989 History of tobacco use Current smoker [facility] End: 11-23-1989 History of tobacco use Cigarette Smoker [facility] Start: 07-12-2023 End: 08-08-2023 Alcohol intake Lifetime non-drinker (finding) [facility] Start: 07-12-2023 End: 09-01-2024 History of Social function [facility] Start: 05-19-2023 Alcohol Comment caffeine: 1-2 cups per day tea [facility] Start: 1955 Sex Assigned At Not on file N [facility] Start: 05-22-2023 Gender identity Identifies as female gender (finding) [facility] Start: 1955 Sex Assigned At Female F [facility] Start: 07-07-2024 End: 10-19-2024 Sex Female (finding) [facility] Start: 08-01-2024 End: 09-01-2024 Alcoholic beverage intake Ex-drinker (finding) [facility] Goals Date Patient Goal Desired Activity /State Clinical Notes 01-16-2022 to 09-01-2024 Kassidy Kumar - 09/01/2024 9:45 AM EDVickykaylyn Kumar - 08/01/2024 8:45 AM EST Note Date & Type Note Facility 09-01-2024 History of Presen t illness Narrative Darnell Hay is a 69 y.o. female presents with chief complaint of right ring and mid finger trigger release, 08-21-2024 with complaint of mass mid finger. HPI: Darnell returns here today for repeat evaluation of all the above. She is doing well, tolerated the surgery well. She has noticed a small punctate mass over the palmar aspect of her mid finger and does inquire about that here today. SUBJECTIVE: MEDICATIONS: Current Outpatient Medications Medication Instructions amLODIPine (Norvasc) 10 MG tablet atenolol (Tenormin) 100 MG tablet atorvastatin (Lipitor) 10 MG tablet BABY ASPIRIN PO ergocalciferol (Vitamin D2) 1.25 MG (91645 UT) capsule lisinopril 40 mg, Daily mesalamine ER (Apriso) 0.375 g 24 hr capsule TAKE 4 CAPSULES BY MOUTH EVERY MORNING pantoprazole (ProtoNix) 20 MG EC tablet Pantoprazole Sodium polyethylene glycol, PEG, 3350 (Glycolax) 17 GM/SCOOP powder MIX 17 GRAMS INTO LIQUID AND DRINK ONCE A DAY ALLERGIES: No Known Allergies SURGICAL HISTORY: Past Surgical History: Procedure Laterality Date CARPAL TUNNEL RELEASE Left 2010 HAND SURGERY 2021 RCTR/ RIF trigger release-DAP HYSTERECTOMY 1990 OTHER SURGICAL HISTORY 1989 Crohn's resection OTHER SURGICAL HISTORY 1983 Uterine suspension surgery SHOULDER SURGERY Left 2010 TRIGGER FINGER RELEASE Right 08/21/2024 RRF RMF DAP FAMILY HISTORY: Family History Problem Relation Name Age of Onset Heart disease Mother Rosina Hypertension Mother Rosina Diabetes Mother Rosina Osteoarthritis Mother Rosina Diabetes Father Ayesha Hypertension Father Ayesha Heart disease Father Ayesha Melanoma Neg Hx SOCIAL HISTORY: Social History Tobacco Use Smoking status: Former Current packs/day: 0.00 Types: Cigarettes Quit date: 11/23/1989 Years since quittin.7 Vaping Use Vaping status: Never Used Substance Use Topics Alcohol use: Not Currently Comment: caffeine: 1-2 cups per day tea Drug use: Never Depression: Not on file REVIEW OF SYMPTOMS: The review of systems, history and current medications list are all reviewed today. OBJECTIVE: Visit Vitals Ht 4' 10.5 Wt 135 lb BMI 27.73 kg/m Smoking Status Former BSA 1.59 m Physical Exam Her orthopedic exam reveals her trigger sites to be benign. She does hold the digits a little bit flexed based upon the suture tethering. Her neurocirculatory status is intact. She does have an apparent rose marie seed ganglion just distal to the distal flexor crease of the palm, palmar aspect of the mid finger. This is very small in size, really not overly painful. X-rays none new here today. ASSESSMENT AND PLAN: Assessment/Plan Right middle and ring finger trigger release with likely rose marie seed ganglion, right middle finger. The findings are discussed. With regard to the trigger site, she will advance her activities. We did offer therapy. She does decline this. We did discuss the motion and advancement. We did recommend watchful observation of the likely rose marie seed ganglion. We did explain this as not being of significant concern. It sounds as if she would like more reassurance than anything here today. We will see her back here only as needed. All of her questions are otherwise answered. Cosigned by Ovi Vivas DO at 09/02/2024 4:36 PM EDT documented in this encounter [facility] 08-01-2024 History of Presen t illness Narrative Images from the original note were not included. GENERAL HISTORY AND PHYSICAL: NAME: Darnell Hay : 1955 CHIEF COMPLAINT: Right mid and ring finger trigger digit. HISTORY OF PRESENT ILLNESS: This is a 69 y.o. female who presents for a pre-op H&P. Darnell is a 69-year-old white female, right hand dominant, who presents complaining of trigger digits of her right mid and ring fingers. This has been going on for about a year, somewhat progressive in nature. She feels she is getting more and more stiff and is concerned about this more than anything. She does have a history of a right index finger trigger release and as such, does understand trigger fingers to some extent. 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 She has tried some Bengay. It is worse at night she feels. PAST MEDICAL HISTORY: Past Medical History: Diagnosis Date Chronic kidney disease Crohn's disease (CMS/HCC) Crohns SI CTS (carpal tunnel syndrome) Frozen shoulder Heart disease Hypertension (CMS/HCC) Intestinal disease Peptic ulcer disease Trigger finger PAST SURGICAL HISTORY: Past Surgical History: Procedure Laterality Date CARPAL TUNNEL RELEASE Left 2010 HAND SURGERY 2021 RCTR/ RIF trigger release-DAP HYSTERECTOMY 1990 OTHER SURGICAL HISTORY 1989 Crohn's resection OTHER SURGICAL HISTORY 1983 Uterine suspension surgery SHOULDER SURGERY Left 2010 TRIGGER FINGER RELEASE SOCIAL HISTORY: Social History Occupational History Not on file Tobacco Use Smoking status: Former Current packs/day: 0.00 Types: Cigarettes Quit date: 11/23/1989 Years since quittin.7 Smokeless tobacco: Not on file Vaping Use Vaping status: Never Used Substance and Sexual Activity Alcohol use: Not Currently Comment: caffeine: 1-2 cups per day tea Drug use: Never Sexual activity: Not Currently Partners: Male ALLERGIES: No Known Allergies MEDICATIONS: Current Outpatient Medications Medication Instructions amLODIPine (Norvasc) 10 MG tablet atenolol (Tenormin) 100 MG tablet atorvastatin (Lipitor) 10 MG tablet BABY ASPIRIN PO ergocalciferol (Vitamin D2) 1.25 MG (29379 UT) capsule lisinopril 40 mg, Daily mesalamine ER (Apriso) 0.375 g 24 hr capsule TAKE 4 CAPSULES BY MOUTH EVERY MORNING pantoprazole (ProtoNix) 20 MG EC tablet Pantoprazole Sodium polyethylene glycol, PEG, 3350 (Glycolax) 17 GM/SCOOP powder MIX 17 GRAMS INTO LIQUID AND DRINK ONCE A DAY REVIEW OF SYSTEMS: The review of systems, history and current medications list are all reviewed today. Vitals: Visit Vitals Ht 4' 10.5 Wt 135 lb BMI 27.73 kg/m Smoking Status Former BSA 1.59 m PHYSICAL EXAM: Her orthopedic exam reveals a pleasant 69-year-old white female in no acute distress. She answers all questions appropriately. She does have tenderness to palpation right over the A1 marbella area of the mid and ring finger. There is no gross malalignment or deformity. She does have casie triggering noted. The incision over the index finger is benign. Her neurocirculatory status is intact. Radial and ulnar pulses are brisk. Examination of the left hand reveals range of motion without difficulty. No triggering. Neurocirculatory status is intact. Radial and ulnar pulses are brisk. X-rays AP, lateral and oblique of the right hand total of three views with permanent images are saved to the record shows no evidence of fracture. She does have some osteoarthritic change basilar thumb carpometacarpal joint, minimal in nature. No other finding of significance. Surgical History and Physical: GENERAL AND PSYCHOLOGICAL: The patient is alert and oriented for age. HEAD AND E.E.N.T.: The skull is normocephalic. There is no mass or sign of trauma. NECK: The neck is supple. There is good range of motion. There is no mass or adenopathy appreciated. The thyroid is not enlarged. CARDIAC: The heart is regular. There is no murmur or ectopy appreciated. LUNGS: Inspiratory and expiratory excursions are symmetrical. The lung jo are clear in all quadrants. ABDOMEN: The texture is soft. Bowel sounds are heard well in all quadrants. There is no tenderness to palpation. There is no organomegaly appreciated. OSTEOPATHIC AND STRUCTURAL: There is no gross evidence of kyphosis, lordosis, scoliosis, or apparent leg length discrepancy, with no acute tissue texture changes in sitting or standing positions. ASSESSMENT: Right middle and ring finger trigger digits. PLAN: The findings are discussed. We did discuss the alternatives of corticosteroid injection versus surgery. Based upon how this is effecting her, she would like to move forward with the surgery. This does appear to be clinically indicated and cost effective. This will be trigger finger release of both the mid and ring fingers. This is two separate procedures, two separate incisions. We did review the process with her. We did outline risks, complications, and reasonable expectations. These include but are not limited to infection which may necessitate further surgery, nerve or blood vessel injury, wound healing difficulty and dehiscence, the expectations with regard to recovery and return to function. Routine testing will be done based upon age and gender. We will see her back for site verification and the surgery. All of her questions are otherwise answered at length here today. Follow up letter sent to Dr. Ny. Ovi Vivas D.O. Cosigned by Ovi Vivas DO at 08/04/2024 7:57 AM EST documented in this encounter [facility] 07-07-2024 History and physi gema note [facility] enter 07-07-2024 Procedure note [facility] enter 05-27-2024 Evaluation note Diagnosis Onset Date Resolution Crohn's disease of intestine acute May 27, 2024 10:18am GERD (gastroesophageal reflux disease) acute May 27, 2024 10:18am CKD (chronic kidney disease) stage 3, GFR 30-59 ml/min acute May 29, 2024 10:24am Crohn disease acute May h, 2023 10:24am Hyperlipidemia acute May 292023 10:24am Hypertensive chronic kidney disease with stage 1 through stage 4 chronic ki acute Decem 2023 10:24am Hyperuricemia acute May h, 2023 10:24am Secondary hyperparathyroidism acute May 10:24am [facility] Work Phone: 1(274) 807-307206-10-2024 [facility] of Present illness Narrative* 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, EXHIBITS MANAGER- 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 Seborrheic keratosis, inflamed Left Nasal Sidewall [place] and brown stuck on verrucous scaly papule [...] office if abnormal redness or tenderness develops atthe treatment site. Cryotherapy today, see procedure note. Diagnosis: Inflamed seborrheic keratosis Indication: Inflamed Consent: Verbal consent was obtained and risks were discussed, including, but not limited to risks of scarring, darker or pipeman pigmentary changes, recurrence, incomplete removal and infection. [...] for any new/changing lesions documented in [facility] encounter[facility] [id number] Evaluation note* Encounter Date Diagnosis Assessment Notes Treatment Notes Treatment Clinical Notes Mar, Chronic kidney disea se, stage 3b (ICD-10 [...] goal. Continue oral ergocalciferol. Mar, Crohn disease (ICD-1 0 - K50.90) Continue follow with GI for Crohn's. I have advised her to adequately hydrate herself. Mar, Hyperuricemia (ICD-1 0 - E79.0) She has hyperuricemia due to the CKD. She denies any gout flare. We will monitor without any medication. [employer] Other 04-06-2023 Evaluation note* Encounter Date Diagnosis [...] flare. We will monitor without any medication. [employer] Other 01-30-2023 Evaluation note* Encounter Date Diagnosis [...] have advised her to adequately hydrate herself. [employer] Other 07-25-2022 Evaluation note* Encounter Date Diagnosis [...] surround the progression of CKD. Dec, Jose mata kid w cr kid I-IV (ICD-10 - [...] K50.90) Continue follow with GI for Crohn's [facility] [place] Other Evaluation + Plan note No data available for this section [facility] noteNo InformationNortSpecial [facility] [place] Other Evaluation note* Diagnosis Seborrheic keratosis, inflamed documented in this encounter [facility] HealthcareEvaluation note* Diagnosis Onset Date Resolution Status CKD (chronic kidney disease) stage 3, GFR 30-59 ml/min acute Crohn disease acute Hyperlipidemia acute [id number] acute Hyperuricemia acute Secondary hyperparathyroidism acute [facility] Work Phone: Evaluation note* Diagnosis Onset Date Resolution Status CKD (chronic kidney disease) stage 3, GFR 30-59 ml/min acute Crohn disease acute Hyperlipidemia acute [id number] acute Hyperuricemia acute Secondary hyperparathyroidism acute Crohn disease acute GERD (gastroesophageal reflux disease) acute [facility] Work Phone: Evaluation note* Diagnosis Onset Date Resolution Status CKD (chronic kidney disease) stage 3, GFR 30-59 ml/min acute Crohn disease acute Hyperlipidemia acute [id number] acute Hyperuricemia acute Secondary hyperparathyroidism acute Crohn disease acute GERD (gastroesophageal reflux disease) acute Crohn's disease of intestine acute [facility] Work Phone: Evaluation note* Diagnosis Right hand pain- Primary Pain in soft tissues of limb Trigger middle finger of right hand Trigger ring finger of right hand Preoperative testing Unspecified pre-operative examination documented in this encounter [facility] HealthcareEvaluation note* Diagnosis Trigger middle finger of right hand- Primary documented in this encounter [facility] HealthcareEvaluation note* Diagnosis S/P trigger finger release- Primary Ganglion of flexor tendon sheath of right middle finger documented in this encounter [facility] HealthcareEvaluation noteNo assessment information availableRegency Hospital Company Work Phone: History and physical note Author Clyde Garcia [facility] Note Date/Time July 07, 2024 1 0:24am [facility] [address] [place] [address] Gastroenterology H&P Signed Patient: Darnell Hay MR#: [id number] 9 : 1955 Acct:[id number] Age/Sex: 69 / F Adm Date: 5 Loc: Room: Type: [facility] Attending Dr: Clyde Garcia MD Copies to: MD Anat Beasley, ~ Date of Service: 07/07/2024 HISTORY & PHYSICAL: Patient's history with special attention to the cardiovascular, pulmonary systems and the current problem was reviewed with the patient immediately prior to the procedure. Present medications and doses reviewed in the EMR. Allergies and pertinent laboratory tests were also reviewedat this time in the EMR. The physical examination, as below, was then performed. Indication, assessment and HPI: 69-year-old female with a history of Crohn's disease s/p ileocecectomy, on Apriso presents for staging colonoscopy, colorectal cancer screening. Family history of GI malignancy? no PHYSICAL EXAMINATION Mouth and Pharynx : moist mucus membranes, normal dentition Eyes: EOM intact b/l, normal sclera Pulmonary: normal respiratory effort, able to speak in complete sentences Neurological: alert and oriented x3, moves all extremities Skin: non-jaundiced, warm and dry Abdomen: non-distended, normal to inspection Psych: Mental status and mood grossly normal REVIEW OF SYSTEMS Constitutional: Denies malaise, fevers Cardiovascular: Denies chest pain, palpitations Respiratory: Denies shortness of breath, wheezing Gastrointestinal: Per HPI Genitourinary: Denies dysuria, polyuria Musculoskeletal: Denies joint swelling, joint stiffness Neurological: Denies numbness, tingling Integumentary: Denies rashes, skin lesions Endocrine: Denies fatigue, weight loss Written informed consent obtained from the patient. Risks (including but not limited to perforation, infection, bloating, bleeding, need for emergent surgeryand loss of life), benefits and alternatives explained and questions answered. The patient verbalized understanding. Based on history patient is an appropriate candidate for the procedure. Clyde Garcia MD Documented By: Clyde Garcia MD 07/07/2447 Signed By: <Electronically signed by Clyde Garcia MD> 07/07/24 0847 [facility] Work Phone: History general Narrative - Reported* Type Description Date Medical History HTN Medical History GERD Medical History Crohn's Medical History CHRONIC KIDNEY DISEASE Surgical History bowel resection Surgical History hysterectomy Surgical History adhesions Surgical History intussusception of bowel Surgical History CARPAL TUNNEL RELEAS E AND TRIGGER FINGER ON RIGHT HAND 2021 Hospitalization History see surgical hx Hospitalization History CHILD X 2 [employer] Other Hospital Discharge instructions No data available for this section [facility] Additional Instructions DISCHARGE INSTRUCTIONS FOR COLONOSCOPY WHAT TO EXPECT: - You may feel full, gassy or cramping after your procedure. In some cases, this may be from a few hours to a day. Walking may help relieve the discomfort. - If you have polyp(s) removed you may note some minor bloody discharge after your first bowel movements. - You should begin to recover from anesthesia within 1 hour of the procedure, however may feel groggy for the next 24 hours. DO's AND DON'Ts: - Call your doctor right away if you have a hard abdomen, severe pain, are passing lots of bright red blood or clots. - Call your doctor if you develop any rashes, hives or difficulty breathing. - Let your doctor know if you have not had a bowel movement by 3 days after your procedure. - If you take 81 mg aspirin for your heart it is safe to resume this medication. - If you take other blood thinner medications your doctor will instruct you when these can safely be resumed. - Do NOT drive for 24 hours. - Do NOT operate machinery such as power tools, lawn mowers, snow blowers, sewing machines, etc. for 24 hours. - Avoid alcoholic beverages and drugs for allergies, nerves, or sleep. - Do NOT stay alone. Do NOT leave your child unattended. - Do NOT make important personal or business decisions or sign any legal documents. - Eat solid foods and drink liquids in smaller amounts than usual until normal appetite returns. If you should experience an upset stomach, liquids high in sugar content (soda, Kervin-Aid, non-acid juices) are recommended. - You can resume normal activities tomorrow. FOLLOW UP & RECOMMENDATIONS: -Dr. Garcia's office will contact you regarding her pathology and when you need a follow-up appointment.. -Notify the doctor if you have any problems. -Follow up with PCP. -Office number [phone].[facility] Work Phone: Progress note No data available for this section [facility] Summary Purpose Family History Relationship Condition Age at Onset Recorded Date/T [...] family member Unknown mother Diabetes mellitus Unknown Relationship Condition Age at Onset Recorded Date/T keon brother Diabetes mellitus Unknown Heart disease Unknown Unknown History of stroke Unknown Hypertension Unknown daughter Diabetes mellitus Unknown father Diabetes mellitus Unknown family member Unknown Malignant neoplasm of breast Unknown mother Diabetes mellitus Unknown Advance Directives Advance Directive Response Recorded Date/ Time Advance Directives No July 24, 2022 12:19pm Advance Directive Response Recorded Date/ Time Advance Directives No July 24, 2022 11:19am Advance Directive Response Recorded Date/ Time Advance Directives No October 19 2:08pm Chief Complaint and Reason for Visit Chief Complaint Amb Documentation RENAL 6 month f/u Reason for Visit CKD (chronic kidney disease) stage 3, GFR 30-59 ml/min Crohn disease Hyperlipidemia [id number] Hyperuricemia Secondary hyperparathyroidism Chief Complaint Amb Documentation RENAL 6 month f/u Previous [place] patient//constipation Reason for Visit CKD (chronic kidney disease) stage 3, GFR 30-59 ml/min Crohn disease Hyperlipidemia [id number] Hyperuricemia Secondary hyperparathyroidism Crohn disease GERD (gastroesophageal reflux disease) Chief Complaint Amb Documentation RENAL 6 month f/u Previous [place] patient//constipation crohn's disease. constipaiton crohn's disease. constipaiton Reason for Visit CKD (chronic kidney disease) stage 3, GFR 30-59 ml/min Crohn disease Hyperlipidemia [id number] Hyperuricemia Secondary hyperparathyroidism Crohn disease GERD (gastroesophageal reflux disease) Chief Complaint RENAL 6 month f/u Previous [place] patient//constipation crohn's disease. constipaiton crohn's disease. constipaiton FOLLOW UP COLONOSCOPY Reason for Visit CKD (chronic kidney disease) stage 3, GFR 30-59 ml/min Crohn disease Hyperlipidemia [id number] Hyperuricemia Secondary hyperparathyroidism Crohn disease GERD (gastroesophageal reflux disease) Crohn's disease of intestine Chief Complaint Admit Date 6 month follow up May 27, 2024 1 0:18am RENAL 6 MONTH F/U May 29, 2024 1 0:24am Crohn's July 07, 2024 7 :53am Crohn's July 07, 2024 8 :47am Reason for Visit Admit Date Crohn's disease of intestine May 10:18am GERD (gastroesophageal reflux disease) D ec2023 10:18am CKD (chronic kidney disease) stage 3, GF R 30-59 ml/min May 29, 2024 10:24am Crohn disease May 29, 2024 1 0:24am Hyperlipidemia May 29, 2024 1 0:24am Hypertensive chronic kidney disease with stage 1 through stage 4 chronic ki May 29, 2024 10:24am Hyperuricemia May 29, 2024 1 0:24am Secondary hyperparathyroidism May 292023 10:24am Chief Complaint Admit Date [place] on feet October 19, 2024 2:1 1pm Additional Source Comments REASON FOR VISIT (unrecogniz ed section and content) Reason Comments Follow-up Reason Comments Pain Reason Comments Post-op INFORMATION SOURCE (unrecogn ized section and content) DATE CREATED AUTHOR 09/23/2022 [facility] DATE CREATED AUTHOR AUTHOR'S ORGANIZ ATION 07/14/2024 [facility] DATE CREATED AUTHOR AUTHOR'S ORGANIZ ATION 08/05/2024 [facility] [facility] DATE CREATED AUTHOR AUTHOR'S ORGANIZ ATION 08/13/2024 [place] [facility] DATE CREATED AUTHOR AUTHOR'S ORGANIZ ATION 09/02/2024 [facility] EPIC Patient Care team informatio n (unrecognized section and content) Team Status: Active Member Role Status Dates Anat Ny DO Primary Care Provider Active Team Status: Inactive Member Role Status Dates Anat C Yanely , DO Primary Care Provider Active Start: October 19, 2024 End: October 19, 2024 Emily Arzola Active Start: October 192024 End: October 19, 2024 Shakila Arzola APRN Attending Provider Active Start: October 19, 2024 End: October 19, 2024 Team Status: Active Member Role Status Dates Anat Ny , DO Primary Care Provider Active Team Status: Active Member Role Status Dates Anat Ny , DO Primary Care Provider Active Start: May 20, 2024 Michael Cannon MD Attending Provider Active Start : May 20, 2024 Team Status: Inactive Member Role Status Dates Anat Ny , DO Primary Care Provider Active Start: May 27, 2024 End: May 27, 2024 Clyde Garcia MD Attending Provider Active S tart: May 27, 2024 End: May 27, 2024 Team Status: Inactive Member Role Status Dates Anat Ny , DO Primary Care Provider Active Start: May 29, 2024 End: May 29, 2024 Michael Cannon MD Attending Provider Active Start : May 29, 2024 End: May 29, 2024 Team Status: Inactive Member Role Status Dates Anat Ny , DO Primary Care Provider Active Start: July 07, 2024 End: July 07, 2024 Clyde Garcia MD Attending Provider Active S tart: July 07, 2024 End: July 07, 2024 Team Status: Active Member Role Status Dates Anat Ny DO Primary Care Provider Active Start: July 07, 2024 Clyde Garcia MD Attending Provider, Other Provider Active Start: July 07, 2024 Team Status: Inactive Member Role Status Dates Anat Ny , DO Primary Care Provider Active Start: November 01, 2023 End: November 01, 2023 Michael Cannon MD Attending Provider Active Start : November 01, 2023 End: November 01, 2023 Team Status: Inactive Member Role Status Dates Anat Ny , DO Primary Care Provider Active Start: November [...] Care Provider Active Start: September 12, 2023 Roshan Lillie VIKTORIYA Attending Provider Active St art: September 12, 2023 Clinical Support Nurse Relationship Specialty Start Date End Date Anat Ny MD [address] [place] [phone] PCP - General Family Medicine 08/01/24 Clinical Support Nurse Relationship Specialty Start Date End Date Anat Ny MD [address] [place] [phone] PCP - General Family Medicine 08/01/24 Clinical Support Nurse Relationship Specialty Start Date End Date Anat Ny MD [address] [place] [phone] PCP - General Family Medicine 08/01/24 Clinical Support Nurse Relationship Specialty Start Date End Date Anat Ny MD [address] [place] [phone] PCP - General Family Medicine 08/01/24 Team Status: Inactive Member Role Status Dates Anat Ny DO Primary Care Provider Active Start: October 19, 2024 End: October 19, 2024 Emily Arzola Active Start: October 192024 End: October 19, 2024 Shakila Arzola , EXHIBITS MANAGER Attending Provider Active Start: October 19, 2024 End: October 19, 2024 Goals (unrecognized section and content) Goals may [...] BE BASED ON THE PRIMARY CLINICAL RECORDS. [employer] provides no warranty or guarantee of the accuracy or completeness of information in this document.
[2024-12-02 06:54] LABS: Bilirubin Urine NEGATIVE (NEGATIVE); Blood Urine NEGATIVE (NEGATIVE); Clarity Urine CLEAR (CLEAR); Color Urine YELLOW (YELLOW); Glucose Urine UA NEGATIVE (NEGATIVE); Ketones Urine TRACE mg/dL (NEGATIVE); Leukocyte Esterase Urine NEGATIVE (NEGATIVE); Nitrite Urine NEGATIVE (NEGATIVE); Protein Urine NEGATIVE (NEG/TRACE); Specific Gravity Urine 1.025 (1.005-1.025); pH Urine 5.5 (5.0-9.0)
[2024-12-02 06:57] LABS: Creatinine Urine Random 223.91 mg/dL (20.00-300.00); Protein Creatinine Ratio Urine 0.12; Total Protein Urine Random 26.9 mg/dL (<=11.9)
[2024-12-02 07:00] LABS: Hematocrit 43.9 % (36.0-48.0); Hemoglobin 14.8 g/dL (12.0-16.0); Mean Corpuscular HGB Conc 33.7 g/dL (29.9-35.2); Mean Corpuscular Hemoglobin 30.3 pg (26.7-34.0); Mean Platelet Volume 10.4 fL (9.5-13.5); Platelet Count 247 10^3/uL (150-450); Red Blood Count 4.88 10^6/uL (4.20-5.40); White Blood Count 8.4 10^3/uL (4.0-11.0)
[2024-12-02 07:24] LABS: WBC Urine NONE SEEN #/HPF (NONE SEEN)
[2024-12-02 07:25] LABS: Bacteria Urine SMALL #/HPF (NONE SEEN); Cast Seen? NONE SEEN #/LPF (NONE SEEN); Crystals Seen? None Seen #/HPF (None Seen); Mucus Urine NONE SEEN (NONE SEEN); RBC Urine NONE SEEN #/HPF (0-2); Squamous Epithelial Cell Urine MANY #/LPF (NONE/RARE)
[2024-12-02 07:50] LABS: Anion Gap 15.4; BUN Creatinine Ratio 13.6; Calcium 9.3 mg/dL (8.5-10.1); Carbon Dioxide 25.8 mmol/L (21.0-32.0); Chloride 105 mmol/L (98-107); Estimated GFR (African America 48 (>=60 mL/min/1.73m^2); Estimated GFR (Non-African Ame 40 (>=60 mL/min/1.73m^2); Glucose 100 mg/dL (74-106); Magnesium 1.9 mg/dL (1.8-2.4); Potassium 4.2 mmol/L (3.5-5.1); Sodium 142 mmol/L (136-145); Uric Acid 5.8 mg/dL (2.6-6.0)
[2024-12-03 11:12] LABS: PTH, Intact 50 pg/mL (15-65)
== END 2024-12-02 06:32 | disposition home or self-care (01) ==
LOC: LAB 06:31
PROVIDERS: Visit Provider Internal Medicine
DX: E78.5 Hyperlipidemia, unspecified (principal); K50.019 Crohn's disease of small intestine with unspecified complications; E79.0 Hyperuricemia without signs of inflammatory arthritis and tophaceous disease; I12.9 Hypertensive chronic kidney disease with stage 1 through stage 4 chronic kidney disease, or unspecified chronic kidney disease; N18.30 Chronic kidney disease, stage 3 unspecified; N25.81 Secondary hyperparathyroidism of renal origin
CPT/HCPCS: 36415; 80069; 81001; 82306; 82570; 83735; 83970; 84156; 84550; 85027

== ENCOUNTER 2025-05-15 13:39 | Emergency (ER) | payer OTHER, MEDICARE, SELFPAY ==
[2025-05-15 13:40] VITALS: BP 129/75; PULSE 85; TEMP 36.4; O2SAT 97; BMI 28.2
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
--- OUTSIDE RECORDS SUMMARY | 2025-05-15 14:41 | XMS_ITS | Clinical Summary ---
Author Organization [facility] Address [address] [place] [address] Care Team Providers Care Line Maintenance Supervisor Name Role Phone Anat Ny MD Primary Care Provider [phone] Allergies No known active allergies Medications MedicationSigDispense QuantityRefillsLast FilledStart DateEnd DateStatus pantoprazole (ProtoNix) 20 MG EC tablet Pantoprazole SodiumActive lisinopril 40 MG tablet Take 40 mg by mouth in the morning.Active ergocalciferol (Vitamin D2) 1.25 MG (44181 UT) capsule Active BABY ASPIRIN PO Active atenolol (Tenormin) 100 MG tablet Active atorvastatin (Lipitor) 10 MG tablet Active amLODIPine (Norvasc) 10 MG tablet Active mesalamine ER (Apriso) 0.375 g 24 hr capsule TAKE 4 CAPSULES BY MOUTH EVERY NXBPQVX12/10/2025Active polyethylene glycol, PEG, 3350 (Glycolax) 17 GM/SCOOP powder MIX 17 GRAMS INTO LIQUID AND DRINK ONCE A DAY4Active Active Problems No known active problems Family History Medical HistoryRelationNameCommentsDiabetesFatherSnowdenHeart diseaseFather SnowdenHypertensionFatherSnowdenDiabetesMotherRoseHeart diseaseMotherRose HypertensionMotherRoseOsteoarthritisMotherRoseMelanomaNeg HxRelationNameStatus CommentsFatherSnowdenDeceasedMotherRoseDeceased Social History Tobacco UseTypesPacks/DayYears UsedDateSmoking Tobacco: FormerCigarettesQuit: 11/23/1989 Tobacco Cessation:Counseling Given: Not Answered Alcohol UseStandard Drinks/WeekCommentsNot Currently0 (1 standard drink = 0.6 oz pure alcohol)caffeine: 1-2 cups per day teaCommentsUnknownSex and Gender InformationValueDate RecordedSex Assigned at BirthNot on fileLegal SexFemale 09/06/2022 6:36 PM EDTGender LqnazlbhMbvqvp77/28/2023 8:47 AM ESTSexual OrientationNot on file Last Filed Vital Signs Vital SignReadingTime TakenCommentsBlood Pressure--Pulse--Temperature-- Respiratory Rate--Oxygen Saturation--Inhaled Oxygen Concentration--Mpbnvw11.2 kg (135 lb)09/01/2024 9:39 AM LBEIdokqe745.6 cm (4' 10.5 )09/01/2024 9:39 AM EDT Body Mass Index27.7309/01/2024 9:39 AM EDT Plan of Treatment Health MaintenanceDue DateLast DoneCommentsCT Rvikvjeqjzsa1956olonoscopy 1956olorectal Cancer Wkrwlbnac1956FIT-DNA1956FIT1955 FOBT1955 0187Iarkrpxhlslsp14/30/7631Zkvnuahfi08/30/1996COVID-19 Vaccine ( season)/, 06/03/2021, 09/28/2020, Additional history existsInfluenza Vaccine (#1)/, 04/27/2023, 04/02/2021, Additional history existsPneumococcal Vaccine: 65+ QqqlkAntpwnpdf55/03/2023, 07/09/2021 Insurance Care Teams Team MemberRelationshipSpecialtyStart DateEnd Anat Ny MD PCP - GeneralFamily Medicine08/01/24
--- OUTSIDE RECORDS SUMMARY | 2025-05-15 14:44 | XMS_ITS | CCD ---
Author Organization [facility] Care Team Providers Care Cardiopulmonary Physical Therapist Name Role Phone Sandeep Ovi Unavailable Дмитрий, [...] Consulting Unavailable Anat Ny Primary Care Physician [phone] Unavailable Primary Care Provider Unavailsusy e DO Anat Ny Primary Care Provider [phone] MD Clyde Garcia Attending Provider Anat Ny DO Primary Care Provider [phone] Clyde Garcia MD Attending Provider Clyde Garcia Attending Unavailable Anat Ny Primary Care Unavailable Clyde Garcia Admitting Unavailable Clyde Garcia Attending Unavailable Anat Ny Primary Care Unavailable Clyde Garcia Admitting Unavailable Anat Ny MD Primary Care Provider Ovi Moon Attending Unavailable Ovi Moon Referring Unavailable Ovi Moon Admitting Unavailable Anat Ny Admitting Unavailable Anat Ny Attending Unavailable Anat Ny Referring Unavailable SANGEETHA, OVI Slater Referring Unavailable SANGEETHA, OVI Slater Attending Unavailable POCAUDREY, OVI Slater Attending Unavailable PocOvi kendrick Attending Unavailable Ovi Moon Referring Unavailable Ovi Moon Admitting Unavailable Anat Ny Admitting Unavailable Anat Ny Attending Unavailable Anat Ny Referring Unavailable Medications Current Medications MedicationDrug Class(es)DatesSig (Normalized)Sig (Original)amLODIPine 10 mg oral tablet (20 sources)Dihydropyridine Calcium Channel BlockerStart: 13-36-2263wqcu 1 tablet by mouth once daily in the morningAmlodipine 10 mg tablet Active 10 MG PO Every morning November 01, 2023 12:00am End: 68-98-5269jmVYYPHgdp Benzoate 1 MG/ML suspension amLODIPine Benzoate 08/01/2024 Discontinued (Therapy completed)aspirin 81 mg delayed release oral tablet (20 sources)Platelet Aggregation Inhibitor, Nonsteroidal Anti-inflammatory Drug Start: 77-09-4678ezfq 1 tablet by mouth once dailyAspirin 81 mg tablet,delayed release (DR/EC) Active 81 MG PO Daily November 01, 2023 12:00amBABY ASPIRIN PO ActiveBABY ASPIRIN POtake 1 tablet by mouth every twenty-four hoursAspirin 81 MG 1 tablet Orally Once a day Activeatenolol 100 mg oral tablet (20 sources)beta-Adrenergic BlockerStart: 46-29-4292kurw 1 tablet by mouth once daily in the eveningAtenolol 100 mg tablet Active 100 MG PO Every evening November 01, 2023 12:00amtake 2 tablets by mouth every twenty-four hoursAtenolol 50 MG 2 tablet Orally Once a day for 90 day(s) Activeatorvastatin 10 mg oral tablet (19 sources)HMG-CoA Reductase InhibitorStart: 90-94-7229ckqi 1 tablet by mouth once daily in the morningAtorvastatin 10 mg tablet Active 10 MG PO Every morning November 01, 2023 12:00amdoxycycline hyclate 100 mg oral capsule (1 source)Tetracycline-class DrugStart: 08-19-7881tqht 1 capsule by mouth twice dailyDoxycycline Hyclate 100 mg capsule Active 100 MG PO Twice daily 13 04October 19, 2024 12:00amergocalciferol 1.25 mg oral capsule (20 sources)Provitamin D2 CompoundStart: 43-24-7068heyi 1 capsule by mouth every weekErgocalciferol (Vitamin D2) 1,250 mcg (50,000 unit) capsule Active 0 .ROUTE .COMPLEX September 27, 2024 10:40am TAKE 1 CAPSULE BY MOUTH EVERY WEEKStart: 09-12-2023 End: 59-66-2397ddlz 1 capsule by mouth every weekErgocalciferol (Vitamin D2) 1,250 mcg (50,000 unit) capsule Discontinued 1250 MCG PO every week September 12, 2023 3:03pm September 27, 2024 10:40amStart: 09-12-2023 End: 16-23-7725bzpo 1 capsule by mouth every weekErgocalciferol (Vitamin D2) 1,250 mcg (50,000 unit) capsule Discontinued 08891 UNIT PO every week September 12, 2023 12:00am September 12, 2023 2:41pm FreeTextSig: TAKE 1 CAPSULE BY MOUTH ONCE WEEKLY; Note: Source Status: Taking; Refills: 1; Qty: 14 Capsule; Provider: Дмитрий Rodriguez ( )Start: 09-12-6050dqmm 1 capsule by mouth every weekErgocalciferol 1.25 MG (48215 UT) 1 capsule Orally Q week for 90 day(s) Jun, Activeestradiol 0.5 mg oral tablet (4 sources)Estrogentake 1 tablet by mouth every twenty-four hoursEstradiol 0.5 MG 1 tablet Orally Once a day Activelisinopril 40 mg oral tablet (20 sources)Angiotensin Converting Enzyme InhibitorStart: 61-58-8819dqxx 1 tablet by mouth once daily in the morningLisinopril 40 mg tablet Active 40 MG PO Every morning November 01, 2023 12:00am24 hr mesalamine 375 mg extended release oral capsule (9 sources)AminosalicylateStart: 62-45-7255xeqo 4 capsules by mouth once daily in the morningmesalamine ER (Apriso) 0.375 g 24 hr capsule TAKE 4 CAPSULES BY MOUTH EVERY MORNING 07/04/2024 ActiveStart: 97-05-9998jgko 4 capsules by mouth once daily in the morningMesalamine (Apriso) 0.375 gram capsule,extended release 24hr Active 1.5 GM PO Every morning 120 December 18, 2023 11:00pm Take 4 capsule orally in the morning.Start: 72-85-2126bhwb 4 capsules by mouth once daily in the morningMesalamine (Apriso) 0.375 gram capsule,extended release 24hr Active 1.5 GM PO Every morning 120 December 19, 2023 12:00am Take 4 capsule orally in the morning.pantoprazole 20 mg delayed release oral tablet (20 sources)Proton Pump InhibitorStart: 65-43-7182ndoo 1 tablet by mouth once daily in the morningPantoprazole 20 mg tablet,delayed release (DR/EC) Active 20 MG PO Every morning November 01, 2023 12:00amPantoprazole Sodium 40 MG TAKE 1 TABLET BY MOUTH EVERY DAY Oral Once a day for 30 days Activepolyethylene glycol 3350 39050 mg powder for oral solution (8 sources)Osmotic LaxativeStart: 49-60-5281Nzzfnslmaern Glycol 3350 (Miralax) 17 gram/dose powder Active 17 GM PO Daily as needed for constipation 2024 1:00amsilver sulfADIAZINE 10 mg/ml topical cream (1 source)Sulfonamide AntibacterialStart: 11-32-6109Cwdmgu Sulfadiazine (Silvadene) 1 % cream Active 1 APPLIC TOPICAL Twice daily 25 7 October 19, 2024 12:00am apply a 1.5 mm thicknessSod Picosulf-Mag Ox-Citric Ac (2 sources)Start: 40-74-6341jxzt 1 dose by mouth once dailySod Picosulf-Mag Ox- Citric Ac (Clenpiq) 10 mg-3.5 gram- 12 gram/175 mL solution Active 175 ML PO Chrystal ly 350 0 May 27, 2024 1:00am Take first dose at 3pm evening before colonoscopy; second dose at 9 pm night before colonoscopyStart: 77-93-0495pkwc 1 dose by mouth once dailySod Picosulf-Mag Ox-Citric Ac (Clenpiq) 10 mg-3.5 gram- 12 gram/175 mL solution Active 175 ML PO Daily 350 0 May 27, 2024 12:00am Take first dose at 3pm evening before colonoscopy; second dose at 9 pm night before colonoscopy Completed/Discontinued Medications MedicationDrug Class(es)DatesSig (Normalized)Sig (Original)acetaminophen 325 mg / HYDROcodone bitartrate 5 mg oral tablet (6 sources)Opioid AgonistStart: 08-04-2020 End: 49-28-5136kxwq 1 tablet by mouth every six hours as needed for pain Hydrocodone-Acetaminophen 5-325 mg tablet Discontinued 1 TAB PO Q6H as needed for pain 03 27August 04, 2020 November 01, 2023 2:30moYdd2412-Bve Skr-Jtav-Tqx-Asb-C (2 sources)Osmotic Laxative, Vitamin CStart: 05-27-2024 End: 74-47-4096Txo6173-Sod Lfh-Kbgn-Dzh-Asb-C (Plenvu) 140-9-5.2 gram powder in packet, sequential Discontinued 140 ML PO .COMPLEX 1 May 27, 2024 1:00am May 27, 2024 11:30am First does at 4pm the day before the colonoscopy; second dose at 11pm the night before the colonoscopy.Start: 05-27-2024 End: 90-80-9985Vhp5277-Sod Ddm-Xliw-Hpw-Asb-C (Plenvu) 140-9-5.2 gram powder in packet, sequential Discontinued 140 ML PO .COMPLEX 1 May 27, 2024 12:00am May 27, 2024 10:30am First does at 4pm the daybefore the colonoscopy; second dose at 11pm the night before the colonoscopy.ondansetron 4 mg disintegrating oral tablet (6 sources)Serotonin-3 Receptor AntagonistStart: 08-04-2020 End: 25-26-2178ptmk 1 tablet by mouth four times daily as needed for nausea and vomitingOndansetron 4 mg tablet,disintegrating Discontinued 4 MG PO Four times daily as needed for nausea and vomiting August 04, 2020 1:00am November 01, 2023 2:31pmPolyethylene Glycol 3350 (Miralax) 17 gram/dose powder (5 sources)Start: 11-13-2023 End: 64-66-3963Ioqgvtkxcvas Glycol 3350 (Miralax) 17 gram/dose powder Discontinued 17 GM PO Daily October 12:00am 2024 9:49amStart: 11-13-2023 End: 08-68-1405Jvtyvfsktnwg Glycol 3350 (Miralax) 17 gram/dose powder Discontinued 17 GM PO Daily 510 October 11:00pm 2024 8:49amStart: 20-97-5002Btqyyeijlvjw Glycol 3350 (Miralax) 17 gram/dose powder Active 17 GM PO Daily 510 November 13, 2023 12:00amtraMADol hydrochloride 50 mg oral tablet (3 sources)Opioid AgonistStart: 08-20-2024 End: 36-79-0832lqpr 1 tablet by mouth every six hours for pain, then take 2 tablets by mouth every six hours for paintraMADol (Ultram) 50 MG tablet Indications: Trigger middle finger of right hand May take 1 tablet (50 mg) by mouth every 6 (six) hours if needed for severe pain. May also take 2 tablets (100 mg) every 6 (six) hours if needed for severe pain. Do all this for 7 days. 20 tablet 08/20/2024 09/01/2024 Discontinued Problems Active Problems Problem ClassificationProblemDateDocumented DateEpisodic/ChronicAbdominal pain (12 sources)Left lower quadrant pain; Translations: [Left lower quadrant pain] EpisodicChronic kidney disease (20 sources)Chronic kidney disease; Translations: [Chronic kidney disease, unspecified]73-08-9075PkxdmvxTfdbqtusm of lipid metabolism (11 sources)Hyperlipidemia; Translations: [Hyperlipidemia, unspecified] 15-25-5974PmvteyhLpeeyjuzhfmzwq and diverticulitis (6 sources)Diverticular disease of colon; Translations: [Diverticulosis of large intestine without perforationor abscess without bleeding]ChronicEsophageal disorders (15 sources)Gastro-esophageal reflux disease with esophagitis; Translations: [Gastro-esophageal reflux disease with esophagitis]21-44-5520Hhhkoex Gastroduodenal ulcer (except hemorrhage) (6 sources)Antral ulcer; Translations: [Gastric ulcer, unspecified as acute or chronic, without hemorrhage or perforation]ChronicHypertension with complications and secondary hypertension (20 sources)Chronic kidney disease due to hypertension; Translations: [Hypertensive chronic kidney disease withstage 1 through stage 4 chronic kidney disease, or unspecified chronic kidney disease]Onset: 01-16-2022 Resolved: 91-56-5403CrrdnlwStfcnp and vomiting (6 sources)Vomiting; Translations: [Vomiting, unspecified]EpisodicNoninfectious gastroenteritis (6 sources)Colitis; Translations: [Noninfective gastroenteritis and colitis, unspecified]55-24-3726OrcuxrkfLsiavbv on above:Problem List clean-up per request of Phys. EHR CmteOther connective tissue disease (2 sources)Pain in right hand; Translations: [Pain in right hand]08-01-2024 EpisodicOther connective tissue disease (5 sources)Triggering of digit; Translations: [Trigger finger, right middle finger]29-80-7273ZyoziuieTaljj connective tissue disease (2 sources)Ganglion of flexor tendon sheath of finger; Translations: [Ganglion, right hand]73-18-9806NgpfmdhsQrnib diseases of kidney and ureters (12 sources)Secondary hyperparathyroidism; Translations: [Secondary hyperparathyroidism of renal origin]02-45-5908MeuoxxjHrvgb diseases of kidney and ureters (10 sources)Secondary hyperparathyroidism of renal origin; Translations: [Secondary hyperparathyroidism (of renal origin)]Onset: 01-16-2022 Resolved: 80-24-0306BxdnjnuIrmhm gastrointestinal disorders (6 sources)H/O: gastrointestinal disease; Translations: [Personal history of other diseases of the digestive system]EpisodicOther nutritional; endocrine; and metabolic disorders (7 sources)Hyperuricemia without signs of inflammatory arthritis and tophaceous disease; Translations: [Other abnormal blood chemistry]EpisodicOther nutritional; endocrine; and metabolic disorders (6 sources)Hyperuricemia; Translations: [Hyperuricemia without signs of inflammatory arthritis and tophaceous disease]47-08-4946QnavhphqCnwdx skin disorders (2 sources)Inflamed seborrheic keratosis; Translations: [Inflamed seborrheic keratosis]84-16-9046BlrxadooMciuxxsj enteritis and ulcerative colitis (20 sources)Crohn's disease; Translations: [Crohn's disease, unspecified, without complications]Onset: 01-16-2022 Resolved: 51-44-3567Ymxircu Past or Other Problems Problem ClassificationProblemDateDocumented DateEpisodic/ChronicChronic kidney disease (6 sources)Chronic kidney disease; Translations: [Chronic kidney disease, stage 3b]Onset: 01-16-2022 Resolved: 21-18-2225Qpljl screening for suspected conditions (not mental disorders or infectious disease) (1 source)Encounter for screening for malignant neoplasm of colon; Translations: [Encounter for screening formalignant neoplasm of colon]Onset: 12-03-2023 Episodic Results Test NameValueInterpretationReference RangeFacilityMA Mamm Screen w/CAD if perf and 3D Bilon 29-77-5760LZ Mamm Screen w/CAD if perf and 3D BilExam Date/Time: 04/13/2025 08:40 EDT Reason for Exam: Z12.31 Report IMPRESSION: BIRADS 1 NEGATIVE, NORMAL INTERVAL FOLLOW-UP Follow-up: 12 MONTH RECALL Breast Density: Heterogeneously dense, which may obscure small masses. Vascular calcifications: Absent. EXAM: MA Mamm Screen w/CAD if perf and 3D Marck DATE: 04/13/2025 7:58 AM CLINICAL HISTORY: Z12.31. COMPARISONS: 04/10/2024, 04/09/2023, and 04/06/2022. TECHNIQUE: Routine full-field digital mammograms and 3D breast tomosynthesis were obtained of both breasts. FINDINGS: No significant changes are identified from the prior studies, given differences in technique and positioning. Dense Breast: Yes. CAD analysis was performed and used in the interpretation. Board Certified Radiologists. Accredited by the ACR and FDA. MAMMOGRAPHY IS VERY IMPORTANT TO YOUR HEALTH. THE CURRENT [employer] GUIDELINES RECOMMENDS ANNUAL MAMMOGRAPHY BEGINNING AT AGE 40. THIS FACILITY UTILIZES A REMINDER SYSTEM TO ENSURE ALL PATIENTS RECEIVE REMINDER NOTIFICATIONS AT THE APPROPRIATE TIME BASED ON THE RECOMMENDATIONS OF THIS EXAM. Report Ordering Provider: Anat Ny FINAL REPORT Dictated: 04/13/2025 12:43 pm Ovidio Bunch MD Signed (Electronic Signature): 04/13/2025 12:43 pm Signed by: Ovidio Bunch MD Transcribed by: ARNULFO Technologist: ROGER Assessment: BI-RADS Category 1-Negative Recommendation: Normal interval follow-upNormalRegional Medical CenterBMPon 01-28-7980Lssvc gap [Moles/Vol]13 mmol/LNormal6-16[facility] Comment on above:Performed By: #### [id number] #### [facility] [address], [place] [address]Pjprloj [Mass/Vol]9.7 mg/dLNormal8.9-11.1FCleveland Clinic Medina HospitalComment on above:Performed By: #### [id number] #### [facility] [address], [place] [address]Xpmtiusb [Moles/Vol]104 mmol/TYvevtn208-228ZtlenrRegional Medical CenterComment on above:Performed By: #### [id number] #### [facility] [address], [place] [address]JI2 [Moles/Vol]25 mmol/KOuqvwo10-99GzitovRegional Medical Center Comment on above:Performed By: #### [id number] #### [facility] [address], [place] [address]Luwlzeduok [Mass/Vol]1.3 mg/dLNormal0.5-1.3FCleveland Clinic Medina HospitalComment on above:Performed By: #### [id number] #### [facility] [address], [place] [address]Tzmrjyf [Mass/Vol]88 mg/kSGlzsvv95-865NrqiglRegional Medical CenterComment on above:Performed By: #### [id number] #### [facility] [address], [place] [address]Ulqyyvjnj [Moles/Vol]4.2 mmol/LNormal3.5-5.3FCleveland Clinic Medina HospitalComment on above:Performed By: #### [id number] #### [facility] [address], [place] [address]Yxpaop [Moles/Vol]138 mmol/MJnogdm353-538RcjxvwRegional Medical CenterComment on above:Performed By: #### [id number] #### [facility] [address], [place] [address]Fffz nitrogen [Mass/Vol]22 mg/dLHigh5-21Reg[facility] Medical CenterComment on above:Performed By: #### [id number] #### [facility] [address], [place] [address]Yefa nitrogen/Creatinine [Mass ratio]17 No ZxuapZgktvi43-36 Regional Medical CenterComment on above:Performed By: #### [id number] #### [facility] [address], [place] [address]NQR w/ Auto Diffon 72-82-4288Kylcheynb/100 WBC (Bld)0.5 %Normal 0.0-2.0NOMS HealthcareComment on above:Performed By: #### [id number] #### [facility] [address], [place] [address]Vdjjptunjeh distribution width (RBC) [Ratio]13.9 %Normal 10.9-14.2NOMS HealthcareComment on above:Performed By: #### [id number] #### [facility] [address] [place] [address]Leqmcaojjz (Bld) [Volume fraction]42.7 %Dyppkf21.0-46.0NOMS HealthcareComment on above:Performed By: #### [id number] #### [facility] [address], [place] [address]Ajsghsunyea/100 WBC (Bld)28.2 %Kwzuxy69.0-50.0[facility] Comment on above:Performed By: #### [id number] #### [facility] [address], [place] [address]Bwrazugmvuc/100 WBC (Bld)62.3 %Qyytfh30.0-75.0[facility] Comment on above:Performed By: #### [id number] #### [facility] [address], [place] [address]Baxigmtf mean volume (Bld) [Entitic vol]8.2 fLNormal6.4-10.8 NOM[facility] HealthcareComment on above:Performed By: #### [id number] #### [facility] [address], [place] [address]Izynybvdf/Leukocytes Auto (Bld) [Pure # fraction]0.0 E9/LNormal 0.0-0.2FCleveland Clinic Medina HospitalComment on above:Performed By: #### [id number] #### [facility] [address] [place] [address]Ieffyquesud (Bld) [#/Vol]0.2 E9/LNormal0.0-0.5FCleveland Clinic Medina HospitalComment on above:Performed By: #### [id number] #### [facility] [address] [place] [address]Sqziwraetmg/100 WBC (Bld)2.6 %Normal0.0-8.0Reg[facility] Medical CenterComment on above:Performed By: #### [id number] #### [facility] [address] [place] [address]Cxgkcpgpkw (Bld) [Mass/Vol]14.6 g/yYNpnxkx31.0-16.0Reg[facility] Medical CenterComment on above:Performed By: #### [id number] #### [facility] [address] [place] [address]Pvgwgrzwafx (Bld) [#/Vol]2.3 E9/LNormal1.0-4.0Reg[facility] Medical CenterComment on above:Performed By: #### [id number] #### [facility] [address] [place] [address]LHU (RBC) [Entitic mass]30.1 vdUryxea81.0-34.0Reg[facility] Medical CenterComment on above:Performed By: #### [id number] #### [facility] [address] [place] [address]TAOC (RBC) [Mass/Vol]34.1 g/qWJduwqx68.4-36.0Reg[facility] Medical CenterComment on above:Performed By: #### [id number] #### [facility] [address] [place] [address]WMF (RBC) [Entitic vol]88.4 tVKdiqpd96.0-100.0[facility] Medical CenterComment on above:Performed By: #### [id number] #### [facility] [address] [place] [address]Gkibglmtv (Bld) [#/Vol]0.5 E9/LNormal0.2-1.0[facility] Medical CenterComment on above:Performed By: #### [id number] #### [facility] [address] [place] [address]Idbalzbimvv (Bld) [#/Vol]5.0 E9/LNormal2.0-7.5FCleveland Clinic Medina HospitalComment on above:Performed By: #### [id number] #### [facility] [address] [place] [address]Wqtowiof616.0 E9/TWzjdgb556.0-500.0[facility] Comment on above:Performed By: #### [id number] #### [facility] [address] [place] [address]BKA (Bld) [#/Vol]4.8 E12/LNormal4.3-5.9Reg[facility] Medical CenterComment on above:Performed By: #### [id number] #### [facility] [address] [place] [address]MNV corrected for nucl RBC Auto (Bld) [#/Vol]8.1 E9/LNormal 4.0-11.0[facility] Medical CenterComment on above:Performed By: #### [id number] #### [facility] [address] [place] [address]VEQSPZTKFJcjmbua By: SYSTEM SYSTEM on 27-44-1418Yajws gap [Moles/Vol]13 mmol/LNormal6 - 16 mEq/LRemisol ChemCalcium [Mass/Vol]9.7 mg/dL Normal8.9 - 11.1 mg/dLRemisol ChemChloride [Moles/Vol]104 mmol/TAivzpt951 - 111 mmol/LRemisol ChemCO2 [Moles/Vol]25 mmol/GKozqwj76 - 31 mmol/LRemisol Chem Creatinine [Mass/Vol]1.3 mg/dLNormal0.5 - 1.3 mg/dLRemisol LsskjDWJ73 mL/min/1.73 m2Low>=59mL/min/1.73 z5Hmdghuo ChemGlucose [Mass/Vol]88 mg/dLNormal 55 - 199 mg/dLRemisol ChemPotassium [Moles/Vol]4.2 mmol/LNormal3.5 - 5.3 mmol/L Remisol ChemSodium [Moles/Vol]138 mmol/OAviekg989 - 145 mmol/LRemisol ChemUrea nitrogen [Mass/Vol]22 mg/dLHigh5 - 21 mg/dLRemisol ChemUrea nitrogen/Creatinine [Mass ratio]17 mg/hfIeeemo26 - 20Remisol [facility] CBC W/ AUTO DIFFon 08-04-2024 EOSINOPHILS/100 LEUKOCYTES:NFR:PT:BLD:QN:AUTOMATED COUNT2.6 %0.0 - 8.0 %NOM HealthcareEOSINOPHILS:NCNC:PT:BLD:QN:0.2NBates County Memorial Hospital BASOPHILS/LEUKOCYTES:NFR.DF:PT:BLD:QN:AUTOMATED RWBKB3NROFSt. Louis Behavioral Medicine Institute ERYTHROCYTE MEAN CORPUSCULAR HEMOGLOBIN CONCENTRATION:MCNC:PT:RBC:QN34.1NOMS [facility] ERYTHROCYTE MEAN CORPUSCULAR HEMOGLOBIN:ENTMASS:PT:RBC:QN30.1 pg 27.0 - 34.0 pgSt. Louis Behavioral Medicine Institute ERYTHROCYTE MEAN CORPUSCULAR VOLUME:ENTVOL:PT:RBC:QN:AUTOMATED COUNT88.4 fL80.0 - 100.0 fLSt. Louis Behavioral Medicine Institute ERYTHROCYTES:NCNC:PT:BLD:QN:AUTOMATED COUNT4.8NOLiberty Hospital HEMOGLOBIN:MCNC:PT:BLD:QN:14.6NOLiberty Hospital LEUKOCYTES8.1NOMS [facility] MONOCYTES:NCNC:PT:BLD:QN:AUTOMATED COUNT0.5[facility] NEUTROPHILS:NCNC:PT:BLD:QN:AUTOMATED EBXCI0UUSEMissouri Delta Medical Center LYMPHOCYTES:NCNC:PT:BLD:QN:2.3NOMO HealthcarePlatelets (Bld) [#/Vol]270 10*3/uL NOMS HealthcareOriginal Ordering Provider: DO Favian [facility] Medical CenterHEMATOLOGYOrdered By: SYSTEM SYSTEM on 54-43-4465Lmxkxntre/100 WBC (Bld)0.5 %Normal0.0 - 2.0 %Remisol HemeBasophils/Leukocytes Auto (Bld) [Pure # fraction]0.0 E9/LNormal0.0 - 0.2 E9/LRemisol HemeEosinophils (Bld) [#/Vol]0.2 E9/LNormal0.0 - 0.5 E9/LRemisol HemeEosinophils/100 WBC (Bld)2.6 %Normal0.0 - 8.0 %Remisol HemeErythrocyte distribution width (RBC) [Ratio]13.9 %Kvryxc28.9 - 14.2 %Remisol HemeHematocrit (Bld) [Volume fraction]42.7 %Bogmkf15.0 - 46.0 % Remisol HemeHemoglobin (Bld) [Mass/Vol]14.6 g/hBDnmbie78.0 - 16.0 gm/dLRemisol HemeLymphocytes (Bld) [#/Vol]2.3 E9/LNormal1.0 - 4.0 E9/LRemisol Heme Lymphocytes/100 WBC (Bld)28.2 %Rapfro87.0 - 50.0 %Remisol HemeMCH (RBC) [Entitic mass]30.1 bcTtjjpc69.0 - 34.0 pgRemisol HemeMCHC (RBC) [Mass/Vol]34.1 g/dL Mrjhbx00.4 - 36.0 gm/dLRemisol HemeMCV (RBC) [Entitic vol]88.4 yKTgnndl32.0 - 100.0 fLRemisol HemeMonocytes (Bld) [#/Vol]0.5 E9/LNormal0.2 - 1.0 E9/LRemisol HemeMonocytes/100 WBC (Bld)6.4 %Normal4.0 - 14.0 %Remisol HemeNeutrophils (Bld) [#/Vol]5.0 E9/LNormal2.0 - 7.5 E9/LRemisol HemeNeutrophils/100 WBC (Bld)62.3 % Dkvtgb25.0 - 75.0 %Remisol SxlrQlctvlzj522.0 E9/OQbezgr381.0 - 500.0 E9/LRemisol HemePlatelet mean volume (Bld) [Entitic vol]8.2 fLNormal6.4 - 10.8 fLRemisol HemeRBC (Bld) [#/Vol]4.8 E12/LNormal4.3 - 5.9 E12/LRemisol HemeWBC corrected for nucl RBC Auto (Bld) [#/Vol]8.1 E9/LNormal4.0 - 11.0 E9/LRemisol HemeeGFRon 11-47-5867sOLP06 mL/min/1.73 m2Low>=59[facility] Orthopaedic InstituteComment on above:Performed By: #### [id number] #### [facility] [address] [place] [address]Yca 07-07-2024 Specimen: [id number] Received: 07/07/24 Status: YING Jennifer Num: [id number] Spec Type: Surgical Subm Dr: Clyde Garcia MD Tissues: A Colon Biopsy (NEOTERMINAL ILEUM BX R/O PERSONNEL TRAINING OFFICER) Procedures: GENESIS/Harry, Gross/Micro L4 Age/ Patient Sex Location Account Attending Physician Darnell Sanches 69/F [id number] Clyde Garcia MD SPEC NUM: [id number] RECD: 07/07/24 STATUS: YING CAR NUM: [id number] RODGER: 07/07/24- [facility] DR: Clyde Garcia MD ENTERED: 07/07/24 [facility] DR: KIYA TYPE: Surgical DEPT: S ENTERED BY: [id number] RECV BY: [id number] ORDERED: HE/2, Gross/Micro L4 ORDERED: HE/2, Gross/Micro [...] submitted in a single cassette. (1, ns, [id number] A) Carissa Microscopic Description Microscopic examination is performed CPT Codes 54211 Specimen: [id number] Received: 07/07/24-1046 Status: YING Car Num: [id number] Spec Type: Surgical Subm Dr: Clyde Garcia MD Tissues: A Colon Biopsy (NEOTERMINAL ILEUM BX R/O PERSONNEL TRAINING OFFICER) Procedures: HE/2, Gross/Micro L4 Patient: Darnell Sanches [id number] (Continued) Signed (signature on file) Jeremias Solorzano MD 07/08/24 1018Normal [facility] Physician GroupErythrocyte distribution width Auto (RBC) [Ratio]on 51-65-9057Aivrylnigra distribution width (RBC) [Ratio]Erythrocyte distribution width [Ratio] by Automated count11.0-15.0[facility] Estimated glomerular filtration rate (GFR) non- Americanon 05-20-2024 GFR/1.73 sq M.predicted among non-blacks MDRD (S/P/Bld) [Vol rate/Area]Estimated glomerular filtration rate (GFR) non- AmericanLow>=60 mL/min/1.73m 2 [facility] HospitalHematocrit Auto (Bld) [Volume fraction]on 07-81-9346Ufbjgbpijj (Bld) [Volume fraction]Hematocrit [Volume Fraction] of Blood by Automated count36.0-48.0[facility] HospitalHemoglobin [Mass/volume] in Bloodon 43-64-4132Wmjweqervo (Bld) [Mass/Vol]Hemoglobin [Mass/volume] in Blood12.0-16.0[facility] HospitalLaboratory - Chemistry and Chemistry - challengeon 36-08-2609Ksahkik [Mass/Vol]3.9 g/dL 3.4-5.0[facility] HospitalCalcium [Mass/Vol]8.9 mg/dL8.5-10.1 [facility] HospitalChloride [Moles/Vol]102 mmol/J85-851RqgmlzrfcMercy Health Allen HospitalCO2 [Moles/Vol]22.0 mmol/L21.0-32.0[facility] HospitalCreatinine [Mass/Vol]1.63 mg/dLHigh0.55-1.02[facility] HospitalGFR/1.73 sq M.predicted MDRD (S/P/Bld) [Vol rate/Area]38 mL/min/{1.73_m2}Low>=60 mL/min/1.73m 2FMorrow County HospitalGlucose [Mass/Vol]96 mg/kZ24-878HnfyfoateMercy Health Allen HospitalMagnesium [Mass/Vol]2.0 mg/dL1.8-2.4FMorrow County HospitalPotassium [Moles/Vol]3.7 mmol/L 3.5-5.1FLake County Memorial Hospital - Westodium [Moles/Vol]139 mmol/E002-971 [facility] HospitalUrate [Mass/Vol]6.6 mg/dLHigh2.6-6.0[facility] HospitalUrea nitrogen [Mass/Vol]15.0 mg/dL7.0-18.0[facility] HospitalUrea nitrogen/Creatinine [Mass ratio]9.2 mg/mgMercy Health Allen HospitalBilirubin Ql (U)NegativeNEGATIVEMercy Health Allen HospitalGlucose (U) [Mass/Vol]NegativeNEGATIVEMercy Health Allen HospitalKetones Ql (U)NegativeNEGATIVEMercy Health Allen HospitalpH (U)5.0 [pH]5.0-9.0[facility] Hospitalpecific gravity (U) [Rel density] >=1.331Hudwvxcx8.005-1.025[facility] HospitalUrobilinogen Qn (U) 0.2 {Lolis'U}/dL0.2-1.0[facility] HospitalLaboratory - Specimen informationon 04-07-5981Nfwyyqauxq (U)CLEARCLEARFMorrow County HospitalColor (U)YELLOWYELLOWMercy Health Allen HospitalLaboratory - Urinalysison 86-65-3668Aclfzwslp esterase Test strip Ql (U)NegativeNEGATIVE [facility] HospitalMucus Ql (Urine sed)NONE SEENNONE SEENMercy Health Allen HospitalNitrite Ql (U)NegativeNEGATIVEMercy Health Allen HospitalProtein (U) [Mass/Vol]25.2 mg/dLHigh<=11.9[facility] HospitalProtein Ql (U)NegativeNEG/TRACEMercy Health Allen HospitalLeukocytes [#/volume] corrected for nucleated erythrocytes in Blood by Automated counon 65-29-6406SVX corrected for nucl RBC Auto (Bld) [#/Vol]Leukocytes [#/volume] corrected for nucleated erythrocytes in Blood by Automated coun4.0-11.0[facility]orial HospitalH Auto (RBC) [Entitic mass]on 91-45-7926EQD (RBC) [Entitic mass]MCH [Entitic mass] by Automated count26.7-34.0[facility]orial HospitalHC Auto (RBC) [Mass/Vol]on 36-31-2030UVHG (RBC) [Mass/Vol]MCHC [Mass/volume] by Automated count29.9-35.2FRegional Medical CenterV Auto (RBC) [Entitic vol]on 50-70-1467JHK (RBC) [Entitic vol]MCV [Entitic volume] by Automated count81.0-99.0[facility] HospitalNo Panel Information on 58-41-988204296168-Fduyhct Vitamin D Total46.5 ng/mLMercy Health Allen HospitalComment on above:<20 ng/mL Vit D nalmvmvhr43-<30 ng/mL Vit D fpwroehvgbhk68-675 ng/mL Vit D sufficient>100 ng/mL Potential Toxicity Parathyroid Hormone (Intact)57 pg/xE92-97NsqpeqmlbMercy Health Allen Hospital Comment on above:Performed at: CB - [facility] [address] [id number] Director: Edwin Sierra PhD, Phone: [phone] Level 3.2 mg/dL2.6-4.7FMorrow County HospitalUrine BacteriaSMALL #/HPF AbnormalNONE SEENMercy Health Allen HospitalUrine Occult BloodNegative NEGATIVEMercy Health Allen HospitalUrine Other CastsNONE SEEN #/LPFNONE SEENMercy Health Allen HospitalUrine Other CrystalsNone Seen #/HPFNone [facility] HospitalUrine Random Kikxeenslg868.12 mg/dL 20.00-300.00[facility] HospitalUrine RBC0-2 #/HPF0-2FMorrow County HospitalUrine Squamous Epithelial CellsMODERATE #/LPFAbnormal NONE/RAREMercy Health Allen HospitalUrine WBCNONE SEEN #/HPFNONE SEEN [facility] HospitalPlatelet mean volume Auto (Bld) [Entitic vol]on 46-18-5881Ngscwrix mean volume (Bld) [Entitic vol]Platelet mean volume [Entitic volume] in Blood by Automated count9.5-13.5FMorrow County Hospital Platelets Auto (Bld) [#/Vol]on 83-37-9705Szjrddfzr (Bld) [#/Vol]Platelets [#/volume] in Blood by Automated -482FzezwepaiMercy Health Allen Hospital RBC Auto (Bld) [#/Vol]on 12-98-8394ZGK (Bld) [#/Vol]Erythrocytes [#/volume] in Blood by Automated count4.20-5.40[facility] St. Mary Hospitalerum or plasma anion gap determinationon 48-10-8816Vkhxp gap [Moles/Vol]Serum or plasma anion gap determinationMercy Health Allen HospitalUrine protein/creatinine ratioon 05-49-3389Vfvwunv/Creatinine (U) [Ratio]Urine protein/creatinine ratio [facility] HospitalBD Bone Density DEXAon 29-35-6467TA Bone Density DEXAExam Date/Time: 04/10/2024 08:20 EDT Reason for Exam: [...] Ovidio Bunch MD Transcribed by: ARNULFO Technologist: [facility] HospitalMA Mamm Screen w/CAD if perf and 3D Bilon 7193CI Mamm Screen w/CAD if perf and 3D BilExam Date/Time: 04/10/2024 08:15 EDT Reason for Exam: [...] VERY IMPORTANT TO YOUR HEALTH. THE CURRENT [employer] [...] Ovidio Bunch MD Transcribed by: ARNULFO Technologist: [facility] Assessment: BI-RADS Category 1-Negative Recommendation: Normal interval follow-upBartoloMeritus Medical Center 87-82-0027HUqfdvyns: [id number] Received: 12/03/23 Status: YING Car Num: [id number] Spec Type: Surgical Subm Dr: Clyde Garcia MD Tissues: A Colon Biopsy (GEOFF TERMUNAL ILEUM BX) Procedures: HE/2, Gross/Micro L4 Age/ Patient Sex Location Account Attending Physician Darnell Sanches 68/F [id number] Clyde Garcia MD SPEC NUM: [id number] RECD: 12/03/23 STATUS: YING CAR NUM: [id number] RODGER: 12/03/[address]: Clyde Garcia MD ENTERED: 12/03/23 [facility] DR: SPEC TYPE: Surgical DEPT: S ORDERED: [...] cm, entirely submitted in A1. CPT Codes 85203 Specimen: [id number] Received: 12/03/23 Status: YING Car Num: [id number] Spec Type: Surgical Subm Dr: Clyde Garcia MD Tissues: A Colon Biopsy (GEOFF TERMUNAL ILEUM BX) Procedures: HE/Harry, Gross/Micro L4 Patient: Darnell Sanches [id number] (Continued) Signed (signature on file) Kristan Flores MD 12/04/[address] [place] [address] Physician GroupNo Panel Informationon 14-29-4529ULZG HealthcarePTH INTACTon 94-46-2780EUY, Glrlkw68 pg/mLCritically zrzd39-84Dfq [facility] HospitalComment on above:Performed By: #### PTHINT #### [facility] [address] [place] [address] Dr. Lamin FloresHEMOGRAM AND PLATELon 91-22-1398Syxmbzjdev (Bld) [Volume fraction]44.1 %Ayzhoo47.0-48.0The [facility] HospitalComment on above:Performed By: #### RENAL, MG, URIC #### [facility] [address] [place] [address] Dr. Lamin FloresHemoglobin (Bld) [Mass/Vol]14.7 g/yUWeujfr92.0-16.0The [facility] HospitalComment on above:Performed By: #### RENAL, MG, URIC #### [facility] [address] [place] [address] Dr. Lamin Dyer (RBC) [Entitic mass]29.9 qaXgizcg58.7-34.0The [facility] HospitalComment on above:Performed By: #### RENAL, MG, URIC #### [facility] [address] [place] [address] Dr. Lamin Dyer (RBC) [Mass/Vol]33.3 g/dOJoafgd07.9-35.2The [facility] HospitalComment on above:Performed By: #### RENAL, MG, URIC #### [facility] [address] [place] [address] Dr. Lamin Dyer (RBC) [Entitic vol]89.6 fFPmejgg97.0-99.0The [facility] HospitalComment on above:Performed By: #### RENAL, MG, URIC #### [facility] [address] [place] [address] Dr. Lamin FloresPLT290 103/zkFlpveu857-593Ywp [facility] HospitalComment on above: Performed By: #### RENAL, MG, URIC #### [facility] [address] [place] [address] Dr. Lamin FloresRBC4.92 106/ulNormal4.20-5.40The [facility] HospitalComment on above:Performed By: #### RENAL, MG, URIC #### [facility] [address] [place] [address] Dr. Lamin FloresWBC11.8 103/ulCritically high4.0-11.0The [facility] HospitalComment on above:Performed By: #### RENAL, MG, URIC #### [facility] [address] [place] [address] Dr. Lamin FloresMAGNESIUMon 15-21-8764Uwugubfez [Mass/Vol]1.9 mg/dLNormal1.8-2.4 The [facility] HospitalComment on above:Performed By: #### RENAL, MG, URIC #### [facility] [address] [place] [address] Dr. Lamin FloresRENAL FUNCTION PANELon 47-59-8929Hzpdufi [Mass/Vol]4.3 g/dLNormal 3.4-5.0The [facility] HospitalComment on above:Performed By: #### RENAL, MG, URIC #### [facility] [address] [place] [address] Dr. Lamin FloresCalcium [Mass/Vol]9.7 mg/dLNormal8.5-10.1The [facility] Comment on above:Performed By: #### RENAL, MG, URIC #### [facility] [address] [place] [address] Dr. Lamin FloresChloride [Moles/Vol]103 mmol/XSjeuyb98-486Dpw [facility] Comment on above:Performed By: #### RENAL, MG, URIC #### [facility] [address] [place] [address] Dr. Lamin FloresCO2 [Moles/Vol]27.4 mmol/FIdjuth87.0-32.0The [facility] Comment on above:Performed By: #### RENAL, MG, URIC #### [facility] [address] [place] [address] Dr. Lamin FloresCreatinine [Mass/Vol]1.44 mg/dLCritically high0.55-1.02The [facility] HospitalComment on above:Performed By: #### RENAL, MG, URIC #### [facility] [address] [place] [address] Dr. Kimble ChangEGFR-AF QPCXASZF00 mL/min/1.42o5Jorqrxotbw low>=60[facility]erm[facility] HospitalComment on above:Performed By: #### RENAL, MG, URIC #### [facility] [address] [place] [address] Dr. Lamin IsaacsGFR-NON AF VXGXGDIA73 mL/min/1.95f4Kfihbuywpx low>=60The [facility] HospitalComment on above:Performed By: #### RENAL, MG, URIC #### [facility] [address] [place] [address] Dr. Lamin FloresGlucose [Mass/Vol]99 mg/oRJrulrd60-945BauMercy Health Clermont Hospital Comment on above:Performed By: #### RENAL, MG, URIC #### [facility] [address] [place] [address] Dr. Lamin FloresPhosphate [Mass/Vol]3.9 mg/dLNormal2.6-4.7The [facility] Comment on above:Performed By: #### RENAL, MG, URIC #### [facility] [address] [place] [address] Dr. Lamin FloresPotassium [Moles/Vol]4.3 mmol/LNormal3.5-5.1[facility] Comment on above:Performed By: #### RENAL, MG, URIC #### [facility] [address] [place] [address] Dr. Lamin FloresSodium [Moles/Vol]143 mmol/AHtcvtr546-159XkzMercy Health Clermont Hospital Comment on above:Performed By: #### RENAL, MG, URIC #### [facility] [address] [place] [address] Dr. Lamin FloresUrea nitrogen [Mass/Vol]19.0 mg/dLCritically high7.0-18.0The [facility] HospitalComment on above:Performed By: #### RENAL, MG, URIC #### [facility] [address] [place] [address] Dr. Lamin FloresUA RANDOM W/MICROSCOPICon 76-96-5418XXNCVVEKWSCNTQkoerjokPSBM SEENMercy Health Clermont HospitalComment on above:Performed By: #### RENAL, MG, URIC #### [facility] [address] [address] [address] Lamin FloresBilirubin Ql (U)NegativeNormalNEGUniversity Hospitals Conneaut Medical Center Comment on above:Performed By: #### RENAL, MG, URIC #### [facility] [address] [address] [address] Lamin FloresCASTMIK SEENNormalNONE SEENMercy Health Clermont HospitalComment on above:Performed By: #### RENAL, MG, URIC #### [facility] [address] [address] [address] Lamin FloresClarity (U)CLEARNormalCLEARMercy Health Clermont HospitalComment on above: Performed By: #### RENAL, MG, URIC #### [facility] [address] [place] [address] Dr. Lamin FloresColor (U)LT. YELLOWNormalYELLOWMercy Health Clermont HospitalComment on above:Performed By: #### RENAL, MG, URIC #### [facility] [address] [place] [address] Dr. Lamin FloresCrystals LM Nom (Urine sed)NONE SEENNormalNONE SEENMercy Health Clermont HospitalComment on above:Performed By: #### RENAL, MG, URIC #### [facility] [address] [place] [address] Dr. Kimble ChangEpithelial cells LM Ql (Urine sed)MODERATEAbnormalNONE SEEN /RARE The [facility] HospitalComment on above:Performed By: #### RENAL, MG, URIC #### [facility] [address] [place] [address] Dr. Lamin FloresGlucose Ql (U)NegativeNormalNEGATIVEMercy Health Clermont HospitalComment on above:Performed By: #### RENAL, MG, URIC #### [facility] [address] [place] [address] Dr. Lamin FloresHemoglobin Ql (U)NegativeNormalNEGUniversity Hospitals Conneaut Medical Center Comment on above:Performed By: #### RENAL, MG, URIC #### [facility] [address] [place] [address] Dr. Lamin Hughes Ql (U)NegativeNormalNEGATIVEMercy Health Clermont HospitalComment on above:Performed By: #### RENAL, MG, URIC #### [facility] [address] [place] [address] Dr. Lamin WilsonOCYTESNegativeNormalNEGATIVEThe [facility] HospitalComment on above:Performed By: #### RENAL, MG, URIC #### [facility] [address] [place] [address] Dr. Lamin Neff SEENNormalNONE SEENThe [facility] HospitalComment on above:Performed By: #### RENAL, MG, URIC #### [facility] [address] [place] [address] Dr. Lamin Grissom Ql (U)NegativeNormalNEGATIVEThe [facility] HospitalComment on above:Performed By: #### RENAL, MG, URIC #### [facility] [address] [place] [address] Dr. Lamin FlorespH (U)6.0 [pH]Normal5-9[facility] HospitalComment on above: Performed By: #### RENAL, MG, URIC #### [facility] [address] [place] [address] Dr. Lamin Moss SEENAbnormal0-2[facility] HospitalComment on above: Performed By: #### RENAL, MG, URIC #### [facility] [address] [place] [address] Dr. Lamin FloresSPEC GRAVITY<=1.485Zqzpiezk7.005-<=1.025The [facility] Comment on above:Performed By: #### RENAL, MG, URIC #### [facility] [address] [place] [address] Dr. Lamin Nguyen PROTEINNegativeNormalNEGATIVE/ TRACEThe [facility] Comment on above:Performed By: #### RENAL, MG, URIC #### [facility] [address] [place] [address] Dr. Lamin Carsonbiljulian Qn (U)0.2 {Lolis'U}/dLNormal0.2 - 1.0The [facility] HospitalComment on above:Performed By: #### RENAL, MG, URIC #### [facility] [address] [place] [address] Dr. Lamin Overton SEENNormalNONE SEENThe [facility] HospitalComment on above: Performed By: #### RENAL, MG, URIC #### [facility] [address] [place] [address] Dr. Lamin Alcazar ACID SERUMon 89-92-9719Sxzix [Mass/Vol]6.6 mg/dLCritically high2.6-6.0The [facility] HospitalComment on above:Performed By: #### RENAL, MG, URIC #### [facility] [address] [place] [address] Dr. Lamin Cardenas T PROTEIN CREAT RATIOon 52-34-2542DL PROT CREAT RAT0.22 NormalThe [facility] HospitalComment on above:Performed By: #### RENAL, MG, URIC #### [facility] [address] [place] [address] Dr. Lamin Titus TOTAL PROTEIN<6.0Normal<=12.0The [facility] HospitalComment on above:Performed By: #### RENAL, MG, URIC #### [facility] [address] [place] [address] Dr. Lamin Cardenas CREAT27.42 mg/wUVuvzdh93.00-300.00[facility] Comment on above:Performed By: #### RENAL, MG, URIC #### [facility] [address] [place] [address] Dr. Lamin FloresVITAMIN D 25 OHon 79-14-6461ZTQ D 25-OH49.4 ng/mLNormalThe [facility] HospitalComment on above:Performed By: #### VITAD #### [facility] [address] [place] [address] Dr. Lamin Francis [place] BELOWNoNewark Hospitale [facility] HospitalComment on above: Result Comment: <20 ng/mL Vit D deficient 20 - <30 ng/mL Vit D insufficient 30 - 100 ng/mL Vit D sufficient >100 ng/mL Potential ToxicityPerformed By: #### VITAD #### [facility] [address] [place] [address] Dr. Lamin Sullivan KIDNEYSon 08-59-5484QZ KIDNEYSEXAMINATION: US KIDNEYS HISTORY: CKD stage 3B COMPARISON: [...] Electronically authenticated by: CRISTIAN HAWKINS Date: 2022-07-26 07:[address] [place], [place] [address]RENAL FUNCTION PANELon 12-38-7332Zpeuucx [Mass/Vol]4.0 g/dL Normal3.4-5.0[facility] HospitalComment on above:Performed By: #### RENAL, MG, URIC #### [facility] [address] [place] [address] Dr. Lamin FloresCalcium [Mass/Vol]9.1 mg/dLNormal8.5-10.1[facility] Comment on above:Performed By: #### RENAL, MG, URIC #### [facility] [address] [place] [address] Dr. Lamin FloresChloride [Moles/Vol]100 mmol/RDoqbqs93-546CpoMercy Health Clermont Hospital Comment on above:Performed By: #### RENAL, MG, URIC #### [facility] [address] [place] [address] Dr. Lamin FloresCO2 [Moles/Vol]26.2 mmol/JUnyajy27.0-32.0The [facility] Comment on above:Performed By: #### RENAL, MG, URIC #### [facility] [address] [place] [address] Dr. Lamin FloresCreatinine [Mass/Vol]1.40 mg/dLCritically high0.55-1.02The [facility] HospitalComment on above:Performed By: #### RENAL, MG, URIC #### [facility] [address] [place] [address] Dr. Kimble ChangEGFR-AF JXSSUMTG55 mL/min/1.59j2Flbtaspotg low>=60The [facility] HospitalComment on above:Performed By: #### RENAL, MG, URIC #### [facility] [address] [place] [address] Dr. Lamin IsaacsGFR-NON AF RZCEFSJC26 mL/min/1.90h5Lokiomkiye low>=60The [facility] HospitalComment on above:Performed By: #### RENAL, MG, URIC #### [facility] [address] [place] [address] Dr. Lamin FolresGlucose [Mass/Vol]94 mg/xWUjictt92-599Cov [facility] Comment on above:Performed By: #### RENAL, MG, URIC #### [facility] [address] [place] [address] Dr. Lamin FloresPhosphate [Mass/Vol]3.5 mg/dLNormal2.6-4.7The [facility] Comment on above:Performed By: #### RENAL, MG, URIC #### [facility] [address] [place] [address] Dr. Lamin FloresPotassium [Moles/Vol]4.2 mmol/LNormal3.5-5.1The [facility] Comment on above:Performed By: #### RENAL, MG, URIC #### [facility] [address] [place] [address] Dr. Lamin FloresSodium [Moles/Vol]135 mmol/LCritically nas875-249Kqk [facility] on above:Performed By: #### RENAL, MG, URIC #### [facility] [address] [place] [address] Dr. Lamin FloresUrea nitrogen [Mass/Vol]18.0 mg/dLNormal7.0-18.0The [facility] on above:Performed By: #### RENAL, MG, URIC #### [facility] [address] [place] [address] Dr. Lamin FloresPTH INTACTon 24-12-8580MTU, Vsgggw79 pg/dGRcfhba19-04Dcz [facility] on above:Performed By: #### RENAL, MG, URIC #### [facility] [address] [place] [address] Dr. Lamin FloresHEMOGRAM AND PLATELon 28-73-0941Pnyofhjuws (Bld) [Volume fraction]42.0 %Lonmdi89.0-48.0The [facility] on above:Performed By: #### RENAL, MG, URIC #### [facility] [address] [place] [address] Dr. Lamin FloresHemoglobin (Bld) [Mass/Vol]14.4 g/hFZvfdxk00.0-16.0The [facility] on above:Performed By: #### RENAL, MG, URIC #### [facility] [address] [place] [address] Dr. Lamin Dyer (RBC) [Entitic mass]29.4 hbBhkszu73.7-34.0The [facility] on above:Performed By: #### RENAL, MG, URIC #### [facility] [address] [place] [address] Dr. Lamin FloresCATHOLIC HEALTH (RBC) [Mass/Vol]34.3 g/eBOlefhn04.9-35.2The [facility] on above:Performed By: #### RENAL, MG, URIC #### [facility] [address] [place] [address] Dr. Lamin Dyer (RBC) [Entitic vol]85.7 hPFfdkwx66.0-99.0The [facility] HospitalComment on above:Performed By: #### RENAL, MG, URIC #### [facility] [address] [place] [address] Dr. Lamin FloresPLT300 103/cjMatetr321-735Het [facility] on above: Performed By: #### RENAL, MG, URIC #### [facility] [address] [place] [address] Dr. Lamin FloresRBC4.90 106/ulNormal4.20-5.40The [facility] HospitalComment on above:Performed By: #### RENAL, MG, URIC #### [facility] [address] [place] [address] Dr. Lamin FloresWBC11.1 103/ulCritically high4.0-11.0The [facility] HospitalComment on above:Performed By: #### RENAL, MG, URIC #### [facility] [address] [place] [address] Dr. Lamin FloresMAGNESIUMon 08-03-3652Gmsohbzjm [Mass/Vol]1.9 mg/dLNormal1.8-2.4 The [facility] HospitalComment on above:Performed By: #### RENAL, MG, URIC #### [facility] [address] [place] [address] Dr. Lamin FloresRENAL FUNCTION PANELon 18-44-9975Tlzgwfe [Mass/Vol]4.2 g/dLNormal 3.4-5.0The [facility] on above:Performed By: #### RENAL, MG, URIC #### [facility] [address] [place] [address] Dr. Lamin FloresCalcium [Mass/Vol]9.3 mg/dLNormal8.5-10.1The [facility] Comment on above:Performed By: #### RENAL, MG, URIC #### [facility] [address] [place] [address] Dr. Lamin FloresChloride [Moles/Vol]99 mmol/LWbuoze21-946Tuf [facility] Comment on above:Performed By: #### RENAL, MG, URIC #### [facility] [address] [place] [address] Dr. Lamin FloresCO2 [Moles/Vol]26.0 mmol/RFvudzw65.0-32.0The [facility] Comment on above:Performed By: #### RENAL, MG, URIC #### [facility] [address] [place] [address] Dr. Lamin FloresCreatinine [Mass/Vol]1.92 mg/dLCritically high0.55-1.02The [facility] HospitalComment on above:Performed By: #### RENAL, MG, URIC #### [facility] [address] [place] [address] Dr. Lamin IsaacsGFR-AF KPUBOQHK19 mL/min/1.30t0Dedstvwguk low>=60The [facility] HospitalComment on above:Performed By: #### RENAL, MG, URIC #### [facility] [address] [place] [address] Dr. Lamin IsaacsGFR-NON AF GCQMXAVR40 mL/min/1.26b2Eydywenyih low>=60The [facility] HospitalComment on above:Performed By: #### RENAL, MG, URIC #### [facility] [address] [place] [address] Dr. Lamin FloresGlucose [Mass/Vol]90 mg/sHQkbysb20-262Iou [facility] Comment on above:Performed By: #### RENAL, MG, URIC #### [facility] [address] [place] [address] Dr. Lamin FloresPhosphate [Mass/Vol]5.0 mg/dLCritically high2.6-4.7The [facility] HospitalComment on above:Performed By: #### RENAL, MG, URIC #### [facility] [address] [place] [address] Dr. Lamin FloresPotassium [Moles/Vol]4.3 mmol/LNormal3.5-5.1[facility] Comment on above:Performed By: #### RENAL, MG, URIC #### [facility] [address] [place] [address] Dr. Lamin Gilbertum [Moles/Vol]136 mmol/WCnhdcg637-918Zwz [facility] Comment on above:Performed By: #### RENAL, MG, URIC #### [facility] [address] [place] [address] Dr. Lamin Austin nitrogen [Mass/Vol]18.0 mg/dLNormal7.0-18.0The [facility] HospitalComment on above:Performed By: #### RENAL, MG, URIC #### [facility] [address] [place] [address] Dr. Lamin Nguyen RANDOM W/MICROSCOPICon 60-92-7518YTFIMOKTAUDLFEepbbbmvGHMQ SEENThe [facility] HospitalComment on above:Performed By: #### RENAL, MG, URIC #### [facility] [address] [place] [address] Dr. Lamin West Ql (U)SMALLAbnormalNEGATIVEThe [facility] HospitalComment on above:Performed By: #### RENAL, MG, URIC #### [facility] [address] [place] [address] Dr. Lamin HorneENAbnormalNONE SEENMercy Health Clermont HospitalComment on above: Performed By: #### RENAL, MG, URIC #### [facility] [address] [place] [address] Dr. Lamin Pascual (U)CLEARNormalCLEARThe [facility] HospitalComment on above: Performed By: #### RENAL, MG, URIC #### [facility] [address] [address] [address] Lamin Villanueva (U)DK. ORANGEAbnormalYELLOWMercy Health Clermont HospitalComment on above:Performed By: #### RENAL, MG, URIC #### [facility] [address] [place] [address] Dr. Lamin Fuentes LM Nom (Urine sed)NONE SEENNormalNONE SEENMercy Health Clermont HospitalComment on above:Performed By: #### RENAL, MG, URIC #### [facility] [address] [place] [address] Dr. Kimble ChangEpithelial cells LM Ql (Urine sed)MANYAbnormalNONE SEEN /RAREMercy Health Clermont HospitalComvibra hospital [facility] [place] on above:Performed By: #### RENAL, MG, URIC #### [facility] [address] [address] [address] Lamin FloresGlucose Ql (U)NegativeNormalNEGATIVEMercy Health Clermont HospitalComment on above:Performed By: #### RENAL, MG, URIC #### [facility] [address] [address] [address] Lamin FloresHemoglobin Ql (U)NegativeNormalNEGBerger Hospital on above:Performed By: #### RENAL, MG, URIC #### [facility] [address] [address] [address] Lamin Verdugo CASTFEWNoBerger Hospital on above: Performed By: #### RENAL, MG, URIC #### [facility] [address] [address] [address] Lamin FloresKetones Ql (U)TRACEAbnormalNEGATIVEMercy Health Clermont HospitalComvibra hospital [facility] [place] on above:Performed By: #### RENAL, MG, URIC #### [facility] [address] [place] [address] Dr. Lamin FloresLEUKOCYTESNegativeNonovant healthNEGCoshocton Regional Medical Centerment on above:Performed By: #### RENAL, MG, URIC #### [facility] [address] [address] [address] Lamin FloresMUCOUSNONE SEENNormalNONE SEENThe [facility] on above:Performed By: #### RENAL, MG, URIC #### [facility] [address] [address] [address] Lamin Kirkpatricktrite Ql (U)NegativeNormalNEGCoshocton Regional Medical Centerment on above:Performed By: #### RENAL, MG, URIC #### [facility] [address] [address] [address] Lamin FlorespH (U)5.0 [pH]Normal5-9The [facility] HospitalComment on above: Performed By: #### RENAL, MG, URIC #### [facility] [address] [place] [address] Dr. Lamin Moss SEENAbnormal0-2The [facility] HospitalComment on above: Performed By: #### RENAL, MG, URIC #### [facility] [address] [place] [address] Dr. Lamin FloresSPEC GRAVITY>=1.523Lvaijbzr9.005-<=1.025[facility] Comment on above:Performed By: #### RENAL, MG, URIC #### [facility] [address] [place] [address] Dr. Lamin Nguyen PROTEINTRACENormalNEGATIVE/ TRACEThe [facility] HospitalComment on above:Performed By: #### RENAL, MG, URIC #### [facility] [address] [place] [address] Dr. Lamin Carsonbilinogen Qn (U)1.0 {Lolis'U}/dLNormal0.2 - 1.0The [facility] HospitalComment on above:Performed By: #### RENAL, MG, URIC #### [facility] [address] [place] [address] Dr. Lamin FloresWBC0-2AbnormalNONE SEENThe [facility] HospitalComment on above: Performed By: #### RENAL, MG, URIC #### [facility] [address] [place] [address] Dr. Lamin Alcazar ACID SERUMon [id number] [Mass/Vol]6.8 mg/dLCritically high2.6-6.0The [facility] HospitalComment on above:Performed By: #### RENAL, MG, URIC #### [facility] [address] [place] [address] Dr. Lamin Cardenas T PROTEIN CREAT RATIOon 78-46-8422Duyzoez (U) [Mass/Vol] 42.6 mg/dLCritically high<=12.0The [facility] HospitalComment on above:Performed By: #### RENAL, MG, URIC #### [facility] [address] [place] [address] Dr. Lamin Titus PROT CREAT RAT0.12Ke[facility]an Private HospitalComment on above: Performed By: #### RENAL, MG, URIC #### [facility] [address] [place] [address] Dr. Lamin Cardenas JDHIY168.19 mg/dLCritically high20.00-300.00The [facility] HospitalComment on above:Performed By: #### RENAL, MG, URIC #### [facility] [address] [place] [address] Dr. Lamin FloresVITAMIN D 25 OHon 81-18-9083QCO D 25-OH47.3 ng/mLNormalThe [facility] HospitalComment on above:Performed By: #### RENAL, MG, URIC #### [facility] [address] [place] [address] Dr. Lamin Francis RANGESSEE BELOWKeenan Private HospitalComment on above: Result Comment: <20 ng/mL Vit D deficient 20 - <30 ng/mL Vit D insufficient 30 - 100 ng/mL Vit D sufficient >100 ng/mL Potential ToxicityPerformed By: #### RENAL, MG, URIC #### [facility] [address] [place] [address] Dr. Lamin FloresPTH INTACTon 83-01-1789KHS, Mgpadp99 pg/sFJrdixw95-18Idc [facility] HospitalComment on above:Performed By: #### PTHINT #### [facility] [address] [place] [address] Dr. Lamin Mendes AUTO DIFFon [id number] #0.0 103/ulNormal0.0-0.1The [facility] HospitalComment on above:Performed By: #### RENAL, MG, URIC #### [facility] [address] [place] [address] Dr. Lamin FloresBasophils/100 WBC (Bld)0.4 %Normal0.2-2.0[facility] Comment on above:Performed By: #### RENAL, MG, URIC #### [facility] [address] [place] [address] Dr. Lamin Stallworth #0.2 103/ulNormal0.0-0.7The [facility] HospitalComment on above: Performed By: #### RENAL, MG, URIC #### [facility] [address] [place] [address] Dr. Lamin Isaacsosinophils/100 WBC (Bld)2.4 %Normal0.9-7.0[facility] Comment on above:Performed By: #### RENAL, MG, URIC #### [facility] [address] [place] [address] Dr. Lamin Isaacsrythrocyte distribution width (RBC) [Ratio]12.8 %Sfiyfd60.0-15.0 The [facility] Hospitalment on above:Performed By: #### RENAL, MG, URIC #### [facility] [address] [place] [address] Dr. Lamin FloresHematocrit (Bld) [Volume fraction]44.4 %Ucwfzy18.0-48.0The [facility] HospitalComment on above:Performed By: #### RENAL, MG, URIC #### [facility] [address] [place] [address] Dr. Lamin FloresHemoglobin (Bld) [Mass/Vol]14.4 g/jFFmtkkt89.0-16.0The [facility] Hospitalment on above:Performed By: #### RENAL, MG, URIC #### [facility] [address] [place] [address] Dr. Lamin Mendes #0.02 10e3/ulNormal0.00-0.03The [facility] Hospitalment on above:Performed By: #### RENAL, MG, URIC #### [facility] [address] [place] [address] Dr. Lamin Mendes %0.3 %Normal0.0-0.5The [facility] Hospitalment on above: Performed By: #### RENAL, MG, URIC #### [facility] [address] [place] [address] Dr. Lamin Benites #2.3 103/ulNormal1.2-3.8The [facility] HospitalComment on above:Performed By: #### RENAL, MG, URIC #### [facility] [address] [place] [address] Dr. Lamin Sanmphocytes/100 WBC (Bld)29.2 %Yuobce81.5-60.0The [facility] HospitalComment on above:Performed By: #### RENAL, MG, URIC #### [facility] [address] [place] [address] Dr. Lamin AlejandroUAL DIFF REQNONormalThe [facility] HospitalComment on above: Performed By: #### RENAL, MG, URIC #### [facility] [address] [place] [address] Dr. Lamin Dyer (RBC) [Entitic mass]29.6 afDgnmgi27.7-34.0The [facility] HospitalComment on above:Performed By: #### RENAL, MG, URIC #### [facility] [address] [place] [address] Dr. Lamin Dyer (RBC) [Mass/Vol]32.4 g/uRHspebt77.9-35.2The [facility] HospitalComment on above:Performed By: #### RENAL, MG, URIC #### [facility] [address] [place] [address] Dr. Lamin Dyer (RBC) [Entitic vol]91.2 zNLburzu86.0-99.0The [facility] HospitalComment on above:Performed By: #### RENAL, MG, URIC #### [facility] [address] [place] [address] Dr. Lamin Olivo #0.4 103/ulNormal0.3-0.8The [facility] HospitalComment on above:Performed By: #### RENAL, MG, URIC #### [facility] [address] [place] [address] Dr. Lamin Herreraocytes/100 WBC (Bld)4.9 %Normal1.7-12.0[facility] Comment on above:Performed By: #### RENAL, MG, URIC #### [facility] [address] [place] [address] Dr. Lamin Garcia #5.0 103/ulNormal1.4-6.5The [facility] Hospitalment on above:Performed By: #### RENAL, MG, URIC #### [facility] [address] [place] [address] Dr. Lamin Samuelutrophils/100 WBC (Bld)62.8 %Ucdcmr94.0-75.0The [facility] HospitalComment on above:Performed By: #### RENAL, MG, URIC #### [facility] [address] [place] [address] Dr. Lamin Edwardslet mean volume (Bld) [Entitic vol]10.7 fLNormal9.5-13.5The [facility] Hospitalment on above:Performed By: #### RENAL, MG, URIC #### [facility] [address] [place] [address] Dr. Lamin FloresPLT246 103/xfBdbzph145-397[facility] on above: Performed By: #### RENAL, MG, URIC #### [facility] [address] [place] [address] Dr. Lamin FloresRBC4.87 106/ulNormal4.20-5.40The [facility] on above:Performed By: #### RENAL, MG, URIC #### [facility] [address] [place] [address] Dr. Lamin FloresWBC8.0 103/ulNormal4.0-11.0The [facility] on above: Performed By: #### RENAL, MG, URIC #### [facility] [address] [place] [address] Dr. Lamin FloresMAGNESIUMon 73-87-9432Pzvnsiwhs [Mass/Vol]1.7 mg/dLCritically low 1.8-2.4The [facility] on above:Performed By: #### MG, RENAL, URIC #### [facility] [address] [place] [address] Dr. Lamin SmallsAL FUNCTION PANELon 44-41-9447Fqxrbvl [Mass/Vol]3.7 g/dLNormal 3.4-5.0The [facility] HospitalComment on above:Performed By: #### MG, RENAL, URIC #### [facility] [address] [address] [address] Lamin FloresCalcium [Mass/Vol]9.0 mg/dLNormal8.5-10.1[facility] Comment on above:Performed By: #### MG, RENAL, URIC #### [facility] [address] [address] [address] Lamin FloresChloride [Moles/Vol]105 mmol/HUmpvxh71-367Abb [facility] Comment on above:Performed By: #### MG, RENAL, URIC #### [facility] [address] [place] [address] Dr. Lamin FloresCO2 [Moles/Vol]27.5 mmol/XOevjud51.0-32.0[facility] Comment on above:Performed By: #### MG, RENAL, URIC #### [facility] [address] [address] [address] Lamin FloresCreatinine [Mass/Vol]1.46 mg/dLCritically high0.55-1.02The [facility] HospitalComment on above:Performed By: #### MG, RENAL, URIC #### [facility] [address] [address] [address] Kimble ChangEGFR-AF GKKCBMOD53 mL/min/1.22i9Vnysqjcxrq low>=60The [facility] HospitalComment on above:Performed By: #### MG, RENAL, URIC #### [facility] [address] [address] [address] Lamin IsaacsGFR-NON AF VDFJNBIV51 mL/min/1.53o6Rjlthilydt low>=60The [facility] HospitalComment on above:Performed By: #### MG, RENAL, URIC #### [facility] [address] [address] [address] Lamin FloresGlucose [Mass/Vol]94 mg/yOFfxscz13-991VlyMercy Health Clermont Hospital Comment on above:Performed By: #### MG, RENAL, URIC #### [facility] [address] [address] [address] Lamin FloresPhosphate [Mass/Vol]3.8 mg/dLNormal2.6-4.7[facility] Comment on above:Performed By: #### MG, RENAL, URIC #### [facility] [address] [address] [address] Lamin FloresPotassium [Moles/Vol]4.4 mmol/LNormal3.5-5.1[facility] Comment on above:Performed By: #### MG, RENAL, URIC #### [facility] [address] [place] [address] Dr. Lamin FloresSodium [Moles/Vol]141 mmol/JCwqwwt709-020YzpMercy Health Clermont Hospital Comment on above:Performed By: #### MG, RENAL, URIC #### [facility] [address] [place] [address] Dr. Lamin FloresUrea nitrogen [Mass/Vol]21.0 mg/dLCritically high7.0-18.0[facility] HospitalComment on above:Performed By: #### MG, RENAL, URIC #### [facility] [address] [place] [address] Dr. Lamin Nguyen RANDOM W/MICROSCOPICon [id number]hmjelHTUX SEENMercy Health Clermont HospitalComment on above:Performed By: #### UAMIC #### [facility] [address] [place] [address] Dr. Lamin Rosadoirubin Ql (U)NegativeNormalNEGATIVEThe [facility] Comment on above:Performed By: #### UAMIC #### [facility] [address] [place] [address] Dr. Lamin MacedoSEENAbnormalNONRobb SEENMercy Health Clermont HospitalComment on above: Performed By: #### UAMIC #### [facility] [address] [place] [address] Dr. Lamin Luxarity (U)CLEARNormalCLEARThe Chris HospitalComment on above: Performed By: #### UAMIC #### [facility] [address] [address] [address] Lamin Villanueva (U)YELLOWNormalYELLOWMercy Health Clermont HospitalComment on above: Performed By: #### UAMIC #### [facility] [address] [address] [address] Lamin FloresCrystals LM Nom (Urine sed)NONE SEENNormalNONE SEENMercy Health Clermont HospitalComment on above:Performed By: #### UAMIC #### [facility] [address] [address] [address] Kimble ChangEpithelial cells LM Ql (Urine sed)MODERATEAbnormalNONE SEEN /RARE The [facility] HospitalComvibra [facility] [place] on above:Performed By: #### UAMIC #### [facility] [address] [address] [address] Lamin FloresGlucose Ql (U)NegativeNormalNEGATIVEMercy Health Clermont HospitalComment on above:Performed By: #### UAMIC #### [facility] [address] [address] [address] Lamin FloresHemoglobin Ql (U)NegativeNormalNEGATIVEPromedica Bay [facility] on above:Performed By: #### UAMIC #### [facility] [address] [address] [address] Lamin FloresHYALINE CASTRARENormalMercy Health Clermont HospitalComment on above: Performed By: #### UAMIC #### [facility] [address] [address] [address] Lamin FloresKetones Ql (U)TRACEAbnormalNEGATIVEMercy Health Clermont HospitalComvib[facility] [place] on above:Performed By: #### UAMIC #### [facility] [address] [address] [address] Lamin FloresLEUKOCYTESNegativeNormalNEGATIVEMercy Health Clermont HospitalComv[facility] [place] [place] on above:Performed By: #### UAMIC #### [facility] [address] [address] [address] Lamin FloresMUCOUSNONE SEENNormalNONE SEENThe [facility] HospitalComment on above:Performed By: #### UAMIC #### [facility] [address] [place] [address] Dr. Lamin Kirkpatricktrite Ql (U)NegativeNormalNEGATIVEThe [facility] HospitalComment on above:Performed By: #### UAMIC #### [facility] [address] [address] [address] Lamin FlorespH (U)5.5 [pH]Normal5-9The [facility] HospitalComment on above: Performed By: #### UAMIC #### [facility] [address] [address] [address] Lamin FloresRBCNONE SEENAbnormal0-2The [facility] HospitalComment on above: Performed By: #### UAMIC #### [facility] [address] [place] [address] Dr. Lamin FloresSPEC GRAVITY1.049Ajydvs3.005-<=1.025The [facility] HospitalComment on above:Performed By: #### UAMIC #### [facility] [address] [place] [address] Dr. Lamin Nguyen PROTEINNegativeNormalNEGATIVE/ TRACEThe [facility] Comment on above:Performed By: #### UAMIC #### [facility] [address] [place] [address] Dr. Lamin FloresUrobilinogen Qn (U)0.2 {Lolis'U}/dLNormal0.2 - 1.0The [facility] HospitalComment on above:Performed By: #### UAMIC #### [facility] [address] [place] [address] Dr. Lamin FloresWBC0-2AbnormalNONE SEENThe [facility] HospitalComment on above: Performed By: #### UAMIC #### [facility] [address] [place] [address] Dr. Lamin FloresURIC ACID SERUMon 07-42-3426Fmfsx [Mass/Vol]6.0 mg/dLNormal 2.6-6.0The [facility] HospitalComment on above:Performed By: #### MG, RENAL, URIC #### [facility] [address] [address] [address] Lamin Cardenas T PROTEIN CREAT RATIOon 46-52-5878Wtrmalt (U) [Mass/Vol] 28.0 mg/dLCritically high<=12.0The [facility] HospitalComment on above:Performed By: #### RENAL, MG, URIC #### [facility] [address] [address] [address] Lamin Titus PROT CREAT RAT0.11NoPeoples HospitalComment on above: Performed By: #### RENAL, MG, URIC #### [facility] [address] [place] [address] Dr. Lamin Cardenas JHMST771.84 mg/jCMnqafg99.00-300.00[facility] Comment on above:Performed By: #### RENAL, MG, URIC #### [facility] [address] [address] [address] Lamin FloresVITAMIN D 25 OHon 98-48-0153HJX D 25-OH41.6 ng/mLNormalMercy Health Clermont HospitalComment on above:Performed By: #### RENAL, MG, URIC #### [facility] [address] [place] [address] Dr. Lamin Francis RANGESSEE BELOWKeenan Private HospitalComment on above: Result Comment: <20 ng/mL Vit D deficient 20 - <30 ng/mL Vit D insufficient 30 - 100 ng/mL Vit D sufficient >100 ng/mL Potential ToxicityPerformed By: #### RENAL, MG, URIC #### [facility] [address] [place] [address] Dr. Lamin Flores Vital Signs Date TimeVital SignValuePerforming LxtbajmpzRttiyopu45-01-7324 14:30-0400Body qrnusm646.32 cmMer[facility]04-27-2025 14:30-0400Body mass index (BMI) [Ratio]28.9 kg/c9UubpnncloMercy Health Allen Hospital04-27-2025 14:30-0400Body hrnzkqrkuaa66.2 [degF][facility]04-27-2025 14:30-0400Body vwmwid71.79 kgMercy Health Allen Hospital04-27-2025 14:30-0400Diastolic blood dudttgnn65 mm[Hg][facility] 10-19-2024 14:30-0400Heart rate78 /[facility] 10-19-2024 14:30-0400Respiratory rate19 /[facility] 10-19-2024 14:30-6540AmO1% (BldA) [Mass fraction]97 %[facility]04-27-2025 14:30-0400Systolic blood erwocsnm195 mm[Hg][facility]03-10-2025 09:39-0400Body .6 cmDavid Pocos DO Work Phone: [phone] [place], [place] 4695003-10-2025 09:39-0400Body mass index (BMI) [Ratio]27.73 kg/c4Fpnri Pocos DO Work Phone: [phone] [place], [place] 4695003-10-2025 09:39-0400Body ashyib38.24 kgDavid Pocos DO Work Phone: [phone] [place], [place] 4695002-07-2025 08:38-0500Body bqxaew801.6 cmDavid Pocos DO Work Phone: [phone] [place], [place] 4695002-07-2025 08:38-0500Body mass index (BMI) [Ratio]27.73 kg/a9Ksbyc Pocos DO Work Phone: [phone])[address] [place], [place] 4695002-07-2025 08:38-0500Body enbltg71.24 kgDavid Pocos DO Work Phone: [phone] [place], [place] 4695001-13-2025 10:15-0500Diastolic blood klwbeecy75 mm[Hg]Anat Yanely DO Work Phone: [phone]-[facility]01-13-2025 10:15-0500 Heart rate54 /minElyse Yanely DO Work Phone: [phone] [place], [place] 4020501-13-2025 10:15-0500 Respiratory rate18 /minElyse Yanely DO Work Phone: [phone] [place], [place] 1490301-13-2025 10:15-0500 SaO2% (BldA) [Mass fraction]98 %Anat Yanely DO Work Phone: [phone] [place], [place] 1490301-13-2025 10:15-0500 Systolic blood spxomzsv981 mm[Hg]Anat Yanely DO Work Phone: [phone])[address] [place], [place] 1490301-13-2025 08:13-0500 Body kxlexn604.32 cmElyse Yanely DO Work Phone: [phone] [place], [place] 1490301-13-2025 08:13-0500 Body mtspir20.23 kgElyse Yanely DO Work Phone: [phone])[address] [place], [place] 1490312-05-2024 10:33-0500 Body ifjeol398.32 cmElyse Yanely DO Work Phone: [phone])[address] [place], [place] 1490312-05-2024 10:33-0500 Body mass index (BMI) [Ratio]28.4 kg/k8Lvahj Yanely DO Work Phone: [phone])[address] [place], [place] 1490312-05-2024 10:33-0500 Body udmxbc44.68 kgElyse Yanely DO Work Phone: [phone])[address] [place], [place] 1490312-05-2024 10:33-0500 Diastolic blood yozfrtzm88 mm[Hg]Anat Yanely DO Work Phone: 1([phone])[address] [place], [place] 1490312-05-2024 10:33-0500 Heart rate74 /minElyse Yanely DO Work Phone: [phone])[address] [place], [place] 1490312-05-2024 10:33-0500 SaO2% (BldA) [Mass fraction]98 %Anat Yanely DO Work Phone: [phone])[address] [place], [place] 1490312-05-2024 10:33-0500 Systolic blood mm[Hg]Anat Yanely DO Work Phone: [phone])[address] [place], [place] 1490312-03-2024 10:23-0500 Body .32 cmElyse Yanely DO Work Phone: [phone] [place], [place] 1490312-03-2024 10:23-0500 Body mass index (BMI) [Ratio]28.7 kg/r1Dsvwr Yanely DO Work Phone: [phone])[address] [place], [place] 1490312-03-2024 10:23-0500 Body edbejr89.28 kgElyse Yanely DO Work Phone: [phone] [place], [place] 1490312-03-2024 10:23-0500 Diastolic blood xlimtnqm47 mm[Hg]Anat Yanely DO Work Phone: 1(563)[address] [place], [place] 1490312-03-2024 10:23-0500 Heart rate76 /minElyse Yanely DO Work Phone: [phone])[address] [place], [place] 1490312-03-2024 10:23-0500 Systolic blood odirfgwz383 mm[Hg]Anat Yanely DO Work Phone: 1(292)[address] [place], [place] 1490306-26-2024 13:25-0400 Body hxyuas164.32 cmDO Anat Yanely Work Phone: [phone] [place], [place] 1490306-26-2024 13:25-0400 Body mass index (BMI) [Ratio]29.2 kg/m2DO Anat Yanely Work Phone: [phone])[address] [place], [place] 1490306-26-2024 13:25-0400 Body ynunhz05.5 kgDO Anat Yanely Work Phone: [phone])[address] [place], [place] 1490306-26-2024 13:25-0400 Diastolic blood jkviccly37 mm[Hg]DO Anat Yanely Work Phone: [phone])[address] [place], [place] 1490306-26-2024 13:25-0400 Systolic blood tnsoichp559 mm[Hg]DO Anat Yanely Work Phone: [phone])[address]06-10-2024 11:05-0400 Diastolic blood pbdndqid19 mm[Hg]DO Anat Yanely Work Phone: 1(137)[address]06-10-2024 11:05-0400 Heart rate61 /minDO Anat Yanely Work Phone: [phone])[address] [place], [place] 1490306-10-2024 11:05-0400 Respiratory rate18 /minDO Anat Yanely Work Phone: 1([phone])[address]06-10-2024 11:05-0400 SaO2% (BldA) [Mass fraction]96 %DO Anat Yanely Work Phone: 1(674)[address]06-10-2024 11:05-0400 Systolic blood muznnbak109 mm[Hg]DO Anat Yanely Work Phone: 1(659)[address] [place], [place] 1490305-28-2024 07:08-0400 Body .32 cmDO Anat Yanely Work Phone: [phone]05-28-2024 07:08-0400 Body clqriv67 kgDO Anat Yanely Work Phone: [phone]05-21-2024 10:47-0400 Body .86 [facility] 10:47-0400Body mass index (BMI) [Ratio]28.6 kg/m6BvtprybieMercy Health Allen Hospital05-21-2024 10:47-0400Body adhevk67.41 kgMercy Health [facility] Hospital05-09-2024 14:28-0400Body .86 cmMer[facility]05-09-2024 14:28-0400Body mass index (BMI) [Ratio]29.1 kg/b9QioglfjvgMercy Health Allen Hospital05-09-2024 14:28-0400Body sgktlaggubt18.5 [degF][facility]05-09-2024 14:28-0400Body tjruqk52.48 kgMer[facility] 11-01-2023 14:28-0400Diastolic blood yooslgfa60 mm[Hg][facility]05-09-2024 14:28-0400Heart rate57 /[facility] 11-01-2023 14:28-0400Respiratory rate16 /[facility] 11-01-2023 14:28-7590HmS6% (BldA) [Mass fraction]97 %[facility]05-09-2024 14:28-0400Systolic blood vkgkurdr558 mm[Hg][facility]10-18-2023 09:40-0400Body nyeuji159.86 cmAbdul Дмитрий Other [place] Other [id number] 09:40-0400Body mass index (BMI) [Ratio] 28.27 kg/d7Vxwiv Дмитрий Other [place] Other 10-18-2023 09:40-0400Body dqfsiokhvzl85.1 [degF]Michael Дмитрий Other [place] Other 10-18-2023 09:40-0400Body dmonnu44.5 kgAbdul Дмитрий Other [place] Other 338542-21-8499 09:40-0400Diastolic blood biwpsjgr32 mm[Hg] Michael Дмитрий Other [place] Other 10-18-2023 09:40-0400Respiratory rate18 /minAbdul Дмитрий Other [place] Other 10-18-2023 09:40-5923UrR4% (BldA) [Mass fraction]98 % Michael Дмитрий Other [place] Other 10-18-2023 09:40-0400Systolic blood epxieqfc329 mm[Hg] Michael Дмитрий Other [employer] Other 04-06-2023 11:20-0400Body luajjr938.86 cmAbdul Дмитрий Other [employer] Other 04-06-2023 11:20-0400Body mass index (BMI) [Ratio] 28.07 kg/c9Uiyzg Дмитрий Other [employer] Other 04-06-2023 11:20-0400Body oodvzdtilyj34.8 [degF]Michael Дмитрий Other [employer] Other 04-06-2023 11:20-0400Body dcvikg24.05 kgAbdul Дмитрий Other [employer] Other 04-06-2023 11:20-0400Diastolic blood upmanyka11 mm[Hg] Michael Дмитрий Other [employer] Other 04-06-2023 11:20-0400Respiratory rate18 /minAbdul Дмитрий Other [employer] Other 04-06-2023 11:20-3119FqP1% (BldA) [Mass fraction]99 % Michael Дмитрий Other [place] Other 04-06-2023 11:20-0400Systolic blood ahtlanbv630 mm[Hg] Michael Дмитрий Other [place] Other 01-30-2023 10:40-0500Body evhzsk586.86 cmAbdul Дмитрий Other [place] Other 01-30-2023 10:40-0500Body mass index (BMI) [Ratio] 28.44 kg/j1Abjch Дмитрий Other [place] Other 01-30-2023 10:40-0500Body pkfenwzffxh76.6 [degF]Michael Дмитрий Other [place] Other 01-30-2023 10:40-0500Body sgunei72.87 kgAbdul Дмитрий Other [place] Other 01-30-2023 10:40-0500Diastolic blood ljegaszw22 mm[Hg] Michael Дмитрий Other [place] Other 01-30-2023 10:40-0500Respiratory rate18 /minAbdul Дмитрий Other [place] Other 01-30-2023 10:40-0086CoO2% (BldA) [Mass fraction]98 % Michael Дмитрий Other [place] Other 01-30-2023 10:40-0500Systolic blood vxihfbuc075 mm[Hg] Michael Дмитрий Other [place] Other 07-25-2022 16:20-0400Body hgoght340.86 cmAbdul Дмитрий Other [place] Other 07-25-2022 16:20-0400Body mass index (BMI) [Ratio] 27.99 kg/q2Khclo Дмитрий Other [place] Other 07-25-2022 16:20-0400Body fblnnvfshzo70 [degF]Michael Дмитрий Other [place] Other 07-25-2022 16:20-0400Body waclyl17.87 kgAbdul Дмитрий Other [place] Other 07-25-2022 16:20-0400Diastolic blood jhhhmfoe78 mm[Hg] Michael Дмитрий Other [place] Other 07-25-2022 16:20-0400Respiratory rate18 /minAbdul Дмитрий Other [place] Other 07-25-2022 16:20-0757RlK0% (BldA) [Mass fraction]97 % Michael Дмитрий Other [employer] Other 07-25-2022 16:20-0400Systolic blood topeflnt342 mm[Hg] Michael Дмитрий Other [employer] Other Encounters Encounter DateEncounter TypeCare ProviderFacilityStart: 04-13-2025 End: 65-93-1007tuszubzjblExtxg C TinkerFacility:FTMCStart: 10-19-2024 End: 85-78-6794mrhcmikqjeKmgyeufjtOhioHealth [facility] Work Phone: Start: 10-19-2024 End: 00-86-4600Aqrfshg encounter procedureOn License Of [facility] Urgent Care Justin Work Phone: Start: 09-01-2024 End: 02-30-0542Hazkcjl encounter procedureDavid A Pocos DO Work Phone: noMS NB ORTHOComment on above:S/P trigger finger release (Primary Dx); Ganglion of flexor tendon sheath of right middle fingerStart: 09-01-2024 End: 57-29-3423zpghfollixRISSP A POCOSNot AvailableStart: 08-20-2024 End: 06-03-4960Qizulr OnlyDavid A Pocos DO Work Phone: NOZD NB ORTHOComment on above:Trigger middle finger of right hand (Primary Dx)Start: 08-04-2024 End: 56-66-4399Pvksnaiwd Result EncounterDavid A Pocos DO Work Phone: noms External Department UnsolicitedStart: 08-04-2024 End: 42-17-9284Qydcxkyaf Result EncounterDavid A Pocos DO Work Phone: noms External Department UnsolicitedStart: 08-04-2024 End: 40-53-1848vnffkwgpxlCucbr A PocosFacility:FTMCStart: 08-04-2024 End: 66-95-8161Uqtbdsr encounter procedureDavid A Pocos [facility] Start: 08-01-2024 End: 41-37-5820Cbrwudy encounter procedureDavid A Pocos DO Work Phone: noms NB ORTHOComment on above:Right hand pain (Primary Dx); Trigger middle finger of right hand; Trigger ring finger of right hand; Preoperative testingStart: 08-01-2024 End: 38-15-1490Sxyqcze encounter statusDavid A Pocos DO Work Phone: noms HealthcareStart: 08-01-2024 End: 38-43-9934mzvgoavbweEBEJB A POCOSNot AvailableStart: 68-08-6434Npa-patient / Non-visitElyse Yanely DO Work Phone: [facility] Work Phone: Start: 07-07-2024 End: 90-35-9186Xigqrakkd to same day surgery centerElyse Yanely DO Work Phone: [facility] Work Phone: Start: 07-07-2024 End: 76-84-0372upislsltsdVgqkn C Yanely DO Work Phone: [facility] Work Phone: Start: 05-29-2024 End: 89-15-0617Odijhgv encounter procedureElyse Yanely DO Work Phone: On License Of [facility] Nephrology Justin Work Phone: Start: 05-27-2024 End: 60-16-9048Pelqoxp encounter procedureElyse Yanely DO Work Phone: [facility] Work Phone: Start: 11-19-5552Gqg-patient / Non-visitElyse Yanely DO Work Phone: [facility] Work Phone: Start: 04-10-2024 End: 56-80-9994yhmlruqxibCgotz C TinkerFacility:FTMCStart: 04-10-2024 End: 83-01-1230Zftuqwq encounter procedureElyse C Yanely [facility] Start: 12-19-2023 End: 42-94-6542meeauwouotWE Anat C Yanely Work Phone: [facility] Work Phone: Start: 12-19-2023 End: 84-22-2521Wvkwyyd encounter procedureDO Anat Yanely Work Phone: On License Of [facility] Gastroenterology Work Phone: Start: 23-87-3464Njk-patient / Non-visitDO Anat Mortonker Work Phone: On License Of [facility] Gastroenterology Work Phone: Start: 12-03-2023 End: 29-48-3588Uvydtpclm to same day surgery centerDO Anat Yanely Work Phone: [facility] Work Phone: Start: 12-03-2023 End: 49-37-3037qqktlkbuxhPZ Anat Kyra MortonYanely Work Phone: [facility] Work Phone: Start: 11-13-2023 End: 78-71-2923tkpcacznhwPqkrjejypClinton Memorial Hospital Work Phone: Start: 11-13-2023 End: 77-52-8848Ncubilr encounter procedureOn License Of [facility] Gastroenterology Work Phone: Start: 11-01-2023 End: 51-97-0265enzdoqkdddVqsafxueuClinton Memorial Hospital Work Phone: Start: 11-01-2023 End: 61-60-3373Uooapdk encounter procedureOn License Of [facility] Nephrology Justin Work Phone: Start: 73-42-5052Gbr-patient / Non-visitOn License Of [facility] Work Phone: Start: 49-49-5243Ngtzqt flowsheetNatalie A Felter WIRE TESTER-NAVAL INSPECTOR Work Phone: noms [facility] DERMStart: 51-06-9587Jzxcos flowsheetNatalie A Felter WIRE TESTER-NAVAL INSPECTOR Work Phone: noms [facility] DERMStart: 08-08-2023 End: 13-90-8938Lridbng encounter procedureNatalie A Felter WIRE TESTER-NAVAL INSPECTOR Work Phone: noms [facility] DERMComment on above:Seborrheic keratosis, inflamedStart: 04-11-2023 End: 33-54-8760mtbelzzdteVgyni Дмитрий Other [employer]LP[employer] Other Start: 32-41-3331Tazxmp outpatient visit 15 minutes Michael QadirFPG NephrologyStart: 04-09-2023 End: 31-18-3985Kozccly encounter procedureOlive Kyra Ny [facility] Start: 09-28-2022 End: 65-54-5044kunvqukbtuGdzvo Дмитрий Other noAor[employer] Other Start: 77-42-1130Jaraji outpatient visit 25 minutes Michael QadirFPG NephrologyStart: 09-19-2022 End: 25-37-6893iurnaolfzbFKNWP QADIRFacility:N7Haavj: 64-27-9081Evjxcyoht encounterAbdul QadirFPG NephrologyStart: 07-26-2022 End: 43-05-6358uxwivcanlmOJYMK QADIRNort [employer] Other Start: 62-47-6744Vhgkbg outpatient visit 25 minutes Michael QadirFPG NephrologyStart: 07-24-2022 End: 40-02-8437hlidqckdxzSFHXS QADIRNort [employer] Other Start: 07-17-2022 End: 64-72-4124ixwmuatoibQTDDQ QADIRFacility:C5Lwosf: 01-16-2022 End: 08-68-8242jiyegbfeskGjrsp Дмитрий Other noAor[employer] Other Start: 96-12-8365Ruttve outpatient visit 25 minutes Michael QadirFPG NephrologyStart: 01-09-2022 End: 22-50-6242prsgoughytJTZNP QADIRFacility:S4Kvddr: 09-30-2021 End: 01-79-5268kqqfnwfvceQhcdk Hykes Other [employer] Other Start: 60-22-0470Xfpgdgbpa encounterDavid HykesFPG Gastroenterology Procedures DateProcedureProcedure DetailPerforming ClinicianStart: 61-34-3775NTKQ CBC W/ AUTO DIFFDavid A Pocos DO Work Phone: Start: 41-40-0953Xteoc hand minimum 3 viewsDavid A Pocos DO Work Phone: Start: 21-69-6064JctvsanwpvvEelyt Yanely DO Work Phone: start: 83-42-4560QzvneshetwrWT Anat Yanely Work Phone: start: 36-54-9193MVQWVPYGPKA SKIN LESIONNatalie A Felter WIRE TESTER-NAVAL INSPECTOR Work Phone: H/O: surgeryS/P trigger finger releaseDavid A Pocos DO Work Phone: History of decompression of median nerveHistory of carpal tunnel release of both wrists Plan of Treatment DateCare ActivityDetailAuthorStart: 09-01-2024 End: 30-68-3631Jbwpqpm encounter svjeusqca58/10/2025 9:45 AM EDT Office Visit [facility] [address] [facility] [place] [address] Ovi Moon DO [address] [place] [address] [facility] ORTHOStart: 08-01-2024 End: 48-60-7271Iumky metabolic 1998 panel - Serum or PlasmaBasic metabolic panel Lab Routine Preoperative testing Expected: 08/01/2024 (Approximate), Expires: 08/01/2025[facility] Work Phone: Comment on above:Expected: 08/01/2024 (Approximate), Expires: 08/01/2025Start: 08-01-2024 End: 80-06-0384WML W Auto Differential panel - BloodCBC auto differential Lab Routine Preoperative testing Expected: 08/01/2024 (Approximate), Expires: 08/01/2025[facility] HealthcareComment on above:Expected: 08/01/2024 (Approximate), Expires: 08/01/2025Start: 08-01-2024 End: 51-88-6050VZR 12 leadECG 12 lead ECG Routine Preoperative testing Expected: 08/01/2024 (Approximate), Expires: 08/01/2025[facility] HealthcareComment on above: Expected: 08/01/2024 (Approximate), Expires: 08/01/2025Start: 07-07-[address] [facility]2024 End: 45-23-4919Kdiplob encounter kqhmapgxx19/22/2024 9:25 AM EDT Office Visit [facility] [address] [place] [address] 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, WIRE TESTER-NAVAL INSPECTOR [address] [place] [address] [facility] DERMStart: 65-95-8314XmwncdmznMount St. Mary Hospitaltart: 09-06-2023 End: 48-81-5884Nxqnqol encounter ilgvsvpbw50/14/2024 9:20 AM EDT Office Visit [facility] [address] [place] [address] 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, WIRE TESTER-NAVAL INSPECTOR [address] [place] [address] [facility] DERMStart: 08-08-2023 End: 34-74-1709Cgavrck encounter /14/2024 8:50 AM EST Office Visit [facility] [address] [place] [address] 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, WIRE TESTER-NAVAL INSPECTOR [address] [place] [address] ArrivedNOMS SWS DERMComment on above: ArrivedStart: 70-64-2756Ikeigcmqw for malignant neoplasm of breastMammogramNOMS HealthcareStart: 53-20-6415Yhmwgpxdm for malignant neoplasm of colonNOMS HealthcarePatient EducationMercy Health [facility] Work Phone: Renal function 1999 panel - Serum or [facility] CenterRenal function 1999 panel - Serum or [facility] Medical CenterXR Hand - right 3 ViewsXR hand 3+ views right Imaging Routine Right hand pain 08/01/2024 7:57 AM [facility] Immunizations Immunization DateImmunizationNotesCare PgcejdcwCcfoffdu49-25-2317KRBUY-95 mRNA- 1273 (Moderna)DO Anat Yanely Work Phone: [phone] [place], [place] 4020504-06-2021COVID-19 mRNA-1273 (Moderna)DO Anat Yanely Work Phone: [phone] [place], [place] 4020503-09-2021COVID-19 mRNA-1273 (Moderna)DO Anat Yanely Work Phone: [phone] [place] [address] Payers DatePayer CategoryPayerPolicy [id number] Health [id number] 04-17-2453Yzie-[id number] Health [id number] 2022Medicare [id number] [id number] [id number] Health [id number] 08.10.830.1.06381[id number] 2.16.840.1.415966.3.57[id number] 2.16.840.1.826464.3.57[id number] 2.16840.1.927335.3.57[id number] 2.16840.1.913592.3.57[id number] 2.16840.1.923253.3.57[id number] 2.16840.1.144083.3.57[id number] 2.16840.1.301550.3.57[id number] 2.16840.1.802825.3.579.2.057425-06-2532Arxmkrm7241003 2.16840.1.059042.3.57[id number] 2.16840.1.170445.3.57[id number] 2.16840.1.501087.3.57[id number] 2.16840.1.80[id number] 2.16840.1.176838.19Unknown [id number] 2.16.840.1.7[id number] 2.16.840.1.800858.3.579.2.531 Social History DateTypeDetailFacilityUnknown if ever smokedNorth Access Information [employer] Other Start: 07-12-2023 End: 83-26-4245Qkr Assigned At [facility] HospitalTobacco smoking statusNo Smoking Status EnteredParkwood Hospitaltart: 05-19-2023 End: 07-62-7528Xslvnel smoking status NHISEx-smokerNOMS Healthcare End: 94-08-4607Ogndzcf of tobacco useCurrent smokerNOMS Healthcare End: 21-73-3249Dldniii of tobacco useCigarette SmokerNOMS HealthcareStart: 07-12-2023 End: 01-07-7985Lzbmpnk intakeLifetime non-drinker (finding)[facility] HealthcareStart: 07-12-2023 End: 74-30-0764Dkguvbe of Social functionNOMS HealthcareStart: 41-73-1268Dmqniof Commentcaffeine: 1-2 cups per day teaNOMO HealthcareStart: 67-46-3521Gwf Assigned At BirthNot on fileNOMO HealthcareStart: 51-96-0407Kpjcat identity Identifies as female gender (finding)[facility] HealthcareStart: 23-16-3241Rss Assigned At [facility]: 07-07-2024 End: 30-01-7160EnvYhfbnq (finding)[facility]: 08-01-2024 End: 51-97-6439Ffffvbyvq beverage intakeEx-drinker (finding)[facility] Goals DatePatient GoalDesired Activity/State Clinical Notes 01-16-2022 to 09-01-2024 Note Date & XxhnJfjpIsianxpe71-73-7744 History of Present illness Narrative* Kassidy Kumar - 09/01/2024 9:45 AM EDT Darnellshagufta Bealal is a 69 y.o. female presents with [...] ASPIRIN PO ergocalciferol (Vitamin D2) 1.25 MG (51290 UT) capsule lisinopril 40 mg, Daily mesalamine [...] tethering. Her neurocirculatory status is intact. She doeshave an apparent rose marie seed ganglion just distal to the distal flexor crease of the palm, palmar aspect of the mid finger. This is very small in size, really not overly painful. X-rays none new here today. ASSESSMENT AND PLAN: Assessment/Plan Right middle and ring finger trigger release with likely rose marie seed ganglion, rightmiddle finger. The findings are discussed. With regard [...] questions are otherwise answered. Cosigned by Ovi Moon DO at 09/02/2024 4:36 PM EDT documented in this encounterMissouri Delta Medical CenterDavdathull63-22-3979 History of Present illness Narrative* Kassidy Kumar - 08/01/2024 8:45 AM EST Images from the original note were not included. GENERAL HISTORY AND PHYSICAL: NAME: Darnell Sanches : 1955 CHIEF COMPLAINT: Right mid and ring finger trigger digit. HISTORY OF PRESENT ILLNESS: This is a 69 y.o. female who presents for a pre-op H&P. Darnell is a 69-year-old white female, right hand dominant, who presents complaining of trigger digits of her right mid and ring fingers. This has been going on for about a year, somewhat progressive in nature. Shefeels she is getting more and more stiff and is concerned about this more than anything. She does have a history of a right index finger trigger release and as such, does understand trigger fingers to some extent. It does effect her pearl peller as well. She has tried some Bengay. [...] ASPIRIN PO ergocalciferol (Vitamin D2) 1.25 MG (61122 UT) capsule lisinopril 40 mg, Daily mesalamine [...] up letter sent to Dr. Ny. Ovi Moon D.O. Cosigned by Ovi Moon DO at 08/04/2024 7:57 AM EST documented in this encounterMissouri Delta Medical CenterSfvxypiria23-46-9513 [place] [address] Gastroenterology H&P Signed Patient: Darnell Sanches MR#: [id number] 9 : 1955 Acct:[id number] Age/Sex: 69 / F Adm Date: 5 Loc: Room: Type: [facility] Attending Dr: Clyde Garcia MD Copies to: Clyde Garcia MD Anat Rae Yanely, ~ Date of Service: 07/07/2024 HISTORY & PHYSICAL: Patient's history with special attention to the cardiovascular, pulmonary systems and the current problem was reviewed with the patient immediately prior to the procedure. Present medications and doses reviewed in the EMR. Allergies and pertinent laboratory tests were also re viewedat this time in the EMR. The physical [...] By: Clyde Garcia MD 07/07/2447 Signed By: 07/07/24 0847 [facility]01-13-2025 [place] [address] Colonoscopy Procedure Report Signed Patient: Darnell Sanches MR#: [id number] 9 : 1955 Acct:[id number] Age/Sex: 69 / F Adm Date: 5 Loc: Room: Type: [facility] Attending Dr: Clyde Garcia MD Copies to: Clyde Garcia MD Anat Ny, DO~ Colonoscopy Date/Provider 07/07/2024 Clyde Garcia MD Narrative Procedure: Colonoscopy with retrograde enteroscopy, with biopsies. Indication: 69-year-old female with a history of Crohn's disease s/p ileocecectomy, on Apriso presents for staging colonoscopy, colorectal cancer screening. Pre-operative diagnosis: Crohn's Post-operative diagnosis: Crohn's, severe diverticular disease, hemorrhoids Sedation: propofol per anesthesia dept O2 oximetry, hemodynamic monitoring was performed pre, during, and post procedure. Patient was identified, H&P completed, patient was given full explanation of the procedure as well as associatedrisks and written consent wasobtained prior to procedure. Patient expressed complete understanding of the procedure as well as alternatives to the procedure and to anesthesia and agreed to proceed with the procedure as indicated. Patient was immediately reassessed prior to IV sedation. Under IV sedation, patient was placed in the left lateral decubitus position. Digital rectal exam was performed and noted for large hemorrhoids. Colonoscope was inserted and passed proximally to the neoterminal ileum. Colonoscope was slowly withdrawn with the findings as below. [place] bowel prep score was good. Findings: There is severe stricturing diverticular disease with abdominal adhesions through the sigmoid colon, and significant abdominal maneuvering with the pediatric colonoscope was required to pass this. The colon mucosa throughout the remainder of the colon was unremarkable with no evidence of colitis. There was an anastomotic stricture again demonstrated at the neoterminal ileum which was able to be dilated with the pediatric colonoscope. There was a few small ulcers on the backside of the anastomosis, shallow nonconfluent. The pediatric colonoscope was able to be advanced 20 to 25 cm up the neoterminal ileum. The mucosa proximal to the anastomosis appeared unremarkable without evidence of active disease. Biopsies were obtained from this more proximal mucosa, bottle 1- assess for Crohn's activity. Retroflexed views demonstrated internal hemorrhoids. Biopsy taken: Yes Complications: None EBL: minimal Recommendations: -Follow up pathology -Follow up in the office pending path if there is active disease and we will need to discuss biologic therapy -Follow up with PCP Following a period of recovery, patient was seen and given full explanation of the procedure. Patient tolerated the procedure well and will be discharged in satisfactory, stable condition. Clyde Garcia MD Documented By: Clyde Garcia MD 07/07/24 0942 Signed By: 07/07/24 0946 [facility]12-03-2024 Evaluation note* Diagnosis Onset Date Resolution Status Admit Date Crohn's disease of intestine acuteMay 27, 2024 10:18amGERD (gastroesophageal reflux disease)acute May 27, 2024 10:18amCKD (chronic kidney disease) stage 3, GFR 30-59 ml/min acuteMay 29, 2024 10:24amCrohn diseaseacutece2023 10:24am HyperlipidemiaacuteDecedignity health [facility] 2023 10:24amHypertensive chronic kidney disease with stage 1 through stage 4 chronic kiacutece2023 10:24am HyperuricemiaacuteDece2023 10:24amSecondary hyperparathyroidismacute May 29, 2024 10:24am [facility] Work Phone: 1(213) 961-276806-10-2024 Procedure noteFirPremier Health [facility]02[facility]14-20[facility] History of Present illness Narrative* 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, WIRE TESTER- NAVAL INSPECTOR - 08/08/2023 8:50 AM EST Follow up [...] 1. Seborrheic keratosis, inflamed Left Nasal Sidewall [place] and brown stuck on verrucous scaly papule [...] limited to risks of scarring, darker or bone crusher pigmentary changes, recurrence, incomplete removal and infection. [...] for any new/changing lesions documented in this encounterMissouri Delta Medical CenterMqwfjqesjl43-61-1332 Evaluation note* Encounter Date Diagnosis Assessment Notes Treatment Notes Treatment Clinical Notes Mar, Chronic kidney disease, stage 3b [...] control to surround the progression of CKD. 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 Continue current dose of the atenolol, amlodipineand lisinopril. Mar,Secondary hyperparathyroidism (ICD-10 - N25.81)She has a secondary hyperparathyroidism due to the CKD but her calcium, phosphorus and vitamin D are within the goal. Continue oral ergocalciferol. Mar,rohn disease (ICD-10 - K50.90)Continue follow with GI for Crohn's. I have advised her to adequately hydrate herself. Mar,Hyperuricemia (ICD-10 - E79.0)She has hyperuricemia due to the CKD. She denies any gout flare. We will monitor without any medication. [facility] Other 04-06-2023 Evaluation note* Encounter Date Diagnosis Assessment Notes Treatment Notes Treatment Clinical Notes Sep, Chronic kidney disease, stage 3b (ICD-10 - [...] control to surround the progression of CKD. 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 Continue current dose of the atenolol, amlodipineand lisinopril. Sep,Secondary hyperparathyroidism (ICD-10 - N25.81)She has a secondary hyperparathyroidism due to the CKD but her calcium, phosphorus and vitamin D are within the goal. Continue oral ergocalciferol. Sep,rohn disease (ICD-10 - K50.90)Continue follow with GI for Crohn's. I have advised her to adequately hydrate herself. She has a mild leukocytosis likely due to the Crohn's. I discussed with her option of hematology referral. She would like to monitor for now. Sep,Hyperuricemia (ICD-10 - E79.0)She has hyperuricemia due to the CKD. She denies any gout flare. We will monitor without any medication. [facility] 01-30-2023 Evaluation note* Encounter Date Diagnosis Assessment Notes Treatment Notes Treatment Clinical Notes Jun, Chronic kidney disease, stage 3b (ICD-10 - [...] renal ultrasound to rule out obstructive uropathy. 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 She likely has a component of whitecoat syndrome. Continue current dose of the atenolol, amlodipine and lisinopril. Jun,Secondary hyperparathyroidism (ICD-10 - N25.81)MBD parameters including calcium, phosphorus vitamin D and PTH are within the goal. Continue oral ergocalciferol. Jun,rohn disease (ICD-10 - K50.90)Continue follow with GI for Crohn's. I have advised her to adequately hydrate herself. [facility] 07-25-2022 Evaluation note* Encounter Date Diagnosis Assessment Notes Treatment Notes Treatment Clinical Notes Dec, Chronic kidney disease, stage 3b (ICD-10 - [...] control to surround the progression of CKD. Dec,en hy kid w cr kid I-IV (ICD-10 - I12.9)Blood pressure is usually well controlled at home and at the provider's office. Continue current dose of the atenolol, amlodipine and lisinopril. Dec,econdary hyperparathyroidism (ICD-10 - N25.81)MBD parameters including calcium, phosphorus vitamin D and PTH are within the goal. Continue oral ergocalciferol. Dec,rohn disease (ICD-10 - K50.90)Continue follow with GI for Crohn's [facility] [employer] Other Evaluation + Plan note No data available for this section [facility] noteNo InformationNortSt. Clair Hospital [employer] Other Evaluation note* Diagnosis Seborrheic keratosis, inflamed [facility] Diagnosis Onset Date Resolution Status CKD (chronic kidney disease) stage 3, GF R 30-59 ml/min acuteCrohn ldtarwujryaaOijtggardetnvclkfjqFRH-[id number] acuteSecondary hyperparathyroidismacute [facility] [place] Work Phone: Evaluation note* Diagnosis Onset Date Resolution Status CKD (chronic kidney disease) stage 3, GF R 30-59 ml/min acuteCrohn rlyoqvwrcyqwOpddodvubzggqjuxsfuGLX-XUSZ-[id number] acuteSecondary hyperparathyroidismacuteCrohn diseaseacuteGERD (gastroesophageal reflux disease)[facility] Work Phone: Evaluation note* Diagnosis Onset Date Resolution Status CKD (chronic kidney disease) stage 3, GF R 30-59 ml/min acuteCrohn xjeecnvojcokYyolqzfuhmjjqgvqpyqVFX-FGLD-[id number] acuteSecondary hyperparathyroidismacuteCrohn diseaseacuteGERD (gastroesophageal reflux disease)acuteCrohn's disease of intestineacute [facility] [place] Work Phone: Evaluation note* Diagnosis Right hand pain- Primary Pain in soft tissues of limb Trigger middle finger of right hand Trigger ring finger of right hand Preoperative testing Unspecified pre-operative examination documented in this encounter [facility]* Diagnosis Trigger middle finger of right hand- Primary documented in this encounter [facility] HealthcareEvaluation note* Diagnosis S/P trigger finger release- Primary Ganglion of flexor tendon sheath of right middle finger documented in this encounter [facility] HealthcareEvaluation noteNo assessment information availableSelect [facility] [place] Work Phone: History and physical note Author Clyde Garcia [facility] HospitalNote Date/TimeJanuary 2024 10:24am [place] [address] Gastroenterology H&P Signed Patient: Darnell Sanches MR#: [id number] 9 : 1955 Acct:[id number] Age/Sex: 69 / F Adm Date: 5 Loc: Room: Type: [facility] Attending Dr: Clyde Garcia MD Copies to: MD Anat Beasley, ~ Date of Service: 07/07/2024 HISTORY & PHYSICAL: Patient's history with special attention to the cardiovascular, pulmonary systems and the current problem was reviewed with the patient immediately prior to the procedure. Present medications and doses reviewed in the EMR. Allergies and pertinent laboratory tests were also re viewedat this time in the EMR. The physical [...] Garcia MD Documented By: Clyde Garcia MD 07/07/24846 Signed By: <Electronically signed by Clyde Garcia MD> 07/07/24846 [facility] Work Phone: History general Narrative - Reported* Type Description Date Medical History HTN Medical HistoryGERDMedical HistoryCrohn'sMedical HistoryCHRONIC KIDNEY DISEASE Surgical Historybowel resectionSurgical HistoryhysterectomySurgical History adhesionsSurgical Historyintussusception of bowelSurgical HistoryCARPAL TUNNEL RELEASE AND TRIGGER FINGER ON RIGHT HAND2021Hospitalization Historysee surgical hxHospitalization HistoryCHILD X 2 [facility] Discharge instructions No data available for this section [facility] Additional Instructions DISCHARGE [...] problems. -Follow up with PCP. -Office number [phone].[facility] Work Phone: Progress note No data available for this section [facility] Summary Purpose Family History No Family History Records Found Relationship Condition Age at Onset Recorded Date/T keon brother Heart disease Unknown DeceasedUnknownHypertensionUnknownDiabetes mellitusUnknownHistory of stroke UnknowndaughterDiabetes mellitusUnknownfatherDiabetes mellitusUnknownHeart diseaseUnknownfamily memberDeceasedUnknownNot SpecifiedDiabetes mellitusUnknown Relationship Condition Age at Onset Recorded Date/T keon brother Heart disease Unknown DeceasedUnknownHypertensionUnknownDiabetes mellitusUnknownHistory of stroke UnknowndaughterDiabetes mellitusUnknownfatherDiabetes mellitusUnknownHeart diseaseUnknownfamily memberDeceasedUnknownmotherDiabetes mellitusUnknown Relationship Condition Age at Onset Recorded Date/T keon brother Diabetes mellitus Unknown Heart diseaseUnknownDeceasedUnknownHistory of strokeUnknownHypertensionUnknown daughterDiabetes mellitusUnknownfatherDiabetes mellitusUnknownfamily member DeceasedUnknownMalignant neoplasm of breastUnknownmotherDiabetes mellitusUnknown Advance Directives No Advanced Directives Records Found Advance Directive Response Recorded Date/ Time Advance Directives No July 24, 2022 12:19pm Advance Directive Response Recorded Date/ Time Advance Directives No July 24, 2022 11:19am Advance Directive Response Recorded Date/ Time Advance Directives No October 19, 2 025 2:08pm Chief Complaint and Reason for Visit Chief Complaint Amb Documentation RENAL 6 month f/uReason for VisitCKD (chronic kidney disease) stage 3, GFR 30-59 ml/min Crohn disease Hyperlipidemia [id number] Hyperuricemia Secondary hyperparathyroidism Chief Complaint Amb Documentation RENAL 6 month f/u Previous [place] patient//constipationReason for VisitCKD (chronic kidney disease) stage 3, GFR 30-59 ml/min Crohn disease Hyperlipidemia [id number] Hyperuricemia Secondary hyperparathyroidism Crohn disease GERD (gastroesophageal reflux disease) Chief Complaint Amb Documentation RENAL 6 month f/u Previous [place] patient//constipation crohn's disease. constipaiton crohn's disease. constipaitonReason for VisitCKD (chronic kidney disease) stage 3, GFR 30-59 ml/min Crohn disease Hyperlipidemia [id number] Hyperuricemia Secondary hyperparathyroidism Crohn disease GERD (gastroesophageal reflux disease) Chief Complaint RENAL 6 month f/u Previous [place] patient//constipation crohn's disease. constipaiton crohn's disease. constipaiton FOLLOW UP COLONOSCOPYReason for VisitCKD (chronic kidney disease) stage 3, GFR 30-59 ml/min Crohn disease Hyperlipidemia [id number] Hyperuricemia Secondary hyperparathyroidism Crohn disease GERD (gastroesophageal [...] FOR VISIT (unrecogniz ed section and content) UaxeauPypnhvqwJoywhg-ghYtntfiHkxckconBwnsEkwdboBcdejwbzMoie-kf INFORMATION SOURCE (unrecogn ized section and content) DATE CREATED AUTHOR 09/23/2022 [facility] DATE CREATED AUTHOR AUTHOR'S ORGANIZ ATION 07/14/2024 [facility] DATE CREATED AUTHOR AUTHOR'S ORGANIZ ATION 08/05/2024 [facility] DATE CREATED AUTHOR AUTHOR'S ORGANIZ ATION 09/02/2024 [facility] EPIC DATE CREATED AUTHOR AUTHOR'S ORGANIZ ATION 04/20/2025 [facility] Patient Care team informatio n (unrecognized section and content) Team Status: Active Member Role Status Dates Anat Ny DO Primary Care Provider Active Team Status: Inactive Member Role Status Dates Anat Ny DO Primary Care Provider Active Start: October 19, 2024 End: October 19, 2024Emily ArzolaActiveStart: October 19, 2024 End: October 19, 2024Ebenezer Mims ProviderActiveStart: October 19, 2024 End: October 19, 2024 Team Status: Active Member Role Status Dates Anat Ny DO Primary Care Provider Active Start: May 20, 2024 Raciel Lizama ProviderActiveStart: May 20, 2024 Team Status: Inactive Member Role Status Dates Anat Ny DO Primary Care Provider Active Start: May 27, 2024 End: May 27Raciel Turk ProviderActiveStart: May 27, 2024 End: May 27, 2024 Team Status: Inactive Member Role Status Dates Anat Ny DO Primary Care Provider Active Start: May 29, 2024 End: May 29Raciel Marks ProviderActiveStart: May 29, 2024 End: May 29, 2024 Team Status: Inactive Member Role Status Dates Anat Ny DO Primary Care Provider Active Start: July 07, 2024 End: July 07roseanna Garcia , MDAttending ProviderActiveStart: July 07, 2024 End: July 07, 2024 Team Status: Active Member Role Status Dates Anat Ny DO Primary Care Provider Active Start: July 07, 2024 Clyde Garcia , MDAttending Provider, Other ProviderActiveStart: July 07, 2024 Team Status: Inactive Member Role Status Dates Anat Ny DO Primary Care Provider Active Start: November 01, 2023 End: October 31odalys Cannon , MDAttending ProviderActiveStart: November 01, 2023 End: November 01, 2023 Team Status: Inactive Member Role Status Dates Anat Ny DO Primary Care Provider Active Start: November 13, 2023 End: November 12roseanna Garcia , MDAttending ProviderActiveStart: November 13, 2023 End: November 13, 2023 Team Status: Inactive Member Role Status Dates Anat Ny DO Primary Care Provider Active Start: December 03, 2023 End: December 02roseanna Garcia , MDAttending ProviderActiveStart: December 03, 2023 End: December 03, 2023 Team Status: Active Member Role Status Dates Anat Ny DO Primary Care Provider Active Start: December 03, 2023 Clyde Garcia MDAttending Provider, Other ProviderActiveStart: December 03, 2023 Team Status: Inactive Member Role Status Dates Anat Ny DO Primary Care Provider Active Start: December 19, 2023 End: December 18roseanna Garcia , MDAttending ProviderActiveStart: December 19, 2023 End: December 19, 2023 Team Status: Active Member Role Status Dates Anat Ny DO Primary Care Provider Active Start: September 12, 2023 Jeanna Moreira CMAAttending ProviderActiveStart: September 12, 2023 Team MemberRelationshipSpecialtyStart DateEnd Date Anat Ny MD [address] [facility] [place] [phone] [facility]08/01/24Te MemberRelationshipSpecialtySageWest [facility] Anat Ny MD [address] [place] [phone] [facility]08/01/24Te MemberRelationshipSpecialtySageWest [facility] Anat Ny MD [address] [place] [phone] [facility]08/01/24Te MemberRelationshipSnewport community hospitalialW[facility] Anat Ny MD [address] [place] [phone] [facility]08/01/24 Goals (unrecognized section and content) Goals may [...] BE BASED ON THE PRIMARY CLINICAL RECORDS. [facility]. provides no warranty or guarantee of the accuracy or completeness of information in this document.
[2025-05-15 15:13] VITALS: BP 119/75; PULSE 68; O2SAT 98
== END 2025-05-15 15:14 | disposition home or self-care (01) ==
PROVIDERS: Emergency Provider Emergency Medicine
DX: S16.1XXA Strain of muscle, fascia and tendon at neck level, initial encounter (principal); V49.49XA Driver injured in collision with other motor vehicles in traffic accident, initial encounter
CPT/HCPCS: 72125; 76376; 99284

== ENCOUNTER 2025-06-01 06:33 | Outpatient (OUT) | payer MEDICARE, SELFPAY ==
--- OUTSIDE RECORDS SUMMARY | 2025-06-01 06:37 | XMS_ITS | CCD ---
Author Organization 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 Name Role Phone Sandeep Ovi Unavailable Дмитрий, [...] Primary Care Physician Unavailable Primary Care Provider Unavailsusy e DO Anat Ny Primary Care Provider [phone] MD Clyde Garcia Attending Provider [phone] Anat Ny DO Primary Care Provider Clyde Garcia MD Attending Provider Clyde Garcia [...] oral tablet (20 sources)Dihydropyridine Calcium Channel BlockerStart: 76-75-6983ggyo 1 tablet by mouth once daily in the morningAmlodipine 10 mg tablet Active 10 MG PO Every morning November 01, 2023 12:00am End: 35-08-2491hcNEDFNouj Benzoate 1 MG/ML suspension amLODIPine Benzoate 08/01/2024 Discontinued (Therapy completed)aspirin 81 mg delayed release oral tablet (20 sources)Platelet Aggregation Inhibitor, Nonsteroidal Anti-inflammatory Drug Start: 50-73-4702vatk 1 tablet by mouth once dailyAspirin 81 mg tablet,delayed release (DR/EC) Active 81 MG PO Daily November 01, 2023 12:00amBABY ASPIRIN PO ActiveBABY ASPIRIN POtake 1 tablet by mouth every twenty-four hoursAspirin 81 MG 1 tablet Orally Once a day Activeatenolol 100 mg oral tablet (20 sources)beta-Adrenergic BlockerStart: 14-60-2746lbvc 1 tablet by mouth once daily in the eveningAtenolol 100 mg tablet Active 100 MG PO Every evening November 01, 2023 12:00amtake 2 tablets by mouth every twenty-four hoursAtenolol 50 MG 2 tablet Orally Once a day for 90 day(s) Activeatorvastatin 10 mg oral tablet (19 sources)HMG-CoA Reductase InhibitorStart: 78-32-6737ygey 1 tablet by mouth once daily in the morningAtorvastatin 10 mg tablet Active 10 MG PO Every morning November 01, 2023 12:00amdoxycycline hyclate 100 mg oral capsule (1 source)Tetracycline-class DrugStart: 05-50-6300keri 1 capsule by mouth twice dailyDoxycycline Hyclate 100 mg capsule Active 100 MG PO Twice daily 13 04October 19, 2024 12:00amergocalciferol 1.25 mg oral capsule (20 sources)Provitamin D2 CompoundStart: 49-50-6076aaix 1 capsule by mouth every weekErgocalciferol (Vitamin D2) 1,250 mcg (50,000 unit) capsule Active 0 .ROUTE .COMPLEX September 27, 2024 10:40am TAKE 1 CAPSULE BY MOUTH EVERY WEEKStart: 09-12-2023 End: 19-30-9750sumu 1 capsule by mouth every weekErgocalciferol (Vitamin D2) 1,250 mcg (50,000 unit) capsule Discontinued 1250 MCG PO every week September 12, 2023 3:03pm September 27, 2024 10:40amStart: 09-12-2023 End: 64-52-6226fdaj 1 capsule by mouth every weekErgocalciferol (Vitamin D2) 1,250 mcg (50,000 unit) capsule Discontinued 21447 UNIT PO every week September 12, 2023 12:00am September 12, 2023 2:41pm FreeTextSig: TAKE 1 CAPSULE BY MOUTH ONCE WEEKLY; Note: Source Status: Taking; Refills: 1; Qty: 14 Capsule; Provider: Дмитрий Rodriguez ( )Start: 54-10-0484bjqq 1 capsule by mouth every weekErgocalciferol 1.25 MG (10956 UT) 1 capsule Orally Q week for 90 day(s) Jun, Activeestradiol 0.5 mg oral tablet (4 sources)Estrogentake 1 tablet by mouth every twenty-four hoursEstradiol 0.5 MG 1 tablet Orally Once a day Activelisinopril 40 mg oral tablet (20 sources)Angiotensin Converting Enzyme InhibitorStart: 90-33-1679adiu 1 tablet by mouth once daily in the morningLisinopril 40 mg tablet Active 40 MG PO Every morning November 01, 2023 12:00am24 hr mesalamine 375 mg extended release oral capsule (9 sources)AminosalicylateStart: 38-69-7917noti 4 capsules by mouth once daily in the morningmesalamine ER (Apriso) 0.375 g 24 hr capsule TAKE 4 CAPSULES BY MOUTH EVERY MORNING 07/04/2024 ActiveStart: 18-13-2444yffb 4 capsules by mouth once daily in the morningMesalamine (Apriso) 0.375 gram capsule,extended release 24hr Active 1.5 GM PO Every morning 120 December 18, 2023 11:00pm Take 4 capsule orally in the morning.Start: 34-73-9770jtub 4 capsules by mouth once daily in the morningMesalamine (Apriso) 0.375 gram capsule,extended release 24hr Active 1.5 GM PO Every morning 120 December 19, 2023 12:00am Take 4 capsule orally in the morning.pantoprazole 20 mg delayed release oral tablet (20 sources)Proton Pump InhibitorStart: 33-12-3854gosi 1 tablet by mouth once daily in the morningPantoprazole 20 mg tablet,delayed release (DR/EC) Active 20 MG PO Every morning November 01, 2023 12:00amPantoprazole Sodium 40 MG TAKE 1 TABLET BY MOUTH EVERY DAY Oral Once a day for 30 days Activepolyethylene glycol 3350 52550 mg powder for oral solution (8 sources)Osmotic LaxativeStart: 14-74-7507Pmwarnxqhfod Glycol 3350 (Miralax) 17 gram/dose powder Active 17 GM PO Daily as needed for constipation 2024 1:00amsilver sulfADIAZINE 10 mg/ml topical cream (1 source)Sulfonamide AntibacterialStart: 27-17-1666Zbwjoi Sulfadiazine (Silvadene) 1 % cream Active 1 APPLIC TOPICAL Twice daily 25 7 October 19, 2024 12:00am apply a 1.5 mm thicknessSod Picosulf-Mag Ox-Citric Ac (2 sources)Start: 09-18-5137qggm 1 dose by mouth once dailySod Picosulf-Mag Ox- Citric Ac (Clenpiq) 10 mg-3.5 gram- 12 gram/175 mL solution Active 175 ML PO Chrystal ly 350 0 May 27, 2024 1:00am Take first dose at 3pm evening before colonoscopy; second dose at 9 pm night before colonoscopyStart: 21-78-3164qtel 1 dose by mouth once dailySod Picosulf-Mag [...] oral tablet (6 sources)Opioid AgonistStart: 08-04-2020 End: 63-97-3326hcck 1 tablet by mouth every six hours as needed for pain Hydrocodone-Acetaminophen 5-325 mg tablet Discontinued 1 TAB PO Q6H as needed for pain 03 27August 04, 2020 November 01, 2023 2:26ejBkt3193-Bac Qde-Kvav-Zio-Asb-C (2 sources)Osmotic Laxative, Vitamin CStart: 05-27-2024 End: 55-06-6711Kxf1913-Sod Cct-Kxde-Kyy-Asb-C (Plenvu) 140-9-5.2 gram powder in packet, sequential Discontinued 140 ML PO .COMPLEX 1 May 27, 2024 1:00am May 27, 2024 11:30am First does at 4pm the day before the colonoscopy; second dose at 11pm the night before the colonoscopy.Start: 05-27-2024 End: 27-92-0587Icu8624-Sod Ink-Ldrp-Qpp-Asb-C (Plenvu) 140-9-5.2 gram powder in packet, sequential Discontinued 140 ML PO .COMPLEX 1 May 27, 2024 12:00am May 27, 2024 10:30am First does at 4pm the daybefore the colonoscopy; second dose at 11pm the night before the colonoscopy.ondansetron 4 mg disintegrating oral tablet (6 sources)Serotonin-3 Receptor AntagonistStart: 08-04-2020 End: 02-68-3299zked 1 tablet by mouth four times daily as needed for nausea and vomitingOndansetron 4 mg tablet,disintegrating Discontinued 4 MG PO Four times daily as needed for nausea and vomiting August 04, 2020 1:00am November 01, 2023 2:31pmPolyethylene Glycol 3350 (Miralax) 17 gram/dose powder (5 sources)Start: 11-13-2023 End: 03-88-3717Cdetpedwxcgs Glycol 3350 (Miralax) 17 gram/dose powder Discontinued 17 GM PO Daily October 12:00am 2024 9:49amStart: 11-13-2023 End: 59-40-1622Vihiacrdjntj Glycol 3350 (Miralax) 17 gram/dose powder Discontinued 17 GM PO Daily 510 October 11:00pm 2024 8:49amStart: 04-39-1657Nqncivuxkvwh Glycol 3350 (Miralax) 17 gram/dose powder Active 17 GM PO Daily 510 November 13, 2023 12:00amtraMADol hydrochloride 50 mg oral tablet (3 sources)Opioid AgonistStart: 08-20-2024 End: 92-05-1352pkui 1 tablet by mouth every six hours [...] sources)Chronic kidney disease; Translations: [Chronic kidney disease, unspecified]19-24-0892IwpfitmHwkcgahyn of lipid metabolism (11 sources)Hyperlipidemia; Translations: [Hyperlipidemia, unspecified] 63-97-4504WxevlfgGtuqzbgxfxmbjb and diverticulitis (6 sources)Diverticular disease of colon; Translations: [Diverticulosis of large intestine without perforationor abscess without bleeding]ChronicEsophageal disorders (15 sources)Gastro-esophageal reflux disease with esophagitis; Translations: [Gastro-esophageal reflux disease with esophagitis]88-73-6187Fxcewzc Gastroduodenal ulcer (except hemorrhage) (6 sources)Antral ulcer; Translations: [Gastric ulcer, unspecified as acute or chronic, without hemorrhage or perforation]ChronicHypertension with complications and secondary hypertension (20 sources)Chronic kidney disease due to hypertension; Translations: [Hypertensive chronic kidney disease withstage 1 through stage 4 chronic kidney disease, or unspecified chronic kidney disease]Onset: 01-16-2022 Resolved: 68-01-6503TevyqwqAieqci and vomiting (6 sources)Vomiting; Translations: [Vomiting, unspecified]EpisodicNoninfectious gastroenteritis (6 sources)Colitis; Translations: [Noninfective gastroenteritis and colitis, unspecified]19-81-6450NeiljkosUczgjfb on above:Problem List clean-up per request of Phys. EHR CmteOther connective tissue disease (2 sources)Pain in right hand; Translations: [Pain in right hand]08-01-2024 EpisodicOther connective tissue disease (5 sources)Triggering of digit; Translations: [Trigger finger, right middle finger]89-82-7867LsjoonjxBrohz connective tissue disease (2 sources)Ganglion of flexor tendon sheath of finger; Translations: [Ganglion, right hand]54-03-8029XpjbdtnzGmgtn diseases of kidney and ureters (12 sources)Secondary hyperparathyroidism; Translations: [Secondary hyperparathyroidism of renal origin]83-04-5037CcscliiLnvip diseases of kidney and ureters (10 sources)Secondary hyperparathyroidism of renal origin; Translations: [Secondary hyperparathyroidism (of renal origin)]Onset: 01-16-2022 Resolved: 47-60-0002JgjytiqRyiti gastrointestinal disorders (6 sources)H/O: gastrointestinal disease; Translations: [Personal history of other diseases of the digestive system]EpisodicOther nutritional; endocrine; and metabolic disorders (7 sources)Hyperuricemia without signs of inflammatory arthritis and tophaceous disease; Translations: [Other abnormal blood chemistry]EpisodicOther nutritional; endocrine; and metabolic disorders (6 sources)Hyperuricemia; Translations: [Hyperuricemia without signs of inflammatory arthritis and tophaceous disease]16-75-2989JswwccmdUkwvs skin disorders (2 sources)Inflamed seborrheic keratosis; Translations: [Inflamed seborrheic keratosis]63-73-0953UzpuckspMwcxjjav enteritis and ulcerative colitis (20 sources)Crohn's disease; Translations: [Crohn's disease, unspecified, without complications]Onset: 01-16-2022 Resolved: 10-15-4119Pdtefby Past or Other Problems Problem ClassificationProblemDateDocumented DateEpisodic/ChronicChronic kidney disease (6 sources)Chronic kidney disease; Translations: [Chronic kidney disease, stage 3b]Onset: 01-16-2022 Resolved: 73-19-3761Llwdd screening for suspected conditions (not mental disorders or infectious disease) (1 source)Encounter for screening for malignant neoplasm of colon; Translations: [Encounter for screening formalignant neoplasm of colon]Onset: 12-03-2023 Episodic Results Test NameValueInterpretationReference RangeFacilityMA Mamm Screen w/CAD if perf and 3D Bilon 90-17-4241VP Mamm Screen w/CAD if perf and 3D [...] VERY IMPORTANT TO YOUR HEALTH. THE CURRENT [employer] [...] Assessment: BI-RADS Category 1-Negative Recommendation: Normal interval follow-upNormalUc Medical CenterBMPon 91-10-6202Odcpr gap [Moles/Vol]13 mmol/LNormal6-16[facility] Comment on above:Performed By: #### [id number] #### [facility] [address], [place] [address]Mrwiyie [Mass/Vol]9.7 mg/dLNormal8.9-11.1FGlenbeigh HospitalComment on above:Performed By: #### [id number] #### [facility] [address] [place], [place] [address]Dmjtavej [Moles/Vol]104 mmol/NDdoqcu967-970HbbxpmUc Medical CenterComment on above:Performed By: #### [id number] #### [facility] [address] [place], [place] [address]UC4 [Moles/Vol]25 mmol/LCvawyt09-46JpialsUc Medical Center Comment on above:Performed By: #### [id number] #### [facility] [address] [place], [place] [address]Onfexbdvgy [Mass/Vol]1.3 mg/dLNormal0.5-1.3FGlenbeigh HospitalComment on above:Performed By: #### [id number] #### [facility] [address] [place], [place] [address]Ljovomy [Mass/Vol]88 mg/bIWuuuis34-204DjlzyfUc Medical CenterComment on above:Performed By: #### [id number] #### [facility] [address] [place], [place] [address]Hgfozsqem [Moles/Vol]4.2 mmol/LNormal3.5-5.3FGlenbeigh HospitalComment on above:Performed By: #### [id number] #### [facility] [address] [place], [place] [address]Yrwsiw [Moles/Vol]138 mmol/DIjmmyb297-298DwtdgeUc Medical CenterComment on above:Performed By: #### [id number] #### [facility] [address] [place], [place] [address]Cccm nitrogen [Mass/Vol]22 mg/dLHigh5-21Uc Medical CenterComment on above:Performed By: #### [id number] #### [facility] [address] [place], [place] [address]Ooyz nitrogen/Creatinine [Mass ratio]17 No ElssbVgnaqr03-63 [facility]c Medical CenterComment on above:Performed By: #### [id number] #### [facility] [address] [place], [place] [address]RVD w/ Auto Diffon 64-10-9698Rlzwckoxw/100 WBC (Bld)0.5 %Normal 0.0-2.0NOMS HealthcareComment on above:Performed By: #### [id number] #### [facility] [address], [place] [address]Tisexordtiu distribution width (RBC) [Ratio]13.9 %Normal 10.9-14.2NOMS HealthcareComment on above:Performed By: #### [id number] #### [facility] [address] [place] [address]Bwchzokwif (Bld) [Volume fraction]42.7 %Brbijl08.0-46.0NOMS HealthcareComment on above:Performed By: #### [id number] #### [facility] [address], [place] [address]Drpdjgqssrd/100 WBC (Bld)28.2 %Hollep71.0-50.0[facility] Comment on above:Performed By: #### [id number] #### [facility] [address] [place], [place] [address]Edenzacsvjl/100 WBC (Bld)62.3 %Lfzhbi80.0-75.0[facility] Comment on above:Performed By: #### [id number] #### [facility] [address] [place], [place] [address]Mcczbkic mean volume (Bld) [Entitic vol]8.2 fLNormal6.4-10.8 NOMS HealthcareComment on above:Performed By: #### [id number] #### [facility] [address], [place] [address]Tptbltscl/Leukocytes Auto (Bld) [Pure # fraction]0.0 E9/LNormal 0.0-0.2FGlenbeigh HospitalComment on above:Performed By: #### [id number] #### [facility] [address] [place] [address]Thzazmucpcq (Bld) [#/Vol]0.2 E9/LNormal0.0-0.5FGlenbeigh HospitalComment on above:Performed By: #### [id number] #### [facility] [address] [place] [address]Befiodsghpi/100 WBC (Bld)2.6 %Normal0.0-8.0Uc Medical CenterComment on above:Performed By: #### [id number] #### [facility] [address] [place] [address]Emxygujlek (Bld) [Mass/Vol]14.6 g/iSCxjugt63.0-16.0Uc Medical CenterComment on above:Performed By: #### [id number] #### [facility] [address] [place] [address]Yjppqxdirew (Bld) [#/Vol]2.3 E9/LNormal1.0-4.0[facility]c Medical CenterComment on above:Performed By: #### [id number] #### [facility] [address] [place] [address]HEY (RBC) [Entitic mass]30.1 auAhsmbk35.0-34.0Uc Medical CenterComment on above:Performed By: #### [id number] #### [facility] [address] [place] [address]TLHR (RBC) [Mass/Vol]34.1 g/iDNxilss81.4-36.0Uc Medical CenterComment on above:Performed By: #### [id number] #### [facility] [address] [place] [address]VNN (RBC) [Entitic vol]88.4 bQYuamoq60.0-100.0[facility]c Medical CenterComment on above:Performed By: #### [id number] #### [facility] [address] [place] [address]Wdfaounck (Bld) [#/Vol]0.5 E9/LNormal0.2-1.0[facility] Medical CenterComment on above:Performed By: #### [id number] #### [facility] [address] [place] [address]Xxilvkklabp (Bld) [#/Vol]5.0 E9/LNormal2.0-7.5FGlenbeigh HospitalComment on above:Performed By: #### [id number] #### [facility] [address] [place] [address]Cszoejjs833.0 E9/AAmqpzx841.0-500.0[facility] Comment on above:Performed By: #### [id number] #### [facility] [address] [place] [address]OTF (Bld) [#/Vol]4.8 E12/LNormal4.3-5.9Uc Medical CenterComment on above:Performed By: #### [id number] #### [facility] [address] [place] [address]UWC corrected for nucl RBC Auto (Bld) [#/Vol]8.1 E9/LNormal 4.0-11.0[facility]c Medical CenterComment on above:Performed By: #### [id number] #### [facility] [address] [place] [address]NETGELDWPMrbbmun By: SYSTEM SYSTEM on 92-38-6333Iuuyj gap [Moles/Vol]13 mmol/LNormal6 - 16 mEq/LRemisol ChemCalcium [Mass/Vol]9.7 mg/dL Normal8.9 - 11.1 mg/dLRemisol ChemChloride [Moles/Vol]104 mmol/SXziaak308 - 111 mmol/LRemisol ChemCO2 [Moles/Vol]25 mmol/KRstaxc54 - 31 mmol/LRemisol Chem Creatinine [Mass/Vol]1.3 mg/dLNormal0.5 - 1.3 mg/dLRemisol AsyfxMPC72 mL/min/1.73 m2Low>=59mL/min/1.73 f9Rdkkcjv ChemGlucose [Mass/Vol]88 mg/dLNormal 55 - 199 mg/dLRemisol ChemPotassium [Moles/Vol]4.2 mmol/LNormal3.5 - 5.3 mmol/L Remisol ChemSodium [Moles/Vol]138 mmol/BUtvcqu967 - 145 mmol/LRemisol ChemUrea nitrogen [Mass/Vol]22 mg/dLHigh5 - 21 mg/dLRemisol ChemUrea nitrogen/Creatinine [Mass ratio]17 mg/nbQosmxj64 - 20Remisol [facility] CBC W/ AUTO DIFFon 08-04-2024 EOSINOPHILS/100 LEUKOCYTES:NFR:PT:BLD:QN:AUTOMATED COUNT2.6 %0.0 - 8.0 %NOM HealthcareEOSINOPHILS:NCNC:PT:BLD:QN:0.2NThree [facility] BASOPHILS/LEUKOCYTES:NFR.DF:PT:BLD:QN:AUTOMATED WQALW2YJGGScotland County Memorial Hospital ERYTHROCYTE MEAN CORPUSCULAR HEMOGLOBIN CONCENTRATION:MCNC:PT:RBC:QN34.1NOMS [facility] ERYTHROCYTE MEAN CORPUSCULAR HEMOGLOBIN:ENTMASS:PT:RBC:QN30.1 pg 27.0 - 34.0 pgScotland County Memorial Hospital ERYTHROCYTE MEAN CORPUSCULAR VOLUME:ENTVOL:PT:RBC:QN:AUTOMATED COUNT88.4 fL80.0 - 100.0 fLScotland County Memorial Hospital ERYTHROCYTES:NCNC:PT:BLD:QN:AUTOMATED COUNT4.8NOChildren[facility] HEMOGLOBIN:MCNC:PT:BLD:QN:14.6NOChildren's [facility]cy Hospital LEUKOCYTES8.1NOMS [facility] MONOCYTES:NCNC:PT:BLD:QN:AUTOMATED COUNT0.5[facility] NEUTROPHILS:NCNC:PT:BLD:QN:AUTOMATED PPJKN0OPEYPerry County Memorial Hospital LYMPHOCYTES:NCNC:PT:BLD:QN:2.3NONM HealthcarePlatelets (Bld) [#/Vol]270 10*3/uL NOMS HealthcareOriginal Ordering Provider: DO Favian Nemours FoundationHEMATOLOGYOrdered By: SYSTEM SYSTEM on 51-30-1286Mzoxxuolw/100 WBC (Bld)0.5 %Normal0.0 - 2.0 %Remisol HemeBasophils/Leukocytes Auto (Bld) [Pure # fraction]0.0 E9/LNormal0.0 - 0.2 E9/LRemisol HemeEosinophils (Bld) [#/Vol]0.2 E9/LNormal0.0 - 0.5 E9/LRemisol HemeEosinophils/100 WBC (Bld)2.6 %Normal0.0 - 8.0 %Remisol HemeErythrocyte distribution width (RBC) [Ratio]13.9 %Lzljce76.9 - 14.2 %Remisol HemeHematocrit (Bld) [Volume fraction]42.7 %Optogu77.0 - 46.0 % Remisol HemeHemoglobin (Bld) [Mass/Vol]14.6 g/xFVmgyea67.0 - 16.0 gm/dLRemisol HemeLymphocytes (Bld) [#/Vol]2.3 E9/LNormal1.0 - 4.0 E9/LRemisol Heme Lymphocytes/100 WBC (Bld)28.2 %Hxrzkj33.0 - 50.0 %Remisol HemeMCH (RBC) [Entitic mass]30.1 mmHbjhvf63.0 - 34.0 pgRemisol HemeMCHC (RBC) [Mass/Vol]34.1 g/dL Mmxhts66.4 - 36.0 gm/dLRemisol HemeMCV (RBC) [Entitic vol]88.4 oVLsmxuk37.0 - 100.0 fLRemisol HemeMonocytes (Bld) [#/Vol]0.5 E9/LNormal0.2 - 1.0 E9/LRemisol HemeMonocytes/100 WBC (Bld)6.4 %Normal4.0 - 14.0 %Remisol HemeNeutrophils (Bld) [#/Vol]5.0 E9/LNormal2.0 - 7.5 E9/LRemisol HemeNeutrophils/100 WBC (Bld)62.3 % Wvprur72.0 - 75.0 %Remisol IkaiQvlsgbwi463.0 E9/WEypmis413.0 - 500.0 E9/LRemisol HemePlatelet mean volume (Bld) [Entitic vol]8.2 fLNormal6.4 - 10.8 fLRemisol HemeRBC (Bld) [#/Vol]4.8 E12/LNormal4.3 - 5.9 E12/LRemisol HemeWBC corrected for nucl RBC Auto (Bld) [#/Vol]8.1 E9/LNormal4.0 - 11.0 E9/LRemisol HemeeGFRon 52-20-8267nZJA11 mL/min/1.73 m2Low>=59Fisher Grace Medical CenterComment on above:Performed By: #### [id number] #### [facility] [address] [place] [id number] 07-07-2024 Specimen: [id number] Received: 07/07/24 Status: YING Jennifer Num: [id number] Spec Type: Surgical Subm Dr: Clyde Garcia MD Tissues: A Colon Biopsy (NEOTERMINAL ILEUM BX R/O YARN MAN) Procedures: GENESIS/Harry, Gross/Micro L4 Age/ Patient Sex Location Account Attending Physician Darnell Sanches 69/F [id number] Clyde Garcia MD SPEC NUM: [id number] RECD: 07/07/24 STATUS: YING CAR NUM: [id number] RODGER: 07/07/24- [facility] DR: Clyde Garcia MD ENTERED: 07/07/[address] [facility] DR: KIYA TYPE: Surgical DEPT: S ENTERED BY: [id number] RECV BY: [id number] ORDERED: HE/2, Gross/Micro L4 ORDERED: HE/2, Gross/Micro [...] submitted in a single cassette. (1, ns, [id number] A) Carissa Microscopic Description Microscopic examination is performed CPT Codes 70008 Specimen: [id number] Received: 07/07/24-1046 Status: YING Car Num: [id number] Spec Type: Surgical Subm Dr: Clyde Garcia MD Tissues: A Colon Biopsy (NEOTERMINAL ILEUM BX R/O YARN MAN) Procedures: HE/2, Gross/Micro L4 Patient: Darnell Sanches [id number] (Continued) Signed (signature on file) Jeremias Solorzano MD 07/08/24 1018Normal [facility] Physician GroupErythrocyte distribution width Auto (RBC) [Ratio]on 55-27-4452Bxylkdiutwv distribution width (RBC) [Ratio]Erythrocyte distribution width [Ratio] by Automated count11.0-15.0[facility] Estimated glomerular filtration rate (GFR) non- Americanon 05-20-2024 GFR/1.73 sq M.predicted among non-blacks MDRD (S/P/Bld) [Vol rate/Area]Estimated glomerular filtration rate (GFR) non- AmericanLow>=60 mL/min/1.73m 2 [facility] HospitalHematocrit Auto (Bld) [Volume fraction]on 41-88-8182Rzkcnakeve (Bld) [Volume fraction]Hematocrit [Volume Fraction] of Blood by Automated count36.0-48.0[facility] HospitalHemoglobin [Mass/volume] in Bloodon 90-71-5711Mluycfvedo (Bld) [Mass/Vol]Hemoglobin [Mass/volume] in Blood12.0-16.0[facility] HospitalLaboratory - Chemistry and Chemistry - challengeon 28-49-4825Sxdvbyk [Mass/Vol]3.9 g/dL 3.4-5.0[facility] HospitalCalcium [Mass/Vol]8.9 mg/dL8.5-10.1 [facility] HospitalChloride [Moles/Vol]102 mmol/Y10-486ExlqfiyonMartin Memorial HospitalCO2 [Moles/Vol]22.0 mmol/L21.0-32.0[facility] HospitalCreatinine [Mass/Vol]1.63 mg/dLHigh0.55-1.02[facility] HospitalGFR/1.73 sq M.predicted MDRD (S/P/Bld) [Vol rate/Area]38 mL/min/{1.73_m2}Low>=60 mL/min/1.73m 2FMercy Memorial HospitalGlucose [Mass/Vol]96 mg/mH60-099OiixuqieqMartin Memorial HospitalMagnesium [Mass/Vol]2.0 mg/dL1.8-2.4FMercy Memorial HospitalPotassium [Moles/Vol]3.7 mmol/L 3.5-5.1FSt. Rita's Hospitalodium [Moles/Vol]139 mmol/D368-114 [facility] HospitalUrate [Mass/Vol]6.6 mg/dLHigh2.6-6.0[facility] HospitalUrea nitrogen [Mass/Vol]15.0 mg/dL7.0-18.0[facility] HospitalUrea nitrogen/Creatinine [Mass ratio]9.2 mg/mgMartin Memorial HospitalBilirubin Ql (U)NegativeNEGATIVEMartin Memorial HospitalGlucose (U) [Mass/Vol]NegativeNEGATIVEMartin Memorial HospitalKetones Ql (U)NegativeNEGATIVEMartin Memorial HospitalpH (U)5.0 [pH]5.0-9.0J.[facility]. Ruby Memorial Hospitalpecific gravity (U) [Rel density] >=1.615Ejbjrbrc7.005-1.025[facility] HospitalUrobilinogen Qn (U) 0.2 {Lolis'U}/dL0.2-1.0[facility] HospitalLaboratory - Specimen informationon 30-01-0703Qzyqooajuh (U)CLEARCLEARFMercy Memorial HospitalColor (U)YELLOWYELLOWMartin Memorial HospitalLaboratory - Urinalysison 48-03-1617Hkdddfgbg esterase Test strip Ql (U)NegativeNEGATIVE [facility] HospitalMucus Ql (Urine sed)NONE SEENNONE SEENMartin Memorial HospitalNitrite Ql (U)NegativeNEGATIVEMartin Memorial HospitalProtein (U) [Mass/Vol]25.2 mg/dLHigh<=11.9[facility] HospitalProtein Ql (U)NegativeNEG/TRACEMartin Memorial HospitalLeukocytes [#/volume] corrected for nucleated erythrocytes in Blood by Automated counon 92-12-0228QSZ corrected for nucl RBC Auto (Bld) [#/Vol]Leukocytes [#/volume] corrected for nucleated erythrocytes in Blood by Automated coun4.0-11.0[facility] HospitalH Auto (RBC) [Entitic mass]on 91-51-9146KXK (RBC) [Entitic mass]MCH [Entitic mass] by Automated count26.7-34.0[facility] HospitalHC Auto (RBC) [Mass/Vol]on 25-86-8401HEQW (RBC) [Mass/Vol]MCHC [Mass/volume] by Automated count29.9-35.2FSouthwest General Health CenterV Auto (RBC) [Entitic vol]on 90-31-9394LOX (RBC) [Entitic vol]MCV [Entitic volume] by Automated count81.0-99.0[facility] HospitalNo Panel Information on 54-63-079337043986-Geibtrm Vitamin D Total46.5 ng/mLMartin Memorial HospitalComment on above:<20 ng/mL Vit D gxfovmhrf47-<30 ng/mL Vit D lkkimeavrolg05-556 ng/mL Vit D sufficient>100 ng/mL Potential Toxicity Parathyroid Hormone (Intact)57 pg/yK82-81EyxqffvmsMartin Memorial Hospital Comment on above:Performed at: CB - [facility] [address] [id number] Director: Edwin Sierra PhD, Phone: [phone] Level 3.2 mg/dL2.6-4.7FMercy Memorial HospitalUrine BacteriaSMALL #/HPF AbnormalNONE SEENMartin Memorial HospitalUrine Occult BloodNegative NEGATIVEMartin Memorial HospitalUrine Other CastsNONE SEEN #/LPFNONE SEENMartin Memorial HospitalUrine Other CrystalsNone Seen #/HPFNone [facility] HospitalUrine Random Yqqwknihpc571.12 mg/dL 20.00-300.00Martin [facility] HospitalUrine RBC0-2 #/HPF0-2FMercy Memorial HospitalUrine Squamous Epithelial CellsMODERATE #/LPFAbnormal NONE/RAREMartin Memorial HospitalUrine WBCNONE SEEN #/HPFNONE SEEN Martin [facility] HospitalPlatelet mean volume Auto (Bld) [Entitic vol]on 31-81-8307Ryevdjtj mean volume (Bld) [Entitic vol]Platelet mean volume [Entitic volume] in Blood by Automated count9.5-13.5FMercy Memorial Hospital Platelets Auto (Bld) [#/Vol]on 68-17-6758Iyyxdvcvd (Bld) [#/Vol]Platelets [#/volume] in Blood by Automated -665FvzhhorwbMartin Memorial Hospital RBC Auto (Bld) [#/Vol]on 44-97-9311CAI (Bld) [#/Vol]Erythrocytes [#/volume] in Blood by Automated count4.20-5.40J.W. Ruby Memorial Hospitalerum or plasma anion gap determinationon 02-19-2520Oqdea gap [Moles/Vol]Serum or plasma anion gap determinationMartin Memorial HospitalUrine protein/creatinine ratioon 36-48-6039Xwbelco/Creatinine (U) [Ratio]Urine protein/creatinine ratio Martin [facility] HospitalBD Bone Density DEXAon 14-53-9652HV Bone Density DEXAExam Date/Time: 04/10/2024 08:20 EDT [...] Ovidio Bunch MD Transcribed by: ARNULFO Technologist: [facility] HospitalMA Mamm Screen w/CAD if perf and 3D Bilon 17-75-4365RO Mamm Screen w/CAD if perf and 3D [...] VERY IMPORTANT TO YOUR HEALTH. THE CURRENT [employer] [...] Ovidio Bunch MD Transcribed by: ARNULFO Technologist: [facility] Assessment: BI-RADS Category 1-Negative Recommendation: Normal interval follow-upBartoloUniversity of Maryland Rehabilitation & [facility] 71-65-1984ZBlziuqga: [id number] Received: 12/03/23 Status: YING Car Num: [id number] Spec Type: Surgical Subm Dr: Clyde Garcia MD Tissues: A Colon Biopsy (GEOFF TERMUNAL ILEUM BX) Procedures: HE/2, Gross/Micro L4 Age/ Patient Sex Location Account Attending Physician Darnell Sanches 68/F [id number] Clyde Garcia MD SPEC NUM: [id number] RECD: 12/03/23 STATUS: YING CAR NUM: [id number] RODGER: 12/03/[address]: Clyde Garcia MD ENTERED: 12/03/[address] [facility] DR: SPEC TYPE: Surgical DEPT: S ORDERED: [...] cm, entirely submitted in A1. CPT Codes 97412 Specimen: [id number] Received: 12/03/23 Status: YING Car Num: [id number] Spec Type: Surgical Subm Dr: Clyde Garcia MD Tissues: A Colon Biopsy (GEOFF TERMUNAL ILEUM BX) Procedures: HE/Harry, Gross/Micro L4 Patient: Darnell Sanches [id number] (Continued) Signed (signature on file) Kristan Flores MD 12/04/[address] [place] [address] Physician GroupNo Panel Informationon 48-42-3652TMJP HealthcarePTH INTACTon 25-15-1995XCM, Gatibu81 pg/mLCritically kpfd50-29Koj Cleveland ClinicComment on above:Performed By: #### PTHINT #### [facility] [address] [place] [address] Dr. Lamin FloresHEMOGRAM AND PLATELon 94-28-0419Kyvcwmkfxn (Bld) [Volume fraction]44.1 %Kljqhf55.0-48.0The Cleveland ClinicComment on above:Performed By: #### RENAL, MG, URIC #### [facility] [address] [place] [address] Dr. Lamin FloresHemoglobin (Bld) [Mass/Vol]14.7 g/vOFggcgd68.0-16.0The Raymond HospitalComment on above:Performed By: #### RENAL, MG, URIC #### [facility] [address] [place] [address] Dr. Lamin Dyer (RBC) [Entitic mass]29.9 ipVmwwhh77.7-34.0The [facility] ClinicComment on above:Performed By: #### RENAL, MG, URIC #### [facility] [address] [place] [address] Dr. Lamin Dyer (RBC) [Mass/Vol]33.3 g/mYUgmnwf40.9-35.2The [facility] ClinicComment on above:Performed By: #### RENAL, MG, URIC #### [facility] [address] [place] [address] Dr. Lamin Dyer (RBC) [Entitic vol]89.6 mKVhpdag28.0-99.0The [facility] ClinicComment on above:Performed By: #### RENAL, MG, URIC #### [facility] [address] [place] [address] Dr. Lamin FloresPLT290 103/npMitpls616-727Dxm [facility] ClinicComment on above: Performed By: #### RENAL, MG, URIC #### [facility] [address] [place] [address] Dr. Lamin FloresRBC4.92 106/ulNormal4.20-5.40The [facility] ClinicComment on above:Performed By: #### RENAL, MG, URIC #### [facility] [address] [place] [address] Dr. Lamin FloresWBC11.8 103/ulCritically high4.0-11.0The [facility] ClinicComment on above:Performed By: #### RENAL, MG, URIC #### [facility] [address] [place] [address] Dr. Lamin FloresMAGNESIUMon 64-40-7502Gucoggtkw [Mass/Vol]1.9 mg/dLNormal1.8-2.4 The [facility] ClinicComment on above:Performed By: #### RENAL, MG, URIC #### [facility] [address] [place] [address] Dr. Lamin FloresRENAL FUNCTION PANELon 07-56-0607Gizbrvb [Mass/Vol]4.3 g/dLNormal 3.4-5.0The [facility] ClinicComment on above:Performed By: #### RENAL, MG, URIC #### [facility] [address] [place] [address] Dr. Lamin FloresCalcium [Mass/Vol]9.7 mg/dLNormal8.5-10.1The [facility] Comment on above:Performed By: #### RENAL, MG, URIC #### [facility] [address] [place] [address] Dr. Lamin FloresChloride [Moles/Vol]103 mmol/KWuciux32-990Cqe [facility] Comment on above:Performed By: #### RENAL, MG, URIC #### [facility] [address] [place] [address] Dr. Lamin FloresCO2 [Moles/Vol]27.4 mmol/PHukdgo26.0-32.0The [facility] Comment on above:Performed By: #### RENAL, MG, URIC #### [facility] [address] [place] [address] Dr. Lamin FloresCreatinine [Mass/Vol]1.44 mg/dLCritically high0.55-1.02The [facility] ClinicComment on above:Performed By: #### RENAL, MG, URIC #### [facility] [address] [place] [address] Dr. Kimble ChangEGFR-AF DFHDXDQL28 mL/min/1.11f7Kccncohjzq low>=60Mary Rutan HospitalComment on above:Performed By: #### RENAL, MG, URIC #### [facility] [address] [place] [address] Dr. Lamin IsaacsGFR-NON AF TVRCAURX28 mL/min/1.90o2Jzvohxqsxv low>=60The [facility] ClinicComment on above:Performed By: #### RENAL, MG, URIC #### [facility] [address] [place] [address] Dr. Lamin FloresGlucose [Mass/Vol]99 mg/iZRafmxy21-635ThuMary Rutan Hospital Comment on above:Performed By: #### RENAL, MG, URIC #### [facility] [address] [place] [address] Dr. Lamin FloresPhosphate [Mass/Vol]3.9 mg/dLNormal2.6-4.7The [facility] Comment on above:Performed By: #### RENAL, MG, URIC #### [facility] [address] [place] [address] Dr. Lamin FloresPotassium [Moles/Vol]4.3 mmol/LNormal3.5-5.1[facility] Comment on above:Performed By: #### RENAL, MG, URIC #### [facility] [address] [place] [address] Dr. Lamin FloresSodium [Moles/Vol]143 mmol/SYywpwz785-656LoiMary Rutan Hospital Comment on above:Performed By: #### RENAL, MG, URIC #### [facility] [address] [place] [address] Dr. Lamin FloresUrea nitrogen [Mass/Vol]19.0 mg/dLCritically high7.0-18.0The [facility] ClinicComment on above:Performed By: #### RENAL, MG, URIC #### [facility] [address] [place] [address] Dr. Lamin FloresUA RANDOM W/MICROSCOPICon 71-01-4412AVXZKYFEFOYNKQrhlowzkDFFL SEENMary Rutan HospitalComment on above:Performed By: #### RENAL, MG, URIC #### [facility] [address] [address] [address] Lamin FloresBilirubin Ql (U)NegativeNormalNEGOhio Valley Surgical Hospital Comment on above:Performed By: #### RENAL, MG, URIC #### [facility] [address] [address] [address] Lamin FloresCASTMIK SEENNormalNONE SEENMary Rutan HospitalComment on above:Performed By: #### RENAL, MG, URIC #### [facility] [address] [address] [address] Lamin FloresClarity (U)CLEARNormalCLEARMary Rutan HospitalComment on above: Performed By: #### RENAL, MG, URIC #### [facility] [address] [place] [address] Dr. Lamin FloresColor (U)LT. YELLOWNormalYELLOWMary Rutan HospitalComment on above:Performed By: #### RENAL, MG, URIC #### [facility] [address] [place] [address] Dr. Lamin FloresCrystals LM Nom (Urine sed)NONE SEENNormalNONE SEENMary Rutan HospitalComment on above:Performed By: #### RENAL, MG, URIC #### [facility] [address] [place] [address] Dr. Kimble ChangEpithelial cells LM Ql (Urine sed)MODERATEAbnormalNONE SEEN /RARE The Cleveland ClinicComment on above:Performed By: #### RENAL, MG, URIC #### [facility] [address] [place] [address] Dr. Lamin FloresGlucose Ql (U)NegativeNormalNEGATIVEMary Rutan HospitalComment on above:Performed By: #### RENAL, MG, URIC #### [facility] [address] [place] [address] Dr. Lamin FloresHemoglobin Ql (U)NegativeNormalNEGOhio Valley Surgical Hospital Comment on above:Performed By: #### RENAL, MG, URIC #### [facility] [address] [place] [address] Dr. Lamin Hughes Ql (U)NegativeNormalNEGATIVEMary Rutan HospitalComment on above:Performed By: #### RENAL, MG, URIC #### [facility] [address] [place] [address] Dr. Lamin WilsonOCYTESNegativeNormalNEGATIVEThe Cleveland ClinicComment on above:Performed By: #### RENAL, MG, URIC #### [facility] [address] [place] [address] Dr. Lamin Neff SEENNormalNONE SEENThe [facility] ClinicComment on above:Performed By: #### RENAL, MG, URIC #### [facility] [address] [place] [address] Dr. Lamin Grissom Ql (U)NegativeNormalNEGATIVEThe [facility] ClinicComment on above:Performed By: #### RENAL, MG, URIC #### [facility] [address] [place] [address] Dr. Lamin FlorespH (U)6.0 [pH]Normal5-9Mary Rutan HospitalComment on above: Performed By: #### RENAL, MG, URIC #### [facility] [address] [place] [address] Dr. Lamin Moss SEENAbnormal0-2Mary Rut[facility] HospitalComment on above: Performed By: #### RENAL, MG, URIC #### [facility] [address] [place] [address] Dr. Lamin FloresSPEC GRAVITY<=1.272Mgcxzgcw2.005-<=1.025The [facility] Comment on above:Performed By: #### RENAL, MG, URIC #### [facility] [address] [place] [address] Dr. Lamin Nguyen PROTEINNegativeNormalNEGATIVE/ TRACEThe [facility] Comment on above:Performed By: #### RENAL, MG, URIC #### [facility] [address] [place] [address] Dr. Lamin Carsonbiljulian Qn (U)0.2 {Lolis'U}/dLNormal0.2 - 1.0The [facility] ClinicComment on above:Performed By: #### RENAL, MG, URIC #### [facility] [address] [place] [address] Dr. Lamin Overton SEENNormalNONE SEENThe [facility] ClinicComment on above: Performed By: #### RENAL, MG, URIC #### [facility] [address] [place] [address] Dr. Lamin Alcazar ACID SERUMon 84-85-1837Jnzxv [Mass/Vol]6.6 mg/dLCritically high2.6-6.0The [facility] ClinicComment on above:Performed By: #### RENAL, MG, URIC #### [facility] [address] [place] [address] Dr. Lamin Cardenas T PROTEIN CREAT RATIOon 49-21-6608OK PROT CREAT RAT0.22 NormalThe Cleveland ClinicComment on above:Performed By: #### RENAL, MG, URIC #### [facility] [address] [place] [address] Dr. Lamin Titus TOTAL PROTEIN<6.0Normal<=12.0The [facility] ClinicComment on above:Performed By: #### RENAL, MG, URIC #### [facility] [address] [place] [address] Dr. Lamin Cardenas CREAT27.42 mg/bJLutjvf99.00-300.00[facility] Comment on above:Performed By: #### RENAL, MG, URIC #### [facility] [address] [place] [address] Dr. Lamin FloresVITAMIN D 25 OHon 50-43-3390PQF D 25-OH49.4 ng/mLNormalThe Cleveland ClinicComment on above:Performed By: #### VITAD #### [facility] [address] [place] [address] Dr. Lamin Francis [place] BELOWNoCleveland Clinic [facility] Generale Cleveland ClinicComment on above: Result Comment: <20 ng/mL Vit D deficient 20 - <30 ng/mL Vit D insufficient 30 - 100 ng/mL Vit D sufficient >100 ng/mL Potential ToxicityPerformed By: #### VITAD #### [facility] [address] [place] [address] Dr. Lamin Sullivan KIDNEYSon 04-97-0192EI KIDNEYSEXAMINATION: US KIDNEYS HISTORY: CKD stage 3B [...] Electronically authenticated by: CRISTIAN HAWKINS Date: 2022-07-26 07:[address] [place], [place] [address]RENAL FUNCTION PANELon 08-18-9942Ahjixow [Mass/Vol]4.0 g/dL Normal3.4-5.0Mary Rutan HospitalComment on above:Performed By: #### RENAL, MG, URIC #### [facility] [address] [place] [address] Dr. Lamin FloresCalcium [Mass/Vol]9.1 mg/dLNormal8.5-10.1[facility] Comment on above:Performed By: #### RENAL, MG, URIC #### [facility] [address] [place] [address] Dr. Lamin FloresChloride [Moles/Vol]100 mmol/YJaukwm44-062RkvMary Rutan Hospital Comment on above:Performed By: #### RENAL, MG, URIC #### [facility] [address] [place] [address] Dr. Lamin FloresCO2 [Moles/Vol]26.2 mmol/UXohjsn19.0-32.0[facility] Comment on above:Performed By: #### RENAL, MG, URIC #### [facility] [address] [place] [address] Dr. Lamin FloresCreatinine [Mass/Vol]1.40 mg/dLCritically high0.55-1.02The [facility] ClinicComment on above:Performed By: #### RENAL, MG, URIC #### [facility] [address] [place] [address] Dr. Kimble ChangEGFR-AF ZGYWPRHJ47 mL/min/1.00x4Ajyhzfohoa low>=60The [facility] ClinicComment on above:Performed By: #### RENAL, MG, URIC #### [facility] [address] [place] [address] Dr. Lamin IsaacsGFR-NON AF RQVGCRGI76 mL/min/1.45n8Aiuixfedmk low>=60The [facility] ClinicComment on above:Performed By: #### RENAL, MG, URIC #### [facility] [address] [place] [address] Dr. Lamin FloresGlucose [Mass/Vol]94 mg/aUHlluka43-052Lfg [facility] Comment on above:Performed By: #### RENAL, MG, URIC #### [facility] [address] [place] [address] Dr. Lamin FloresPhosphate [Mass/Vol]3.5 mg/dLNormal2.6-4.7The [facility] Comment on above:Performed By: #### RENAL, MG, URIC #### [facility] [address] [place] [address] Dr. Lamin FloresPotassium [Moles/Vol]4.2 mmol/LNormal3.5-5.1The [facility] Comment on above:Performed By: #### RENAL, MG, URIC #### [facility] [address] [place] [address] Dr. Lamin FloresSodium [Moles/Vol]135 mmol/LCritically yoz879-819Sfr [facility] on above:Performed By: #### RENAL, MG, URIC #### [facility] [address] [place] [address] Dr. Lamin FloresUrea nitrogen [Mass/Vol]18.0 mg/dLNormal7.0-18.0The [facility] on above:Performed By: #### RENAL, MG, URIC #### [facility] [address] [place] [address] Dr. Lamin FloresPTH INTACTon 86-93-3718IZF, Bejsbu62 pg/mTVjojfh90-46Ivd [facility] on above:Performed By: #### RENAL, MG, URIC #### [facility] [address] [place] [address] Dr. Lamin FloresHEMOGRAM AND PLATELon 55-71-2854Tqeqrdwckq (Bld) [Volume fraction]42.0 %Uoknpr42.0-48.0The [facility] on above:Performed By: #### RENAL, MG, URIC #### [facility] [address] [place] [address] Dr. Lamin FloresHemoglobin (Bld) [Mass/Vol]14.4 g/vUWhwcge58.0-16.0The [facility] on above:Performed By: #### RENAL, MG, URIC #### [facility] [address] [place] [address] Dr. Lamin Dyer (RBC) [Entitic mass]29.4 pqGjlbyk49.7-34.0The [facility] on above:Performed By: #### RENAL, MG, URIC #### [facility] [address] [place] [address] Dr. Lamin FloresMISERICORD[facility] (RBC) [Mass/Vol]34.3 g/wGKawidw27.9-35.2The [facility] on above:Performed By: #### RENAL, MG, URIC #### [facility] [address] [place] [address] Dr. Lamin Dyer (RBC) [Entitic vol]85.7 dNNqmfum65.0-99.0The [facility] ClinicComment on above:Performed By: #### RENAL, MG, URIC #### [facility] [address] [place] [address] Dr. Lamin FloresPLT300 103/bhQnjcha288-877Ums [facility] on above: Performed By: #### RENAL, MG, URIC #### [facility] [address] [place] [address] Dr. Lamin FloresRBC4.90 106/ulNormal4.20-5.40The [facility] ClinicComment on above:Performed By: #### RENAL, MG, URIC #### [facility] [address] [place] [address] Dr. Lamin FloresWBC11.1 103/ulCritically high4.0-11.0The [facility] ClinicComment on above:Performed By: #### RENAL, MG, URIC #### [facility] [address] [place] [address] Dr. Lamin FloresMAGNESIUMon 50-52-7790Lxsnpwbrm [Mass/Vol]1.9 mg/dLNormal1.8-2.4 The [facility] ClinicComment on above:Performed By: #### RENAL, MG, URIC #### [facility] [address] [place] [address] Dr. Lamin FloresRENAL FUNCTION PANELon 88-80-9019Jbracjq [Mass/Vol]4.2 g/dLNormal 3.4-5.0The [facility] on above:Performed By: #### RENAL, MG, URIC #### [facility] [address] [place] [address] Dr. Lamin FloresCalcium [Mass/Vol]9.3 mg/dLNormal8.5-10.1The [facility] Comment on above:Performed By: #### RENAL, MG, URIC #### [facility] [address] [place] [address] Dr. Lamin FloresChloride [Moles/Vol]99 mmol/EGlrxpj35-832Rek [facility] Comment on above:Performed By: #### RENAL, MG, URIC #### [facility] [address] [place] [address] Dr. Lamin FloresCO2 [Moles/Vol]26.0 mmol/VVymogh21.0-32.0[facility] Comment on above:Performed By: #### RENAL, MG, URIC #### [facility] [address] [place] [address] Dr. Lamin FloresCreatinine [Mass/Vol]1.92 mg/dLCritically high0.55-1.02The [facility] ClinicComment on above:Performed By: #### RENAL, MG, URIC #### [facility] [address] [place] [address] Dr. Lamin IsaacsGFR-AF THZTRFTZ21 mL/min/1.97y4Byivanxtsg low>=60The [facility] ClinicComment on above:Performed By: #### RENAL, MG, URIC #### [facility] [address] [place] [address] Dr. Lamin IsaacsGFR-NON AF AWDYLVKH25 mL/min/1.97g2Iuxwygmhng low>=60The [facility] ClinicComment on above:Performed By: #### RENAL, MG, URIC #### [facility] [address] [place] [address] Dr. Lamin FloresGlucose [Mass/Vol]90 mg/sECrtolv70-533Nxj [facility] Comment on above:Performed By: #### RENAL, MG, URIC #### [facility] [address] [place] [address] Dr. Lamin FloresPhosphate [Mass/Vol]5.0 mg/dLCritically high2.6-4.7The [facility] ClinicComment on above:Performed By: #### RENAL, MG, URIC #### [facility] [address] [place] [address] Dr. Lamin FloresPotassium [Moles/Vol]4.3 mmol/LNormal3.5-5.1The [facility] Comment on above:Performed By: #### RENAL, MG, URIC #### [facility] [address] [place] [address] Dr. Lamin Gilbertum [Moles/Vol]136 mmol/EPwiask186-994Xvz [facility] Comment on above:Performed By: #### RENAL, MG, URIC #### [facility] [address] [place] [address] Dr. Lamin Austin nitrogen [Mass/Vol]18.0 mg/dLNormal7.0-18.0The [facility] ClinicComment on above:Performed By: #### RENAL, MG, URIC #### [facility] [address] [place] [address] Dr. Lamin Nguyen RANDOM W/MICROSCOPICon 76-66-2369IYDRKCFWWPVUPHinzgdbmVIRJ SEENThe [facility] ClinicComment on above:Performed By: #### RENAL, MG, URIC #### [facility] [address] [place] [address] Dr. Lamin West Ql (U)SMALLAbnormalNEGATIVEThe [facility] ClinicComment on above:Performed By: #### RENAL, MG, URIC #### [facility] [address] [place] [address] Dr. Lamin HorneENAbnormalNONE SEENMary Rutan HospitalComment on above: Performed By: #### RENAL, MG, URIC #### [facility] [address] [place] [address] Dr. Lamin Pascual (U)CLEARNormalCLEARThe [facility] ClinicComment on above: Performed By: #### RENAL, MG, URIC #### [facility] [address] [address] [address] Lamin Villanueva (U)DK. ORANGEAbnormalYELLOWMary Rutan HospitalComment on above:Performed By: #### RENAL, MG, URIC #### [facility] [address] [place] [address] Dr. Lamin Fuentes LM Nom (Urine sed)NONE SEENNormalNONE SEENMary Rutan HospitalComment on above:Performed By: #### RENAL, MG, URIC #### [facility] [address] [place] [address] Dr. Kimble ChangEpithelial cells LM Ql (Urine sed)MANYAbnormalNONE SEEN /RAREMary Rutan HospitalComselect specialty hospital on above:Performed By: #### RENAL, MG, URIC #### [facility] [address] [address] [address] Lamin FloresGlucose Ql (U)NegativeNormalNEGATIVEMary Rutan HospitalComment on above:Performed By: #### RENAL, MG, URIC #### [facility] [address] [address] [address] Lamin FloresHemoglobin Ql (U)NegativeNormalNEGGood [facility]ar[facility] on above:Performed By: #### RENAL, MG, URIC #### [facility] [address] [address] [address] Lamin Verdugo CASTFEWNoThe [facility] on above: Performed By: #### RENAL, MG, URIC #### [facility] [address] [address] [address] Lamin FloresKetones Ql (U)TRACEAbnormalNEGATIVEMary Rutan HospitalComselect specialty hospital on above:Performed By: #### RENAL, MG, URIC #### [facility] [address] [place] [address] Dr. Lamin FloresLEUKOCYTESNegativeNodorothea dix hospitalNEGMcCullough-Hyde Memorial Hospitalment on above:Performed By: #### RENAL, MG, URIC #### [facility] [address] [address] [address] Lamin FloresMUCOUSNONE SEENNormalNONE SEENWright-Patterson [facility] on above:Performed By: #### RENAL, MG, URIC #### [facility] [address] [address] [address] Lamin Kirkpatricktrite Ql (U)NegativeNormalNEGMcCullough-Hyde Memorial Hospitalment on above:Performed By: #### RENAL, MG, URIC #### [facility] [address] [address] [address] Lamin FlorespH (U)5.0 [pH]Normal5-9The Raymond HospitalComment on above: Performed By: #### RENAL, MG, URIC #### [facility] [address] [place] [address] Dr. Lamin Moss SEENAbnormal0-2The [facility] ClinicComment on above: Performed By: #### RENAL, MG, URIC #### [facility] [address] [place] [address] Dr. Lamin FloresSPEC GRAVITY>=1.274Bixmxkez1.005-<=1.025The [facility] Comment on above:Performed By: #### RENAL, MG, URIC #### [facility] [address] [place] [address] Dr. Lamin Nguyen PROTEINTRACENormalNEGATIVE/ TRACEThe [facility] ClinicComment on above:Performed By: #### RENAL, MG, URIC #### [facility] [address] [place] [address] Dr. Lamin Carsonbilinogen Qn (U)1.0 {Lolis'U}/dLNormal0.2 - 1.0The [facility] ClinicComment on above:Performed By: #### RENAL, MG, URIC #### [facility] [address] [place] [address] Dr. Lamin FloresWBC0-2AbnormalNONE SEENThe [facility] ClinicComment on above: Performed By: #### RENAL, MG, URIC #### [facility] [address] [place] [address] Dr. Lamin Alcazar ACID SERUMon [id number] [Mass/Vol]6.8 mg/dLCritically high2.6-6.0The [facility] ClinicComment on above:Performed By: #### RENAL, MG, URIC #### [facility] [address] [place] [address] Dr. Lamin Cardenas T PROTEIN CREAT RATIOon 19-29-0985Bgymhjb (U) [Mass/Vol] 42.6 mg/dLCritically high<=12.0The [facility] ClinicComment on above:Performed By: #### RENAL, MG, URIC #### [facility] [address] [place] [address] Dr. Lamin Titus PROT CREAT RAT0.12Premier HealthComment on above: Performed By: #### RENAL, MG, URIC #### [facility] [address] [place] [address] Dr. Lmain Cardenas GXVIY313.19 mg/dLCritically high20.00-300.00The [facility] ClinicComment on above:Performed By: #### RENAL, MG, URIC #### [facility] [address] [place] [address] Dr. Lamin FloresVITAMIN D 25 OHon [id number] D 25-OH47.3 ng/mLNormalThe Cleveland ClinicComment on above:Performed By: #### RENAL, MG, URIC #### [facility] [address] [place] [address] Dr. Lamin Francis RANGESSEE BELOWPremier HealthComment on above: Result Comment: <20 ng/mL Vit D deficient 20 - <30 ng/mL Vit D insufficient 30 - 100 ng/mL Vit D sufficient >100 ng/mL Potential ToxicityPerformed By: #### RENAL, MG, URIC #### [facility] [address] [place] [address] Dr. Lamin FloresPTH INTACTon 72-80-1595JSP, Lzqntm35 pg/iEZqtioe50-85Mfp Cleveland ClinicComment on above:Performed By: #### PTHINT #### [facility] [address] [place] [address] Dr. Lamin Mendes AUTO DIFFon 65-11-6026HLMG #0.0 103/ulNormal0.0-0.1The [facility] ClinicComment on above:Performed By: #### RENAL, MG, URIC #### [facility] [address] [place] [address] Dr. Lamin FloresBasophils/100 WBC (Bld)0.4 %Normal0.2-2.0[facility] Comment on above:Performed By: #### RENAL, MG, URIC #### [facility] [address] [place] [address] Dr. Lamin Stallworth #0.2 103/ulNormal0.0-0.7The [facility] ClinicComment on above: Performed By: #### RENAL, MG, URIC #### [facility] [address] [place] [address] Dr. Lamin Isaacsosinophils/100 WBC (Bld)2.4 %Normal0.9-7.0[facility] Comment on above:Performed By: #### RENAL, MG, URIC #### [facility] [address] [place] [address] Dr. Lamin Isaacsrythrocyte distribution width (RBC) [Ratio]12.8 %Estaoy94.0-15.0 [facility] Hospitalment on above:Performed By: #### RENAL, MG, URIC #### [facility] [address] [place] [address] Dr. Lamin FloresHematocrit (Bld) [Volume fraction]44.4 %Tzvwkc82.0-48.0The [facility] ClinicComment on above:Performed By: #### RENAL, MG, URIC #### [facility] [address] [place] [address] Dr. Lamin FloresHemoglobin (Bld) [Mass/Vol]14.4 g/kTYlptxx24.0-16.0The [facility] Hospitalment on above:Performed By: #### RENAL, MG, URIC #### [facility] [address] [place] [address] Dr. Lamin Mendes #0.02 10e3/ulNormal0.00-0.03The [facility] Hospitalment on above:Performed By: #### RENAL, MG, URIC #### [facility] [address] [place] [address] Dr. Lamin Mendes %0.3 %Normal0.0-0.5The [facility]ment on above: Performed By: #### RENAL, MG, URIC #### [facility] [address] [place] [address] Dr. Lamin eBnites #2.3 103/ulNormal1.2-3.8The [facility] ClinicComment on above:Performed By: #### RENAL, MG, URIC #### [facility] [address] [place] [address] Dr. Lamin Sanmphocytes/100 WBC (Bld)29.2 %Ephzmg26.5-60.0The [facility] ClinicComment on above:Performed By: #### RENAL, MG, URIC #### [facility] [address] [place] [address] Dr. Lamin AlejandroUAL DIFF REQNONormalThe Cleveland ClinicComment on above: Performed By: #### RENAL, MG, URIC #### [facility] [address] [place] [address] Dr. Lamin Dyer (RBC) [Entitic mass]29.6 gePxwsgt85.7-34.0The [facility] ClinicComment on above:Performed By: #### RENAL, MG, URIC #### [facility] [address] [place] [address] Dr. Lamin Dyer (RBC) [Mass/Vol]32.4 g/xWRrueey85.9-35.2The [facility] ClinicComment on above:Performed By: #### RENAL, MG, URIC #### [facility] [address] [place] [address] Dr. Lamin Dyer (RBC) [Entitic vol]91.2 wYPsojdm01.0-99.0The [facility] ClinicComment on above:Performed By: #### RENAL, MG, URIC #### [facility] [address] [place] [address] Dr. Lamin Olivo #0.4 103/ulNormal0.3-0.8The [facility] ClinicComment on above:Performed By: #### RENAL, MG, URIC #### [facility] [address] [place] [address] Dr. Lamin Herreraocytes/100 WBC (Bld)4.9 %Normal1.7-12.0[facility] Comment on above:Performed By: #### RENAL, MG, URIC #### [facility] [address] [place] [address] Dr. Lamin Garcia #5.0 103/ulNormal1.4-6.5The [facility] Hospitalment on above:Performed By: #### RENAL, MG, URIC #### [facility] [address] [place] [address] Dr. Lamin Samuelutrophils/100 WBC (Bld)62.8 %Wzcazo89.0-75.0The [facility] ClinicComment on above:Performed By: #### RENAL, MG, URIC #### [facility] [address] [place] [address] Dr. Lamin Edwardslet mean volume (Bld) [Entitic vol]10.7 fLNormal9.5-13.5The [facility] Hospitalment on above:Performed By: #### RENAL, MG, URIC #### [facility] [address] [place] [address] Dr. Lamin FloresPLT246 103/rjSuezih875-986Wsc [facility] on above: Performed By: #### RENAL, MG, URIC #### [facility] [address] [place] [address] Dr. Lamin FloresRBC4.87 106/ulNormal4.20-5.40The [facility] on above:Performed By: #### RENAL, MG, URIC #### [facility] [address] [place] [address] Dr. Lamin FloresWBC8.0 103/ulNormal4.0-11.0The [facility] on above: Performed By: #### RENAL, MG, URIC #### [facility] [address] [place] [address] Dr. Lamin FloresMAGNESIUMon 91-12-7891Brmhnuemt [Mass/Vol]1.7 mg/dLCritically low 1.8-2.4The [facility] on above:Performed By: #### MG, RENAL, URIC #### [facility] [address] [place] [address] Dr. Lamin SmallsAL FUNCTION PANELon 12-24-7703Fywekec [Mass/Vol]3.7 g/dLNormal 3.4-5.0The [facility] ClinicComment on above:Performed By: #### MG, RENAL, URIC #### [facility] [address] [address] [address] Lamin FloresCalcium [Mass/Vol]9.0 mg/dLNormal8.5-10.1[facility] Comment on above:Performed By: #### MG, RENAL, URIC #### [facility] [address] [address] [address] Lamin FloresChloride [Moles/Vol]105 mmol/BCybynk96-403Zaw [facility] Comment on above:Performed By: #### MG, RENAL, URIC #### [facility] [address] [place] [address] Dr. Lamin FloresCO2 [Moles/Vol]27.5 mmol/KLhbsub84.0-32.0[facility] Comment on above:Performed By: #### MG, RENAL, URIC #### [facility] [address] [address] [address] Lamin FloresCreatinine [Mass/Vol]1.46 mg/dLCritically high0.55-1.02The [facility] ClinicComment on above:Performed By: #### MG, RENAL, URIC #### [facility] [address] [address] [address] Kimble ChangEGFR-AF KNKTKDNI50 mL/min/1.11a1Plgygjftum low>=60The [facility] ClinicComment on above:Performed By: #### MG, RENAL, URIC #### [facility] [address] [address] [address] Lamin IsaacsGFR-NON AF VEZGQFOF02 mL/min/1.46z1Cwyiczqiuh low>=60The [facility] ClinicComment on above:Performed By: #### MG, RENAL, URIC #### [facility] [address] [address] [address] Lamin FloresGlucose [Mass/Vol]94 mg/bMExkcbe94-862SrrMary [facility] Comment on above:Performed By: #### MG, RENAL, URIC #### [facility] [address] [address] [address] Lamin FloresPhosphate [Mass/Vol]3.8 mg/dLNormal2.6-4.7[facility] Comment on above:Performed By: #### MG, RENAL, URIC #### [facility] [address] [address] [address] Lamin FloresPotassium [Moles/Vol]4.4 mmol/LNormal3.5-5.1[facility] Comment on above:Performed By: #### MG, RENAL, URIC #### [facility] [address] [place] [address] Dr. Lamin FloresSodium [Moles/Vol]141 mmol/XAncuww504-818ZtkMary [facility] Hospital Comment on above:Performed By: #### MG, RENAL, URIC #### [facility] [address] [place] [address] Dr. Lamin FloresUrea nitrogen [Mass/Vol]21.0 mg/dLCritically high7.0-18.0[facility] HospitalComment on above:Performed By: #### MG, RENAL, URIC #### [facility] [address] [place] [address] Dr. Lamin Nguyen RANDOM W/MICROSCOPICon 65-67-7210SPWCDJQSINYXMXpzqizxiAIET SEENMary Rutan HospitalComment on above:Performed By: #### UAMIC #### [facility] [address] [place] [address] Dr. Lamin Rosadoirubin Ql (U)NegativeNormalNEGATIVEThe [facility] Comment on above:Performed By: #### UAMIC #### [facility] [address] [place] [address] Dr. Lamin MacedoSEENAbnormalNONRobb SEENMary Rutan HospitalComment on above: Performed By: #### UAMIC #### [facility] [address] [place] [address] Dr. Lamin Luxarity (U)CLEARNormalCLEARThe Chris HospitalComment on above: Performed By: #### UAMIC #### [facility] [address] [address] [address] Lamin Villanueva (U)YELLOWNormalYELLOWMary Rutan HospitalComment on above: Performed By: #### UAMIC #### [facility] [address] [address] [address] Lamin FloresCrystals LM Nom (Urine sed)NONE SEENNormalNONE SEENMary Rutan HospitalComment on above:Performed By: #### UAMIC #### [facility] [address] [address] [address] Kimble ChangEpithelial cells LM Ql (Urine sed)MODERATEAbnormalNONE SEEN /RARE The [facility] ClinicComselect [facility] hospital on above:Performed By: #### UAMIC #### [facility] [address] [address] [address] Lamin FloresGlucose Ql (U)NegativeNormalNEGATIVEMary Rutan HospitalComment on above:Performed By: #### UAMIC #### [facility] [address] [address] [address] Lamin FloresHemoglobin Ql (U)NegativeNormalNEGATIVEMetrohealth Parma Medical Center on above:Performed By: #### UAMIC #### [facility] [address] [address] [address] Lamin FloresHYALINE CASTRARENormalMary Rutan HospitalComment on above: Performed By: #### UAMIC #### [facility] [address] [address] [address] Lamin FloresKetones Ql (U)TRACEAbnormalNEGATIVEMary Rutan HospitalComselect specialty hospital on above:Performed By: #### UAMIC #### [facility] [address] [address] [address] Lamin FloresLEUKOCYTESNegativeNormalNEGATIVEMary Rutan HospitalComselect specialty hospital on above:Performed By: #### UAMIC #### [facility] [address] [address] [address] Lamin FloresMUCOUSNONE SEENNormalNONE SEENThe [facility] ClinicComment on above:Performed By: #### UAMIC #### [facility] [address] [place] [address] Dr. Lamin Kirkpatricktrite Ql (U)NegativeNormalNEGATIVEThe [facility] ClinicComment on above:Performed By: #### UAMIC #### [facility] [address] [address] [address] Lamin FlorespH (U)5.5 [pH]Normal5-9The [facility] ClinicComment on above: Performed By: #### UAMIC #### [facility] [address] [address] [address] Lamin FloresRBCNONE SEENAbnormal0-2The [facility] ClinicComment on above: Performed By: #### UAMIC #### [facility] [address] [place] [address] Dr. Lamin FloresSPEC GRAVITY1.793Jsliwd9.005-<=1.025The [facility] ClinicComment on above:Performed By: #### UAMIC #### [facility] [address] [place] [address] Dr. Lamin Nguyen PROTEINNegativeNormalNEGATIVE/ TRACEThe [facility] Comment on above:Performed By: #### UAMIC #### [facility] [address] [place] [address] Dr. Lamin FloresUrobilinogen Qn (U)0.2 {Lolis'U}/dLNormal0.2 - 1.0The [facility] ClinicComment on above:Performed By: #### UAMIC #### [facility] [address] [place] [address] Dr. Lamin FloresWBC0-2AbnormalNONE SEENThe [facility] ClinicComment on above: Performed By: #### UAMIC #### [facility] [address] [place] [address] Dr. Lamin FloresURIC ACID SERUMon 46-29-0878Oiodz [Mass/Vol]6.0 mg/dLNormal 2.6-6.0The [facility] ClinicComment on above:Performed By: #### MG, RENAL, URIC #### [facility] [address] [address] [address] Lamin Cardenas T PROTEIN CREAT RATIOon 63-93-5224Inydzcv (U) [Mass/Vol] 28.0 mg/dLCritically high<=12.0The [facility] ClinicComment on above:Performed By: #### RENAL, MG, URIC #### [facility] [address] [address] [address] Lamin Titus PROT CREAT RAT0.11NoGeorgetown Behavioral HospitalComment on above: Performed By: #### RENAL, MG, URIC #### [facility] [address] [place] [address] Dr. Lamin Cardenas BLWOY765.84 mg/sBJaqjzf52.00-300.00[facility] Comment on above:Performed By: #### RENAL, MG, URIC #### [facility] [address] [address] [address] Lamin FloresVITAMIN D 25 OHon 21-20-7643RDF D 25-OH41.6 ng/mLNormalMary Rutan HospitalComment on above:Performed By: #### RENAL, MG, URIC #### [facility] [address] [place] [address] Dr. Lamin Francis RANGESSEE BELOWPremier HealthComment on above: Result Comment: <20 ng/mL Vit D deficient 20 - <30 ng/mL Vit D insufficient 30 - 100 ng/mL Vit D sufficient >100 ng/mL Potential ToxicityPerformed By: #### RENAL, MG, URIC #### [facility] [address] [place] [address] Dr. Lamin Flores Vital Signs Date TimeVital SignValuePerforming NtcaddxdwNfbnyvso25-23-2757 14:30-0400Body lvwxiz323.32 cmMartin [facility] Hospital04-27-2025 14:30-0400Body mass index (BMI) [Ratio]28.9 kg/d4ZsocohsspMartin Memorial Hospital04-27-2025 14:30-0400Body salcmdtlgug90.2 [degF][facility]04-27-2025 14:30-0400Body bapbcg92.79 kgMartin Memorial Hospital04-27-2025 14:30-0400Diastolic blood qvugovyc98 mm[Hg][facility] 10-19-2024 14:30-0400Heart rate78 /[facility] 10-19-2024 14:30-0400Respiratory rate19 /[facility] 10-19-2024 14:30-0433TzX0% (BldA) [Mass fraction]97 %[facility]04-27-2025 14:30-0400Systolic blood fjuvxouz386 mm[Hg][facility]03-10-2025 09:39-0400Body nzkces344.6 cmDavid Pocos DO Work Phone: [phone])[address] [place], [place] 6175103-10-2025 09:39-0400Body mass index (BMI) [Ratio]27.73 kg/b6Ihamw Pocos DO Work Phone: [phone])[address] [place], [place] 6175103-10-2025 09:39-0400Body oyreda90.24 kgDavid Pocos DO Work Phone: [phone])[address] [place], [place] 6175102-07-2025 08:38-0500Body pxrpyb697.6 cmDavid Pocos DO Work Phone: 1([phone])[address] [place], [place] 6175102-07-2025 08:38-0500Body mass index (BMI) [Ratio]27.73 kg/y3Pomyw Pocos DO Work Phone: 1(782)[address] [place], [place] 6175102-07-2025 08:38-0500Body fmvkhi89.24 kgDavid Pocos DO Work Phone: 1(783)[address] [place], [place] 6175101-13-2025 10:15-0500Diastolic blood jygrurwl01 mm[Hg]Anat Yanely DO Work Phone: 1(371)327-[facility]01-13-2025 10:15-0500 Heart rate54 /minElyse Yanely DO Work Phone: 1(324)067-[address] [place], [place] 7873301-13-2025 10:15-0500 Respiratory rate18 /minElyse Yanely DO Work Phone: 1(732)[address] [place], [place] 9176101-13-2025 10:15-0500 SaO2% (BldA) [Mass fraction]98 %Anat Yanely DO Work Phone: 1(064)[address] [place], [place] 9176101-13-2025 10:15-0500 Systolic blood dxjjqyde483 mm[Hg]Anat Yanely DO Work Phone: 1(615)[address] [place], [place] 9176101-13-2025 08:13-0500 Body yxwcnn908.32 cmElyse Yanely DO Work Phone: 1(147)[address] [place], [place] 9176101-13-2025 08:13-0500 Body .23 kgElyse Yanely DO Work Phone: 1(680)[address] [place], [place] 9176112-05-2024 10:33-0500 Body nxiyhu155.32 cmElyse Yanely DO Work Phone: 1(617)[address] [place], [place] 9176112-05-2024 10:33-0500 Body mass index (BMI) [Ratio]28.4 kg/u7Cjuxz Yanely DO Work Phone: 1(762)[address] [place], [place] 9176112-05-2024 10:33-0500 Body npzixc34.68 kgElyse Yanely DO Work Phone: 1(095)[address] [place], [place] 9176112-05-2024 10:33-0500 Diastolic blood fgcobopp11 mm[Hg]Anat Yanely DO Work Phone: 1(726)[address] [place], [place] 9176112-05-2024 10:33-0500 Heart rate74 /minElyse Yanely DO Work Phone: 1(831)[address] [place], [place] 9176112-05-2024 10:33-0500 SaO2% (BldA) [Mass fraction]98 %Anat Yanely DO Work Phone: 1(102)[address] [place], [place] 9176112-05-2024 10:33-0500 Systolic blood hqjnbtfo214 mm[Hg]Naat Yanely DO Work Phone: 1(358)[address] [place], [place] 9176112-03-2024 10:23-0500 Body hpyqfj264.32 cmElyse Yanely DO Work Phone: 1(606)[address] [place], [place] 9176112-03-2024 10:23-0500 Body mass index (BMI) [Ratio]28.7 kg/n5Ylgah Yanely DO Work Phone: 1(791)[address] [place], [place] 9176112-03-2024 10:23-0500 Body .28 kgElyse Yanely DO Work Phone: 1(753)[address] [place], [place] 9176112-03-2024 10:23-0500 Diastolic blood womuviwu93 mm[Hg]Anat Yanely DO Work Phone: 1(383)[address] [place], [place] 9176112-03-2024 10:23-0500 Heart rate76 /minElyse Yanely DO Work Phone: 1(500)[address] [place], [place] 9176112-03-2024 10:23-0500 Systolic blood ahdorfzd976 mm[Hg]Anat Yanely DO Work Phone: 1(912)[address] [place], [place] 9176106-26-2024 13:25-0400 Body jkwbme169.32 cmDO Anat Yanely Work Phone: 1(367)[address] [place], [place] 9176106-26-2024 13:25-0400 Body mass index (BMI) [Ratio]29.2 kg/m2DO Anat Yanely Work Phone: 1(011)[address] [place], [place] 9176106-26-2024 13:25-0400 Body .5 kgDO Anat Yanely Work Phone: 1(063)[address] [place], [place] 9176106-26-2024 13:25-0400 Diastolic blood mm[Hg]DO Anat Yanely Work Phone: 1(145)[address] [place], [place] 9176106-26-2024 13:25-0400 Systolic blood lfvibuyx694 mm[Hg]DO Anat Yanely Work Phone: 1(694)[address]06-10-2024 11:05-0400 Diastolic blood jchuyxua06 mm[Hg]DO Anat Yanely Work Phone: 1(654)[address]06-10-2024 11:05-0400 Heart rate61 /minDO Anat Yanely Work Phone: 1(460)[address] [place], [place] 9176106-10-2024 11:05-0400 Respiratory rate18 /minDO Anat Yanely Work Phone: 1(728)[address]06-10-2024 11:05-0400 SaO2% (BldA) [Mass fraction]96 %DO Anat Yanely Work Phone: 1(051)[address]06-10-2024 11:05-0400 Systolic blood maiuwvqx647 mm[Hg]DO Anat Yanely Work Phone: 1(438)[address] [place], [place] 9176105-28-2024 07:08-0400 Body .32 cmDO Anat Yanely Work Phone: 1(384)[address]05-28-2024 07:08-0400 Body igschb63 kgDO Anat Yanely Work Phone: 1(435)[address]05-21-2024 10:47-0400 Body iasodi506.86 cmMartin [facility]05-21-2024 10:47-0400Body mass index (BMI) [Ratio]28.6 kg/p9GcetowdweMartin Memorial Hospital05-21-2024 10:47-0400Body oasemx59.41 kgMartin [facility] Hospital05-09-2024 14:28-0400Body stbain784.86 cmMartin [facility]05-09-2024 14:28-0400Body mass index (BMI) [Ratio]29.1 kg/a5QdgshonsvMartin Memorial Hospital05-09-2024 14:28-0400Body naomhcwxzgx12.5 [degF][facility]05-09-2024 14:28-0400Body hnyvfv66.48 kgMartin [facility] Hospital 11-01-2023 14:28-0400Diastolic blood ouezqyfl96 mm[Hg][facility]05-09-2024 14:28-0400Heart rate57 /[facility] 11-01-2023 14:28-0400Respiratory rate16 /[facility] 11-01-2023 14:28-3488JvL9% (BldA) [Mass fraction]97 %[facility]05-09-2024 14:28-0400Systolic blood zasjvknh863 mm[Hg][facility]10-18-2023 09:40-0400Body ikeqxs582.86 cmAbdul Дмитрий Other [employer] Other [id number] 09:40-0400Body mass index (BMI) [Ratio] 28.27 kg/o2Lttqs Дмитрий Other [employer] Other 10-18-2023 09:40-0400Body rcfaumrxvqs05.1 [degF]Michael Дмитрий Other [employer] Other 10-18-2023 09:40-0400Body .5 kgAbdul Дмитрий Other [employer] Other [id number] 09:40-0400Diastolic blood haoqrhwm97 mm[Hg] Michael Дмитрий Other [employer] Other 10-18-2023 09:40-0400Respiratory rate18 /minAbdul Дмитрий Other [employer] Other 10-18-2023 09:40-8001VhE4% (BldA) [Mass fraction]98 % Michael Дмитрий Other [employer] Other 10-18-2023 09:40-0400Systolic blood mm[Hg] Michael Дмитрий Other [employer] Other 04-06-2023 11:20-0400Body yxsubh984.86 cmAbdul Дмитрий Other [employer] Other 04-06-2023 11:20-0400Body mass index (BMI) [Ratio] 28.07 kg/c9Quycz Дмитрий Other [employer] Other 04-06-2023 11:20-0400Body lcaxgcgwait10.8 [degF]Michael Дмитрий Other [employer] Other 04-06-2023 11:20-0400Body einnop38.05 kgAbdul Дмитрий Other [employer] Other 04-06-2023 11:20-0400Diastolic blood jlforima85 mm[Hg] Michael Дмитрий Other [employer] Other 04-06-2023 11:20-0400Respiratory rate18 /minAbdul Дмитрий Other [employer] Other 04-06-2023 11:20-8499TwS3% (BldA) [Mass fraction]99 % Michael Дмитрий Other [employer] Other 04-06-2023 11:20-0400Systolic blood uqfdvoij820 mm[Hg] Michael Дмитрий Other [employer] Other 01-30-2023 10:40-0500Body kmihql514.86 cmAbdul Дмитрий Other [employer] Other 01-30-2023 10:40-0500Body mass index (BMI) [Ratio] 28.44 kg/l6Ogifx Дмитрий Other [employer] Other 01-30-2023 10:40-0500Body pwvyefbwjkr31.6 [degF]Michael Дмитрий Other [employer] Other 01-30-2023 10:40-0500Body ykyzul73.87 kgAbdul Дмитрий Other [employer] Other 01-30-2023 10:40-0500Diastolic blood etiiudop37 mm[Hg] Michael Дмитрий Other [employer] Other 01-30-2023 10:40-0500Respiratory rate18 /minAbdul Дмитрий Other [employer] Other 01-30-2023 10:40-1620BsY5% (BldA) [Mass fraction]98 % Michael Дмитрий Other [employer] Other 01-30-2023 10:40-0500Systolic blood kinlfzik356 mm[Hg] Michael Дмитрий Other [employer] Other 07-25-2022 16:20-0400Body ohqteq295.86 cmAbdul Дмитрий Other [employer] Other 07-25-2022 16:20-0400Body mass index (BMI) [Ratio] 27.99 kg/f1Orvqe Дмитрий Other [employer] Other 07-25-2022 16:20-0400Body aptivddqwva73 [degF]Michael Дмитрий Other [employer] Other 07-25-2022 16:20-0400Body vyncbp74.87 kgAbdul Дмитрий Other [employer] Other 07-25-2022 16:20-0400Diastolic blood msbxbwog59 mm[Hg] Michael Дмитрий Other [employer] Other 07-25-2022 16:20-0400Respiratory rate18 /minAbdul Дмитрий Other [employer] Other 07-25-2022 16:20-4799PrZ3% (BldA) [Mass fraction]97 % Michael Дмитрий Other [employer] Other 07-25-2022 16:20-0400Systolic blood ujdahpqq107 mm[Hg] Michael Дмитрий Other [employer] Other Encounters Encounter DateEncounter TypeCare ProviderFacilityStart: 04-13-2025 End: 88-24-5238kttjtcyituEurga C TinkerFacility:FTMCStart: 10-19-2024 End: 14-42-0846vitnliweclNuwqdiuqyOhio [facility] Work Phone: Start: 10-19-2024 End: 33-00-4398Xbjauma encounter procedureFormerly [facility] Work Phone: Start: 09-01-2024 End: 25-12-5398Wlopayo encounter procedureDavid A Pocos DO Work Phone: noMS NB ORTHOComment on above:S/P trigger finger release (Primary Dx); Ganglion of flexor tendon sheath of right middle fingerStart: 09-01-2024 End: 01-58-0602shgakebagyYFRXY A POCOSNot AvailableStart: 08-20-2024 End: 97-63-8551Ndnmmf OnlyDavid A Pocos DO Work Phone: NOQF NB ORTHOComment on above:Trigger middle finger of right hand (Primary Dx)Start: 08-04-2024 End: 43-04-9705Uylxakhgk Result EncounterDavid A Pocos DO Work Phone: noms External Department UnsolicitedStart: 08-04-2024 End: 02-97-2689Eeuoqmvio Result EncounterDavid A Pocos DO Work Phone: noms External Department UnsolicitedStart: 08-04-2024 End: 53-94-6097fteyonkbekOtspm A PocosFacility:FTMCStart: 08-04-2024 End: 78-86-4432Rdrbunv encounter procedureDavid A Pocos [facility] Start: 08-01-2024 End: 53-29-2738Cgjlcnh encounter procedureDavid A Pocos DO Work Phone: [facility] NB ORTHOComment on above:Right hand pain (Primary Dx); Trigger middle finger of right hand; Trigger ring finger of right hand; Preoperative testingStart: 08-01-2024 End: 76-69-6801Iushfef encounter statusDavid A Pocos DO Work Phone: noms HealthcareStart: 08-01-2024 End: 47-80-5949kiwwslhlvuWMODA A POCOSNot AvailableStart: 63-42-5570Ydl-patient / Non-visitElyse Yanely DO Work Phone: [facility] G[facility] Work Phone: Start: 07-07-2024 End: 59-57-4921Qitqaxnja to same day surgery centerElyse Yanely DO Work Phone: [facility] Work Phone: Start: 07-07-2024 End: 98-82-4820vtaouggbdpJllwq C Yanely DO Work Phone: [facility] Work Phone: Start: 05-29-2024 End: 29-49-3013Aphcyjm encounter procedureElyse Yanely DO Work Phone: [facility] Nephrology Justin Work Phone: Start: 05-27-2024 End: 00-77-4035Bhbepxv encounter procedureElyse Yanely DO Work Phone: [facility] Work Phone: Start: 78-51-0725Sjs-patient / Non-visitElyse Yanely DO Work Phone: [facility] Work Phone: Start: 04-10-2024 End: 27-64-9459gyzjtnheozVxtsz C TinkerFacility:FTMCStart: 04-10-2024 End: 23-37-2267Centcrf encounter procedureElyse C Yanely [facility] Start: 12-19-2023 End: 87-88-6056duakrippqzMN Anat C Yanely Work Phone: [facility] Work Phone: Start: 12-19-2023 End: 32-86-1309Yehxufp encounter procedureDO Anat Yanely Work Phone: [facility] Gastroenterology Work Phone: Start: 12-79-8064Afe-patient / Non-visitDO Anat Mortonker Work Phone: [facility] Gastroenterology Work Phone: Start: 12-03-2023 End: 18-09-2473Vkfxfqpsv to same day surgery centerDO Anat Yanely Work Phone: [facility] Work Phone: Start: 12-03-2023 End: 91-74-8357iqvwmmabsuWK Anat Kyra MortonYanely Work Phone: [facility] Work Phone: Start: 11-13-2023 End: 07-23-8392jfrkcdpsavNvoxrsdraMercy Health [facility] Work Phone: Start: 11-13-2023 End: 62-02-8823Cxtoqno encounter procedureFormerly [facility] Gastroenterology Work Phone: Start: 11-01-2023 End: 00-40-8172xkzaqqnrmeRgzrkvpeyMercy Health St[facility] Work Phone: Start: 11-01-2023 End: 69-90-3392Jombhpv encounter procedureFormerly [facility] Nephrology Justin Work Phone: Start: 90-50-6319Rxt-patient / Non-visitFormerly [facility] Professional Co Work Phone: Start: 22-23-1993Pzyhrv flowsheetNatalie A Felter SURFACE WATER MANAGER-DAIRY DEPARTMENT MANAGER Work Phone: [facility] DERMStart: 88-05-2742Exykoa flowsheetNatalie A Felter SURFACE WATER MANAGER-DAIRY DEPARTMENT MANAGER Work Phone: [facility] DERMStart: 08-08-2023 End: 31-68-4973Ptkjppi encounter procedureNatalie A Felter SURFACE WATER MANAGER-DAIRY DEPARTMENT MANAGER Work Phone: [facility] DERMComment on above:Seborrheic keratosis, inflamedStart: 04-11-2023 End: 49-94-4219wknjcbbtqpWpktu Дмитрий Other noRestorando Other Start: 71-02-5477Qgtkqq outpatient visit 15 minutes Michael QadirFPG NephrologyStart: 04-09-2023 End: 43-16-2448Gelnivu encounter procedureOlive Kyra Ny [facility] Start: 09-28-2022 End: 73-95-8770nyfsjwfsunVnfuf Дмитрий Other noPowerPlan [employer] Other Start: 40-41-3084Ivnwwp outpatient visit 25 minutes Michael QadirFPG NephrologyStart: 09-19-2022 End: 93-84-7931qbclqycfdaQPWYG QADIRFacility:V2Ekohe: 69-76-1349Rdnxucxby encounterAbdul QadirFPG NephrologyStart: 07-26-2022 End: 94-88-7974lnyfgjcqxfOJLOZ QADIRNort [employer] Other Start: 22-09-4152Gclqyt outpatient visit 25 minutes Michael QadirFPG NephrologyStart: 07-24-2022 End: 14-00-2444ezeizkihhhKMGVI QADIRNort [employer] Other Start: 07-17-2022 End: 50-30-8252armjqgphjlUFVZD QADIRFacility:S9Kdyxa: 01-16-2022 End: 90-18-5614gvwmvfawweTlxye Дмитрий Other noPowerPlan [employer] Other Start: 12-05-6290Mivbxf outpatient visit 25 minutes Michael QadirFPG NephrologyStart: 01-09-2022 End: 21-81-7971ajtakngsdlUMFTS QADIRFacility:J5Xwqss: 09-30-2021 End: 22-80-4401aldxqujoffPkzzj [facility] Other Nort [employer] Other Start: 73-19-4220Nmpziwyvz encounterDavid HykesFPG Gastroenterology Procedures DateProcedureProcedure DetailPerforming ClinicianStart: 28-94-4291FMHV CBC W/ AUTO DIFFDavid A Pocos DO Work Phone: Start: 39-25-9591Ciibg hand minimum 3 viewsDavid A Pocos DO Work Phone: Start: 90-61-5303EatnkvcuubnIigzw Yanely DO Work Phone: start: 77-58-7229SvosvlkdncjGT Anat Yanely Work Phone: start: 89-33-2706YIWVGKMURNG SKIN LESIONNatalie A Felter SURFACE WATER MANAGER-DAIRY DEPARTMENT MANAGER Work Phone: H/O: surgeryS/P trigger finger releaseDavid A Pocos DO Work Phone: History of decompression of median nerveHistory of carpal tunnel release of both wrists Plan of Treatment DateCare ActivityDetailAuthorStart: 09-01-2024 End: 90-82-3310Gthjxhc encounter ajqalseji20/10/2025 9:45 AM EDT Office Visit [facility] [address] [place] [address] Ovi Moon DO [address] [place] [address] [facility] ORTHOStart: 08-01-2024 End: 71-81-4513Nlvhh metabolic 1998 panel - Serum or PlasmaBasic metabolic panel Lab Routine Preoperative testing Expected: 08/01/2024 (Approximate), Expires: 08/01/2025[facility] Work Phone: Comment on above:Expected: 08/01/2024 (Approximate), Expires: 08/01/2025Start: 08-01-2024 End: 63-47-5994XRL W Auto Differential panel - BloodCBC auto differential Lab Routine Preoperative testing Expected: 08/01/2024 (Approximate), Expires: 08/01/2025[facility] HealthcareComment on above:Expected: 08/01/2024 (Approximate), Expires: 08/01/2025Start: 08-01-2024 End: 54-79-1067CUQ 12 leadECG 12 lead ECG Routine Preoperative testing Expected: 08/01/2024 (Approximate), Expires: 08/01/2025NONM HealthcareComment on above: Expected: 08/01/2024 (Approximate), Expires: 08/01/2025Start: 07-07-2024 [facility]: 04-15-2024 End: 42-86-0092Vehvahr encounter /22/2024 9:25 AM EDT Office Visit [facility] [address] [place] [address] 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, SURFACE WATER MANAGER-DAIRY DEPARTMENT MANAGER [address] [place] [address] [facility] DERMStart: 77-08-6595GpaikczstJ.W. Ruby Memorial Hospitaltart: 09-06-2023 End: 66-36-9488Doeqbot encounter pdmahuawr53/14/2024 9:20 AM EDT Office Visit [facility] [address] [place] [address] 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, SURFACE WATER MANAGER-DAIRY DEPARTMENT MANAGER [address] [place] [address] [facility] DERMStart: 08-08-2023 End: 75-50-3262Sufefeb encounter yqbyhgztz09/14/2024 8:50 AM EST Office Visit [facility] [address] [place] [address] 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, SURFACE WATER MANAGER-DAIRY DEPARTMENT MANAGER [address] [place] [address] ArrivedNOMS SWS DERMComment on above: ArrivedStart: 82-29-0062Hzedndibq for malignant neoplasm of breastMammogramNOMS HealthcareStart: 92-84-2346Jihsczsvr for malignant neoplasm of colonNOMS HealthcarePatient EducationChillicothe [facility] Center Work Phone: Renal function 1999 panel - Serum or [facility] HospitalRenal function 1999 panel - Serum or [facility] HospitalXR Hand - right 3 ViewsXR hand 3+ views right Imaging Routine Right hand pain 08/01/2024 7:57 AM ESTPrime Healthcare Services – [facility] Immunizations Immunization DateImmunizationNotesCare IisfaalzSzplxwme73-51-3340LZZHO-52 mRNA- 1273 (Moderna)DO Anat Yanely Work Phone: [phone] [place], [place] 7873304-06-2021COVID-19 mRNA-1273 (Moderna)DO Anat Yanely Work Phone: [phone] [place], [place] 7873303-09-2021COVID-19 mRNA-1273 (Moderna)DO Anat Yanely Work Phone: [phone] [place] [address] Payers DatePayer CategoryPayerPolicy [id number] [id number]-[id number] Health [id number] 2022Medicare [id number] [id number] 08.10.830.4.541450.67212078-83-5052[facility] [id number] 08.10.830.9.38353[id number] 2.16.840.1.877458.3.57[id number] 2.16.840.1.632745.3.57[id number] 2.16840.1.320228.3.57[id number] 2.16840.1.007946.3.57[id number] 2.16840.1.394080.3.57[id number] 2.16840.1.383140.3.57[id number] 2.16840.1.754726.3.57[id number] 2.16840.1.420657.3.57[id number] 2.16840.1.700832.3.57[id number] 2.16840.1.639611.3.57[id number] 2.16840.1.552376.3.57[id number] 2.16840.1.83[id number]-[id number] 2.16840.1.120156.19Unknown [id number] 2.16.840.1.277[id number] 2.16.840.1.627147.3.579.2.531 Social History DateTypeDetailFacilityUnknown if ever smokedNorth Shooger Other Start: 07-12-2023 End: 38-12-6296Bzf [facility] HospitalTobacco smoking statusNo Smoking Status EnteredBarberton Citizens Hospitaltart: 05-19-2023 End: 02-18-7087Bddvfeo smoking status NHISEx-smokerNOMS Healthcare End: 85-46-5278Sxseaxp of tobacco useCurrent smokerNOMS Healthcare End: 57-77-5330Cbvhnvo of tobacco useCigarette SmokerNOMS HealthcareStart: 07-12-2023 End: 67-91-2485Kaohlpn intakeLifetime non-drinker (finding)[facility] HealthcareStart: 07-12-2023 End: 23-43-7144Zfjdhhk of Social functionNOMS HealthcareStart: 26-66-3389Erlapfz Commentcaffeine: 1-2 cups per day teaNONM HealthcareStart: 72-66-0530Hji Assigned At BirthNot on fileNONM HealthcareStart: 23-46-8960Ijpsxq identity Identifies as female gender (finding)[facility] HealthcareStart: 49-44-7077Ewn Assigned At [facility] Centertart: 07-07-2024 End: 81-66-9300RsaIjcssn (finding)[facility] Hospitaltart: 08-01-2024 End: 38-09-3170Qljiejkih beverage intakeEx-drinker (finding)[facility] Goals DatePatient GoalDesired Activity/State Clinical Notes 01-16-2022 to 09-01-2024 Note Date & DxnwHmdtIbxxqtoi81-58-8823 History of Present illness Narrative* Kassidy Kumar [...] ASPIRIN PO ergocalciferol (Vitamin D2) 1.25 MG (68900 UT) capsule lisinopril 40 mg, Daily mesalamine [...] 09/02/2024 4:36 PM EDT documented in this encounterPerry County Memorial HospitalYapunlcvjm01-09-5519 History of Present illness Narrative* Kassidy Kumar [...] some extent. 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 She has tried some Bengay. [...] ASPIRIN PO ergocalciferol (Vitamin D2) 1.25 MG (15463 UT) capsule lisinopril 40 mg, Daily mesalamine [...] 08/04/2024 7:57 AM EST documented in this encounterPerry County Memorial HospitalUleptsrfxx06-11-1555 [place] [address] Gastroenterology H&P Signed Patient: Darnell Sanches MR#: [id number] 9 : 1955 Acct:[id number] Age/Sex: 69 / F Adm Date: 5 Loc: Room: Type: [facility] Attending Dr: Clyde Garcia MD Copies to: [...] Garcia MD 07/07/2447 Signed By: 07/07/24 0847 [facility]01-13-2025 [place] [address] Colonoscopy Procedure Report Signed Patient: Darnell Sanches MR#: [id number] 9 : 1955 Acct:[id number] Age/Sex: 69 / F Adm Date: 5 Loc: Room: Type: [facility] Attending Dr: Clyde Garcia MD Copies to: [...] slowly withdrawn with the findings as below. Lawrence bowel prep score was good. Findings: There [...] MD 07/07/24 0942 Signed By: 07/07/24 0946 [facility]12-03-2024 Evaluation note* Diagnosis Onset Date Resolution Status Admit Date Crohn's disease of intestine acuteMay 27, 2024 10:18amGERD (gastroesophageal reflux disease)acute May 27, 2024 10:18amCKD (chronic kidney disease) stage 3, GFR 30-59 ml/min acuteMay 29, 2024 10:24amCrohn diseaseacutece2023 10:24am HyperlipidemiaacuteDecebenson hospital 2023 10:24amHypertensive chronic kidney disease with stage 1 through stage 4 chronic kiacutece2023 10:24am HyperuricemiaacuteDece2023 10:24amSecondary hyperparathyroidismacute May 29, 2024 10:24am [facility] Work Phone: [phone] 278-951306-10-2024 [facility]Pe[facility] History of Present illness Narrative* 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 Seborrheic keratosis, inflamed Left Nasal Sidewall Urania and brown stuck on verrucous scaly papule [...] limited to risks of scarring, darker or construction project engineer pigmentary changes, recurrence, incomplete removal and infection. [...] for any new/changing lesions documented in this encounterPerry County Memorial HospitalSerupnaftb81-21-6001 Evaluation note* Encounter Date Diagnosis Assessment Notes [...] flare. We will monitor without any medication. [employer] Other 04-06-2023 Evaluation note* Encounter Date Diagnosis [...] flare. We will monitor without any medication. [employer] Other 01-30-2023 Evaluation note* Encounter Date Diagnosis [...] have advised her to adequately hydrate herself. [employer] Other 07-25-2022 Evaluation note* Encounter Date Diagnosis [...] K50.90)Continue follow with GI for Crohn's [facility] [employer] Other Evaluation + Plan note No data available for this section [facility] HospitalEvaluation noteNo InformationNortKindred Hospital Philadelphia [employer] Other Evaluation note* Diagnosis Seborrheic keratosis, inflamed documented in this encounter [facility] HealthcareEvaluation note* Diagnosis Onset Date Resolution Status CKD (chronic kidney disease) stage 3, GF R 30-59 ml/min acuteCrohn rrktlpcrehtsSzjoyzedobrjijvacxgVET-QIJS-[id number] acuteSecondary hyperparathyroidismacute [facility] Work Phone: Evaluation note* Diagnosis Onset Date Resolution Status CKD (chronic kidney disease) stage 3, GF R 30-59 ml/min acuteCrohn hbkbmmcdganmPgfhbixofmcgetxixxxLBU-IAIV-[id number] acuteSecondary hyperparathyroidismacuteCrohn diseaseacuteGERD (gastroesophageal reflux disease)[facility] Work Phone: Evaluation note* Diagnosis Onset Date Resolution Status CKD (chronic kidney disease) stage 3, GF R 30-59 ml/min acuteCrohn nooddudlaypcZsmlbwplhzkpodklrrgIWD-HEZJ-[id number] acuteSecondary hyperparathyroidismacuteCrohn diseaseacuteGERD (gastroesophageal reflux disease)acuteCrohn's disease of intestineacute [facility] Work Phone: Evaluation note* Diagnosis Right hand pain- Primary Pain in soft tissues of limb Trigger middle finger of right hand Trigger ring finger of right hand Preoperative testing Unspecified pre-operative examination documented in this encounter [facility] HealthcareEvaluation note* Diagnosis Trigger middle finger of right hand- Primary documented in this encounter [facility] HealthcareEvaluation note* Diagnosis S/P trigger finger release- Primary Ganglion of flexor tendon sheath of right middle finger documented in this encounter [facility] HealthcareEvaluation noteNo assessment information availableTrihealth Bethesda [facility] Hospital Work Phone: History and physical note Author Clyde Garcia [facility] HospitalNote Date/TimeJanuary 2024 10:24am [place] [address] Gastroenterology H&P Signed Patient: Darnell Sanches MR#: [id number] 9 : 1955 Acct:[id number] Age/Sex: 69 / F Adm Date: 5 Loc: Room: Type: [facility] Attending Dr: Clyde Garcia MD Copies to: [...] <Electronically signed by Clyde Garcia MD> 07/07/24846 [facility] Work Phone: History general Narrative - Reported* Type Description Date Medical History HTN Medical HistoryGERDMedical HistoryCrohn'sMedical HistoryCHRONIC KIDNEY DISEASE Surgical Historybowel resectionSurgical HistoryhysterectomySurgical History adhesionsSurgical Historyintussusception of bowelSurgical HistoryCARPAL TUNNEL RELEASE AND TRIGGER FINGER ON RIGHT HAND2021Hospitalization Historysee surgical hxHospitalization HistoryCHILD X 2 [employer] Other Hospital Discharge instructions No data available for this section [facility] Discharge instructions Additional Instructions DISCHARGE INSTRUCTIONS FOR [...] problems. -Follow up with PCP. -Office number [phone].[facility] Work Phone: Progress note No data available for this section [facility] Summary Purpose Family History No Family [...] 3, GFR 30-59 ml/min Crohn disease Hyperlipidemia [id number] Hyperuricemia Secondary hyperparathyroidism Chief Complaint Amb Documentation RENAL 6 month f/u Previous [facility] patient//constipationReason for VisitCKD (chronic kidney disease) stage 3, GFR 30-59 ml/min Crohn disease Hyperlipidemia [id number]-[id number] Hyperuricemia Secondary hyperparathyroidism Crohn disease GERD (gastroesophageal reflux disease) Chief Complaint Amb Documentation RENAL 6 month f/u Previous [facility] patient//constipation crohn's disease. constipaiton crohn's disease. constipaitonReason for VisitCKD (chronic kidney disease) stage 3, GFR 30-59 ml/min Crohn disease Hyperlipidemia [id number] Hyperuricemia Secondary hyperparathyroidism Crohn disease GERD (gastroesophageal reflux disease) Chief Complaint RENAL 6 month f/u Previous [facility] patient//constipation crohn's disease. constipaiton crohn's disease. constipaiton FOLLOW UP COLONOSCOPYReason for VisitCKD (chronic kidney disease) stage 3, GFR 30-59 ml/min Crohn disease Hyperlipidemia [id number] Hyperuricemia Secondary hyperparathyroidism Crohn disease GERD (gastroesophageal [...] FOR VISIT (unrecogniz ed section and content) LreljsYwmytkihHqhlpy-dmFeqktbVegtgzmgMpvpZruqphJenifpqmHogp-ed INFORMATION SOURCE (unrecogn ized section and content) DATE CREATED AUTHOR 09/23/2022 [facility] DATE CREATED AUTHOR AUTHOR'S ORGANIZ ATION 07/14/2024 [facility] DATE CREATED AUTHOR AUTHOR'S ORGANIZ ATION 08/05/2024 [facility] DATE CREATED AUTHOR AUTHOR'S ORGANIZ ATION 09/02/2024 [facility] EPIC DATE CREATED AUTHOR AUTHOR'S ORGANIZ ATION 04/20/2025 [facility] Patient Care team informatio n [...] MemberRelationshipSpecialtyStart DateEnd Date Anat Ny MD [address] [facility] [place] [phone] [facility]08/01/24Te MemberRelationshipSpecialtySageWest [facility] Anat Ny MD [address] [place] [phone] [facility]08/01/24Te MemberRelationshipSpecialtySageWest [facility] Anat Ny MD [address] [place] [address] [facility]08/01/24Te MemberRelationshipSpeacehealthialCranberry Specialty [facility] Anat Ny MD [address] [place] [address] [facility]08/01/24 Goals (unrecognized section and content) Goals [...] BE BASED ON THE PRIMARY CLINICAL RECORDS. [employer] [facility]. provides no warranty or guarantee of the accuracy or completeness of information in this document.
--- OUTSIDE RECORDS SUMMARY | 2025-06-01 06:38 | XMS_ITS | Clinical Summary ---
Author Organization [facility] Healthcare Address [address] [place] [address] Care Team Providers Care Family Living Educator Name Role Phone Anat Ny MD Primary Care Provider [phone] Allergies No known active allergies Medications MedicationSigDispense QuantityRefillsLast FilledStart DateEnd DateStatus pantoprazole (ProtoNix) 20 MG EC tablet Pantoprazole SodiumActive lisinopril 40 MG tablet Take 40 mg by mouth in the morning.Active ergocalciferol (Vitamin D2) 1.25 MG (67903 UT) capsule Active BABY ASPIRIN PO Active atenolol (Tenormin) 100 MG tablet Active atorvastatin (Lipitor) 10 MG tablet Active amLODIPine (Norvasc) 10 MG tablet Active mesalamine ER (Apriso) 0.375 g 24 hr capsule TAKE 4 CAPSULES BY MOUTH EVERY JRUKTSS39/10/2025Active polyethylene glycol, PEG, 3350 (Glycolax) 17 GM/SCOOP [...] on fileLegal SexFemale 09/06/2022 6:36 PM EDTGender CaeyfqlvBujipf64/28/2023 8:47 AM ESTSexual OrientationNot on file Last Filed Vital Signs Vital SignReadingTime TakenCommentsBlood Pressure--Pulse--Temperature-- Respiratory Rate--Oxygen Saturation--Inhaled Oxygen Concentration--Znqffn64.2 kg (135 lb)09/01/2024 9:39 AM RHROldsdf727.6 cm (4' 10.5 )09/01/2024 9:39 AM EDT Body Mass Index27.7309/01/2024 9:39 AM EDT Plan of Treatment Health MaintenanceDue DateLast DoneCommentsCT Vlbwulzczekk1956olonoscopy 1955olorectal Cancer Dnieoymeb1956FIT-DNA1956FIT1955 FOBT1955 4978Idchisglfhhuv96/30/3231Ovivazkkv92/30/1996COVID-19 Vaccine ( season)/, 06/03/2021, 09/28/2020, Additional history existsInfluenza Vaccine (#1)/, 04/27/2023, 04/02/2021, Additional history existsPneumococcal Vaccine: 65+ SwetyInevwndsc48/03/2023, 07/09/2021 Insurance Care Teams Team MemberRelationshipSpecialtyStart DateEnd Anat Ny MD PCP - GeneralFamily Medicine08/01/24
[2025-06-01 08:12] LABS: Cholesterol 158 mg/dL (<=200); HDL Cholesterol 59 mg/dL (40-60); Triglycerides 99 mg/dL (<=150); VLDL CHOLESTEROL 19.8 mg/dL
== END 2025-06-01 06:34 | disposition home or self-care (01) ==
LOC: LAB 06:35
PROVIDERS: PCP Family Medicine; Visit Provider Family Medicine
DX: E78.5 Hyperlipidemia, unspecified (principal)
CPT/HCPCS: 36415; 80061

== ENCOUNTER 2025-06-01 06:38 | Outpatient (OUT) | payer MEDICARE, SELFPAY ==
--- OUTSIDE RECORDS SUMMARY | 2025-06-01 06:43 | XMS_ITS | CCD ---
Author Organization [facility] Care Team Providers Care Crane Ladle Person Name Role Phone Sandeep Ovi Unavailable Дмитрий, [...] Consulting Unavailable Anat Ny Primary Care Physician [phone] Unavailable Primary Care Provider Unavailsusy e DO Anat Ny Primary Care Provider MD Clyde Garcia Attending Provider Anat Ny DO Primary Care Provider [phone] Clyde Garcia MD Attending Provider Clyde Garcia Attending Unavailable Anat Ny Primary Care Unavailable Clyde Garcia Admitting Unavailable Clyde Garcia Attending Unavailable Anat Ny Primary Care Unavailable Clyde Garcia Admitting Unavailable Anat Ny MD Primary Care Provider [phone] Ovi Moon Attending Unavailable Ovi Moon Referring [...] oral tablet (20 sources)Dihydropyridine Calcium Channel BlockerStart: 69-62-4288jpcq 1 tablet by mouth once daily in the morningAmlodipine 10 mg tablet Active 10 MG PO Every morning November 01, 2023 12:00am End: 01-10-7233iyNQAVVroe Benzoate 1 MG/ML suspension amLODIPine Benzoate 08/01/2024 Discontinued (Therapy completed)aspirin 81 mg delayed release oral tablet (20 sources)Platelet Aggregation Inhibitor, Nonsteroidal Anti-inflammatory Drug Start: 22-78-6096qvnb 1 tablet by mouth once dailyAspirin 81 mg tablet,delayed release (DR/EC) Active 81 MG PO Daily November 01, 2023 12:00amBABY ASPIRIN PO ActiveBABY ASPIRIN POtake 1 tablet by mouth every twenty-four hoursAspirin 81 MG 1 tablet Orally Once a day Activeatenolol 100 mg oral tablet (20 sources)beta-Adrenergic BlockerStart: 49-49-8035bxcq 1 tablet by mouth once daily in the eveningAtenolol 100 mg tablet Active 100 MG PO Every evening November 01, 2023 12:00amtake 2 tablets by mouth every twenty-four hoursAtenolol 50 MG 2 tablet Orally Once a day for 90 day(s) Activeatorvastatin 10 mg oral tablet (19 sources)HMG-CoA Reductase InhibitorStart: 74-62-3859hkmf 1 tablet by mouth once daily in the morningAtorvastatin 10 mg tablet Active 10 MG PO Every morning November 01, 2023 12:00amdoxycycline hyclate 100 mg oral capsule (1 source)Tetracycline-class DrugStart: 14-00-8102vahn 1 capsule by mouth twice dailyDoxycycline Hyclate 100 mg capsule Active 100 MG PO Twice daily 13 04October 19, 2024 12:00amergocalciferol 1.25 mg oral capsule (20 sources)Provitamin D2 CompoundStart: 41-63-6677vyfm 1 capsule by mouth every weekErgocalciferol (Vitamin D2) 1,250 mcg (50,000 unit) capsule Active 0 .ROUTE .COMPLEX September 27, 2024 10:40am TAKE 1 CAPSULE BY MOUTH EVERY WEEKStart: 09-12-2023 End: 70-75-5093yygf 1 capsule by mouth every weekErgocalciferol (Vitamin D2) 1,250 mcg (50,000 unit) capsule Discontinued 1250 MCG PO every week September 12, 2023 3:03pm September 27, 2024 10:40amStart: 09-12-2023 End: 81-39-3484wfon 1 capsule by mouth every weekErgocalciferol (Vitamin D2) 1,250 mcg (50,000 unit) capsule Discontinued 97693 UNIT PO every week September 12, 2023 12:00am September 12, 2023 2:41pm FreeTextSig: TAKE 1 CAPSULE BY MOUTH ONCE WEEKLY; Note: Source Status: Taking; Refills: 1; Qty: 14 Capsule; Provider: Дмитрий Rodriguez ( )Start: 73-15-8978xftd 1 capsule by mouth every weekErgocalciferol 1.25 MG (45071 UT) 1 capsule Orally Q week for 90 day(s) Jun, Activeestradiol 0.5 mg oral tablet (4 sources)Estrogentake 1 tablet by mouth every twenty-four hoursEstradiol 0.5 MG 1 tablet Orally Once a day Activelisinopril 40 mg oral tablet (20 sources)Angiotensin Converting Enzyme InhibitorStart: 56-35-8472nhqq 1 tablet by mouth once daily in the morningLisinopril 40 mg tablet Active 40 MG PO Every morning November 01, 2023 12:00am24 hr mesalamine 375 mg extended release oral capsule (9 sources)AminosalicylateStart: 96-31-9975mora 4 capsules by mouth once daily in the morningmesalamine ER (Apriso) 0.375 g 24 hr capsule TAKE 4 CAPSULES BY MOUTH EVERY MORNING 07/04/2024 ActiveStart: 31-04-8378cayb 4 capsules by mouth once daily in the morningMesalamine (Apriso) 0.375 gram capsule,extended release 24hr Active 1.5 GM PO Every morning 120 December 18, 2023 11:00pm Take 4 capsule orally in the morning.Start: 76-93-4992fqii 4 capsules by mouth once daily in the morningMesalamine (Apriso) 0.375 gram capsule,extended release 24hr Active 1.5 GM PO Every morning 120 December 19, 2023 12:00am Take 4 capsule orally in the morning.pantoprazole 20 mg delayed release oral tablet (20 sources)Proton Pump InhibitorStart: 52-17-1708xqaz 1 tablet by mouth once daily in the morningPantoprazole 20 mg tablet,delayed release (DR/EC) Active 20 MG PO Every morning November 01, 2023 12:00amPantoprazole Sodium 40 MG TAKE 1 TABLET BY MOUTH EVERY DAY Oral Once a day for 30 days Activepolyethylene glycol 3350 45345 mg powder for oral solution (8 sources)Osmotic LaxativeStart: 07-02-7311Epplgchipsoi Glycol 3350 (Miralax) 17 gram/dose powder Active 17 GM PO Daily as needed for constipation 2024 1:00amsilver sulfADIAZINE 10 mg/ml topical cream (1 source)Sulfonamide AntibacterialStart: 20-42-2970Pjaqte Sulfadiazine (Silvadene) 1 % cream Active 1 APPLIC TOPICAL Twice daily 25 7 October 19, 2024 12:00am apply a 1.5 mm thicknessSod Picosulf-Mag Ox-Citric Ac (2 sources)Start: 15-25-4361ophn 1 dose by mouth once dailySod Picosulf-Mag Ox- Citric Ac (Clenpiq) 10 mg-3.5 gram- 12 gram/175 mL solution Active 175 ML PO Chrystal ly 350 0 May 27, 2024 1:00am Take first dose at 3pm evening before colonoscopy; second dose at 9 pm night before colonoscopyStart: 85-59-3928ftqs 1 dose by mouth once dailySod Picosulf-Mag [...] oral tablet (6 sources)Opioid AgonistStart: 08-04-2020 End: 99-03-0665uryh 1 tablet by mouth every six hours as needed for pain Hydrocodone-Acetaminophen 5-325 mg tablet Discontinued 1 TAB PO Q6H as needed for pain 03 27August 04, 2020 November 01, 2023 2:10nzMho5575-Bky Qxt-Gkha-Eje-Asb-C (2 sources)Osmotic Laxative, Vitamin CStart: 05-27-2024 End: 69-39-8712Sfl8089-Sod Wud-Dskp-Nng-Asb-C (Plenvu) 140-9-5.2 gram powder in packet, sequential Discontinued 140 ML PO .COMPLEX 1 May 27, 2024 1:00am May 27, 2024 11:30am First does at 4pm the day before the colonoscopy; second dose at 11pm the night before the colonoscopy.Start: 05-27-2024 End: 88-75-0840Zyv2596-Sod Ekp-Pjfc-Jkc-Asb-C (Plenvu) 140-9-5.2 gram powder in packet, sequential Discontinued 140 ML PO .COMPLEX 1 May 27, 2024 12:00am May 27, 2024 10:30am First does at 4pm the daybefore the colonoscopy; second dose at 11pm the night before the colonoscopy.ondansetron 4 mg disintegrating oral tablet (6 sources)Serotonin-3 Receptor AntagonistStart: 08-04-2020 End: 98-05-9483qnbi 1 tablet by mouth four times daily as needed for nausea and vomitingOndansetron 4 mg tablet,disintegrating Discontinued 4 MG PO Four times daily as needed for nausea and vomiting August 04, 2020 1:00am November 01, 2023 2:31pmPolyethylene Glycol 3350 (Miralax) 17 gram/dose powder (5 sources)Start: 11-13-2023 End: 72-22-2648Onyupdzpjdfv Glycol 3350 (Miralax) 17 gram/dose powder Discontinued 17 GM PO Daily October 12:00am 2024 9:49amStart: 11-13-2023 End: 63-42-6516Bgqqulviacwm Glycol 3350 (Miralax) 17 gram/dose powder Discontinued 17 GM PO Daily 510 October 11:00pm 2024 8:49amStart: 81-82-1039Rcxvutzmasvk Glycol 3350 (Miralax) 17 gram/dose powder Active 17 GM PO Daily 510 November 13, 2023 12:00amtraMADol hydrochloride 50 mg oral tablet (3 sources)Opioid AgonistStart: 08-20-2024 End: 28-26-7183aisi 1 tablet by mouth every six hours [...] sources)Chronic kidney disease; Translations: [Chronic kidney disease, unspecified]04-66-7153FomxmyiDuysmkcwn of lipid metabolism (11 sources)Hyperlipidemia; Translations: [Hyperlipidemia, unspecified] 36-23-9002LkbammoTbzphxevoyvyil and diverticulitis (6 sources)Diverticular disease of colon; Translations: [Diverticulosis of large intestine without perforationor abscess without bleeding]ChronicEsophageal disorders (15 sources)Gastro-esophageal reflux disease with esophagitis; Translations: [Gastro-esophageal reflux disease with esophagitis]87-91-8958Eyyizue Gastroduodenal ulcer (except hemorrhage) (6 sources)Antral ulcer; Translations: [Gastric ulcer, unspecified as acute or chronic, without hemorrhage or perforation]ChronicHypertension with complications and secondary hypertension (20 sources)Chronic kidney disease due to hypertension; Translations: [Hypertensive chronic kidney disease withstage 1 through stage 4 chronic kidney disease, or unspecified chronic kidney disease]Onset: 01-16-2022 Resolved: 97-29-9396DdtmcznHlhxhe and vomiting (6 sources)Vomiting; Translations: [Vomiting, unspecified]EpisodicNoninfectious gastroenteritis (6 sources)Colitis; Translations: [Noninfective gastroenteritis and colitis, unspecified]74-44-5450KkauhzleCbxhedq on above:Problem List clean-up per request of Phys. EHR CmteOther connective tissue disease (2 sources)Pain in right hand; Translations: [Pain in right hand]08-01-2024 EpisodicOther connective tissue disease (5 sources)Triggering of digit; Translations: [Trigger finger, right middle finger]05-09-3214YajondufFtubq connective tissue disease (2 sources)Ganglion of flexor tendon sheath of finger; Translations: [Ganglion, right hand]02-36-4576MvmtyfheUdvkz diseases of kidney and ureters (12 sources)Secondary hyperparathyroidism; Translations: [Secondary hyperparathyroidism of renal origin]10-49-6502NdhunvzSeprb diseases of kidney and ureters (10 sources)Secondary hyperparathyroidism of renal origin; Translations: [Secondary hyperparathyroidism (of renal origin)]Onset: 01-16-2022 Resolved: 28-68-8958FqiwrdrGsase gastrointestinal disorders (6 sources)H/O: gastrointestinal disease; Translations: [Personal history of other diseases of the digestive system]EpisodicOther nutritional; endocrine; and metabolic disorders (7 sources)Hyperuricemia without signs of inflammatory arthritis and tophaceous disease; Translations: [Other abnormal blood chemistry]EpisodicOther nutritional; endocrine; and metabolic disorders (6 sources)Hyperuricemia; Translations: [Hyperuricemia without signs of inflammatory arthritis and tophaceous disease]81-56-2830MdpzuxjpGykdx skin disorders (2 sources)Inflamed seborrheic keratosis; Translations: [Inflamed seborrheic keratosis]48-85-7973EsgbwrebJukclyqt enteritis and ulcerative colitis (20 sources)Crohn's disease; Translations: [Crohn's disease, unspecified, without complications]Onset: 01-16-2022 Resolved: 05-27-1529Nulvzky Past or Other Problems Problem ClassificationProblemDateDocumented DateEpisodic/ChronicChronic kidney disease (6 sources)Chronic kidney disease; Translations: [Chronic kidney disease, stage 3b]Onset: 01-16-2022 Resolved: 72-97-0261Ngwif screening for suspected conditions (not mental disorders or infectious disease) (1 source)Encounter for screening for malignant neoplasm of colon; Translations: [Encounter for screening formalignant neoplasm of colon]Onset: 12-03-2023 Episodic Results Test NameValueInterpretationReference RangeFacilityMA Mamm Screen w/CAD if perf and 3D Bilon 85-50-8144ZG Mamm Screen w/CAD if perf and 3D [...] VERY IMPORTANT TO YOUR HEALTH. THE CURRENT [employer] CANCER [...] Assessment: BI-RADS Category 1-Negative Recommendation: Normal interval follow-upNormalWadsworth-Rittman HospitalBMPon 92-61-9645Pqbbk gap [Moles/Vol]13 mmol/LNormal6-16[facility] Comment on above:Performed By: #### [id number] #### [facility] [address], [place] [address]Bqidxza [Mass/Vol]9.7 mg/dLNormal8.9-11.1FBethesda North HospitalComment on above:Performed By: #### [id number] #### [facility] [address], [place] [address]Jbreviwe [Moles/Vol]104 mmol/YDsznqb339-121NaxzklWadsworth-Rittman HospitalComment on above:Performed By: #### [id number] #### [facility] [address], [place] [address]QQ9 [Moles/Vol]25 mmol/BZsbmuo86-55NufyigWadsworth-Rittman Hospital Comment on above:Performed By: #### [id number] #### [facility] [address], [place] [address]Aphqtphmkb [Mass/Vol]1.3 mg/dLNormal0.5-1.3FBethesda North HospitalComment on above:Performed By: #### [id number] #### [facility] [address], [place] [address]Rzlrbkz [Mass/Vol]88 mg/mTAvwbvl99-760DqdcvsWadsworth-Rittman HospitalComment on above:Performed By: #### [id number] #### [facility] [address], [place] [address]Zznkhxymm [Moles/Vol]4.2 mmol/LNormal3.5-5.3FBethesda North HospitalComment on above:Performed By: #### [id number] #### [facility] [address], [place] [address]Gwfine [Moles/Vol]138 mmol/CNqgwzw060-705JtdsfaWadsworth-Rittman HospitalComment on above:Performed By: #### [id number] #### [facility] [address], [place] [address]Ykbb nitrogen [Mass/Vol]22 mg/dLHigh5-21Wadsworth-Rittman HospitalComment on above:Performed By: #### [id number] #### [facility] [address], [place] [address]Rjia nitrogen/Creatinine [Mass ratio]17 No VbtqyUahlzo41-74 [facility]-Rittman HospitalComment on above:Performed By: #### [id number] #### [facility] [address], [place] [address]HPA w/ Auto Diffon 17-00-2489Wvhmlrpxy/100 WBC (Bld)0.5 %Normal 0.0-2.0NOMS HealthcareComment on above:Performed By: #### [id number] #### [facility] [address], [place] [address]Ccaptapxaoh distribution width (RBC) [Ratio]13.9 %Normal 10.9-14.2NOMS HealthcareComment on above:Performed By: #### [id number] #### [facility] [address] [place] [address]Igtgermhmh (Bld) [Volume fraction]42.7 %Ytemrf81.0-46.0NOMS HealthcareComment on above:Performed By: #### [id number] #### [facility] [address], [place] [address]Kxyfzgortcl/100 WBC (Bld)28.2 %Cxzbln14.0-50.0[facility] Comment on above:Performed By: #### [id number] #### [facility] [address], [place] [address]Ztbbmmjpoul/100 WBC (Bld)62.3 %Yrynrn55.0-75.0[facility] Comment on above:Performed By: #### [id number] #### [facility] [address], [place] [address]Izmumsam mean volume (Bld) [Entitic vol]8.2 fLNormal6.4-10.8 [facility] HealthcareComment on above:Performed By: #### [id number] #### [facility] [address], [place] [address]Jwhlprzus/Leukocytes Auto (Bld) [Pure # fraction]0.0 E9/LNormal 0.0-0.2FBethesda North HospitalComment on above:Performed By: #### [id number] #### [facility] [address] [place] [address]Xxvisxwzfhe (Bld) [#/Vol]0.2 E9/LNormal0.0-0.5FBethesda North HospitalComment on above:Performed By: #### [id number] #### [facility] [address] [place] [address]Xzssoazcnbb/100 WBC (Bld)2.6 %Normal0.0-8.0W[facility]sworth-Rittman HospitalComment on above:Performed By: #### [id number] #### [facility] [address] [place] [address]Hacgjjjloq (Bld) [Mass/Vol]14.6 g/mIUecrcp95.0-16.0W[facility]sworth-Rittman HospitalComment on above:Performed By: #### [id number] #### [facility] [address] [place] [address]Wcsctabeaer (Bld) [#/Vol]2.3 E9/LNormal1.0-4.0W[facility]-Rittman HospitalComment on above:Performed By: #### [id number] #### [facility] [address] [place] [address]KTY (RBC) [Entitic mass]30.1 qkDtzgog58.0-34.0W[facility]-Rittman HospitalComment on above:Performed By: #### [id number] #### [facility] [address] [place] [address]VJHE (RBC) [Mass/Vol]34.1 g/nIPuiazp74.4-36.0[facility]-Rittman HospitalComment on above:Performed By: #### [id number] #### [facility] [address] [place] [address]MNC (RBC) [Entitic vol]88.4 sHNqjtzg09.0-100.0W[facility]-Rittman HospitalComment on above:Performed By: #### [id number] #### [facility] [address] [place] [address]Plzqataxb (Bld) [#/Vol]0.5 E9/LNormal0.2-1.0[facility]-Rittman HospitalComment on above:Performed By: #### [id number] #### [facility] [address] [place] [address]Ndjbfejzeke (Bld) [#/Vol]5.0 E9/LNormal2.0-7.5FBethesda North HospitalComment on above:Performed By: #### [id number] #### [facility] [address] [place] [address]Rgwfkswg380.0 E9/WRdwzai172.0-500.0[facility] Comment on above:Performed By: #### [id number] #### [facility] [address] [place] [address]ZVV (Bld) [#/Vol]4.8 E12/LNormal4.3-5.9W[facility]-Rittman HospitalComment on above:Performed By: #### [id number] #### [facility] [address] [place] [address]KSR corrected for nucl RBC Auto (Bld) [#/Vol]8.1 E9/LNormal 4.0-11.0[facility]-Rittman HospitalComment on above:Performed By: #### [id number] #### [facility] [address] [place] [address]JLCXROJKKCufxavg By: SYSTEM SYSTEM on 66-82-0680Hlzgt gap [Moles/Vol]13 mmol/LNormal6 - 16 mEq/LRemisol ChemCalcium [Mass/Vol]9.7 mg/dL Normal8.9 - 11.1 mg/dLRemisol ChemChloride [Moles/Vol]104 mmol/KQkibol086 - 111 mmol/LRemisol ChemCO2 [Moles/Vol]25 mmol/MOlwchd03 - 31 mmol/LRemisol Chem Creatinine [Mass/Vol]1.3 mg/dLNormal0.5 - 1.3 mg/dLRemisol LoxkcONV73 mL/min/1.73 m2Low>=59mL/min/1.73 g1Cdqdeqv ChemGlucose [Mass/Vol]88 mg/dLNormal 55 - 199 mg/dLRemisol ChemPotassium [Moles/Vol]4.2 mmol/LNormal3.5 - 5.3 mmol/L Remisol ChemSodium [Moles/Vol]138 mmol/CZxgclk319 - 145 mmol/LRemisol ChemUrea nitrogen [Mass/Vol]22 mg/dLHigh5 - 21 mg/dLRemisol ChemUrea nitrogen/Creatinine [Mass ratio]17 mg/irEoykej97 - 20Remisol [facility] CBC W/ AUTO DIFFon 08-04-2024 EOSINOPHILS/100 LEUKOCYTES:NFR:PT:BLD:QN:AUTOMATED COUNT2.6 %0.0 - 8.0 %NOM HealthcareEOSINOPHILS:NCNC:PT:BLD:QN:0.2NSaint [facility] BASOPHILS/LEUKOCYTES:NFR.DF:PT:BLD:QN:AUTOMATED UCXYY8JODKSaint John's Regional [facility] Center ERYTHROCYTE MEAN CORPUSCULAR HEMOGLOBIN CONCENTRATION:MCNC:PT:RBC:QN34.1NOMS [facility] ERYTHROCYTE MEAN CORPUSCULAR HEMOGLOBIN:ENTMASS:PT:RBC:QN30.1 pg 27.0 - 34.0 pgSaint John's Regional Health Center ERYTHROCYTE MEAN CORPUSCULAR VOLUME:ENTVOL:PT:RBC:QN:AUTOMATED COUNT88.4 fL80.0 - 100.0 fLSaint John's Regional Health Center ERYTHROCYTES:NCNC:PT:BLD:QN:AUTOMATED COUNT4.8NOSSM [facility] HEMOGLOBIN:MCNC:PT:BLD:QN:14.6NOSSM [facility] LEUKOCYTES8.1NOMS [facility] MONOCYTES:NCNC:PT:BLD:QN:AUTOMATED COUNT0.5[facility] NEUTROPHILS:NCNC:PT:BLD:QN:AUTOMATED UQPLC4XAPBFulton Medical Center- [facility]ult[facility] LYMPHOCYTES:NCNC:PT:BLD:QN:2.3NOMI HealthcarePlatelets (Bld) [#/Vol]270 10*3/uL NOMS HealthcareOriginal Ordering Provider: DO Favian [facility] HospitalHEMATOLOGYOrdered By: SYSTEM SYSTEM on 23-90-2185Lbjtrxlna/100 WBC (Bld)0.5 %Normal0.0 - 2.0 %Remisol HemeBasophils/Leukocytes Auto (Bld) [Pure # fraction]0.0 E9/LNormal0.0 - 0.2 E9/LRemisol HemeEosinophils (Bld) [#/Vol]0.2 E9/LNormal0.0 - 0.5 E9/LRemisol HemeEosinophils/100 WBC (Bld)2.6 %Normal0.0 - 8.0 %Remisol HemeErythrocyte distribution width (RBC) [Ratio]13.9 %Ibuuin20.9 - 14.2 %Remisol HemeHematocrit (Bld) [Volume fraction]42.7 %Odixvg45.0 - 46.0 % Remisol HemeHemoglobin (Bld) [Mass/Vol]14.6 g/pSNsbdgy06.0 - 16.0 gm/dLRemisol HemeLymphocytes (Bld) [#/Vol]2.3 E9/LNormal1.0 - 4.0 E9/LRemisol Heme Lymphocytes/100 WBC (Bld)28.2 %Wkhuxn51.0 - 50.0 %Remisol HemeMCH (RBC) [Entitic mass]30.1 xkMmunxf96.0 - 34.0 pgRemisol HemeMCHC (RBC) [Mass/Vol]34.1 g/dL Ituiyg98.4 - 36.0 gm/dLRemisol HemeMCV (RBC) [Entitic vol]88.4 cOEfzoyc90.0 - 100.0 fLRemisol HemeMonocytes (Bld) [#/Vol]0.5 E9/LNormal0.2 - 1.0 E9/LRemisol HemeMonocytes/100 WBC (Bld)6.4 %Normal4.0 - 14.0 %Remisol HemeNeutrophils (Bld) [#/Vol]5.0 E9/LNormal2.0 - 7.5 E9/LRemisol HemeNeutrophils/100 WBC (Bld)62.3 % Mhgjou93.0 - 75.0 %Remisol QeagUwsdzaow034.0 E9/RRahktd874.0 - 500.0 E9/LRemisol HemePlatelet mean volume (Bld) [Entitic vol]8.2 fLNormal6.4 - 10.8 fLRemisol HemeRBC (Bld) [#/Vol]4.8 E12/LNormal4.3 - 5.9 E12/LRemisol HemeWBC corrected for nucl RBC Auto (Bld) [#/Vol]8.1 E9/LNormal4.0 - 11.0 E9/LRemisol HemeeGFRon 26-68-9180eWWN94 mL/min/1.73 m2Low>=59[facility] CenterComment on above:Performed By: #### [id number] #### [facility] [address] [place] [address]Jok 07-07-2024 Specimen: [id number] Received: 07/07/24 Status: YING Jennifer Num: [id number] Spec Type: Surgical Subm Dr: Clyde Garcia MD Tissues: A Colon Biopsy (NEOTERMINAL ILEUM BX R/O BLENDER HELPER) Procedures: GENESIS/Harry, Gross/Micro L4 Age/ Patient Sex Location Account Attending Physician Darnell Sanches 69/F [id number] Clyde Garcia MD SPEC NUM: [id number] RECD: 07/07/24 STATUS: YING CAR NUM: [id number] RODGER: 07/07/24- [facility] DR: Clyde Garcia MD ENTERED: 07/07/24 [facility] DR: KIYA TYPE: Surgical DEPT: S ENTERED BY: [id number] RECV BY: [id number] ORDERED: HE/2, Gross/Micro L4 ORDERED: HE/2, Gross/Micro [...] submitted in a single cassette. (1, ns, [id number] A) Carissa Microscopic Description Microscopic examination is performed CPT Codes 73542 Specimen: [id number] Received: 07/07/24-1046 Status: YING Car Num: [id number] Spec Type: Surgical Subm Dr: Clyde Garcia MD Tissues: A Colon Biopsy (NEOTERMINAL ILEUM BX R/O BLENDER HELPER) Procedures: HE/2, Gross/Micro L4 Patient: Darnell Sanches [id number] (Continued) Signed (signature on file) Jeremias Solorzano MD 07/08/24 1018Normal [facility] Physician GroupErythrocyte distribution width Auto (RBC) [Ratio]on 90-19-2595Qwforvhmqbr distribution width (RBC) [Ratio]Erythrocyte distribution width [Ratio] by Automated count11.0-15.0[facility] Estimated glomerular filtration rate (GFR) non- Americanon 05-20-2024 GFR/1.73 sq M.predicted among non-blacks MDRD (S/P/Bld) [Vol rate/Area]Estimated glomerular filtration rate (GFR) non- AmericanLow>=60 mL/min/1.73m 2 [facility] HospitalHematocrit Auto (Bld) [Volume fraction]on 06-99-8757Ymhotdyeyj (Bld) [Volume fraction]Hematocrit [Volume Fraction] of Blood by Automated count36.0-48.0[facility] HospitalHemoglobin [Mass/volume] in Bloodon 22-23-8217Ztpehfohwl (Bld) [Mass/Vol]Hemoglobin [Mass/volume] in Blood12.0-16.0[facility] HospitalLaboratory - Chemistry and Chemistry - challengeon 99-46-1314Rhzyosr [Mass/Vol]3.9 g/dL 3.4-5.0[facility] HospitalCalcium [Mass/Vol]8.9 mg/dL8.5-10.1 [facility] HospitalChloride [Moles/Vol]102 mmol/P84-024XlvjbmqgxLima Memorial HospitalCO2 [Moles/Vol]22.0 mmol/L21.0-32.0[facility] HospitalCreatinine [Mass/Vol]1.63 mg/dLHigh0.55-1.02[facility] HospitalGFR/1.73 sq M.predicted MDRD (S/P/Bld) [Vol rate/Area]38 mL/min/{1.73_m2}Low>=60 mL/min/1.73m 2FKeenan Private HospitalGlucose [Mass/Vol]96 mg/lC18-816JyhrbmxwfLima Memorial HospitalMagnesium [Mass/Vol]2.0 mg/dL1.8-2.4FKeenan Private HospitalPotassium [Moles/Vol]3.7 mmol/L 3.5-5.1FEast Ohio Regional Hospitalodium [Moles/Vol]139 mmol/Z278-536 [facility] HospitalUrate [Mass/Vol]6.6 mg/dLHigh2.6-6.0[facility] HospitalUrea nitrogen [Mass/Vol]15.0 mg/dL7.0-18.0[facility] HospitalUrea nitrogen/Creatinine [Mass ratio]9.2 mg/mgLima Memorial HospitalBilirubin Ql (U)NegativeNEGATIVELima Memorial HospitalGlucose (U) [Mass/Vol]NegativeNEGATIVELima Memorial HospitalKetones Ql (U)NegativeNEGATIVELima Memorial HospitalpH (U)5.0 [pH]5.0-9.0Mercy Hospitalpecific gravity (U) [Rel density] >=1.348Rzmdsntx0.005-1.025[facility] HospitalUrobilinogen Qn (U) 0.2 {Lolis'U}/dL0.2-1.0[facility] HospitalLaboratory - Specimen informationon 64-54-9014Jcvachkumt (U)CLEARCLEARFKeenan Private HospitalColor (U)YELLOWYELLOWLima Memorial HospitalLaboratory - Urinalysison 63-80-1902Hwudgwcsf esterase Test strip Ql (U)NegativeNEGATIVE [facility] HospitalMucus Ql (Urine sed)NONE SEENNONE SEENLima Memorial HospitalNitrite Ql (U)NegativeNEGATIVELima Memorial HospitalProtein (U) [Mass/Vol]25.2 mg/dLHigh<=11.9[facility] HospitalProtein Ql (U)NegativeNEG/TRACELima Memorial HospitalLeukocytes [#/volume] corrected for nucleated erythrocytes in Blood by Automated counon 60-24-4413VPU corrected for nucl RBC Auto (Bld) [#/Vol]Leukocytes [#/volume] corrected for nucleated erythrocytes in Blood by Automated coun4.0-11.0[facility] Auto (RBC) [Entitic mass]on 97-80-3299PZC (RBC) [Entitic mass]MCH [Entitic mass] by Automated count26.7-34.0[facility] CenterHC Auto (RBC) [Mass/Vol]on 75-06-5132SQDQ (RBC) [Mass/Vol]MCHC [Mass/volume] by Automated count29.9-35.2FSalem Regional Medical CenterV Auto (RBC) [Entitic vol]on 38-26-6230SCQ (RBC) [Entitic vol]MCV [Entitic volume] by Automated count81.0-99.0[facility] HospitalNo Panel Information on 12-75-444548701370-Ranuuja Vitamin D Total46.5 ng/mLLima Memorial HospitalComment on above:<20 ng/mL Vit D khwliixnk29-<30 ng/mL Vit D skgemhpaoatf77-598 ng/mL Vit D sufficient>100 ng/mL Potential Toxicity Parathyroid Hormone (Intact)57 pg/uK07-04PfgnzffuzLima Memorial Hospital Comment on above:Performed at: CB - [facility] [address] [id number] Director: Edwin Sierra PhD, Phone: [phone] Level 3.2 mg/dL2.6-4.7FKeenan Private HospitalUrine BacteriaSMALL #/HPF AbnormalNONE SEENLima Memorial HospitalUrine Occult BloodNegative NEGATIVELima Memorial HospitalUrine Other CastsNONE SEEN #/LPFNONE SEENLima Memorial HospitalUrine Other CrystalsNone Seen #/HPFNone [facility] CenterUrine Random Qynjpfugbm735.12 mg/dL 20.00-300.00[facility] HospitalUrine RBC0-2 #/HPF0-2FKeenan Private HospitalUrine Squamous Epithelial CellsMODERATE #/LPFAbnormal NONE/RARELima Memorial HospitalUrine WBCNONE SEEN #/HPFNONE SEEN [facility] HospitalPlatelet mean volume Auto (Bld) [Entitic vol]on 83-99-5137Hoeusoac mean volume (Bld) [Entitic vol]Platelet mean volume [Entitic volume] in Blood by Automated count9.5-13.5FKeenan Private Hospital Platelets Auto (Bld) [#/Vol]on 13-59-6287Cnzzowskb (Bld) [#/Vol]Platelets [#/volume] in Blood by Automated dxrso983-976XbpsnbgahLima Memorial Hospital RBC Auto (Bld) [#/Vol]on 12-71-3862YAY (Bld) [#/Vol]Erythrocytes [#/volume] in Blood by Automated count4.20-5.40[facility] Hospitalerum or plasma anion gap determinationon 52-93-5680Hdukw gap [Moles/Vol]Serum or plasma anion gap determinationLima Memorial HospitalUrine protein/creatinine ratioon 56-40-2654Hehjzdo/Creatinine (U) [Ratio]Urine protein/creatinine ratio [facility] HospitalBD Bone Density DEXAon 17-97-9105RK Bone Density DEXAExam Date/Time: 04/10/2024 08:20 EDT [...] Ovidio Bunch MD Transcribed by: ARNULFO Technologist: [facility] HospitalMA Mamm Screen w/CAD if perf and 3D Bilon 88-44-3056CS Mamm Screen w/CAD if perf and 3D [...] VERY IMPORTANT TO YOUR HEALTH. THE CURRENT [employer] [employer] [...] Ovidio Bunch MD Transcribed by: ARNULFO Technologist: [facility] Assessment: BI-RADS Category 1-Negative Recommendation: Normal interval follow-upBartoloUniversity of Maryland St. [facility] 57-58-2906CBzwwfwsv: [id number] Received: 12/03/23 Status: YING Car Num: [id number] Spec Type: Surgical Subm Dr: Clyde Garcia MD Tissues: A Colon Biopsy (GEOFF TERMUNAL ILEUM BX) Procedures: HE/2, Gross/Micro L4 Age/ Patient Sex Location Account Attending Physician Dranell Sanches 68/F [id number] Clyde Garcia MD SPEC NUM: [id number] RECD: 12/03/23 STATUS: YING CAR NUM: [id number] RODGER: 12/03/[address]: Clyde Garcia MD ENTERED: 12/03/23 [facility] DR: SPEC TYPE: Surgical DEPT: S [...] cm, entirely submitted in A1. CPT Codes 10458 Specimen: [id number] Received: 12/03/23 Status: YING Car Num: [id number] Spec Type: Surgical Subm Dr: Clyde Garcia MD Tissues: A Colon Biopsy (GEOFF TERMUNAL ILEUM BX) Procedures: HE/Harry, Gross/Micro L4 Patient: Darnell Sanches [id number] (Continued) Signed (signature on file) Kristan Flores MD 12/04/[address] [place] [address] Physician GroupNo Panel Informationon 73-88-3052YEBD HealthcarePTH INTACTon 88-28-2376ETF, Vwcxyg98 pg/mLCritically rsly87-92Qak [facility] TrumbullComment on above:Performed By: #### PTHINT #### [facility] [address] [place] [address] Dr. Lamin FloresHEMOGRAM AND PLATELon 01-51-5772Qvfjjhuzsv (Bld) [Volume fraction]44.1 %Rjloti85.0-48.0The [facility] TrumbullComment on above:Performed By: #### RENAL, MG, URIC #### [facility] [address] [place] [address] Dr. Lamin FloresHemoglobin (Bld) [Mass/Vol]14.7 g/eZNdwqqi41.0-16.0The [facility] HospitalComment on above:Performed By: #### RENAL, MG, URIC #### [facility] [address] [place] [address] Dr. Lamin Dyer (RBC) [Entitic mass]29.9 geKthtnx67.7-34.0The [facility] TrumbullComment on above:Performed By: #### RENAL, MG, URIC #### [facility] [address] [place] [address] Dr. Lamin Dyer (RBC) [Mass/Vol]33.3 g/vZCjrina97.9-35.2The [facility] TrumbullComment on above:Performed By: #### RENAL, MG, URIC #### [facility] [address] [place] [address] Dr. Lamin Dyer (RBC) [Entitic vol]89.6 fCScwmwv75.0-99.0The [facility] TrumbullComment on above:Performed By: #### RENAL, MG, URIC #### [facility] [address] [place] [address] Dr. Lamin FloresPLT290 103/zpUkpnaz675-351Cqx [facility] TrumbullComment on above: Performed By: #### RENAL, MG, URIC #### [facility] [address] [place] [address] Dr. Lamin FloresRBC4.92 106/ulNormal4.20-5.40The [facility] TrumbullComment on above:Performed By: #### RENAL, MG, URIC #### [facility] [address] [place] [address] Dr. Lamin FloresWBC11.8 103/ulCritically high4.0-11.0The [facility] TrumbullComment on above:Performed By: #### RENAL, MG, URIC #### [facility] [address] [place] [address] Dr. Lamin FloresMAGNESIUMon 77-76-5915Zajwcljee [Mass/Vol]1.9 mg/dLNormal1.8-2.4 The [facility] TrumbullComment on above:Performed By: #### RENAL, MG, URIC #### [facility] [address] [place] [address] Dr. Lamin FloresRENAL FUNCTION PANELon 27-76-6887Rinrocv [Mass/Vol]4.3 g/dLNormal 3.4-5.0The [facility] TrumbullComment on above:Performed By: #### RENAL, MG, URIC #### [facility] [address] [place] [address] Dr. Lamin FloresCalcium [Mass/Vol]9.7 mg/dLNormal8.5-10.1The [facility] Comment on above:Performed By: #### RENAL, MG, URIC #### [facility] [address] [place] [address] Dr. Lamin FloresChloride [Moles/Vol]103 mmol/VLbsxqx49-315Wpe [facility] Comment on above:Performed By: #### RENAL, MG, URIC #### [facility] [address] [place] [address] Dr. Lamin FloresCO2 [Moles/Vol]27.4 mmol/VEcojgi90.0-32.0The [facility] Comment on above:Performed By: #### RENAL, MG, URIC #### [facility] [address] [place] [address] Dr. Lamin FloresCreatinine [Mass/Vol]1.44 mg/dLCritically high0.55-1.02The [facility] TrumbullComment on above:Performed By: #### RENAL, MG, URIC #### [facility] [address] [place] [address] Dr. Kimble ChangEGFR-AF PBSYLRZE42 mL/min/1.35k2Pvmaztnvnl low>=60[facility] CenterComment on above:Performed By: #### RENAL, MG, URIC #### [facility] [address] [place] [address] Dr. Lamin IsaacsGFR-NON AF QQSBVFEO23 mL/min/1.13z0Zahhpuwtky low>=60The [facility] TrumbullComment on above:Performed By: #### RENAL, MG, URIC #### [facility] [address] [place] [address] Dr. Lamin FloresGlucose [Mass/Vol]99 mg/vVZopumn72-099IfwCoshocton Regional Medical Center Comment on above:Performed By: #### RENAL, MG, URIC #### [facility] [address] [place] [address] Dr. Lamin FloresPhosphate [Mass/Vol]3.9 mg/dLNormal2.6-4.7The [facility] Comment on above:Performed By: #### RENAL, MG, URIC #### [facility] [address] [place] [address] Dr. Lamin FloresPotassium [Moles/Vol]4.3 mmol/LNormal3.5-5.1[facility] Comment on above:Performed By: #### RENAL, MG, URIC #### [facility] [address] [place] [address] Dr. Lamin FloresSodium [Moles/Vol]143 mmol/DEschjx087-817VexCoshocton Regional Medical Center Comment on above:Performed By: #### RENAL, MG, URIC #### [facility] [address] [place] [address] Dr. Lamin FloresUrea nitrogen [Mass/Vol]19.0 mg/dLCritically high7.0-18.0The [facility] TrumbullComment on above:Performed By: #### RENAL, MG, URIC #### [facility] [address] [place] [address] Dr. Lamin FloresUA RANDOM W/MICROSCOPICon 74-32-1516LGMAHZVCDOWCHKuwtjrqsACEQ SEENCoshocton Regional Medical CenterComment on above:Performed By: #### RENAL, MG, URIC #### [facility] [address] [address] [address] Lamin FloresBilirubin Ql (U)NegativeNormalNEGThe [facility] Comment on above:Performed By: #### RENAL, MG, URIC #### [facility] [address] [address] [address] Lamin FloresCASTMIK SEENNormalNONE SEENCoshocton Regional Medical CenterComment on above:Performed By: #### RENAL, MG, URIC #### [facility] [address] [address] [address] Lamin FloresClarity (U)CLEARNormalCLEARCoshocton Regional Medical CenterComment on above: Performed By: #### RENAL, MG, URIC #### [facility] [address] [place] [address] Dr. Lamin FloresColor (U)LT. YELLOWNormalYELLOWCoshocton Regional Medical CenterComment on above:Performed By: #### RENAL, MG, URIC #### [facility] [address] [place] [address] Dr. Lamin FloresCrystals LM Nom (Urine sed)NONE SEENNormalNONE SEENCoshocton Regional Medical CenterComment on above:Performed By: #### RENAL, MG, URIC #### [facility] [address] [place] [address] Dr. Kimble ChangEpithelial cells LM Ql (Urine sed)MODERATEAbnormalNONE SEEN /RARE The [facility] TrumbullComment on above:Performed By: #### RENAL, MG, URIC #### [facility] [address] [place] [address] Dr. Lamin FloresGlucose Ql (U)NegativeNormalNEGATIVECoshocton Regional Medical CenterComment on above:Performed By: #### RENAL, MG, URIC #### [facility] [address] [place] [address] Dr. Lamin FloresHemoglobin Ql (U)NegativeNormalNEGThe [facility] Comment on above:Performed By: #### RENAL, MG, URIC #### [facility] [address] [place] [address] Dr. Lamin Hughes Ql (U)NegativeNormalNEGATIVECoshocton Regional Medical CenterComment on above:Performed By: #### RENAL, MG, URIC #### [facility] [address] [place] [address] Dr. Lamin WilsonOCYTESNegativeNormalNEGATIVEThe [facility] TrumbullComment on above:Performed By: #### RENAL, MG, URIC #### [facility] [address] [place] [address] Dr. Lamin Neff SEENNormalNONE SEENThe [facility] TrumbullComment on above:Performed By: #### RENAL, MG, URIC #### [facility] [address] [place] [address] Dr. Lamin Grissom Ql (U)NegativeNormalNEGATIVEThe [facility] TrumbullComment on above:Performed By: #### RENAL, MG, URIC #### [facility] [address] [place] [address] Dr. Lamin FlorespH (U)6.0 [pH]Normal5-9[facility] Medical CenterComment on above: Performed By: #### RENAL, MG, URIC #### [facility] [address] [place] [address] Dr. Lamin Moss SEENAbnormal0-2[facility] Medical CenterComment on above: Performed By: #### RENAL, MG, URIC #### [facility] [address] [place] [address] Dr. Lamin FloresSPEC GRAVITY<=1.118Rlafreeo2.005-<=1.025The [facility] Comment on above:Performed By: #### RENAL, MG, URIC #### [facility] [address] [place] [address] Dr. Lamin Nguyen PROTEINNegativeNormalNEGATIVE/ TRACEThe [facility] Comment on above:Performed By: #### RENAL, MG, URIC #### [facility] [address] [place] [address] Dr. Lamin Carsonbiljulian Qn (U)0.2 {Lolis'U}/dLNormal0.2 - 1.0The [facility] TrumbullComment on above:Performed By: #### RENAL, MG, URIC #### [facility] [address] [place] [address] Dr. Lamin Overton SEENNormalNONE SEENThe [facility] TrumbullComment on above: Performed By: #### RENAL, MG, URIC #### [facility] [address] [place] [address] Dr. Lamin Alcazar ACID SERUMon 49-40-4026Ngiks [Mass/Vol]6.6 mg/dLCritically high2.6-6.0The [facility] TrumbullComment on above:Performed By: #### RENAL, MG, URIC #### [facility] [address] [place] [address] Dr. Lamin Cardenas T PROTEIN CREAT RATIOon 57-73-9808WW PROT CREAT RAT0.22 NormalThe [facility] TrumbullComment on above:Performed By: #### RENAL, MG, URIC #### [facility] [address] [place] [address] Dr. Lamin Titus TOTAL PROTEIN<6.0Normal<=12.0The [facility] TrumbullComment on above:Performed By: #### RENAL, MG, URIC #### [facility] [address] [place] [address] Dr. Lamin Cardenas CREAT27.42 mg/rCGwrxcy00.00-300.00[facility] Comment on above:Performed By: #### RENAL, MG, URIC #### [facility] [address] [place] [address] Dr. Lamin FloresVITAMIN D 25 OHon 46-02-5488CEJ D 25-OH49.4 ng/mLNormalThe [facility] TrumbullComment on above:Performed By: #### VITAD #### [facility] [address] [place] [address] Dr. Lamin Francis RANGESSEE BELOWNoKettering Health Daytone [facility] TrumbullComment on above: Result Comment: <20 ng/mL Vit D deficient 20 - <30 ng/mL Vit D insufficient 30 - 100 ng/mL Vit D sufficient >100 ng/mL Potential ToxicityPerformed By: #### VITAD #### [facility] [address] [place] [address] Dr. Lamin Sullivan KIDNEYSon 72-63-6911YK KIDNEYSEXAMINATION: US KIDNEYS HISTORY: CKD stage 3B [...] Electronically authenticated by: CRISTIAN HAWKINS Date: 2022-07-26 07:[address] [place], [place] [address]RENAL FUNCTION PANELon 32-22-6115Gytyhlv [Mass/Vol]4.0 g/dL Normal3.4-5.0[facility] CenterComment on above:Performed By: #### RENAL, MG, URIC #### [facility] [address] [place] [address] Dr. Lamin FloresCalcium [Mass/Vol]9.1 mg/dLNormal8.5-10.1[facility] Comment on above:Performed By: #### RENAL, MG, URIC #### [facility] [address] [place] [address] Dr. Lamin FloresChloride [Moles/Vol]100 mmol/PFclnzr96-705UwqCoshocton Regional Medical Center Comment on above:Performed By: #### RENAL, MG, URIC #### [facility] [address] [place] [address] Dr. Lamin FloresCO2 [Moles/Vol]26.2 mmol/NCxbogs97.0-32.0The [facility] Comment on above:Performed By: #### RENAL, MG, URIC #### [facility] [address] [place] [address] Dr. Lamin FloresCreatinine [Mass/Vol]1.40 mg/dLCritically high0.55-1.02The [facility] TrumbullComment on above:Performed By: #### RENAL, MG, URIC #### [facility] [address] [place] [address] Dr. Kimble ChangEGFR-AF KCAPNCUO00 mL/min/1.44r4Hyullpsstw low>=60The [facility] TrumbullComment on above:Performed By: #### RENAL, MG, URIC #### [facility] [address] [place] [address] Dr. Lamin IsaacsGFR-NON AF LYTDVPHD05 mL/min/1.95n9Lkppjbvyiy low>=60The [facility] TrumbullComment on above:Performed By: #### RENAL, MG, URIC #### [facility] [address] [place] [address] Dr. Lamin FloresGlucose [Mass/Vol]94 mg/fKVqxcal84-070Kvj [facility] Comment on above:Performed By: #### RENAL, MG, URIC #### [facility] [address] [place] [address] Dr. Lamin FloresPhosphate [Mass/Vol]3.5 mg/dLNormal2.6-4.7The [facility] Comment on above:Performed By: #### RENAL, MG, URIC #### [facility] [address] [place] [address] Dr. Lamin FloresPotassium [Moles/Vol]4.2 mmol/LNormal3.5-5.1The [facility] Comment on above:Performed By: #### RENAL, MG, URIC #### [facility] [address] [place] [address] Dr. Lamin FloresSodium [Moles/Vol]135 mmol/LCritically ray510-814Rgb [facility] on above:Performed By: #### RENAL, MG, URIC #### [facility] [address] [place] [address] Dr. Lamin FloresUrea nitrogen [Mass/Vol]18.0 mg/dLNormal7.0-18.0The [facility] on above:Performed By: #### RENAL, MG, URIC #### [facility] [address] [place] [address] Dr. Lamin FloresPTH INTACTon 92-13-7894OYH, Cgxrcq28 pg/uEZedzkr86-31Yxm [facility] on above:Performed By: #### RENAL, MG, URIC #### [facility] [address] [place] [address] Dr. Lamin FloresHEMOGRAM AND PLATELon 50-40-5716Bsplggknzs (Bld) [Volume fraction]42.0 %Llkrwz60.0-48.0The [facility] on above:Performed By: #### RENAL, MG, URIC #### [facility] [address] [place] [address] Dr. Lamin FloresHemoglobin (Bld) [Mass/Vol]14.4 g/eFIxvanq06.0-16.0The [facility] on above:Performed By: #### RENAL, MG, URIC #### [facility] [address] [place] [address] Dr. Lamin Dyer (RBC) [Entitic mass]29.4 usXidytf72.7-34.0The [facility] on above:Performed By: #### RENAL, MG, URIC #### [facility] [address] [place] [address] Dr. [facility]FR[facility]CH [facility] ([facility]) [Mass/Vol]34.3 g/bEFsmhed69.9-35.2The [facility] on above:Performed By: #### RENAL, MG, URIC #### [facility] [address] [place] [address] Dr. Lamin Dyer (RBC) [Entitic vol]85.7 nRRrqvif16.0-99.0The [facility] TrumbullComment on above:Performed By: #### RENAL, MG, URIC #### [facility] [address] [place] [address] Dr. Lamin FloresPLT300 103/esMsndtv503-296Qyo [facility] on above: Performed By: #### RENAL, MG, URIC #### [facility] [address] [place] [address] Dr. Lamin FloresRBC4.90 106/ulNormal4.20-5.40The [facility] TrumbullComment on above:Performed By: #### RENAL, MG, URIC #### [facility] [address] [place] [address] Dr. Lamin FloresWBC11.1 103/ulCritically high4.0-11.0The [facility] TrumbullComment on above:Performed By: #### RENAL, MG, URIC #### [facility] [address] [place] [address] Dr. Lamin FloresMAGNESIUMon 52-42-1231Gbmigkrbf [Mass/Vol]1.9 mg/dLNormal1.8-2.4 The [facility] TrumbullComment on above:Performed By: #### RENAL, MG, URIC #### [facility] [address] [place] [address] Dr. Lamin FloresRENAL FUNCTION PANELon 51-94-4446Hhgyahh [Mass/Vol]4.2 g/dLNormal 3.4-5.0The [facility] on above:Performed By: #### RENAL, MG, URIC #### [facility] [address] [place] [address] Dr. Lamin FloresCalcium [Mass/Vol]9.3 mg/dLNormal8.5-10.1The [facility] Comment on above:Performed By: #### RENAL, MG, URIC #### [facility] [address] [place] [address] Dr. Lamin FloresChloride [Moles/Vol]99 mmol/ENwykoz39-022Ods [facility] Comment on above:Performed By: #### RENAL, MG, URIC #### [facility] [address] [place] [address] Dr. Lamin FloresCO2 [Moles/Vol]26.0 mmol/VLthfqc23.0-32.0The [facility] Comment on above:Performed By: #### RENAL, MG, URIC #### [facility] [address] [place] [address] Dr. Lamin FloresCreatinine [Mass/Vol]1.92 mg/dLCritically high0.55-1.02The [facility] Tr[facility]ullComment on above:Performed By: #### RENAL, MG, URIC #### [facility] [address] [place] [address] Dr. Lamin IsaacsGFR-AF ODPGPMOS68 mL/min/1.95w4Stdjshjnko low>=60The [facility] TrumbullComment on above:Performed By: #### RENAL, MG, URIC #### [facility] [address] [place] [address] Dr. Lamin IsaacsGFR-NON AF TRLOCASI26 mL/min/1.73j7Atnktkhwba low>=60The [facility] Tr[facility]ullComment on above:Performed By: #### RENAL, MG, URIC #### [facility] [address] [place] [address] Dr. Lamin FloresGlucose [Mass/Vol]90 mg/mVJofrih77-247Ddd [facility] Comment on above:Performed By: #### RENAL, MG, URIC #### [facility] [address] [place] [address] Dr. Lamin FloresPhosphate [Mass/Vol]5.0 mg/dLCritically high2.6-4.7The [facility] - TrumbullComment on above:Performed By: #### RENAL, MG, URIC #### [facility] [address] [place] [address] Dr. Lamin FloresPotassium [Moles/Vol]4.3 mmol/LNormal3.5-5.1The [facility] Comment on above:Performed By: #### RENAL, MG, URIC #### [facility] [address] [place] [address] Dr. Lamin Gilbertum [Moles/Vol]136 mmol/DYvopgv062-155Fda [facility] Comment on above:Performed By: #### RENAL, MG, URIC #### [facility] [address] [place] [address] Dr. Lamin Austin nitrogen [Mass/Vol]18.0 mg/dLNormal7.0-18.0The [facility] TrumbullComment on above:Performed By: #### RENAL, MG, URIC #### [facility] [address] [place] [address] Dr. Lamin Nguyen RANDOM W/MICROSCOPICon [id number]P SEENThe [facility] TrumbullComment on above:Performed By: #### RENAL, MG, URIC #### [facility] [address] [place] [address] Dr. Lamin West Ql (U)SMALLAbnormalNEGATIVEThe [facility] TrumbullComment on above:Performed By: #### RENAL, MG, URIC #### [facility] [address] [place] [address] Dr. Lamin HorneENAbnormalNONE SEENCoshocton Regional Medical CenterComment on above: Performed By: #### RENAL, MG, URIC #### [facility] [address] [place] [address] Dr. Lamin Pascual (U)CLEARNormalCLEARThe [facility] TrumbullComment on above: Performed By: #### RENAL, MG, URIC #### [facility] [address] [address] [address] Lamin Villanueva (U)DK. ORANGEAbnormalYELLOWCoshocton Regional Medical CenterComment on above:Performed By: #### RENAL, MG, URIC #### [facility] [address] [place] [address] Dr. Lamin Fuentes LM Nom (Urine sed)NONE SEENNormalNONE SEENCoshocton Regional Medical CenterComment on above:Performed By: #### RENAL, MG, URIC #### [facility] [address] [place] [address] Dr. Kimble ChangEpithelial cells LM Ql (Urine sed)MANYAbnormalNONE SEEN /RARECoshocton Regional Medical CenterComselect specialty hospital on above:Performed By: #### RENAL, MG, URIC #### [facility] [address] [address] [address] Lamin FloresGlucose Ql (U)NegativeNormalNEGATIVECoshocton Regional Medical CenterComment on above:Performed By: #### RENAL, MG, URIC #### [facility] [address] [address] [address] Lamin FloresHemoglobin Ql (U)NegativeNormalNEGMagruder Memorial Hospital on above:Performed By: #### RENAL, MG, URIC #### [facility] [address] [address] [address] Lamin Verdugo CASTFEWNoCleveland Clinic South [facility]inte [facility] on above: Performed By: #### RENAL, MG, URIC #### [facility] [address] [address] [address] Lamin FloresKetones Ql (U)TRACEAbnormalNEGATIVECoshocton Regional Medical CenterComselect specialty hospital on above:Performed By: #### RENAL, MG, URIC #### [facility] [address] [place] [address] Dr. Lamin FloresLEUKOCYTESNegativeNonovant health ballantyne medical centerNEGWayne HealthCare Main Campusment on above:Performed By: #### RENAL, MG, URIC #### [facility] [address] [address] [address] Lamin FloresMUCOUSNONE SEENNormalNONE SEENPremier Health [facility] on above:Performed By: #### RENAL, MG, URIC #### [facility] [address] [address] [address] Lamin Kirkpatricktrite Ql (U)NegativeNormalNEGWayne HealthCare Main Campusment on above:Performed By: #### RENAL, MG, URIC #### [facility] [address] [address] [address] Lamin FlorespH (U)5.0 [pH]Normal5-9The [facility] HospitalComment on above: Performed By: #### RENAL, MG, URIC #### [facility] [address] [place] [address] Dr. Lamin Moss SEENAbnormal0-2The [facility] TrumbullComment on above: Performed By: #### RENAL, MG, URIC #### [facility] [address] [place] [address] Dr. Lamin FloresSPEC GRAVITY>=1.766Kmjpxoai4.005-<=1.025The [facility] Comment on above:Performed By: #### RENAL, MG, URIC #### [facility] [address] [place] [address] Dr. Lamin Nguyen PROTEINTRACENormalNEGATIVE/ TRACEThe [facility] TrumbullComment on above:Performed By: #### RENAL, MG, URIC #### [facility] [address] [place] [address] Dr. Lamin Carsonbilinogen Qn (U)1.0 {Lolis'U}/dLNormal0.2 - 1.0The [facility] TrumbullComment on above:Performed By: #### RENAL, MG, URIC #### [facility] [address] [place] [address] Dr. Lamin FloresWBC0-2AbnormalNONE SEENThe [facility] TrumbullComment on above: Performed By: #### RENAL, MG, URIC #### [facility] [address] [place] [address] Dr. Lamin Alcazar ACID SERUMon [id number] [Mass/Vol]6.8 mg/dLCritically high2.6-6.0The [facility] TrumbullComment on above:Performed By: #### RENAL, MG, URIC #### [facility] [address] [place] [address] Dr. Lamin Cardenas T PROTEIN CREAT RATIOon [id number] (U) [Mass/Vol] 42.6 mg/dLCritically high<=12.0The [facility] TrumbullComment on above:Performed By: #### RENAL, MG, URIC #### [facility] [address] [place] [address] Dr. Lamin Titus PROT CREAT RAT0.12Pro[facility]ant [facility]aconess HospitalComment on above: Performed By: #### RENAL, MG, URIC #### [facility] [address] [place] [address] Dr. Lamin Cardenas VUZEN800.19 mg/dLCritically high20.00-300.00The [facility] TrumbullComment on above:Performed By: #### RENAL, MG, URIC #### [facility] [address] [place] [address] Dr. Lamin FloresVITAMIN D 25 OHon [id number] D 25-OH47.3 ng/mLNormalThe [facility] TrumbullComment on above:Performed By: #### RENAL, MG, URIC #### [facility] [address] [place] [address] Dr. Lamin Francis RANGESSEE BELOWProtestant Deaconess HospitalComment on above: Result Comment: <20 ng/mL Vit D deficient 20 - <30 ng/mL Vit D insufficient 30 - 100 ng/mL Vit D sufficient >100 ng/mL Potential ToxicityPerformed By: #### RENAL, MG, URIC #### [facility] [address] [place] [address] Dr. Lamin FloresPTH INTACTon [id number], Tuecml35 pg/gMUlwnmq00-93Bjt [facility] TrumbullComment on above:Performed By: #### PTHINT #### [facility] [address] [place] [address] Dr. Lamin Mendes AUTO DIFFon [id number] #0.0 103/ulNormal0.0-0.1The [facility] TrumbullComment on above:Performed By: #### RENAL, MG, URIC #### [facility] [address] [place] [address] Dr. Lamin FloresBasophils/100 WBC (Bld)0.4 %Normal0.2-2.0[facility] Comment on above:Performed By: #### RENAL, MG, URIC #### [facility] [address] [place] [address] Dr. Lamin Stallworth #0.2 103/ulNormal0.0-0.7The [facility] TrumbullComment on above: Performed By: #### RENAL, MG, URIC #### [facility] [address] [place] [address] Dr. Lamin Isaacsosinophils/100 WBC (Bld)2.4 %Normal0.9-7.0The [facility] Comment on above:Performed By: #### RENAL, MG, URIC #### [facility] [address] [place] [address] Dr. Lamin Isaacsrythrocyte distribution width (RBC) [Ratio]12.8 %Ielztf23.0-15.0 The [facility] Hospitalment on above:Performed By: #### RENAL, MG, URIC #### [facility] [address] [place] [address] Dr. Lamin FloresHematocrit (Bld) [Volume fraction]44.4 %Tjvlrb05.0-48.0The [facility] TrumbullComment on above:Performed By: #### RENAL, MG, URIC #### [facility] [address] [place] [address] Dr. Lamin FloresHemoglobin (Bld) [Mass/Vol]14.4 g/sRGdghoo62.0-16.0The [facility] Hospitalment on above:Performed By: #### RENAL, MG, URIC #### [facility] [address] [place] [address] Dr. Lamin Mendes #0.02 10e3/ulNormal0.00-0.03The [facility] Hospitalment on above:Performed By: #### RENAL, MG, URIC #### [facility] [address] [place] [address] Dr. Lamin Mendes %0.3 %Normal0.0-0.5The [facility] Hospitalment on above: Performed By: #### RENAL, MG, URIC #### [facility] [address] [place] [address] Dr. Lamin Benites #2.3 103/ulNormal1.2-3.8The [facility] TrumbullComment on above:Performed By: #### RENAL, MG, URIC #### [facility] [address] [place] [address] Dr. Lamin Sanmphocytes/100 WBC (Bld)29.2 %Tfkeyo72.5-60.0The [facility] TrumbullComment on above:Performed By: #### RENAL, MG, URIC #### [facility] [address] [place] [address] Dr. Lamin AlejandroUAL DIFF REQNONormalThe [facility] TrumbullComment on above: Performed By: #### RENAL, MG, URIC #### [facility] [address] [place] [address] Dr. Lamin Dyer (RBC) [Entitic mass]29.6 imZphpaq91.7-34.0The [facility] TrumbullComment on above:Performed By: #### RENAL, MG, URIC #### [facility] [address] [place] [address] Dr. Lamin Dyer (RBC) [Mass/Vol]32.4 g/nQHqoqtt04.9-35.2The [facility] TrumbullComment on above:Performed By: #### RENAL, MG, URIC #### [facility] [address] [place] [address] Dr. Lamin Dyer (RBC) [Entitic vol]91.2 kIStqohn46.0-99.0The [facility] TrumbullComment on above:Performed By: #### RENAL, MG, URIC #### [facility] [address] [place] [address] Dr. Lamin Olivo #0.4 103/ulNormal0.3-0.8The [facility] TrumbullComment on above:Performed By: #### RENAL, MG, URIC #### [facility] [address] [place] [address] Dr. Lamin Herreraocytes/100 WBC (Bld)4.9 %Normal1.7-12.0The [facility] Comment on above:Performed By: #### RENAL, MG, URIC #### [facility] [address] [place] [address] Dr. Lamin Garcia #5.0 103/ulNormal1.4-6.5The [facility] Hospitalment on above:Performed By: #### RENAL, MG, URIC #### [facility] [address] [place] [address] Dr. Lamin Samuelutrophils/100 WBC (Bld)62.8 %Fpzvkk74.0-75.0The [facility] - TrumbullComment on above:Performed By: #### RENAL, MG, URIC #### [facility] [address] [place] [address] Dr. Lamin Edwardslet mean volume (Bld) [Entitic vol]10.7 fLNormal9.5-13.5The [facility] Hospitalment on above:Performed By: #### RENAL, MG, URIC #### [facility] [address] [place] [address] Dr. Lamin FloresPLT246 103/nbXcbxyu577-503Kvv [facility] on above: Performed By: #### RENAL, MG, URIC #### [facility] [address] [place] [address] Dr. Lamin FloresRBC4.87 106/ulNormal4.20-5.40The [facility] on above:Performed By: #### RENAL, MG, URIC #### [facility] [address] [place] [address] Dr. Lamin FloresWBC8.0 103/ulNormal4.0-11.0The [facility] on above: Performed By: #### RENAL, MG, URIC #### [facility] [address] [place] [address] Dr. Lamin FloresMAGNESIUMon 80-78-4907Qtblsjaqj [Mass/Vol]1.7 mg/dLCritically low 1.8-2.4The [facility] on above:Performed By: #### MG, RENAL, URIC #### [facility] [address] [place] [address] Dr. Lamin SmallsAL FUNCTION PANELon 49-83-1523Utmqjbj [Mass/Vol]3.7 g/dLNormal 3.4-5.0The [facility] TrumbullComment on above:Performed By: #### MG, RENAL, URIC #### [facility] [address] [address] [address] Lamin FloresCalcium [Mass/Vol]9.0 mg/dLNormal8.5-10.1The [facility] Comment on above:Performed By: #### MG, RENAL, URIC #### [facility] [address] [address] [address] Lamin FloresChloride [Moles/Vol]105 mmol/NNdomsj67-648Pai [facility] Comment on above:Performed By: #### MG, RENAL, URIC #### [facility] [address] [place] [address] Dr. Lamin FloresCO2 [Moles/Vol]27.5 mmol/KMoarxp94.0-32.0The [facility] Comment on above:Performed By: #### MG, RENAL, URIC #### [facility] [address] [address] [address] Lamin FloresCreatinine [Mass/Vol]1.46 mg/dLCritically high0.55-1.02The [facility] TrumbullComment on above:Performed By: #### MG, RENAL, URIC #### [facility] [address] [address] [address] Kimble ChangEGFR-AF CIXOOPPE62 mL/min/1.53q7Sscozbjtnp low>=60The [facility] TrumbullComment on above:Performed By: #### MG, RENAL, URIC #### [facility] [address] [address] [address] Lamin IsaacsGFR-NON AF XRJHWRCB37 mL/min/1.20l9Xfqjcxidvm low>=60The [facility] TrumbullComment on above:Performed By: #### MG, RENAL, URIC #### [facility] [address] [address] [address] Lamin FloresGlucose [Mass/Vol]94 mg/wANhnisu91-348AmwCoshocton Regional Medical Center Comment on above:Performed By: #### MG, RENAL, URIC #### [facility] [address] [address] [address] Lamin FloresPhosphate [Mass/Vol]3.8 mg/dLNormal2.6-4.7The [facility] Comment on above:Performed By: #### MG, RENAL, URIC #### [facility] [address] [address] [address] Lamin FloresPotassium [Moles/Vol]4.4 mmol/LNormal3.5-5.1[facility] Comment on above:Performed By: #### MG, RENAL, URIC #### [facility] [address] [place] [address] Dr. Lamin FloresSodium [Moles/Vol]141 mmol/BWactme561-223OptCoshocton Regional Medical Center Comment on above:Performed By: #### MG, RENAL, URIC #### [facility] [address] [place] [address] Dr. Lamin FloresUrea nitrogen [Mass/Vol]21.0 mg/dLCritically high7.0-18.0[facility] Medical CenterComment on above:Performed By: #### MG, RENAL, URIC #### [facility] [address] [place] [address] Dr. Lamin Nguyen RANDOM W/MICROSCOPICon 83-77-2950OTGZQWWQGUXWHNnldftesXSIT SEENCoshocton Regional Medical CenterComment on above:Performed By: #### UAMIC #### [facility] [address] [place] [address] Dr. Lamin Rosadoirubin Ql (U)NegativeNormalNEGATIVEThe [facility] Comment on above:Performed By: #### UAMIC #### [facility] [address] [place] [address] Dr. Lamin MacedoSEENAbnormalNONRobb SEENCoshocton Regional Medical CenterComment on above: Performed By: #### UAMIC #### [facility] [address] [place] [address] Dr. Lamin Luxarity (U)CLEARNormalCLEARThe Chris HospitalComment on above: Performed By: #### UAMIC #### [facility] [address] [address] [address] Lamin Villanueva (U)YELLOWNormalYELLOWCoshocton Regional Medical CenterComment on above: Performed By: #### UAMIC #### [facility] [address] [address] [address] Lamin FloresCrystals LM Nom (Urine sed)NONE SEENNormalNONE SEENCoshocton Regional Medical CenterComment on above:Performed By: #### UAMIC #### [facility] [address] [address] [address] Kimble ChangEpithelial cells LM Ql (Urine sed)MODERATEAbnormalNONE SEEN /RARE The [facility] TrumbullComselect specialty hospital on above:Performed By: #### UAMIC #### [facility] [address] [address] [address] Lamin FloresGlucose Ql (U)NegativeNormalNEGATIVECoshocton Regional Medical CenterComment on above:Performed By: #### UAMIC #### [facility] [address] [address] [address] Lamin FloresHemoglobin Ql (U)NegativeNormalNEGATIVEGeorgetown Behavioral Hospital on above:Performed By: #### UAMIC #### [facility] [address] [address] [address] Lamin FloresHYALINE CASTRARENormalCoshocton Regional Medical CenterComment on above: Performed By: #### UAMIC #### [facility] [address] [address] [address] Lamin FloresKetones Ql (U)TRACEAbnormalNEGATIVECoshocton Regional Medical CenterComselect specialty hospital on above:Performed By: #### UAMIC #### [facility] [address] [address] [address] Lamin FloresLEUKOCYTESNegativeNormalNEGATIVECoshocton Regional Medical CenterComselect specialty hospital on above:Performed By: #### UAMIC #### [facility] [address] [address] [address] Lamin FloresMUCOUSNONE SEENNormalNONE SEENThe [facility] TrumbullComment on above:Performed By: #### UAMIC #### [facility] [address] [place] [address] Dr. Lamin Kirkpatricktrite Ql (U)NegativeNormalNEGATIVEThe [facility] TrumbullComment on above:Performed By: #### UAMIC #### [facility] [address] [address] [address] Lamin FlorespH (U)5.5 [pH]Normal5-9The [facility] - TrumbullComment on above: Performed By: #### UAMIC #### [facility] [address] [address] [address] Lamin FloresRBCNONE SEENAbnormal0-2The [facility] TrumbullComment on above: Performed By: #### UAMIC #### [facility] [address] [place] [address] Dr. Lamin FloresSPEC GRAVITY1.075Fztazc4.005-<=1.025The [facility] TrumbullComment on above:Performed By: #### UAMIC #### [facility] [address] [place] [address] Dr. Lamin Nguyen PROTEINNegativeNormalNEGATIVE/ TRACEThe [facility] Comment on above:Performed By: #### UAMIC #### [facility] [address] [place] [address] Dr. Lamin FloresUrobilinogen Qn (U)0.2 {Lolis'U}/dLNormal0.2 - 1.0The [facility] TrumbullComment on above:Performed By: #### UAMIC #### [facility] [address] [place] [address] Dr. Lamin FloresWBC0-2AbnormalNONE SEENThe [facility] TrumbullComment on above: Performed By: #### UAMIC #### [facility] [address] [place] [address] Dr. Lamin FloresURIC ACID SERUMon 25-14-2127Ynfhm [Mass/Vol]6.0 mg/dLNormal 2.6-6.0The [facility] TrumbullComment on above:Performed By: #### MG, RENAL, URIC #### [facility] [address] [address] [address] Lamin Cardenas T PROTEIN CREAT RATIOon 49-43-4747Hsuffjy (U) [Mass/Vol] 28.0 mg/dLCritically high<=12.0The [facility] TrumbullComment on above:Performed By: #### RENAL, MG, URIC #### [facility] [address] [address] [address] Lamin Titus PROT CREAT RAT0.11NoWestern Reserve HospitalComment on above: Performed By: #### RENAL, MG, URIC #### [facility] [address] [place] [address] Dr. Lamin Cardenas OPHSN294.84 mg/gRJvdgrw65.00-300.00[facility] Comment on above:Performed By: #### RENAL, MG, URIC #### [facility] [address] [address] [address] Lamin FloresVITAMIN D 25 OHon 82-81-1844AAE D 25-OH41.6 ng/mLNormalCoshocton Regional Medical CenterComment on above:Performed By: #### RENAL, MG, URIC #### [facility] [address] [place] [address] Dr. Lamin Francis RANGESSEE BELOWProtestant Deaconess HospitalComment on above: Result Comment: <20 ng/mL Vit D deficient 20 - <30 ng/mL Vit D insufficient 30 - 100 ng/mL Vit D sufficient >100 ng/mL Potential ToxicityPerformed By: #### RENAL, MG, URIC #### [facility] [address] [place] [address] Dr. Lamin Flores Vital Signs Date TimeVital SignValuePerforming QiryxjzbqFrbcmvmb96-15-0216 14:30-0400Body loospp417.32 cmL[facility]04-[facility]-2025 14:30-0400Body mass index (BMI) [Ratio]28.9 kg/g3VpfyycgcgLima Memorial Hospital04-27-2025 14:30-0400Body mbrreccnrfz44.2 [degF][facility]04-27-2025 14:30-0400Body .79 kgLima [facility] Hospital04-27-2025 14:30-0400Diastolic blood xgptxuce08 mm[Hg][facility] 10-19-2024 14:30-0400Heart rate78 /[facility] 10-19-2024 14:30-0400Respiratory rate19 /[facility] 10-19-2024 14:30-9205VlO9% (BldA) [Mass fraction]97 %[facility]04-27-2025 14:30-0400Systolic blood thwqizgs314 mm[Hg][facility]03-10-2025 09:39-0400Body ocxhaf215.6 cmDavid Pocos DO Work Phone: [phone] [place], [place] 5833203-10-2025 09:39-0400Body mass index (BMI) [Ratio]27.73 kg/z2Eepod Pocos DO Work Phone: [phone] [place], [place] 5833203-10-2025 09:39-0400Body qmwigb25.24 kgDavid Pocos DO Work Phone: [phone] [place], [place] 5833202-07-2025 08:38-0500Body isbeeq314.6 cmDavid Pocos DO Work Phone: 1(265)[address] [place], [place] 5833202-07-2025 08:38-0500Body mass index (BMI) [Ratio]27.73 kg/k0Gmjfv Pocos DO Work Phone: 1(708)[address] [place], [place] 5833202-07-2025 08:38-0500Body pggyvc04.24 kgDavid Pocos DO Work Phone: 1(500)[address] [place], [place] 5833201-13-2025 10:15-0500Diastolic blood iufavevp14 mm[Hg]Anat Yanely DO Work Phone: 1(510)468-[facility]01-13-2025 10:15-0500 Heart rate54 /minElyse Yanely DO Work Phone: 1(353)439-[address] [place], [place] 5441401-13-2025 10:15-0500 Respiratory rate18 /minElyse Yanely DO Work Phone: 1(371)[address] [place], [place] 1573601-13-2025 10:15-0500 SaO2% (BldA) [Mass fraction]98 %Anat Yanely DO Work Phone: 1(874)[address] [place], [place] 1573601-13-2025 10:15-0500 Systolic blood ltgnoueg954 mm[Hg]Anat Yanely DO Work Phone: 1(492)[address] [place], [place] 1573601-13-2025 08:13-0500 Body .32 cmElyse Yanely DO Work Phone: 1(723)[address] [place], [place] 1573601-13-2025 08:13-0500 Body ytmbkq92.23 kgElyse Yanely DO Work Phone: 1(526)[address] [place], [place] 1573612-05-2024 10:33-0500 Body ecmxqo713.32 cmElyse Yanely DO Work Phone: 1(582)[address] [place], [place] 1573612-05-2024 10:33-0500 Body mass index (BMI) [Ratio]28.4 kg/y5Udvdc Yanely DO Work Phone: 1(393)[address] [place], [place] 1573612-05-2024 10:33-0500 Body lirqio06.68 kgElyse Yanely DO Work Phone: 1(024)[address] [place], [place] 1573612-05-2024 10:33-0500 Diastolic blood etcyeazb41 mm[Hg]Anat Yanely DO Work Phone: 1(134)[address] [place], [place] 1573612-05-2024 10:33-0500 Heart rate74 /minElyse Yanely DO Work Phone: 1(319)[address] [place], [place] 1573612-05-2024 10:33-0500 SaO2% (BldA) [Mass fraction]98 %Anat Yanely DO Work Phone: 1(898)[address] [place], [place] 1573612-05-2024 10:33-0500 Systolic blood mxpxgfba051 mm[Hg]Anat Yanely DO Work Phone: 1(300)[address] [place], [place] 1573612-03-2024 10:23-0500 Body mluqiw012.32 cmElyse Yanely DO Work Phone: 1(547)[address] [place], [place] 1573612-03-2024 10:23-0500 Body mass index (BMI) [Ratio]28.7 kg/d3Juiwu Yanely DO Work Phone: 1(600)[address] [place], [place] 1573612-03-2024 10:23-0500 Body snorhi22.28 kgElyse Yanely DO Work Phone: 1(569)[address] [place], [place] 1573612-03-2024 10:23-0500 Diastolic blood jrurupjr11 mm[Hg]Anat Yanely DO Work Phone: 1(099)[address] [place], [place] 1573612-03-2024 10:23-0500 Heart rate76 /minElyse Yanely DO Work Phone: 1(730)[address] [place], [place] 1573612-03-2024 10:23-0500 Systolic blood yzptfcgo372 mm[Hg]Anat Yanely DO Work Phone: 1(166)[address] [place], [place] 1573606-26-2024 13:25-0400 Body .32 cmDO Anat Yanely Work Phone: 1(548)[address] [place], [place] 1573606-26-2024 13:25-0400 Body mass index (BMI) [Ratio]29.2 kg/m2DO Anat Yanely Work Phone: 1(558)[address] [place], [place] 1573606-26-2024 13:25-0400 Body chdyhd09.5 kgDO Anat Yanely Work Phone: 1(001)[address] [place], [place] 1573606-26-2024 13:25-0400 Diastolic blood udovllyp68 mm[Hg]DO Anat Yanely Work Phone: 1(172)[address] [place], [place] 1573606-26-2024 13:25-0400 Systolic blood mm[Hg]DO Anat Yanely Work Phone: 1(238)[address]06-10-2024 11:05-0400 Diastolic blood locwutap46 mm[Hg]DO Anat Yanely Work Phone: 1(036)[address]06-10-2024 11:05-0400 Heart rate61 /minDO Anat Yanely Work Phone: 1(052)[address] [place], [place] 1573606-10-2024 11:05-0400 Respiratory rate18 /minDO Anat Yanely Work Phone: 1(903)[address]06-10-2024 11:05-0400 SaO2% (BldA) [Mass fraction]96 %DO Anat Yanely Work Phone: 1(927)[address]06-10-2024 11:05-0400 Systolic blood prrlysxe664 mm[Hg]DO Anat Yanely Work Phone: 1(653)[address] [place], [place] 1573605-28-2024 07:08-0400 Body kjobcj911.32 cmDO Anat Yanely Work Phone: 1(447)[address]05-28-2024 07:08-0400 Body aevmoq37 kgDO Anat Yanely Work Phone: 1(598)[address]05-21-2024 10:47-0400 Body .86 [facility] 10:47-0400Body mass index (BMI) [Ratio]28.6 kg/z1NkxweeaiaLima Memorial Hospital05-21-2024 10:47-0400Body bxwvcy67.41 kgL[facility]05-09-2024 14:28-0400Body rejdcb734.86 cm[facility]05-09-2024 14:28-0400Body mass index (BMI) [Ratio]29.1 kg/q1DifyqcifmLima Memorial Hospital05-09-2024 14:28-0400Body cdsumjrdhuv14.5 [degF][facility]05-09-2024 14:28-0400Body liplsm61.48 kg[facility] 11-01-2023 14:28-0400Diastolic blood mm[Hg][facility]05-09-2024 14:28-0400Heart rate57 /[facility] 11-01-2023 14:28-0400Respiratory rate16 /[facility] 11-01-2023 14:28-1243KtD2% (BldA) [Mass fraction]97 %[facility]05-09-2024 14:28-0400Systolic blood yrhmkpen002 mm[Hg][facility]10-18-2023 09:40-0400Body vexfmf890.86 cmAbdul Дмитрий Other Note Other 600999-98-3093 09:40-0400Body mass index (BMI) [Ratio] 28.27 kg/o1Vdyjo Дмитрий Other Note Other 10-18-2023 09:40-0400Body fnoqujgdfqp48.1 [degF]Michael Дмитрий Other Note Other 10-18-2023 09:40-0400Body imajya73.5 kgAbdul Дмитрий Other Note Other 158936-90-7066 09:40-0400Diastolic blood orbyyqon95 mm[Hg] Michael Дмитрий Other Note Other 10-18-2023 09:40-0400Respiratory rate18 /minAbdul Дмитрий Other Note Other 10-18-2023 09:40-1761EgP4% (BldA) [Mass fraction]98 % Michael Дмитрий Other Note Other 10-18-2023 09:40-0400Systolic blood cujnvarv843 mm[Hg] Michael Дмитрий Other [employer] Other 04-06-2023 11:20-0400Body jraemt570.86 cmAbdul Дмитрий Other [employer] Other 04-06-2023 11:20-0400Body mass index (BMI) [Ratio] 28.07 kg/t8Kupgy Дмитрий Other [employer] Other 04-06-2023 11:20-0400Body zuoanrsmbmh20.8 [degF]Michael Дмитрий Other [employer] Other 04-06-2023 11:20-0400Body xfredi81.05 kgAbdul Дмитрий Other [employer] Other 04-06-2023 11:20-0400Diastolic blood lcfoadny13 mm[Hg] Michael Дмитрий Other [employer] Other 04-06-2023 11:20-0400Respiratory rate18 /minAbdul Дмитрий Other [employer] Other 04-06-2023 11:20-5335NrS7% (BldA) [Mass fraction]99 % Michael Дмитрий Other Note Other 04-06-2023 11:20-0400Systolic blood ddoaaxfi250 mm[Hg] Michael Дмитрий Other Note Other 01-30-2023 10:40-0500Body sybkco273.86 cmAbdul Дмитрий Other Note Other 01-30-2023 10:40-0500Body mass index (BMI) [Ratio] 28.44 kg/e8Vssam Дмитрий Other Note Other 01-30-2023 10:40-0500Body snrrdododcr54.6 [degF]Michael Дмитрий Other Note Other 01-30-2023 10:40-0500Body ofclrf35.87 kgAbdul Димтрий Other Note Other 01-30-2023 10:40-0500Diastolic blood eyhqrizm87 mm[Hg] Michael Дмитрий Other Note Other 01-30-2023 10:40-0500Respiratory rate18 /minAbdul Дмитрий Other Note Other 01-30-2023 10:40-8919MvJ4% (BldA) [Mass fraction]98 % Michael Дмитрий Other Note Other 01-30-2023 10:40-0500Systolic blood pcbeumnw977 mm[Hg] Michael Дмитрий Other Note Other 07-25-2022 16:20-0400Body iodyvf408.86 cmAbdul Дмитрий Other Note Other 07-25-2022 16:20-0400Body mass index (BMI) [Ratio] 27.99 kg/c4Sqgio Дмитрий Other Note Other 07-25-2022 16:20-0400Body tujontwvddm71 [degF]Michael Дмитрий Other Note Other 07-25-2022 16:20-0400Body tcofgv51.87 kgAbdul Дмитрий Other Note Other 07-25-2022 16:20-0400Diastolic blood gubwollr57 mm[Hg] Michael Дмитрий Other Note Other 07-25-2022 16:20-0400Respiratory rate18 /minAbdul Дмитрий Other Note Other 07-25-2022 16:20-4033IkT0% (BldA) [Mass fraction]97 % Michael Дмитрий Other [employer] Other 07-25-2022 16:20-0400Systolic blood nvnecqay637 mm[Hg] Michael Дмитрий Other [employer] [facility] [employer] Other Encounters Encounter DateEncounter TypeCare ProviderFacilityStart: 04-13-2025 End: 93-50-0258maiipmdfpvBzygj C TinkerFacility:FTMCStart: 10-19-2024 End: 34-01-7265lcdtmnwwbgTardciozjBlanchard Valley Health System Work Phone: Start: 10-19-2024 End: 50-68-4535Xqcztql encounter procedureNov[facility] Justin Work Phone: Start: 09-01-2024 End: 08-80-1488Zpcblid encounter procedureDavid A Pocos DO Work Phone: noMS NB ORTHOComment on above:S/P trigger finger release (Primary Dx); Ganglion of flexor tendon sheath of right middle fingerStart: 09-01-2024 End: 52-89-5637xwhonspwelYUVYX A POCOSNot AvailableStart: 08-20-2024 End: 30-76-8576Qwkivr OnlyDavid A Pocos DO Work Phone: NOAV NB ORTHOComment on above:Trigger middle finger of right hand (Primary Dx)Start: 08-04-2024 End: 25-73-8249Itxwzfgws Result EncounterDavid A Pocos DO Work Phone: noms External Department UnsolicitedStart: 08-04-2024 End: 59-73-1313Xrnhhytis Result EncounterDavid A Pocos DO Work Phone: noms External Department UnsolicitedStart: 08-04-2024 End: 14-57-3658vueqphlvlmUzvbg A PocosFacility:FTMCStart: 08-04-2024 End: 73-18-3563Rzjfytm encounter procedureDavid A Pocos [facility] Start: 08-01-2024 End: 21-81-7871Lvliwns encounter procedureDavid A Pocos DO Work Phone: noms NB ORTHOComment on above:Right hand pain (Primary Dx); Trigger middle finger of right hand; Trigger ring finger of right hand; Preoperative testingStart: 08-01-2024 End: 01-65-5125Mhyyynr encounter statusDavid A Pocos DO Work Phone: noms HealthcareStart: 08-01-2024 End: 37-26-6054akxcdhdtkkYZFJX A POCOSNot AvailableStart: 83-18-5568Wya-patient / Non-visitElyse Yanely DO Work Phone: [facility] Work Phone: Start: 07-07-2024 End: 74-58-3550Yymsdivbd to same day surgery centerElyse Yanely DO Work Phone: [facility] Work Phone: Start: 07-07-2024 End: 84-64-8801extgzktiujHvkix C Yanely DO Work Phone: [facility] Work Phone: Start: 05-29-2024 End: 04-50-0013Scmbysc encounter procedureElyse Yanely DO Work Phone: [facility] Nephrology Justin Work Phone: Start: 05-27-2024 End: 78-48-3389Dnwelxe encounter procedureElyse Yanely DO Work Phone: [facility] Work Phone: Start: 23-57-7238Jeq-patient / Non-visitElyse Yanely DO Work Phone: [facility] Work Phone: Start: 04-10-2024 End: 12-15-6405mroqvhhlhfHucky C TinkerFacility:FTMCStart: 04-10-2024 End: 79-42-3498Lpilqwo encounter procedureElyse C Yanely [facility] Start: 12-19-2023 End: 64-29-4020eyihzjkmfePM Anat C Yanely Work Phone: [facility] Work Phone: Start: 12-19-2023 End: 59-74-4108Brilggi encounter procedureDO Anat Yanely Work Phone: [facility] Work Phone: Start: 27-30-4144Rjk-patient / Non-visitDO Anat Mortonker Work Phone: [facility] Work Phone: Start: 12-03-2023 End: 89-35-1031Cuztwyhdm to same day surgery centerDO Anat Yanely Work Phone: [facility] Work Phone: Start: 12-03-2023 End: 86-53-4951habpjmhofcKG Anat Kyra MortonYanely Work Phone: [facility] Work Phone: Start: 11-13-2023 End: 94-18-7967afltfrufacOhcgcseatKettering Health [facility]al [facility] Work Phone: Start: 11-13-2023 End: 84-80-3306Nysplrc encounter procedureNovant Health Phys[facility] G[facility] Work Phone: Start: 11-01-2023 End: 86-79-8648nxzpkwcvniCygutxwyxKettering Health Behavioral Medical Center Work Phone: Start: 11-01-2023 End: 16-45-7581Jzqwefi encounter procedureNovant Health [facility] Nephrology Justin Work Phone: Start: 31-84-5048Rmn-patient / Non-visitNovant Health Physician [facility] Work Phone: Start: 68-96-4330Jyuqve flowsheetNatalie A Felter 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-[employer] Work Phone: noms [facility] DERMStart: 76-71-5364Fmhday flowsheetNatalie A Felter 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-[employer] Work Phone: noms [facility]ERMStart: 08-08-2023 End: 32-73-1478Svwcclq encounter procedureNatalie A Felter 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-[employer] Work Phone: noms [facility] DERMComment on above:Seborrheic keratosis, inflamedStart: 04-11-2023 End: 66-92-3752uvyqogdgrxRzzhh Дмитрий Other [employer] Other Start: 28-39-7275Jxpojo outpatient visit 15 minutes Michael QadirFPG NephrologyStart: 04-09-2023 End: 22-93-3291Fujdcwn encounter procedureOlive Kyra Ny [facility] Start: 09-28-2022 End: 01-95-8553stzzbdjggkLbhss Дмитрий Other [employer] Other Start: 00-99-7436Funigg outpatient visit 25 minutes Michael QadirFPG NephrologyStart: 09-19-2022 End: 15-81-8360yxsztehxfbEUVFR QADIRFacility:P7Hycgq: 67-47-9493Orzxhdbvk encounterAbdul QadirFPG NephrologyStart: 07-26-2022 End: 99-13-8313nfdyvhogqfMJSVO QADIRNort [employer] Other Start: 62-60-0172Ucyixv outpatient visit 25 minutes Michael QadirFPG NephrologyStart: 07-24-2022 End: 74-43-1412fxtphzfqyeFBMOR QADIRNort [employer] Other Start: 07-17-2022 End: 36-74-0743qtdhfcqnylEYNAM QADIRFacility:Z2Hwarg: 01-16-2022 End: 70-10-0461ufrhzratsrGpufo Дмитрий Other [employer] Other Start: 28-33-6786Icxwyy outpatient visit 25 minutes Michael QadirFPG NephrologyStart: 01-09-2022 End: 93-23-3029stfjroxaxxUFWBV QADIRFacility:X6Eedky: 09-30-2021 End: 04-94-1740njhexiutksSnspw Hykes Other [employer] 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[employer] Work Phone: H/O: surgeryS/P trigger finger releaseDavid A Pocos DO Work Phone: History of decompression of median nerveHistory of carpal tunnel release of both wrists Plan of Treatment DateCare ActivityDetailAuthorStart: 09-01-2024 End: 31-90-2724Oitnxfu encounter lsdeyorug56/10/2025 9:45 AM EDT Office Visit [facility] [address] [facility] [place] [address] Ovi Moon DO [address] [place] [address] [facility] ORTHOStart: 08-01-2024 End: 45-88-4354Toqba metabolic 1998 panel - Serum or PlasmaBasic metabolic panel Lab Routine Preoperative testing Expected: 08/01/2024 (Approximate), Expires: 08/01/2025[facility] Work Phone: Comment on above:Expected: 08/01/2024 (Approximate), Expires: 08/01/2025Start: 08-01-2024 End: 20-58-6446OHR W Auto Differential panel - BloodCBC auto differential Lab Routine Preoperative testing Expected: 08/01/2024 (Approximate), Expires: 08/01/2025[facility] HealthcareComment on above:Expected: 08/01/2024 (Approximate), Expires: 08/01/2025Start: 08-01-2024 End: 75-61-7604QIW 12 leadECG 12 lead ECG Routine Preoperative testing Expected: 08/01/2024 (Approximate), Expires: 08/01/2025N[facility] HealthcareComment on above: Expected: 08/01/2024 (Approximate), Expires: 08/01/2025Start: 07-07-2024 [facility] End: 21-86-7937Ucwxhkb encounter pagtupago97/22/2024 9:25 AM EDT Office Visit [facility] [address] [place] [address] 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, 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-[employer] [address] [place] [address] [facility] D[facility]MStart: 93-14-4868NwfnzvaggMercy Hospitaltart: 09-06-2023 End: 94-39-8716Apyyscx encounter yoqozcltu08/14/2024 9:20 AM EDT Office Visit [facility] [address] [place] [address] 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, 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-[employer] [address] [place] [address] [facility]MStart: 08-08-2023 End: 25-07-4681Vaviver encounter xcyyuoxxl84/14/2024 8:50 AM EST Office Visit [facility] [address] [place] [address] 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, 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-[employer] [address] [place] [address] ArrivedNOMS SWS DERMComment on above: ArrivedStart: 27-09-0261Miqmfngsy for malignant neoplasm of breastMammogramNOMS HealthcareStart: 22-73-5720Mxlnhndvs for malignant neoplasm of colonNOMS HealthcarePatient EducationWvumedicine [facility] Hospital Work Phone: Renal function 1999 panel - Serum or [facility] HospitalRenal function 1999 panel - Serum or [facility] HospitalXR Hand - right 3 ViewsXR hand 3+ views right Imaging Routine Right hand pain 08/01/2024 7:57 AM [facility]Sun[facility] Immunizations Immunization DateImmunizationNotesCare IyreaabqUcjcnovt06-71-9554OXLYP-74 mRNA- 1273 (Moderna)DO Anat Yanely Work Phone: 1([phone] [place], [place] 5441404-06-2021COVID-19 mRNA-1273 (Moderna)DO Anat Yanely Work Phone: [phone] [place], [place] 5441403-09-2021COVID-19 mRNA-1273 (Moderna)DO Anat Yanely Work Phone: [phone] [place] [address] Payers DatePayer CategoryPayerPolicy [id number] Health [id number] 09-24-5193Krmh-[id number] Health [id number] 2022Medicare [id number] [id number] [id number] Health [id number] 08.10.830.8.25266[id number] 2.16.840.1.393783.3.57[id number] 2.16.840.1.087064.3.57[id number] 2.16840.1.591849.3.57[id number] 2.16840.1.738004.3.57[id number] 2.16840.1.768940.3.57[id number] 2.16840.1.889566.3.57[id number] 2.16840.1.049186.3.579.[id number] 2.16840.1.453072.3.57[id number] 2.16840.1.145271.3.57[id number] 2.16840.1.439374.3.579.[id number] 2.16840.1.119451.3.57[id number] 2.16840.1.74[id number]-[id number] 2.16840.1.403177.19Unknown [id number] 2.16.840.1.185[id number] 2.16.840.1.710103.3.579.2.531 Social History DateTypeDetailFacilityUnknown if ever smokedNorth [employer] Other Start: 07-12-2023 End: 27-17-9589Gzb Assigned At [facility] HospitalTobacco smoking statusNo Smoking Status EnteredClinton Memorial Hospitaltart: 05-19-2023 End: 12-35-9813Huzguna smoking status NHISEx-smokerNOMS Healthcare End: 40-24-4602Ewfamco of tobacco useCurrent smokerNOMS Healthcare End: 07-76-8387Jykjjhy of tobacco useCigarette SmokerNOMS HealthcareStart: 07-12-2023 End: 89-23-8739Torikpl intakeLifetime non-drinker (finding)[facility] HealthcareStart: 07-12-2023 End: 13-68-0312Cqnkbvp of Social functionNOMS HealthcareStart: 53-73-4073Mjcadvz Commentcaffeine: 1-2 cups per day teaNOMI HealthcareStart: 26-82-3237Abu Assigned At BirthNot on fileNOMI HealthcareStart: 88-75-6776Rzvxdt identity Identifies as female gender (finding)[facility] HealthcareStart: 57-42-7378Mvx Assigned At [facility]: 07-07-2024 End: 92-36-8660DdwDvalrv (finding)[facility]: 08-01-2024 End: 10-84-1680Mrmxbqztu beverage intakeEx-drinker (finding)[facility] Goals DatePatient GoalDesired Activity/State Clinical Notes 01-16-2022 to 09-01-2024 Note Date & UoqsHalhSdcskyqv16-31-7880 History of Present illness Narrative* Kassidy Kumar [...] ASPIRIN PO ergocalciferol (Vitamin D2) 1.25 MG (73559 UT) capsule lisinopril 40 mg, Daily mesalamine [...] 09/02/2024 4:36 PM EDT documented in this encounterFulton Medical Center- FultonCrijfkjfha04-15-2081 History of Present illness Narrative* Kassidy Kumar [...] to some extent. It does effect her paraffiner as well. She has tried some Bengay. [...] ASPIRIN PO ergocalciferol (Vitamin D2) 1.25 MG (41215 UT) capsule lisinopril 40 mg, Daily mesalamine [...] 08/04/2024 7:57 AM EST documented in this encounterFulton Medical Center- FultonPzdhmsslea95-25-1516 [place] [address] Gastroenterology H&P Signed Patient: Darnell Sanches MR#: [id number] 9 : 1955 Acct:[id number] Age/Sex: 69 / F Adm Date: 5 Loc: Room: Type: [facility] Attending Dr: Clyde Garcia MD [...] Garcia MD 07/07/2447 Signed By: 07/07/24 0847 [facility]01-13-2025 [place] [address] Colonoscopy Procedure Report Signed Patient: Darnell Sanches MR#: [id number] 9 : 1955 Acct:[id number] Age/Sex: 69 / F Adm Date: 5 Loc: Room: Type: [facility] Attending Dr: Clyde Garcia MD [...] slowly withdrawn with the findings as below. Ogden bowel prep score was good. Findings: There [...] MD 07/07/24 0942 Signed By: 07/07/24 0946 [facility]12-03-2024 Evaluation note* Diagnosis Onset Date Resolution Status Admit Date Crohn's disease of intestine acuteMay 27, 2024 10:18amGERD (gastroesophageal reflux disease)acute May 27, 2024 10:18amCKD (chronic kidney disease) stage 3, GFR 30-59 ml/min acuteMay 29, 2024 10:24amCrohn diseaseacutece2023 10:24am HyperlipidemiaacuteDecehealthsouth rehabilitation hospital [facility] 2023 10:24amHypertensive chronic kidney disease with stage 1 through stage 4 chronic kiacutece2023 10:24am HyperuricemiaacuteDece2023 10:24amSecondary hyperparathyroidismacute May 29, 2024 10:24am [facility] Work Phone: 1(852) 839-625106-10-[address] 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 [...] for any new/changing lesions documented in [facility]- [id number] Evaluation note* Encounter Date Diagnosis Assessment Notes [...] flare. We will monitor without any medication. Note Other 04-06-2023 Evaluation note* Encounter Date Diagnosis [...] flare. We will monitor without any medication. Note Other 01-30-2023 Evaluation note* Encounter Date Diagnosis [...] have advised her to adequately hydrate herself. Note Other 07-25-2022 Evaluation note* Encounter Date Diagnosis [...] - K50.90)Continue follow with GI for Crohn's [facility] enrich-in Other Evaluation + Plan note No data available for this section [facility]Evaluation noteNo InformationNortDepartment of [facility] enrich-in Other Evaluation note* Diagnosis Seborrheic keratosis, inflamed documented in this encounter [facility] Diagnosis Onset Date Resolution Status CKD (chronic kidney disease) stage 3, GF R 30-59 ml/min acuteCrohn lsukbpwj[id number] acuteSecondary hyperparathyroidismacute [facility] Work Phone: Evaluation note* Diagnosis Onset Date Resolution Status CKD (chronic kidney disease) stage 3, GF R 30-59 ml/min acuteCrohn uxxcrb[id number] acuteSecondary hyperparathyroidismacuteCrohn diseaseacuteGERD (gastroesophageal reflux disease)[facility] Work Phone: Evaluation note* Diagnosis Onset Date Resolution Status CKD (chronic kidney disease) stage 3, GF R 30-59 ml/min acuteCrohn xqntfjvrlzjfHettxgyahoszqnomdgmPBC-[id number] acuteSecondary hyperparathyroidismacuteCrohn diseaseacuteGERD (gastroesophageal reflux disease)acuteCrohn's disease of intestineacute [facility] Work Phone: Evaluation note* Diagnosis Right hand pain- Primary Pain in soft tissues of limb Trigger middle finger of right hand Trigger ring finger of right hand Preoperative testing Unspecified pre-operative examination documented in this encounter [facility] Healthcare[facility]* Diagnosis Trigger middle finger of right hand- Primary documented in this encounter [facility] HealthcareEvaluation note* Diagnosis S/P trigger finger release- Primary Ganglion of flexor tendon sheath of right middle finger documented in this encounter [facility] HealthcareEvaluation noteNo assessment information availableHighland [facility] Work Phone: History and physical note Author Clyde Garcia [facility] HospitalNote Date/TimeJanuary 2024 10:24am [place] [address] Gastroenterology H&P Signed Patient: Darnell Sanches MR#: [id number] 9 : 1955 Acct:[id number] Age/Sex: 69 / F Adm Date: 5 Loc: Room: Type: [facility] Attending Dr: Clyde Garcia MD [...] <Electronically signed by Clyde Garcia MD> 07/07/24846 [facility] Work Phone: History general Narrative - Reported* Type Description Date Medical History HTN Medical HistoryGERDMedical HistoryCrohn'sMedical HistoryCHRONIC KIDNEY DISEASE Surgical Historybowel resectionSurgical HistoryhysterectomySurgical History adhesionsSurgical Historyintussusception of bowelSurgical HistoryCARPAL TUNNEL RELEASE AND TRIGGER FINGER ON RIGHT HAND2021Hospitalization Historysee surgical hxHospitalization HistoryCHILD X 2 Note Other Hospital Discharge instructions No data available for this section [facility] Additional Instructions DISCHARGE INSTRUCTIONS [...] problems. -Follow up with PCP. -Office number [phone].[facility] Work Phone: Progress note No data available for this section [facility] Summary Purpose Family History No Family [...] 3, GFR 30-59 ml/min Crohn disease Hyperlipidemia [id number] Hyperuricemia Secondary hyperparathyroidism Chief Complaint Amb Documentation RENAL 6 month f/u Previous [facility] patient//constipationReason for VisitCKD (chronic kidney disease) stage 3, GFR 30-59 ml/min Crohn disease Hyperlipidemia [id number] Hyperuricemia Secondary hyperparathyroidism Crohn disease GERD (gastroesophageal reflux disease) Chief Complaint Amb Documentation RENAL 6 month f/u Previous [facility] patient//constipation crohn's disease. constipaiton crohn's disease. constipaitonReason for VisitCKD (chronic kidney disease) stage 3, GFR 30-59 ml/min Crohn disease Hyperlipidemia [id number] Hyperuricemia Secondary hyperparathyroidism Crohn disease GERD (gastroesophageal reflux disease) Chief Complaint RENAL 6 month f/u Previous [facility] patient//constipation crohn's disease. constipaiton crohn's disease. constipaiton FOLLOW UP COLONOSCOPYReason for VisitCKD (chronic kidney disease) stage 3, GFR 30-59 ml/min Crohn disease Hyperlipidemia [id number] Hyperuricemia Secondary hyperparathyroidism Crohn disease GERD (gastroesophageal [...] FOR VISIT (unrecogniz ed section and content) GrnhxhGwljgsvtBdmpdb-jkNxtgurEnsqubrlWesyTvbbdqNrikbzmnLnpy-pk INFORMATION SOURCE (unrecogn ized section and content) DATE CREATED AUTHOR 09/23/2022 [facility] DATE CREATED AUTHOR AUTHOR'S ORGANIZ ATION 07/14/2024 [facility] DATE CREATED AUTHOR AUTHOR'S ORGANIZ ATION 08/05/2024 [facility] DATE CREATED AUTHOR AUTHOR'S ORGANIZ ATION 09/02/2024 [facility] EPIC DATE CREATED AUTHOR AUTHOR'S ORGANIZ ATION 04/20/2025 [facility] Patient Care team informatio n (unrecognized section [...] MemberRelationshipSpecialtyStart DateEnd Date Anat Ny MD [address] [facility] [place] [phone] [facility]08/01/24Te MemberRelationshipSpecialtySt. [facility] Anat Ny MD [address] [place] [phone] [facility]08/01/24Te MemberRelationshipSpecialtySt. [facility] Anat Ny MD [address] [place] [address] [facility]08/01/24Te MemberRelationshipSprovidence regional medical center eve[facility]ial[facility] Anat Ny MD [address] [place] [address] [facility]08/01/24 Goals (unrecognized section and content) Goals may [...] BE BASED ON THE PRIMARY CLINICAL RECORDS. [employer] [facility]. provides no warranty or guarantee of the accuracy or completeness of information in this document.
[2025-06-01 07:23] LABS: Glucose Urine UA NEGATIVE (NEGATIVE)
[2025-06-01 07:23] LABS: Hematocrit 43.0 % (36.0-48.0); Hemoglobin 14.3 g/dL (12.0-16.0); Mean Corpuscular HGB Conc 33.3 g/dL (29.9-35.2); Mean Corpuscular Hemoglobin 30.0 pg (26.7-34.0); Mean Corpuscular Volume 90.3 fL (81.0-99.0); Platelet Count 244 10^3/uL (150-450); Red Blood Count 4.76 10^6/uL (4.20-5.40); White Blood Count 7.6 10^3/uL (4.0-11.0)
[2025-06-01 08:02] LABS: Protein Creatinine Ratio Urine 0.07; Total Protein Urine Random 14.6 mg/dL (<=11.9)
[2025-06-01 08:03] LABS: Cast Seen? NONE SEEN #/LPF (NONE SEEN); Crystals Seen? None Seen #/HPF (None Seen); Urine Culture Indicated NO
[2025-06-01 08:11] LABS: Albumin Level 4.2 g/dL (3.4-5.0); Anion Gap 14.2; Blood Urea Nitrogen 14.0 mg/dL (7.0-18.0); Calcium 9.4 mg/dL (8.5-10.1); Carbon Dioxide 27.9 mmol/L (21.0-32.0); Chloride 104 mmol/L (98-107); Estimated GFR (African America 47 (>=60 mL/min/1.73m^2); Estimated GFR (Non-African Ame 39 (>=60 mL/min/1.73m^2); Glucose 100 mg/dL (74-106); Magnesium 1.9 mg/dL (1.8-2.4); Potassium 4.1 mmol/L (3.5-5.1); Sodium 142 mmol/L (136-145); Uric Acid 5.8 mg/dL (2.6-6.0)
== END 2025-06-01 06:39 | disposition home or self-care (01) ==
LOC: LAB 06:40
PROVIDERS: PCP Family Medicine; Visit Provider Internal Medicine
DX: E78.5 Hyperlipidemia, unspecified (principal); K50.019 Crohn's disease of small intestine with unspecified complications; N25.81 Secondary hyperparathyroidism of renal origin; E79.0 Hyperuricemia without signs of inflammatory arthritis and tophaceous disease; I12.9 Hypertensive chronic kidney disease with stage 1 through stage 4 chronic kidney disease, or unspecified chronic kidney disease; N18.30 Chronic kidney disease, stage 3 unspecified
CPT/HCPCS: 36415; 80061; 80069; 81001; 82306; 82570; 83735; 83970; 84156; 84550; 85027